=== PATIENT | male | born 1985 | race Caucasian/White ===

== ENCOUNTER → 2016-10-10 | Outpatient (CLI) | payer MEDICARE, MEDICAID | LOC: RAD 13:33 | PROVIDERS: ATTEND Family Medicine | DX: J69.0 Pneumonitis due to inhalation of food and vomit (principal) | CPT/HCPCS: 71020 ==

== ENCOUNTER 2016-12-14 01:45 | Emergency (ER) | payer MEDICARE, MEDICAID ==
[2016-12-14] MEDS ORDERED: LEVETIRACETAM 500 MG/NACL-ISO 100 ML IV ONE (02:46)
--- NOTE | 2016-12-14 02:49 | ER Document Report ---
ED General - General Chief Complaint: Probable Seizure Stated Complaint: POSSIBLE SEIZURE Time seen by provider: 02:40 Notes: Patient is a 31-year-old male that comes emergency department by EMS from his retirement with chief complaint of seizure that happened this evening, patient was reported to have his eyes open and be shaking all extremities, seizure lasted about 45 seconds, patient appeared to be "gurgling" afterwards, EMS found patient is seen to have an oxygen saturation of 74% on room air, he was immediately placed on oxygen and this improved significantly. Patient has a PMH of epilepsy, MR, cerebral palsy. His last seizure was about 3 days ago. He is on Tegretol. Patient has a feeding tube, takes nothing by mouth, has a past medical history of frequent aspiration pneumonias. TRAVEL OUTSIDE OF THE [place] IN LAST 30 DAYS: No - Related Data Allergies/Adverse Reactions: levofloxacin [From Levaquin] Allergy (Severe, Verified 10/09/15 10:56) amoxicillin [Amoxicillin] Allergy (Unknown, Verified 10/09/15 10:56) Cephalosporins Allergy (Unknown, Verified 10/09/15 10:56) fentanyl [Fentanyl] Allergy (Unknown, Verified 10/09/15 10:56) midazolam HCl [From Versed] Allergy (Unknown, Verified 10/09/15 10:56) Penicillins Allergy (Unknown, Verified 10/09/15 10:56) vancomycin [Vancomycin] Allergy (Verified 10/09/15 10:56) rash ciprofloxacin [From Cipro] Adverse Reaction (Verified 10/09/15 10:56) increase seizures scopolamine [Scopolamine] Adverse Reaction (Verified 10/09/15 10:56) Tachycardia Past Medical History - General Information source: Emergency Med Personnel - Social History Smoking Status: Never Smoker Frequency of alcohol use: None Drug Abuse: None Lives with: Senior [facility] Family History: Reviewed & Not Pertinent, Other - Past Medical History Cardiac Medical History: Reports: Hx Hypercholesterolemia Pulmonary Medical History: Reports: Hx Pneumonia - aspiration, Hx Intubation, Hx Respiratory Failure Denies: Hx Tuberculosis Neurological Medical History: Reports: Hx Seizures - Epilepsy Renal/ Medical History: Reports: Hx Kidney Stones GI Medical History: Reports: Hx Gastroesophageal Reflux Disease - Choleleithiasis Musculoskeltal Medical History: Reports Hx Musculoskeletal Deformity - CONTRACTED, WHEELCHAIR BOUND Psychiatric Medical History: Denies: Hx Depression Past Surgical History: Reports: Hx Abdominal Surgery - G/J tube, Hx Orthopedic Surgery, Hx Tonsillectomy, Other - PEG - Immunizations Immunizations up to date: Yes Hx Diphtheria, Pertussis, Tetanus Vaccination: Yes Hx Pneumococcal Vaccination: 10/04/15 Review of Systems - Review of Systems Constitutional: No symptoms reported EENT: No symptoms reported Cardiovascular: See HPI Respiratory: See HPI Gastrointestinal: No symptoms reported Genitourinary: No symptoms reported Male Genitourinary: No symptoms reported Musculoskeletal: No symptoms reported Skin: No symptoms reported Hematologic/Lymphatic: No symptoms reported Neurological/Psychological: See HPI Physical Exam - Vital signs Vitals: Temp Pulse Resp BP Pulse Ox 98.5 F 105 H 13 124/87 H 96 12/14/16 01:48 12/14/16 01:48 12/14/16 01:48 12/14/16 01:48 12/14/16 01:48 Interpretation: Normal - General General appearance: Appears well, Alert In distress: None - Patient makes good eye contact, follows me with his eyes, nonverbal - HEENT Head: Normocephalic, Atraumatic Eyes: Normal Pupils: PERRL - Respiratory Respiratory status: No respiratory distress. No: Tachypnea Breath sounds: Other - Bilateral rhonchi Chest palpation: Normal - Cardiovascular Rhythm: Regular. No: Tachycardia Heart sounds: Normal auscultation, S1 appreciated, S2 appreciated Murmur: No - Abdominal Inspection: Other - Gastric feeding tube in place Distension: No distension Bowel sounds: Normal Tenderness: Nontender. No: Tender Organomegaly: No organomegaly - Back Back: Normal, Nontender. No: Tender - Extremities General upper extremity: Normal inspection, Nontender, Normal color, Normal ROM , Normal temperature General lower extremity: Normal inspection, Nontender, Normal color, Normal ROM , Normal temperature, Normal weight bearing. No: Lawrence's sign - Neurological Paula Coma Scale Motor: Obeys Commands - Patient follows directions including sticking out his tongue and following my finger with his eyes Cranial nerves: No: Facial palsy, Tongue deviation Sensory: Normal - Psychological Associated symptoms: Normal affect, Normal mood - Skin Skin Temperature: Warm Skin Moisture: Dry Skin Color: Normal Course - Re-evaluation Re-evalutation: CBC, laboratory workup unremarkable. Patient not hypoxic on oxygen, I turned off the oxygen and patient trended down and then stated around 92-93%. Patient with a few rhonchi on examination. Does not appear to be in distress. Tegretol unremarkable, patient was initially given Keppra. Chest x-ray shows improved but present aspiration pneumonia, patient by report aspirated again tonight, concern for possible development of pneumonia or worsening of current pneumonia. Blood cultures pending. Patient given clindamycin. Patient had pulled out his IV, this was given on a reorder history his G-tube. Called Dr. Patricia, patient's provider who has admitted patient multiple times in the past, discussed history of present illness and workup in detail, recommends continued clindamycin, follow-up in the office closely, return for any fever or worsening symptoms. Discussed this with windows systems administrator at bedside, states understanding and agreement. - Vital Signs Vital signs: Temp Pulse Resp BP Pulse Ox 99.5 F 105 H 23 H 110/77 95 12/14/16 06:10 12/14/16 01:48 12/14/16 06:01 12/14/16 06:01 12/14/16 06:01 - Laboratory Result Diagrams: 12/14/16 02:19 12/14/16 02:19 Laboratory results interpreted by me: 12/14/16 12/14/16 02:19 02:19 RBC 3.89 L Hgb 13.0 L Hct 37.7 L Sodium 132.7 L Creatinine 0.44 L Discharge - Discharge Clinical Impression: Seizure, Aspiration pneumonia Condition: Stable Disposition: HOME, SELF-CARE Additional Instructions: Please give clindamycin as directed for aspiration pneumonia. Follow-up with Dr. Patricia in the office on Saturday. Return to emergency department for any concerning or worsening symptoms including fevers, difficulty breathing, etc. Prescriptions: Clindamycin HCl 600 mg PO TID #42 capsule Referrals: WILLIS PATRICIA MD [Primary Care Provider] - Follow up as needed
[2016-12-14 03:00] LABS: ABSOLUTE LYMPHOCYTES (AUTO) 1.1 10^3/uL (0.5-4.7); ABSOLUTE MONOCYTES (AUTO) 0.4 10^3/uL (0.1-1.4); ABSOLUTE NEUT (AUTO) 3.6 10^3/uL (1.7-8.2); BASOPHILS % (AUTO) 0.3 % (0-2); EOSINOPHILS % (AUTO) 0.6 % (0-6); HEMATOCRIT 37.7 % (37.9-51.0); HGB HCT DIFFERENCE 1.3; LYMPHOCYTES % (AUTO) 21.6 % (13-45); MEAN CORPUSCULAR HEMOGLOBIN 33.3 pg (27.0-33.4); MEAN CORPUSCULAR HGB CONC 34.4 g/dL (32.0-36.0); MEAN CORPUSCULAR VOLUME 97 fl (80-97); MONOCYTES % (AUTO) 7.1 % (3-13); RED BLOOD COUNT 3.89 10^6/uL (4.35-5.55); RED CELL DISTRIBUTION WIDTH 13.6 % (11.5-14.0); SEGMENTED NEUTROPHILS % (AUTO) 70.4 % (42-78); WHITE BLOOD COUNT 5.2 10^3/uL (4.0-10.5)
[2016-12-14 03:17] LABS: VENOUS BLOOD BASE EXCESS -2.1 mmol/L; VENOUS BLOOD PCO2 35.6 mmHg (35-63); VENOUS BLOOD PH 7.41 (7.30-7.42)
[2016-12-14 03:17] LABS: ALANINE AMINOTRANSFERASE 32 U/L (21-72); ALBUMIN 4.1 g/dL (3.5-5.0); ALKALINE PHOSPHATASE 120 U/L (38-126); ANION GAP 11 (5-19); ASPARTATE AMINO TRANSFERASE 27 U/L (17-59); BILIRUBIN,TOTAL 0.3 mg/dL (0.2-1.3); BLOOD UREA NITROGEN 11 mg/dL (7-20); CALCIUM 9.4 mg/dL (8.4-10.2); CARBON DIOXIDE 23 mmol/L (22-30); CHLORIDE 99 mmol/L (98-107); CREATININE RESULT 0.44 mg/dL (0.52-1.25); GLUCOSE 83 mg/dL (75-110); MAGNESIUM 1.9 mg/dL (1.6-2.3); POTASSIUM 4.8 mmol/L (3.6-5.0); SODIUM 132.7 mmol/L (137-145); TOTAL PROTEIN 7.7 g/dL (6.3-8.2)
[2016-12-14] MEDS ORDERED: CLINDAMYCIN 600 MG/D5W RTU 50 ML IV ONE (05:23)
[2016-12-14] MEDS ORDERED: CLINDAMYCIN HCL 150 MG CAPSULE PO ONE ×2 (05:48→06:05)
[2016-12-14 06:05] VITALS: BP 110/77
== END 2016-12-14 06:27 | disposition home or self-care (01) ==
LOC: ER 01:45
DX: G40.909 Epilepsy, unspecified, not intractable, without status epilepticus (principal); J69.0 Pneumonitis due to inhalation of food and vomit; G80.9 Cerebral palsy, unspecified; K21.9 Gastro-esophageal reflux disease without esophagitis; E78.00 Pure hypercholesterolemia, unspecified; Z88.0 Allergy status to penicillin; Z88.3 Allergy status to other anti-infective agents; Z87.442 Personal history of urinary calculi; Z93.1 Gastrostomy status; Z99.3 Dependence on wheelchair
CPT/HCPCS: 99284; 96374; 36415; 87040; 83735; 80156; 85025; 87077; 80053; 87186; 82803; 71020; A9270; J1953

== ENCOUNTER → 2016-12-20 | Outpatient (CLI) | payer MEDICARE, MEDICAID | LOC: OD 13:45 | PROVIDERS: ATTEND Family Medicine | DX: J18.8 Other pneumonia, unspecified organism (principal); K59.09 Other constipation | CPT/HCPCS: 71010; 74000 ==

== ENCOUNTER → 2017-01-04 | Outpatient (CLI) | payer MEDICARE, MEDICAID ==
[2017-01-04 12:55] LABS: ABSOLUTE LYMPHOCYTES (AUTO) 1.3 10^3/uL (0.5-4.7); ABSOLUTE NEUT (AUTO) 8.7 10^3/uL (1.7-8.2); BASOPHILS % (AUTO) 0.2 % (0-2); EOSINOPHILS % (AUTO) 0.3 % (0-6); HEMATOCRIT 35.4 % (37.9-51.0); HGB HCT DIFFERENCE 0.6; LYMPHOCYTES % (AUTO) 12.1 % (13-45); MEAN CORPUSCULAR HEMOGLOBIN 33.1 pg (27.0-33.4); MEAN CORPUSCULAR HGB CONC 33.8 g/dL (32.0-36.0); MEAN CORPUSCULAR VOLUME 98 fl (80-97); MONOCYTES % (AUTO) 9.1 % (3-13); RED BLOOD COUNT 3.62 10^6/uL (4.35-5.55); RED CELL DISTRIBUTION WIDTH 13.1 % (11.5-14.0); SEGMENTED NEUTROPHILS % (AUTO) 78.3 % (42-78); WHITE BLOOD COUNT 11.1 10^3/uL (4.0-10.5)
[2017-01-04 13:18] LABS: ANION GAP 16 (5-19); BLOOD UREA NITROGEN 9 mg/dL (7-20); CALCIUM 9.2 mg/dL (8.4-10.2); CARBON DIOXIDE 24 mmol/L (22-30); CHLORIDE 99 mmol/L (98-107); CREATININE RESULT 0.47 mg/dL (0.52-1.25); GLUCOSE 55 mg/dL (75-110); POTASSIUM 4.5 mmol/L (3.6-5.0); SODIUM 139.1 mmol/L (137-145)
== END ==
LOC: OD 11:37
PROVIDERS: ATTEND Family Medicine
DX: R50.9 Fever, unspecified (principal)
CPT/HCPCS: 36415; 71010; 80048; 85025

== ENCOUNTER 2017-03-26 10:49 | Inpatient (IN) | payer MEDICARE, MEDICAID ==
[2017-03-26] MEDS ORDERED: NORMAL SALINE 1000 ML 1,000 ML IV ONE (11:32)
[2017-03-26] MEDS ORDERED: ALBUTEROL SULFATE 0.083% NEB 2.5 MG/3 ML AMPUL NEB ONE ×2 (11:32→14:20)
[2017-03-26] MEDS ORDERED: LIDOCAINE 2% URO-JET 5 ML KIT MM ONE (11:49)
--- NOTE | 2017-03-26 12:00 | RADIOLOGY REPORT (SQ) ---
EXAM DESCRIPTION: CHEST SINGLE VIEW COMPLETED DATE/TIME: 03/26/2017 11:38 am REASON FOR STUDY: possible aspiration COMPARISON: 01/04/2017 EXAM PARAMETERS: NUMBER OF VIEWS: One view. TECHNIQUE: Single frontal radiographic view of the chest acquired. RADIATION DOSE: NA LIMITATIONS: Poor inspiration. FINDINGS: LUNGS AND PLEURA: Minimal atelectasis or scarring in the left base unchanged from the prio r study. Significant improvement in previous noted abnormal density in the right lung base with mild residual linear density probably atelectasis. Possibility of recurrent aspiration or pneumonia bg ot be excluded. Remainder lungs are clear. No effusions. MEDIASTINUM AND HILAR STRUCTURES: No masses. Contour normal. HEART AND VASCULAR STRUCTURES: Heart normal in size. Normal vasculature. BONES: No acute findings. HARDWARE: None in the chest. . OTHER: Marked gaseous distention of the colon in the upper abdomen IMPRESSION: 1. Significant improvement in the previous noted abnormal density in the right base wit h mild residual, likely atelectasis or scarring. Recurrent aspiration or pneumonia cannot be exclude d. 2. Marked gaseous distention of the colon in the upper abdomen. Abdomen films should be considered for further evaluation. TECHNICAL DOCUMENTATION: JOB ID: [id number]
[2017-03-26] MEDS ORDERED: CLINDAMYCIN 600 MG/D5W RTU 50 ML IV ONE (13:44)
[2017-03-26 13:55] LABS: VENOUS BLOOD BASE EXCESS 2.2 mmol/L; VENOUS BLOOD HCO3 28.2 mmol/L (20-32); VENOUS BLOOD PCO2 48.8 mmHg (35-63); VENOUS BLOOD PH 7.38 (7.30-7.42)
[2017-03-26 13:56] LABS: HEMATOCRIT 42.7 % (37.9-51.0); HGB HCT DIFFERENCE -0.7; MEAN CORPUSCULAR HEMOGLOBIN 31.9 pg (27.0-33.4); MEAN CORPUSCULAR HGB CONC 32.9 g/dL (32.0-36.0); MEAN CORPUSCULAR VOLUME 97 fl (80-97); RED CELL DISTRIBUTION WIDTH 14.7 % (11.5-14.0); WHITE BLOOD COUNT 20.5 10^3/uL (4.0-10.5)
[2017-03-26 14:05] LABS: PROTHROMBIN TIME 12.4 SEC (11.4-15.4)
[2017-03-26 14:17] LABS: ALANINE AMINOTRANSFERASE 45 U/L (21-72); ALBUMIN 5.2 g/dL (3.5-5.0); ALKALINE PHOSPHATASE 192 U/L (38-126); ANION GAP 19 (5-19); ASPARTATE AMINO TRANSFERASE 32 U/L (17-59); BILIRUBIN,DIRECT 0.5 mg/dL (0.0-0.4); BILIRUBIN,TOTAL 0.6 mg/dL (0.2-1.3); BLOOD UREA NITROGEN 13 mg/dL (7-20); CALCIUM 10.3 mg/dL (8.4-10.2); CARBON DIOXIDE 25 mmol/L (22-30); CHLORIDE 94 mmol/L (98-107); CREATININE RESULT 0.68 mg/dL (0.52-1.25); GLUCOSE 112 mg/dL (75-110); POTASSIUM 3.8 mmol/L (3.6-5.0); SODIUM 137.9 mmol/L (137-145); TOTAL PROTEIN 10.6 g/dL (6.3-8.2)
[2017-03-26 14:18] LABS: BAND NEUTROPHILS % (MANUAL) 5 % (3-5); BASOPHILS % (MANUAL) 0 % (0-2); EOSINOPHILS % (MANUAL) 0 % (0-6); LYMPHOCYTES % (MANUAL) 5 % (13-45); TOTAL CELLS COUNTED 100
[2017-03-26 14:20] LABS: ANISOCYTOSIS SLIGHT; TOXIC GRANULATION 1+
[2017-03-26 14:32] LABS: APPEARANCE,URINE SLIGHTLY-CLOUDY; BILIRUBIN,URINE NEGATIVE (NEGATIVE); GLUCOSE, URINE 50 mg/dL (NEGATIVE); KETONES,URINE NEGATIVE (NEGATIVE); LEUKOCYTE ESTERASE,URINE NEGATIVE (NEGATIVE); NITRITE,URINE NEGATIVE (NEGATIVE); PROTEIN,URINE 100 mg/dL (NEGATIVE); URINE SPECIFIC GRAVITY 1.025; UROBILINOGEN,URINE NEGATIVE mg/dL (<2.0)
--- NOTE | 2017-03-26 14:52 | RADIOLOGY REPORT (SQ) ---
EXAM DESCRIPTION: ABDOMEN 2 VIEWS COMPLETED DATE/TIME: 03/26/2017 2:33 pm REASON FOR STUDY: eval colon distension from cxr COMPARISON: Chest films 03/26/2017, 01/04/2017 KUB 12/20/2016 NUMBER OF VIEWS: Two views. TECHNIQUE: Supine and upright radiographic images of the abdomen acquired. LIMITATIONS: None. FINDINGS: FREE AIR: None. No abnormal gas collections. LUNG BASES: Right basilar atelectasis or pneumonia. BOWEL GAS PATTERN: Large amount of stool in the ascending colon. Massively distended transverse colo n. Gas and stool in the descending colon. Multiple dilated small bowel loops in the mid epigastrium . Abnormal but nonspecific bowel gas pattern. Gastrojejunostomy tube in place. CALCIFICATIONS: No suspicious calcifications. SOFT TISSUES: No gross mass or suggestion of organomegaly. HARDWARE: Gastrojejunostomy tube. BONES: Osteoporotic OTHER: No other significant finding. IMPRESSION: Nonspecific bowel gas pattern with market gaseous distention of the transverse colon, la rge amount of stool in the ascending colon, and few dilated small bowel loops in the mid epigastrium Findings were discussed withDr Alex TECHNICAL DOCUMENTATION: JOB ID: [id number] [employer]- All Rights Reserved
[2017-03-26] MEDS ORDERED: AZTREONAM INJ 1 GM VIAL IV ONE (14:57)
--- NOTE | 2017-03-26 15:02 | ER Document Report ---
ED General - General Chief Complaint: Breathing Difficulty Stated Complaint: DIFFICULTY PROBLEMS Time Seen by Provider: 03/26/17 11:13 TRAVEL OUTSIDE OF THE [place] IN LAST 30 DAYS: No - HPI Patient complains to provider of: Respiratory distress Notes: Patient coming over today for respiratory distress. Patient has a history of mental retardation cerebral palsy. Patient is nonverbal. According to the healthcare worker patient vomited today did not have some difficulty breathing. Patient does have extensive history of aspiration pneumonia. Patient is afebrile alert requiring 2 L oxygen at this time no signs of any distress - Related Data Allergies/Adverse Reactions: levofloxacin [From Levaquin] Allergy (Severe, Verified 10/09/15 10:56) amoxicillin [Amoxicillin] Allergy (Unknown, Verified 10/09/15 10:56) Cephalosporins Allergy (Unknown, Verified 10/09/15 10:56) fentanyl [Fentanyl] Allergy (Unknown, Verified 10/09/15 10:56) midazolam HCl [From Versed] Allergy (Unknown, Verified 10/09/15 10:56) Penicillins Allergy (Unknown, Verified 10/09/15 10:56) vancomycin [Vancomycin] Allergy (Verified 10/09/15 10:56) rash ciprofloxacin [From Cipro] Adverse Reaction (Verified 10/09/15 10:56) increase seizures scopolamine [Scopolamine] Adverse Reaction (Verified 10/09/15 10:56) Tachycardia Past Medical History - Social History Smoking Status: Never Smoker Chew tobacco use (# tins/day): No Frequency of alcohol use: None Drug Abuse: None Family History: Reviewed & Not Pertinent, Other - Past Medical History Cardiac Medical History: Reports: Hx Hypercholesterolemia Pulmonary Medical History: Reports: Hx Pneumonia - aspiration, Hx Intubation, Hx Respiratory Failure Denies: Hx Tuberculosis Neurological Medical History: Reports: Hx Seizures - Epilepsy Renal/ Medical History: Reports: Hx Kidney Stones GI Medical History: Reports: Hx Gastroesophageal Reflux Disease - Choleleithiasis Musculoskeltal Medical History: Reports Hx Musculoskeletal Deformity - CONTRACTED, WHEELCHAIR BOUND Psychiatric Medical History: Denies: Hx Depression Past Surgical History: Reports: Hx Abdominal Surgery - J tube, Hx Orthopedic Surgery, Hx Tonsillectomy, Other - PEG - Immunizations Immunizations up to date: Yes Hx Diphtheria, Pertussis, Tetanus Vaccination: Yes Hx Pneumococcal Vaccination: 10/04/15 Review of Systems - Review of Systems -: Yes ROS unobtainable due to patient's medical condition - Verbal mental retardation. Physical Exam - Vital signs Vitals: Temp Resp 98.0 F 27 H 03/26/17 11:15 03/26/17 11:15 Interpretation: Tachycardic, Hypoxic - General General appearance: Appears well, Alert - HEENT Head: Normocephalic, Atraumatic Eyes: Normal Pupils: PERRL - Respiratory Respiratory status: No respiratory distress Chest status: Nontender Breath sounds: Rhonchi Chest palpation: Normal - Cardiovascular Rhythm: Tachycardia Heart sounds: Normal auscultation Murmur: No - Abdominal Inspection: Normal Distension: No distension Bowel sounds: Normal Tenderness: Nontender Organomegaly: No organomegaly Notes: J-tube no signs of infection - Back Back: Normal, Nontender - Extremities General upper extremity: Normal inspection, Nontender, Normal color, Normal ROM , Normal temperature General lower extremity: Normal inspection, Nontender, Normal color, Normal ROM , Normal temperature, Normal weight bearing. No: Lawrence's sign - Neurological Neuro grossly intact: Yes Cognition: Normal - Skin Skin Temperature: Warm Skin Moisture: Dry Skin Color: Normal Course - Re-evaluation Re-evalutation: 03/26/17 16:54 Patient's initial chest x-ray showed improvement from previous aspiration although patient clinically seems to have aspiration pneumonia. Patient also had dilated colon therefore abdominal x-ray was also performed showing dilated colon and severe amount of stool retention. I did discuss with admitting physician Dr. Cantor who agrees with CT of the abdomen and CTA of the chest. Patient case was also discussed with pulmonology Dr. Almanzar and surgery Dr. Sheikh. Patient continued to increase his oxygen requirement if was placed on BiPAP however 30 minutes continue to increase his oxygen requirement therefore the decision was made to intubate the patient. Patient was intubated without difficulty central line was placed during the central line placement patient did have an episode of vomiting. Patient will be placed in ICU. Aztreonam and clindamycin were given to the patient for antibiotic coverage. - Vital Signs Vital signs: Temp Pulse Resp BP Pulse Ox 99.4 F 27 H 115/90 H 91 L 03/26/17 14:13 03/26/17 12:00 03/26/17 11:16 03/26/17 12:00 - Laboratory Result Diagrams: 03/26/17 13:39 03/26/17 13:39 Laboratory results interpreted by me: 03/26/17 03/26/17 03/26/17 13:39 13:39 14:00 WBC 20.5 H RDW 14.7 H Seg Neuts % (Manual) 84 H Lymphocytes % (Manual) 5 L Abs Neuts (Manual) 18.2 H Chloride 94 L Glucose 112 H Calcium 10.3 H Direct Bilirubin 0.5 H Alkaline Phosphatase 192 H Total Protein 10.6 H Albumin 5.2 H Urine Protein 100 H Urine Glucose (UA) 50 H Urine Ascorbic Acid 40 H Procedures - Central Line Right Internal jugular Consent obtained: Yes - Verbal Central line pre-insertion: Sterile PPE donned, Chloraprep applied Central line lumen type: Triple Anesthetic type: 1% Lidocaine Ultrasound guided: Yes CM at insertion site: 20 Line secured with sutures: Yes Central line post-insertion: Blood return from lumens, Biopatch applied, Sutured , Sterile dressing applied, Position confirmed w/ CXR Number of attempts: 1 Complications: Yes - Vomiting during central line placement. Patient was already intubated - Intubation Orotracheal Airway evaluation: Normal anatomy Mallampati Classification: Class 2 Medications: Etomidate, Succinylcholine Intubation method: Orotracheal Blade size: 4 Equipment used: Glidescope ETT size: 7.5 ETT secured at: Teeth ETT secured at (cm): 21 Breath Sounds after Intubation: Equal End tidal CO2 confirmed: No Ventilator settings: SIMV Tidal volume: 500 FiO2: 50 Respirations: 20 PEEP: 5 Post Intubation Xray: Yes Intubation Complications: No complications Critical Care Note - Critical Care Note Total time excluding time spent on procedures (mins): 90 Comments: Evaluation for respiratory failure. Time excludes procedures performed Discharge - Discharge Clinical Impression: Colon distention Respiratory failure with hypoxia Qualifiers: Chronicity: acute Qualified Code(s): J96.01 - Acute respiratory failure with hypoxia Cerebral palsy Qualifiers: Cerebral palsy type: unspecified type Qualified Code(s): G80.9 - Cerebral palsy , unspecified Condition: Fair Disposition: ADMITTED INPATIENT Admitting Provider: [facility] Unit Admitted: ICU
[2017-03-26] MEDS ORDERED: SUCCINYLCHOLINE CHLORIDE INJ 200 MG/10 ML VIAL IV ONE (15:33)
[2017-03-26] MEDS ORDERED: ETOMIDATE INJ/PF 20 MG/10 ML SDV IV ONE ×2 (15:33→15:37)
[2017-03-26] MEDS ORDERED: PROPOFOL 100 ML IV PRN (15:33)
[2017-03-26] MEDS ORDERED: VECURONIUM BROMIDE INJ 10 MG VIAL IV ONE ×2 (16:42)
--- NOTE | 2017-03-26 16:43 | PDOC H&P ---
History of Present Illness Admission Date/PCP: WILLIS PATRICIA MD Patient complains of: sob/respiratory distress History of Present Illness: MERCY WORLEY is a 31 year old male This is 31 y/o patient at [facility] with h/o mr/cpand multiple hospital admission for aspiration pneumonia came er with respiratory distress and found sepsis and possible aspiration pneumonia and colonic distention and intubated and order cat scan according to caregiver pt was ok this am and start nausea and vomiting and possible aspiration and start hypoxia and respiratory distress in er pt wbc is 20 and other lab are stable Past Medical History Cardiac Medical History: Reports: Hyperlipidema Pulmonary Medical History: Reports: Intubation, Pneumonia - aspiration, Respiratory Failure Denies: Tuberculosis Neurological Medical History: Reports: Seizures - Epilepsy Neurological History Note: mental retrdation GI Medical History: Reports: Gastroesophageal Reflux Disease - Choleleithiasis Psychiatric Medical History: Denies: Depression Past Surgical History Past Surgical History: Reports: Orthopedic Surgery, Tonsillectomy, Other - PEG Social History Information Source: Legal Guardian Smoking Status: Never Smoker Frequency of Alcohol Use: None Hx Recreational Drug Use: No Drugs: None Hx Prescription Drug Abuse: No Family History Family History: Reviewed & Not Pertinent, Other Parental Family History Reviewed: Yes Children Family History Reviewed: Yes Sibling(s) Family History Reviewed.: Yes Medication/Allergy Home Medications: Carbamazepine [Tegretol Susp 200 mg/10 ml Udcup] 400 mg PEG Q8H 08/24/16 Cetirizine HCl [Zyrtec 10 mg Tablet] 1 tab PEG DAILY 08/24/16 Cholecalciferol (Vitamin D3) [Vitamin D3] 2 tab PEG DAILY 08/24/16 Diazepam [Diastat Acudial 10 mg/2 ml Rectal Gel] 10 mg ID Q6H PRN 08/24/16 Esomeprazole Magnesium [Nexium] 1 pkt PEG DAILY 08/24/16 Ibuprofen [Child Ibuprofen] 800 mg PEG Q6H PRN 08/24/16 Ipratropium/Albuterol Sulfate [Duoneb 3 ml Ampul] 1 unit IH BID 08/24/16 Lactose-Free Food/Fiber [Jevity 1.5 Hector Liquid] 1 bottle PEG BID 08/24/16 Olopatadine HCl [Pataday] 1 drop BTH_EYE DAILY PRN 08/24/16 Polyethylene Glycol 3350 [Miralax] 15 ml PEG PRN PRN 08/24/16 Topiramate [Topamax 100 mg Tablet] 1 tab PEG QHS 08/24/16 Zonisamide [Zonegran] 500 mg PEG QHS 08/24/16 Sulfamethoxazole/Trimethoprim [Bactrim Ds Tablet] 1 each PO BID #20 tablet 09/18 Tobramycin Sulfate [Tobramycin Neb 40 mg/ml 30 ml Vial] 300 mg NEB RTQ12 #14 ml 09/18/16 Clindamycin HCl 600 mg PO TID #42 capsule 12/14/16 Allergies/Adverse Reactions: levofloxacin [From Levaquin] Allergy (Severe, Verified 10/09/15 10:56) amoxicillin [Amoxicillin] Allergy (Unknown, Verified 10/09/15 10:56) Cephalosporins Allergy (Unknown, Verified 10/09/15 10:56) fentanyl [Fentanyl] Allergy (Unknown, Verified 10/09/15 10:56) midazolam HCl [From Versed] Allergy (Unknown, Verified 10/09/15 10:56) Penicillins Allergy (Unknown, Verified 10/09/15 10:56) vancomycin [Vancomycin] Allergy (Verified 10/09/15 10:56) rash ciprofloxacin [From Cipro] Adverse Reaction (Verified 10/09/15 10:56) increase seizures scopolamine [Scopolamine] Adverse Reaction (Verified 10/09/15 10:56) Tachycardia Review of Systems ROS unobtainable: Due to endotracheal tube Physical Exam Vital Signs: Temp Pulse Resp BP Pulse Ox 99.4 F 27 H 115/90 H 91 L 03/26/17 14:13 03/26/17 12:00 03/26/17 11:16 03/26/17 12:00 Intake & Output 03/25/17 03/26/17 03/27/17 06:59 06:59 06:59 Output Total 220 Balance -220 Physical Exam: curr intubated and underseation Head exam: PRESENT: normocephalic Eye exam: PRESENT: PERRLA Neck exam: ABSENT: JVD Respiratory exam: PRESENT: decreased breath sounds Cardiovascular exam: PRESENT: +S1, +S2, tachycardia GI/Abdominal exam: PRESENT: normal bowel sounds, soft Extremities exam: ABSENT: pedal edema Neurological exam: PRESENT: other Additional comments: intubated and under sedation Skin exam: PRESENT: dry Results Laboratory Results: 03/26/17 13:39 03/26/17 13:39 03/26/17 03/26/17 03/26/17 13:39 13:39 13:39 WBC 20.5 H RBC 4.40 Hgb 14.0 Hct 42.7 MCV 97 MCH 31.9 MCHC 32.9 RDW 14.7 H Plt Count 397 Seg Neutrophils % Not Reportable Lymphocytes % Not Reportable Monocytes % Not Reportable Eosinophils % Not Reportable Basophils % Not Reportable Absolute Neutrophils Not Reportable Absolute Lymphocytes Not Reportable Absolute Monocytes Not Reportable Absolute Eosinophils Not Reportable Absolute Basophils Not Reportable VBG pH VBG pCO2 VBG HCO3 VBG Base Excess Sodium 137.9 Potassium 3.8 Chloride 94 L Carbon Dioxide 25 Anion Gap 19 BUN 13 Creatinine 0.68 Est GFR ( Amer) > 60 Est GFR (Non-Af Amer) > 60 Glucose 112 H Lactic Acid 2.0 Calcium 10.3 H Total Bilirubin 0.6 AST 32 ALT 45 Alkaline Phosphatase 192 H Total Protein 10.6 H Albumin 5.2 H Urine Color Urine Appearance Urine pH Ur Specific Sheridan Urine Protein Urine Glucose (UA) Urine Ketones Urine Blood Urine Nitrite Ur Leukocyte Esterase Urine WBC (Auto) Urine RBC (Auto) 03/26/17 03/26/17 13:39 14:00 WBC RBC Hgb Hct MCV MCH MCHC RDW Plt Count Seg Neutrophils % Lymphocytes % Monocytes % Eosinophils % Basophils % Absolute Neutrophils Absolute Lymphocytes Absolute Monocytes Absolute Eosinophils Absolute Basophils VBG pH 7.38 VBG pCO2 48.8 VBG HCO3 28.2 VBG Base Excess 2.2 Sodium Potassium Chloride Carbon Dioxide Anion Gap BUN Creatinine Est GFR ( Amer) Est GFR (Non-Af Amer) Glucose Lactic Acid Calcium Total Bilirubin AST ALT Alkaline Phosphatase Total Protein Albumin Urine Color YELLOW Urine Appearance SLIGHTLY-CLOUDY Urine pH 7.0 Ur Specific Sheridan 1.025 Urine Protein 100 H Urine Glucose (UA) 50 H Urine Ketones NEGATIVE Urine Blood NEGATIVE Urine Nitrite NEGATIVE Ur Leukocyte Esterase NEGATIVE Urine WBC (Auto) 1 Urine RBC (Auto) 6 Impressions: Chest X-Ray 03/26/17 11:20 IMPRESSION: 1. Significant improvement in the previous noted abnormal density in the right base with mild residual, likely atelectasis or scarring. Recurrent aspiration or pneumonia cannot be excluded. 2. Marked gaseous distention of the colon in the upper abdomen. Abdomen films should be considered for further evaluation. Abdomen X-Ray 03/26/17 12:43 IMPRESSION: Nonspecific bowel gas pattern with market gaseous distention of the transverse colon, large amount of stool in the ascending colon, and few dilated small bowel loops in the mid epigastrium Findings were discussed withDr Alex Assessment & Plan - Diagnosis (1) Acute respiratory failure Qualifiers: Respiratory failure complication: hypoxia Qualified Code(s): J96.01 - Acute respiratory failure with hypoxia Is this a current diagnosis for this admission?: YesPlan: admit pt in icu consult pulmonary (2) Aspiration pneumonia Qualifiers: Aspiration pneumonia type: unspecified Laterality: right Lung location: lower lobe of lung Qualified Code(s): J69.0 - Pneumonitis due to inhalation of food and vomit Is this a current diagnosis for this admission?: YesPlan: start broad septum antibiotics (3) Colon distention Is this a current diagnosis for this admission?: YesPlan: order ct abd /pelvis consult surgery (4) Cerebral palsy Qualifiers: Cerebral palsy type: unspecified type Qualified Code(s): G80.9 - Cerebral palsy, unspecified Is this a current diagnosis for this admission?: Yes (5) Mental retardation Is this a current diagnosis for this admission?: Yes (6) Seizures Qualifiers: Convulsion type: unspecified Qualified Code(s): R56.9 - Unspecified convulsions Is this a current diagnosis for this admission?: YesPlan: cont curr medication (7) Sinus tachycardia Is this a current diagnosis for this admission?: YesPlan: chronic iv fluid - Time Time Spent: 50 to 70 Minutes Critical Time spent with patient: 35 or more minutes Medications reviewed and adjusted accordingly: Yes Anticipated discharge: Other Within: Other - Inpatient Certification Medical Necessity: Significant Comorbidiites Make Outpatient Treatment Too Risky , Need Close Monitoring Due to Risk of Patient Decompensation, Need For IV Fluids, Need for IV Antibiotics Post Hospital Care: D/C Haz Tech Documentation - Plan Summary Plan Summary: admit in icu d/w caregiver at long term and d/w mother about pt condition and critical
--- NOTE | 2017-03-26 17:25 | RADIOLOGY REPORT (SQ) ---
EXAM DESCRIPTION: CHEST SINGLE VIEW COMPLETED DATE/TIME: 03/26/2017 5:14 pm REASON FOR STUDY: post intabation COMPARISON: Earlier the same day. EXAM PARAMETERS: NUMBER OF VIEWS: One view. TECHNIQUE: Single frontal radiographic view of the chest acquired. RADIATION DOSE: NA LIMITATIONS: None. FINDINGS: LUNGS AND PLEURA: There is persistent right perihilar and basilar airspace disease. Endot kobe tube, NG tube and central line have been added. Central line lies low in the right atrium. NG tube overlies the stomach. Endotracheal tube lies 3.4 cm above the williams. MEDIASTINUM AND HILAR STRUCTURES: No masses. Contour normal. HEART AND VASCULAR STRUCTURES: Heart normal in size. Normal vasculature. BONES: No acute findings. HARDWARE: None in the chest. OTHER: No other significant finding. IMPRESSION: Interval placement of support lines and tubes as described. TECHNICAL DOCUMENTATION: JOB ID: [id number]
--- NOTE | 2017-03-26 17:38 | PDOC CONSULTATION ---
Consultation Consult Date: 03/26/17 Attending physician:: WILLIS PATRICIA Consult reason:: aspiration pna History of Present Illness Admission Date/PCP: 03/26/17 15:57 WILLIS PATRICIA MD History of Present Illness: MERCY WORLEY is a 31 year old male This is 31 y/o patient at [facility] long term with h/o mr/cpand multiple hospital admission for aspiration pneumonia came er with respiratory distress and found sepsis and possible aspiration pneumonia and colonic distention and intubated and order cat scan according to caregiver pt was ok this am and start nausea and vomiting and possible aspiration and start hypoxia and respiratory distress in er pt wbc is 20 and other lab are stable Past Medical History Cardiac Medical History: Reports: Hyperlipidema Pulmonary Medical History: Reports: Intubation, Pneumonia - aspiration, Respiratory Failure Denies: Tuberculosis Neurological Medical History: Reports: Seizures - Epilepsy GI Medical History: Reports: Gastroesophageal Reflux Disease - Choleleithiasis Psychiatric Medical History: Denies: Depression Past Surgical History Past Surgical History: Reports: Orthopedic Surgery, Tonsillectomy, Other - PEG Social History Information Source: [facility] Records Lives with: Snf Smoking Status: Never Smoker Frequency of Alcohol Use: None Hx Recreational Drug Use: No Drugs: None Hx Prescription Drug Abuse: No Do you have pets?: No Family History Family History: Reviewed & Not Pertinent, Other Parental Family History Reviewed: No Children Family History Reviewed: No Sibling(s) Family History Reviewed.: No Medication/Allergy Home Medications: Carbamazepine [Tegretol Susp 200 mg/10 ml Udcup] 400 mg PEG Q8 03/26/17 Cetirizine HCl [Cetirizine HCl 5 mg/5 mL] 10 mg PEG DAILY 03/26/17 Cholecalciferol (Vitamin D3) [Vitamin D3 2000 unit Tablet] 2,000 unit PEG DAILY 03/26/17 Diazepam [Diastat Acudial 10 Mg/2 Ml Rectal Gel] 10 mg NM Q6HP PRN 03/26/17 Esomeprazole Magnesium [Nexium] 20 mg PEG DAILY 03/26/17 Ibuprofen [Motrin 20 Mg/1 Ml Susp 120 Ml Bottle] 800 mg PO Q6HP PRN 03/26/17 Ipratropium/Albuterol Sulfate [Duoneb 3 ml Ampul] 3 ml NEB RTQ8 03/26/17 Lactulose [Cephulac 20 gm/30 ml Syrup UD Cup] 10 gm PO PRN PRN 03/26/17 Naphazoline HCl/Pheniramine [Opcon-A Eye Drops] 2 drop OP QIDP PRN 03/26/17 Olopatadine HCl [Pataday] 1 drop OU DAILYP PRN 03/26/17 Perampanel [Fycompa] 8 mg PO DAILY 03/26/17 Polyethylene Glycol 3350 [Miralax Powder 17 gm/Packet] 1 packet PEG DAILY Sodium Chloride/Aloe Vera [[place] Saline Nasal Gel] 1 applic TP BID 03/26/17 Zonisamide [Zonegran 100 Mg Capsule] 500 mg PEG QHS 03/26/17 Allergies/Adverse Reactions: levofloxacin [From Levaquin] Allergy (Severe, Verified 10/09/15 10:56) amoxicillin [Amoxicillin] Allergy (Unknown, Verified 10/09/15 10:56) Cephalosporins Allergy (Unknown, Verified 10/09/15 10:56) fentanyl [Fentanyl] Allergy (Unknown, Verified 10/09/15 10:56) midazolam HCl [From Versed] Allergy (Unknown, Verified 10/09/15 10:56) Penicillins Allergy (Unknown, Verified 10/09/15 10:56) vancomycin [Vancomycin] Allergy (Verified 10/09/15 10:56) rash ciprofloxacin [From Cipro] Adverse Reaction (Verified 10/09/15 10:56) increase seizures scopolamine [Scopolamine] Adverse Reaction (Verified 10/09/15 10:56) Tachycardia Review of Systems ROS unobtainable: Due to endotracheal tube, Due to mental status Physical Exam Vital Signs: Temp Pulse Resp BP Pulse Ox 99.4 F 27 H 115/90 H 91 L 03/26/17 14:13 03/26/17 12:00 03/26/17 11:16 03/26/17 12:00 General appearance: PRESENT: no acute distress, disheveled Head exam: PRESENT: atraumatic, normocephalic Eye exam: PRESENT: conjunctiva pale Mouth exam: PRESENT: dry mucosa, neck supple Neck exam: ABSENT: carotid bruit, JVD, lymphadenopathy, thyromegaly Respiratory exam: PRESENT: decreased breath sounds, prolonged expiratory phas, rales, rhonchi, symmetrical, unlabored Cardiovascular exam: PRESENT: RRR, +S1, +S2 Pulses: PRESENT: normal radial pulses GI/Abdominal exam: PRESENT: normal bowel sounds, soft. ABSENT: distended, guarding, mass, organolmegaly, rebound, tenderness Rectal exam: PRESENT: deferred Gentrourinary exam: PRESENT: indwelling catheter Skin exam: PRESENT: dry Results Impressions: Chest X-Ray 03/26/17 11:20 IMPRESSION: 1. Significant improvement in the previous noted abnormal density in the right base with mild residual, likely atelectasis or scarring. Recurrent aspiration or pneumonia cannot be excluded. 2. Marked gaseous distention of the colon in the upper abdomen. Abdomen films should be considered for further evaluation. Abdomen X-Ray 03/26/17 12:43 IMPRESSION: Nonspecific bowel gas pattern with market gaseous distention of the transverse colon, large amount of stool in the ascending colon, and few dilated small bowel loops in the mid epigastrium Findings were discussed withDr Nicholsry Assessment & Plan - Diagnosis (1) Acute respiratory failure Qualifiers: Respiratory failure complication: hypoxia Qualified Code(s): J96.01 - Acute respiratory failure with hypoxia Is this a current diagnosis for this admission?: Yes (2) Aspiration pneumonia Qualifiers: Aspiration pneumonia type: unspecified Laterality: right Lung location: lower lobe of lung Qualified Code(s): J69.0 - Pneumonitis due to inhalation of food and vomit Is this a current diagnosis for this admission?: Yes (3) Cerebral palsy Qualifiers: Cerebral palsy type: unspecified type Qualified Code(s): G80.9 - Cerebral palsy, unspecified Is this a current diagnosis for this admission?: Yes (4) Mental retardation Is this a current diagnosis for this admission?: Yes - Time Critical Time spent with patient: 35 or more minutes
--- NOTE | 2017-03-26 18:34 | RADIOLOGY REPORT (SQ) ---
EXAM DESCRIPTION: CTA CHEST COMPLETED DATE/TIME: 03/26/2017 6:21 pm REASON FOR STUDY: r/o pe COMPARISON: CT chest dated 09/12/2016 TECHNIQUE: CT scan of the chest performed using helical scanning technique with dynamic intravenous contrast injection. Images reviewed with lung, soft tissue and bone windows. Reconstructed coronal and sagittal MPR images reviewed. Additional 3 dimensional post-processing performed to develop Maximal Intensity Projection images (TX P). All images stored on PACS. All CT scanners at this facility use dose modulation, iterative reconstruction, and/or weight based d osing when appropriate to reduce radiation dose to as low as reasonably achievable (ALARA). [facility]: Dose Right [facility]: CareDose [facility]: Dose Right [facility]: Teradose 4D [facility]: Project Repat CONTRAST TYPE AND DOSE: contrast/concentration: Isovue 370.00 mg/ml; Total Contrast Delivered: 76.0 ml; Total Saline Delivered: 100.0 ml RENAL FUNCTION: BUN 13, creatinine 0.68 RADIATION DOSE: . LIMITATIONS: None. FINDINGS: LUNGS AND PLEURA: There is bibasilar consolidation either atelectasis or pneumonia in both lower lobes. There is a small left effusion. There are scattered areas of atelectasis in the right upper lobe. AORTA AND GREAT VESSELS: No aneurysm or dissection. HEART: No pericardial effusion. PULMONARY ARTERIES: No emboli visualized in the main pulmonary arteries or the segmental branches. HILAR AND MEDIASTINAL STRUCTURES: There is right hilar as well as mild mediastinal adenopathy. HARDWARE: Endotracheal tube and NG tube are in place. Central line is noted as well. UPPER ABDOMEN: No significant findings. Limited exam. THYROID AND OTHER SOFT TISSUES: No masses. No adenopathy. BONES: No acute or significant finding. 3D MIPS: Confirm above findings. OTHER: No other significant finding. IMPRESSION: 1. No pulmonary emboli. 2. Bilateral lower lobe collapse and/or consolidation. There is a small left effusion as well. Mil d right hilar as well as mediastinal adenopathy is present. This is most likely reactive. TECHNICAL DOCUMENTATION: JOB ID: [id number] Quality ID # [id number]: Final reports with documentation of one or more dose reduction techniques (e.g., Au tomated exposure control, adjustment of the mA and/or kV according to patient size, use of iterative reconstruction technique) 2010 [employer]- All Rights Reserved
--- NOTE | 2017-03-26 18:47 | RADIOLOGY REPORT (SQ) ---
EXAM DESCRIPTION: CT ABD/PELVIS WITH IV ORAL COMPLETED DATE/TIME: 03/26/2017 6:21 pm REASON FOR STUDY: r/o sbo oral contrast thru j tube COMPARISON: None. TECHNIQUE: CT scan of the abdomen and pelvis performed using helical scanning technique with dynamic intravenous contrast injection. No oral contrast. Images reviewed with lung, soft tissue, and bone windows. Reconstructed coronal and sagittal MPR images reviewed. Delayed images for evaluation of the urinary system also acquired. All images stored on PACS. All CT scanners at this facility use dose modulation, iterative reconstruction, and/or weight based d osing when appropriate to reduce radiation dose to as low as reasonably achievable (ALARA). [facility]: Dose Right [facility]: CareDose [facility]: Dose Right [facility]: Teradose 4D [facility]: Anulex CONTRAST TYPE AND DOSE: 100 mL Isovue 370 RENAL FUNCTION: BUN 13, creatinine 0.68 RADIATION DOSE: Up-to-date CT equipment and radiation dose reduction techniques were employed. CTDIv ol: 13.2 - 15.5 mGy. DLP: 2304 mGy-cm.. LIMITATIONS: None. FINDINGS: LOWER CHEST: There is bilateral lower lobe consolidation or atelectasis. There is a small left effusion. LIVER: There is a small amount of perihepatic fluid. No focal hepatic lesions. SPLEEN: Normal size. No focal lesions. PANCREAS: No masses. No significant calcifications. No adjacent inflammation or peripancreatic fluid collections. Pancreatic duct not dilated. GALLBLADDER: No identified stones by CT criteria. No inflammatory changes to suggest cholecystitis. ADRENAL GLANDS: No significant masses or asymmetry. RIGHT KIDNEY AND URETER: No solid masses. No significant calcifications. No hydronephrosis or hyd roureter. There is normal enhancement and excretion. LEFT KIDNEY AND URETER: No solid masses. No significant calcifications. There is normal enhanceme nt. No excretion is demonstrated even on delayed images. There is no evidence of obstruction howeve r. No hydronephrosis. AORTA AND VESSELS: No aneurysm. No dissection. Renal arteries, SMA, celiac without stenosis. RETROPERITONEUM: No retroperitoneal adenopathy, hemorrhage or masses. BOWEL AND PERITONEAL CAVITY: There is a distended transverse colon containing air-fluid levels. Larg est diameter is approximately 10 cm. The remainder of the colon is largely decompressed. The patien t has an indwelling J jejunostomy. There are mildly dilated loops of small bowel with small bowel wa ll thickening present in the left mid abdomen. APPENDIX: Not visualized. PELVIS: There is free fluid in the pelvis. The bladder is decompressed by Coreas catheter. ABDOMINAL WALL: There are small bilateral inguinal hernias containing fluid only. BONES: No significant or acute findings. OTHER: No other significant finding. IMPRESSION: 1. There is air and stool in the ascending colon. There is a markedly distended transve rse colon and decompressed descending colon. Focal obstructing mass or extrinsic compression of the colon is not identified. There is no CT evidence of volvulus. 2. No significant small-bowel dilatation. There are thickened loops of small bowel in the left mid abdomen. Etiology of this is uncertain but infectious or inflammatory process cannot be excluded. T he patient has an indwelling jejunostomy tube. 3. Free fluid in the pelvis etiology of this is uncertain. 4. Bibasilar consolidation consistent with pneumonia or lung collapse. TECHNICAL DOCUMENTATION: JOB ID: [id number] Quality ID # [id number]: Final reports with documentation of one or more dose reduction techniques (e.g., Au tomated exposure control, adjustment of the mA and/or kV according to patient size, use of iterative reconstruction technique) 2010 [employer]- All Rights Reserved
[2017-03-26 18:55] LABS: ARTERIAL BLOOD BASE EXCESS -3.4 mmol/L; ARTERIAL BLOOD O2 SATURATION 94.5 % (94-98)
[2017-03-26] MEDS: PROPOFOL 100 ML IV PRN ×2 (19:02→21:55)
--- NOTE | 2017-03-26 19:23 | CONSULTATION REPORT E ---
Consultation Report NAME: MERCY WORLEY : 1985 AGE: 31Y DATE: 03/26/2017 601 A TO: MASSIMO BARRY M.D. FROM: WILLIS PATRICIA M.D. Requesting Physician REASON FOR CONSULTATION: Patient noted to have dilated transverse colon and stool in the right upper quadrant on abdominal x-rays. HISTORY OF PRESENT ILLNESS: This is a 31-year-old male with known history of MRCP with multiple hospital admissions for aspiration pneumonia. The patient was noted to be vomiting yesterday and again this morning with shortness of breath and therefore brought to the emergency room. In the ER x-ray of the chest revealed possible aspiration and noted dilatation of the transverse colon which led to an abdominal x-ray, which showed stool in the ascending colon and the dilated transverse colon. PHYSICAL EXAMINATION: GENERAL: The patient has a gastrojejunal tube in place. The patient was eventually intubated, and unfortunately I was unable to examine well his abdomen since he is sedated. ABDOMEN: The abdomen feels to be mildly distended and quite soft but difficult to determine whether there is any tenderness. No areas of hernia formation in both groins. RECTAL: A rectal exam was done which showed no fecal impaction palpable. DIAGNOSTIC DATA: The patient eventually had a CT scan of the abdomen. Unfortunately it was limited to upper abdomen which just showed a somewhat dilated colon but otherwise unremarkable. His white count is noted to be 20,500. IMPRESSION: Most likely ileus due to constipation. No evidence of surgical abdomen at this time. I will follow the patient in the ICU with you. DICTATING PHYSICIAN: MASSIMO BARRY M.D. [id number] PHY#: [id number] ID: [id number] JOB#: [id number] ACCT: [id number] cc:MASSIMO BARRY M.D. >
[2017-03-26] MEDS ORDERED: SUCCINYLCHOLINE CHLORIDE INJ 200 MG/10 ML VIAL ONE (19:52)
[2017-03-26] MEDS: NORMAL SALINE 1000 ML 1,000 ML IV PRN (20:11)
[2017-03-26] MEDS ORDERED: NAPHAZOLINE HCL OP PRN (20:19)
[2017-03-26] MEDS ORDERED: DIAZEPAM 10 MG/2 ML RECTAL GEL KIT PR PRN (20:19)
[2017-03-26] MEDS ORDERED: PHENIRAMINE OP PRN (20:19)
[2017-03-26] MEDS: LEVALBUTEROL HCL NEB 1.25 MG/3 ML AMPUL NEB SCH ×3 (20:36→23:33)
[2017-03-26] MEDS: ACETAMINOPHEN 650 MG SUPP.RECT PR PRN (20:53)
[2017-03-26] MEDS ORDERED: ENOXAPARIN SODIUM INJ 40 MG/0.4 ML DISP.SYRIN SUBCUT ONE (21:00)
[2017-03-26] MEDS: FAMOTIDINE INJ/PF 20 MG/2 ML SDV IV SCH (21:51)
[2017-03-26] MEDS: CARBAMAZEPINE SUSP 200 MG/10 ML UDCUP PEG SCH (21:51)
[2017-03-26] MEDS: CLINDAMYCIN 600 MG/D5W RTU 50 ML IV SCH (21:52)
[2017-03-26] MEDS: ZONISAMIDE 100 MG CAPSULE PEG SCH (21:52)
[2017-03-26] MEDS: AZTREONAM 1 GM in DEXTROSE 5%-WATER 50 ML IV SCH (21:56)
[2017-03-27] MEDS: LEVALBUTEROL HCL NEB 1.25 MG/3 ML AMPUL NEB SCH ×5 (03:55→20:58)
[2017-03-27] MEDS: LORAZEPAM 24 MG/240 ML BAG IV PRN ×2 (05:05→12:14)
[2017-03-27] MEDS: AZTREONAM 1 GM in DEXTROSE 5%-WATER 50 ML IV SCH ×3 (05:06→22:01)
[2017-03-27] MEDS: CLINDAMYCIN 600 MG/D5W RTU 50 ML IV SCH ×2 (05:07→16:56)
[2017-03-27] MEDS: CARBAMAZEPINE SUSP 200 MG/10 ML UDCUP PEG SCH ×3 (05:07→22:01)
[2017-03-27] MEDS: ACETAMINOPHEN 650 MG SUPP.RECT PR PRN (05:34)
[2017-03-27 05:40] LABS: ARTERIAL BLOOD BASE EXCESS -3.9 mmol/L; ARTERIAL BLOOD O2 SATURATION 94.6 % (94-98)
[2017-03-27 05:50] LABS: ALANINE AMINOTRANSFERASE 24 U/L (21-72); ALBUMIN 2.9 g/dL (3.5-5.0); ALKALINE PHOSPHATASE 87 U/L (38-126); ANION GAP 12 (5-19); ASPARTATE AMINO TRANSFERASE 23 U/L (17-59); BILIRUBIN,DIRECT 0.4 mg/dL (0.0-0.4); BILIRUBIN,TOTAL 0.4 mg/dL (0.2-1.3); BLOOD UREA NITROGEN 16 mg/dL (7-20); CALCIUM 7.8 mg/dL (8.4-10.2); CARBON DIOXIDE 19 mmol/L (22-30); CHLORIDE 103 mmol/L (98-107); CREATININE RESULT 0.82 mg/dL (0.52-1.25); GLUCOSE 135 mg/dL (75-110); MAGNESIUM 2.1 mg/dL (1.6-2.3); POTASSIUM 4.1 mmol/L (3.6-5.0); SODIUM 134.2 mmol/L (137-145)
[2017-03-27 05:54] LABS: HEMATOCRIT 35.5 % (37.9-51.0); MEAN CORPUSCULAR HEMOGLOBIN 31.9 pg (27.0-33.4); MEAN CORPUSCULAR HGB CONC 32.3 g/dL (32.0-36.0); MEAN CORPUSCULAR VOLUME 99 fl (80-97); RED BLOOD COUNT 3.59 10^6/uL (4.35-5.55); RED CELL DISTRIBUTION WIDTH 14.9 % (11.5-14.0); WHITE BLOOD COUNT 26.8 10^3/uL (4.0-10.5)
[2017-03-27 06:22] LABS: HEMOGLOBIN 11.5 g/dL (13.5-17.0)
[2017-03-27 06:25] LABS: BAND NEUTROPHILS % (MANUAL) 4 % (3-5); BASOPHILS % (MANUAL) 0 % (0-2); EOSINOPHILS % (MANUAL) 0 % (0-6); LYMPHOCYTES % (MANUAL) 4 % (13-45); TOTAL CELLS COUNTED 100
[2017-03-27 06:28] LABS: ANISOCYTOSIS SLIGHT; TOXIC GRANULATION SLIGHT; TOXIC VACUOLATION PRESENT
[2017-03-27] MEDS ORDERED: PHENYLEPHRINE HCL INJ/PF 10 MG/1 ML SDV ONE (06:30)
[2017-03-27] MEDS: PROPOFOL 100 ML IV PRN ×2 (06:42→19:22)
--- NOTE | 2017-03-27 06:59 | RADIOLOGY REPORT (SQ) ---
EXAM DESCRIPTION: CHEST SINGLE VIEW COMPLETED DATE/TIME: 03/27/2017 6:21 am REASON FOR STUDY: pna/resp failure COMPARISON: 03/26/2017. EXAM PARAMETERS: NUMBER OF VIEWS: One view. TECHNIQUE: Single frontal radiographic view of the chest acquired. RADIATION DOSE: NA LIMITATIONS: None. FINDINGS: LUNGS AND PLEURA: Moderate lung volumes. New small streakiness of the left mid lung field . Small atelectasis or scar bilateral lung bases. MEDIASTINUM AND HILAR STRUCTURES: No masses. Contour normal. HEART AND VASCULAR STRUCTURES: Heart normal in size. Normal vasculature. BONES: No acute findings. HARDWARE: Tip of an endotracheal tube at the thoracic inlet ; consider 2 cm advancement. Likely adeq uate partially imaged nasogastric tube. OTHER: Extensive gaseous distention of upper abdominal bowel, partially imaged consistent with CT, . IMPRESSION: 1. New small streakiness of the left mid lung field may indicate early pneumonia or ate lectasis. 2. Lines and tubes as described. Consider 2 cm advancement of the endotracheal tube. 3. Extensive gaseous distension of upper abdominal bowel consistent with CT 1 day prior. TECHNICAL DOCUMENTATION: JOB ID: [id number]
[2017-03-27] MEDS ORDERED: NORMAL SALINE 1000 ML 1,000 ML IV ONE (07:00)
[2017-03-27] MEDS: POLYETHYLENE GLYCOL 3350 POWDER 17 GM/1 PACKET PEG SCH (09:30)
[2017-03-27] MEDS: CETIRIZINE HCL ORAL SOLN 5 MG/5 ML UDCUP PEG SCH (09:30)
[2017-03-27] MEDS: ENOXAPARIN SODIUM INJ 40 MG/0.4 ML DISP.SYRIN SUBCUT SCH (09:31)
[2017-03-27] MEDS: FAMOTIDINE INJ/PF 20 MG/2 ML SDV IV SCH ×2 (09:31→22:01)
[2017-03-27] MEDS ORDERED: SODIUM CHLORIDE TP SCH (10:00)
[2017-03-27] MEDS ORDERED: POLYETHYLENE GLYCOL 3350 POWDER 17 GM/1 PACKET PEG SCH (10:00)
[2017-03-27] MEDS ORDERED: ALOE VERA TP SCH (10:00)
[2017-03-27] MEDS ORDERED: PERAMPANEL 8 MG PO SCH (10:00)
[2017-03-27] MEDS ORDERED: SULFAMETHOX/TRIMETH 800-160 MG/10 ML VIAL IV SCH (10:00)
[2017-03-27] MEDS: NORMAL SALINE 1000 ML 1,000 ML IV PRN (11:11)
--- NOTE | 2017-03-27 11:22 | PDOC PROGRESS REPORT ---
Subjective Progress Note for:: 03/27/17 Subjective:: Patient's still currently doing same in ICU.Patient's blood pressure is lower range required bess drip Patient still running a temperature Patient seen by the pulmonary and the general surgery Patient urine output is still low Patient's white count is also still elevated Mother is in the bedside discussed with the mother about the patient's clinical conditions Physical Exam Vital Signs: Temp Pulse Resp BP Pulse Ox 99.0 F 111 H 21 H 115/71 98 03/27/17 10:00 03/27/17 10:00 03/27/17 10:00 03/27/17 10:00 03/27/17 10:00 Intake & Output 03/26/17 03/27/17 03/28/17 06:59 06:59 06:59 Output Total 345 325 Balance -345 -325 Weight 67 kg Physical Exam: Currently intubated under sedation's General appearance: PRESENT: no acute distress Eye exam: PRESENT: PERRLA Mouth exam: PRESENT: neck supple Respiratory exam: PRESENT: decreased breath sounds Cardiovascular exam: PRESENT: +S1, +S2, tachycardia GI/Abdominal exam: PRESENT: normal bowel sounds, soft Extremities exam: ABSENT: pedal edema Neurological exam: PRESENT: other Additional comments: Currently under sedation's Results Laboratory Results: 03/27/17 05:25 03/27/17 05:25 03/26/17 03/27/17 03/27/17 18:40 05:25 05:25 WBC 26.8 H RBC 3.59 L Hgb 11.5 L D Hct 35.5 L MCV 99 H MCH 31.9 MCHC 32.3 RDW 14.9 H Plt Count 274 Seg Neutrophils % Not Reportable Lymphocytes % Not Reportable Monocytes % Not Reportable Eosinophils % Not Reportable Basophils % Not Reportable Absolute Neutrophils Not Reportable Absolute Lymphocytes Not Reportable Absolute Monocytes Not Reportable Absolute Eosinophils Not Reportable Absolute Basophils Not Reportable Carbonic Acid 1.16 1.03 L HCO3/H2CO3 Ratio 18:1 19:1 ABG pH 7.37 7.39 ABG pCO2 38.4 34.1 L ABG pO2 73.8 L 72.4 L ABG HCO3 21.5 20.2 ABG O2 Saturation 94.5 94.6 ABG Base Excess -3.4 -3.9 FiO2 50% 50% Sodium Potassium Chloride Carbon Dioxide Anion Gap BUN Creatinine Est GFR ( Amer) Est GFR (Non-Af Amer) Glucose Calcium Magnesium Total Bilirubin AST ALT Alkaline Phosphatase Total Protein Albumin 03/27/17 05:25 WBC RBC Hgb Hct MCV MCH MCHC RDW Plt Count Seg Neutrophils % Lymphocytes % Monocytes % Eosinophils % Basophils % Absolute Neutrophils Absolute Lymphocytes Absolute Monocytes Absolute Eosinophils Absolute Basophils Carbonic Acid HCO3/H2CO3 Ratio ABG pH ABG pCO2 ABG pO2 ABG HCO3 ABG O2 Saturation ABG Base Excess FiO2 Sodium 134.2 L Potassium 4.1 Chloride 103 Carbon Dioxide 19 L Anion Gap 12 BUN 16 Creatinine 0.82 Est GFR ( Amer) > 60 Est GFR (Non-Af Amer) > 60 Glucose 135 H Calcium 7.8 L Magnesium 2.1 Total Bilirubin 0.4 AST 23 ALT 24 Alkaline Phosphatase 87 Total Protein 6.0 L Albumin 2.9 L Impressions: Abdomen/Pelvis CT 03/26/17 00:00 IMPRESSION: 1. There is air and stool in the ascending colon. There is a markedly distended transverse colon and decompressed descending colon. Focal obstructing mass or extrinsic compression of the colon is not identified. There is no CT evidence of volvulus. 2. No significant small-bowel dilatation. There are thickened loops of small bowel in the left mid abdomen. Etiology of this is uncertain but infectious or inflammatory process cannot be excluded. The patient has an indwelling jejunostomy tube. 3. Free fluid in the pelvis etiology of this is uncertain. 4. Bibasilar consolidation consistent with pneumonia or lung collapse. Abdomen X-Ray 03/26/17 12:43 IMPRESSION: Nonspecific bowel gas pattern with market gaseous distention of the transverse colon, large amount of stool in the ascending colon, and few dilated small bowel loops in the mid epigastrium Findings were discussed withDr [facility] Chest/Abdomen CTA 03/26/17 16:42 IMPRESSION: 1. No pulmonary emboli. 2. Bilateral lower lobe collapse and/or consolidation. There is a small left effusion as well. Mild right hilar as well as mediastinal adenopathy is present. This is most likely reactive. Chest X-Ray 03/27/17 06:00 IMPRESSION: 1. New small streakiness of the left mid lung field may indicate early pneumonia or atelectasis. 2. Lines and tubes as described. Consider 2 cm advancement of the endotracheal tube. 3. Extensive gaseous distension of upper abdominal bowel consistent with CT 1 day prior. Assessment & Plan - Diagnosis (1) Acute respiratory failure Qualifiers: Respiratory failure complication: hypoxia Qualified Code(s): J96.01 - Acute respiratory failure with hypoxia Is this a current diagnosis for this admission?: YesPlan: Continues to ventilationsFollow with the pulmonary (2) Aspiration pneumonia Qualifiers: Aspiration pneumonia type: unspecified Laterality: right Lung location: lower lobe of lung Qualified Code(s): J69.0 - Pneumonitis due to inhalation of food and vomit Is this a current diagnosis for this admission?: YesPlan: Continues to IV antibiotic (3) Colon distention Is this a current diagnosis for this admission?: YesPlan: Most likely under constipations CT abdomen and pelvis was done yesterday and surgery consult was placed and suggested continues to follow no need for any surgical interventions (4) Cerebral palsy Qualifiers: Cerebral palsy type: unspecified type Qualified Code(s): G80.9 - Cerebral palsy, unspecified Is this a current diagnosis for this admission?: Yes (5) Mental retardation Is this a current diagnosis for this admission?: Yes (6) Seizures Qualifiers: Convulsion type: unspecified Qualified Code(s): R56.9 - Unspecified convulsions Is this a current diagnosis for this admission?: YesPlan: cont curr medication (7) Sinus tachycardia Is this a current diagnosis for this admission?: YesPlan: Most likely underlying infections in the temperature (8) Sepsis Qualifiers: Sepsis type: sepsis due to unspecified organism Qualified Code(s): A41.9 - Sepsis, unspecified organism Is this a current diagnosis for this admission?: YesPlan: Most likely respiratory because will wait for the all the cultures patient is already on the clindamycin and azectum Patient still running a fever and white count was elevated patient's blood pressure is low which is sign of most likely a septic shock Patients have a loss of allergy to the antibiotic patients cannot take the vancomycin and I am not sure about the [facility] and the patient was in the [facility] in the past and was placed in the [facility] but mother does not know exactly what happened will get the record from the [facility] Will put the patient on a Bactrim to cover the other organisms the patient's can handle the Bactrim well in the past Continues to IV fluid and pressor support and follow with the surgery and pulmonary - Time Time Spent with patient: 15-24 minutes Medications reviewed and adjusted accordingly: Yes Anticipated discharge: Other Within: Other - Inpatient Certification Medical Necessity: Need For IV Fluids, Need for IV Antibiotics Post Hospital Care: D/C Operational Communication Chief Documentation - Plan Summary Plan Summary: Will get the echocardiogram today continues to IV fluid and continues to IV antibiotic.Patient was so many times in the hospital for the critical conditions with the patient was in the [facility] and to do pretty much said nothing they can do.Very extensive discussed with the mother about the patient's current conditions and not a very good prognosis and mother understand very well
[2017-03-27] MEDS ORDERED: PROPOFOL 100 ML IV PRN (11:26)
[2017-03-27] MEDS ORDERED: SULFAMETHOXAZOLE/TRIMETHOPRIM 320 MG in DEXTROSE 5%-WATER 500 ML IV SCH (12:00)
[2017-03-27] MEDS ORDERED: ROCURONIUM BROMIDE INJ 50 MG/5 ML VIAL IV ONE (12:09)
--- NOTE | 2017-03-27 12:49 | PROGRESS NOTE E ---
Progress Note NAME: MERCY WORLEY : 1985 AGE: 31Y DATE: 03/26/2017 ROOM: 601 Patient still intubated. Just had a chest x-ray; it showed aspiration pneumonia and still dilated transverse colon. Only the upper part of the abdomen was visualized on the chest x-ray and therefore, a better view may be indicated, so KUB is ordered. What is concerning is his white count went up from 20,000 to 26,000. His abdomen remains soft and quite difficult to determine any tenderness because of sedation for the intubation and vent management. Will see what the KUB shows and unfortunately, it is going to be very difficult as far as clinically evaluating him. The good thing is that the abdomen is soft and will continue monitoring his white count. DICTATING PHYSICIAN: MASSIMO BARRY M.D. [id number] PHY#: [id number] ID: [id number] JOB#: [id number] ACCT: [id number] cc: >
--- NOTE | 2017-03-27 12:50 | RADIOLOGY REPORT (SQ) ---
EXAM DESCRIPTION: KUB/ABDOMEN (SINGLE VIEW) COMPLETED DATE/TIME: 03/27/2017 12:30 pm REASON FOR STUDY: colonic distention COMPARISON: CT chest abdomen pelvis 03/26/2017 Three-way abdomen series 6 2016 KUB 12/20/2016 NUMBER OF VIEWS: One view. TECHNIQUE: Supine radiographic image of the abdomen acquired. LIMITATIONS: None. FINDINGS: BOWEL GAS PATTERN: Persistent dilated small bowel loops, unchanged. Persistent marked gas eous distention of a loop of colon in the mid epigastrium, with the ascending colon distended with st ool. Descending colon and rectosigmoid decompressed. It is unclear whether this represents a distal transverse colon stricture with proximal dilatation, or whether there is a sigmoid volvulus with the distended loop of colon in the mid epigastrium actually distended sigmoid colon. These findings wer e reviewed with Dr. Sheikh. CALCIFICATIONS: No suspicious calcifications. SOFT TISSUES: No gross mass or suggestion of organomegaly. HARDWARE: Coreas catheter decompresses the bladder. Gastric jejunostomy feeding tube unchanged BONES: No acute fracture. No worrisome bone lesions. OTHER: No other significant finding. IMPRESSION: Persistent abnormal bowel gas pattern with massively distended loop of colon in the mid epigastrium. It is difficult to discern whether this is due to a distal transverse colon stricture, or sigmoid volvulus. Images reviewed with Dr. Sheikh TECHNICAL DOCUMENTATION: JOB ID: [id number] Media- All Rights Reserved
[2017-03-27] MEDS ORDERED: FENTANYL CITRATE INJ/PF 250 MCG/5 ML AMPULE ONE (13:09)
[2017-03-27] MEDS ORDERED: DEXMEDETOMIDINE INJ 80 MCG/20 ML VIAL IV ONE (13:09)
[2017-03-27] MEDS ORDERED: EPHEDRINE SULFATE INJ 50 MG/1 ML AMPULE ONE (13:10)
--- NOTE | 2017-03-27 13:39 | PDOC PROGRESS REPORT ---
Subjective Progress Note for:: 03/27/17 Subjective:: Intubated and sedated Physical Exam Vital Signs: Temp Pulse Resp BP Pulse Ox 100.0 F 115 H 26 H 115/72 100 03/27/17 08:00 03/27/17 08:00 03/27/17 08:00 03/27/17 08:00 03/27/17 08:00 Intake & Output 03/26/17 03/27/17 03/28/17 06:59 06:59 06:59 Output Total 345 250 Balance -345 -250 Weight 67 kg General appearance: PRESENT: no acute distress, disheveled, thin Head exam: PRESENT: atraumatic, normocephalic Eye exam: PRESENT: conjunctiva pale Mouth exam: PRESENT: dry mucosa, neck supple, other - Endotracheal tube in place Neck exam: ABSENT: carotid bruit, JVD, lymphadenopathy, thyromegaly Respiratory exam: PRESENT: decreased breath sounds, prolonged expiratory phas, rhonchi, unlabored Cardiovascular exam: PRESENT: RRR, +S1, +S2 Pulses: PRESENT: normal radial pulses GI/Abdominal exam: PRESENT: normal bowel sounds, soft, other - Feeding tube. ABSENT: distended, guarding, mass, organolmegaly, rebound, tenderness Rectal exam: PRESENT: deferred Gentrourinary exam: PRESENT: indwelling catheter Musculoskeletal exam: PRESENT: normal inspection Skin exam: PRESENT: dry, warm Results Laboratory Results: 03/27/17 05:25 03/27/17 05:25 03/26/17 03/27/17 03/27/17 18:40 05:25 05:25 WBC 26.8 H RBC 3.59 L Hgb 11.5 L D Hct 35.5 L MCV 99 H MCH 31.9 MCHC 32.3 RDW 14.9 H Plt Count 274 Seg Neutrophils % Not Reportable Lymphocytes % Not Reportable Monocytes % Not Reportable Eosinophils % Not Reportable Basophils % Not Reportable Absolute Neutrophils Not Reportable Absolute Lymphocytes Not Reportable Absolute Monocytes Not Reportable Absolute Eosinophils Not Reportable Absolute Basophils Not Reportable Carbonic Acid 1.16 1.03 L HCO3/H2CO3 Ratio 18:1 19:1 ABG pH 7.37 7.39 ABG pCO2 38.4 34.1 L ABG pO2 73.8 L 72.4 L ABG HCO3 21.5 20.2 ABG O2 Saturation 94.5 94.6 ABG Base Excess -3.4 -3.9 FiO2 50% 50% Sodium Potassium Chloride Carbon Dioxide Anion Gap BUN Creatinine Est GFR ( Amer) Est GFR (Non-Af Amer) Glucose Calcium Magnesium Total Bilirubin AST ALT Alkaline Phosphatase Total Protein Albumin 03/27/17 05:25 WBC RBC Hgb Hct MCV MCH MCHC RDW Plt Count Seg Neutrophils % Lymphocytes % Monocytes % Eosinophils % Basophils % Absolute Neutrophils Absolute Lymphocytes Absolute Monocytes Absolute Eosinophils Absolute Basophils Carbonic Acid HCO3/H2CO3 Ratio ABG pH ABG pCO2 ABG pO2 ABG HCO3 ABG O2 Saturation ABG Base Excess FiO2 Sodium 134.2 L Potassium 4.1 Chloride 103 Carbon Dioxide 19 L Anion Gap 12 BUN 16 Creatinine 0.82 Est GFR ( Amer) > 60 Est GFR (Non-Af Amer) > 60 Glucose 135 H Calcium 7.8 L Magnesium 2.1 Total Bilirubin 0.4 AST 23 ALT 24 Alkaline Phosphatase 87 Total Protein 6.0 L Albumin 2.9 L Impressions: Abdomen/Pelvis CT 03/26/17 00:00 IMPRESSION: 1. There is air and stool in the ascending colon. There is a markedly distended transverse colon and decompressed descending colon. Focal obstructing mass or extrinsic compression of the colon is not identified. There is no CT evidence of volvulus. 2. No significant small-bowel dilatation. There are thickened loops of small bowel in the left mid abdomen. Etiology of this is uncertain but infectious or inflammatory process cannot be excluded. The patient has an indwelling jejunostomy tube. 3. Free fluid in the pelvis etiology of this is uncertain. 4. Bibasilar consolidation consistent with pneumonia or lung collapse. Abdomen X-Ray 03/26/17 12:43 IMPRESSION: Nonspecific bowel gas pattern with market gaseous distention of the transverse colon, large amount of stool in the ascending colon, and few dilated small bowel loops in the mid epigastrium [facility]domen [facility] 03/26/17 16:42 IMPRESSION: 1. No pulmonary emboli. 2. Bilateral lower lobe collapse and/or consolidation. There is a small left effusion as well. Mild right hilar as well as mediastinal adenopathy is present. This is most likely reactive. Chest X-Ray 03/27/17 06:00 IMPRESSION: 1. New small streakiness of the left mid lung field may indicate early pneumonia or atelectasis. 2. Lines and tubes as described. Consider 2 cm advancement of the endotracheal tube. 3. Extensive gaseous distension of upper abdominal bowel consistent with CT 1 day prior. Assessment & Plan - Diagnosis (1) Acute respiratory failure Qualifiers: Respiratory failure complication: hypoxia Qualified Code(s): J96.01 - Acute respiratory failure with hypoxia Is this a current diagnosis for this admission?: YesPlan: Stable current mechanical ventilation settings (2) Aspiration pneumonia Qualifiers: Aspiration pneumonia type: unspecified Laterality: right Lung location: lower lobe of lung Qualified Code(s): J69.0 - Pneumonitis due to inhalation of food and vomit Is this a current diagnosis for this admission?: YesPlan: WBC is increased additional antibiotic has been initiated (3) Cerebral palsy Qualifiers: Cerebral palsy type: unspecified type Qualified Code(s): G80.9 - Cerebral palsy, unspecified Is this a current diagnosis for this admission?: Yes (4) Mental retardation Is this a current diagnosis for this admission?: Yes (5) Septic shock Is this a current diagnosis for this admission?: YesPlan: Requiring vasopressor agents - Time Critical Time spent with patient: 35 or more minutes - 50 minutes prolonged discussion with mother
--- NOTE | 2017-03-27 16:02 | Physician Advisory Note ---
Physician Advisor ProgressNote .: Pursuant to the plan for [facility], I have reviewed the medical record for this patient. Physician Advisor Statement: Please consider documentin. "Septic shock due to Pneumonia; sepsis was present on admission & developed into shock overnight that first night" - just to make more explicit the attg comment that "F/WBC/hypotension is sign of ... septic shock" 2. "acute hyponatremia, suspect due to " 3. ? - "Acute metabolic acidosis, likely due to sepsis" Pt has good findings supporting dx of sepsis: fevers, leukocytosis, tachycardia , tachypnea, total GCS 12, lactate 2.0, suspected acute metabolic acidosis. Thanks! CK
[2017-03-27] MEDS: DEXTROSE 5%-WATER 250 ML with PHENYLEPHRINE HCL 40 MG IV PRN ×2 (19:48)
--- NOTE | 2017-03-27 21:59 | OPERATIVE REPORT E ---
Operative Report NAME: MERCY WORLEY : 1985 AGE: 31Y DATE OF SURGERY: 03/27/2017 ROOM: 601 PREOPERATIVE DIAGNOSIS: Ischemic bowel. POSTOPERATIVE DIAGNOSIS: Volvulus of the cecum with ischemia. OPERATION: Resection of cecum and part of ascending colon, untwisting of the volvulus, and thus most of the ileum to the ascending colon on [id number] functional anastomosis. SURGEON: MASSIMO BARRY M.D. KYLIE GARAY M.D. ANESTHESIA: General. INDICATION: This is a 31-year-old male who came in last night in respiratory distress and abdominal distention. He had a CT scan of the abdomen which was reviewed by Dr. Alvares and noted pneumatosis on the wall of the large bowel. Subsequent KUB also confirmed dilated large bowel. Also clinically at this time, patient's white count went up to 26,000 and his blood pressure needed pressors because of hypotension. PROCEDURE: After adequate general anesthesia, the abdomen was then prepped and draped in the usual sterile fashion. Appropriate time-out was done. A midline incision was made at the mid epigastric area, carried down to the mid pubic area. The fascia was then divided with cautery and abdominal cavity entered. Some clear brownish fluid was noted and most of this was suctioned out. With the use of Bookwalter retractor, better exposure of the abdominal cavity was done. What we found was what appears to be a twist of the mid ascending colon with a markedly dilated distal ascending colon and cecum with punctate areas of ischemia. This area appears to be above the stomach and above the gastrojejunostomy catheter. The colon appears to be just at the area that was twisted was then divided with a IZAIAH. The gastrojejunostomy catheter which was blocking the cecum, eventually what we found was the cecum was then taken down. The catheter was pulled out and the gastric opening from the catheter was divided and suture ligated with 2-0 Vicryl. This allowed us to release what appeared now to be the markedly dilated and ischemic cecum together with the ischemic appendix. The small bowel was then mobilized and the kink appeared to have been straightened out. There was what appears to be the distal ascending colon flip over towards the stomach causing obstruction right where it kinked, also with the mesenteric tissues and vessels causing part of the obstruction. The mesentery, at this point, was then divided and ligated with #0-Vicryl. The distal ileum was then divided with a IZAIAH right close to the cecum. The cecum with the ascending colon was then divided with IZAIAH stapler to a viable area. The ascending colon was then dissected off the lateral attachment and up to the area of the hepatic flexure. The duodenum underneath was identified and preserved. The ileum and ascending colon were then anastomosed and the function [id number] anastomosis using a IZAIAH. The opening between the colon and the small bowel was then closed with a TA-60. Mesenteric defect was then closed with running 2-0 Vicryl. Following this, the abdominal cavity was then irrigated with copious saline solution. The bowel from the ileum to the ligament of Treitz was inspected and there no other abnormality noted. The transverse colon as well as the sigmoid colon appeared to be normal. The original gastrojejunostomy tube which was soaked in Betadine was then put back through the regional insertion site and also threaded down through the original gastric opening. The stomach was then anchored back to the abdominal wall with 4 quadrant sutures using 2-0 Vicryl. Following this, the fascia was then closed with running suture using double stranded #0-PDS starting at both ends and tying them a the middle just above the umbilicus. Subcutaneous was then irrigated in saline solution and the skin closed with sujata. Sterile dressings placed over the operative site. Needle, instrument and sponge counts were all correct. ESTIMATED BLOOD LOSS: About 100 mL. Patient tolerated the procedure quite well, though patient still needed pressors. He had a good urine output during the procedure. Patient then brought back to the intensive care unit in guarded condition. DICTATING PHYSICIAN: MASSIMO BARRY M.D. [id number] PHY#: [id number] 2009 ID: [id number] JOB#: [id number] ACCT: [id number] cc:MASSIMO BARRY M.D. >
[2017-03-27] MEDS: ZONISAMIDE 100 MG CAPSULE PEG SCH (22:02)
[2017-03-28] MEDS: SULFAMETHOXAZOLE/TRIMETHOPRIM 160 MG in DEXTROSE 5%-WATER 250 ML IV SCH ×5 (00:17→23:19)
[2017-03-28] MEDS: LORAZEPAM 24 MG/240 ML BAG IV PRN (00:18)
[2017-03-28] MEDS: PROPOFOL 100 ML IV PRN ×5 (00:18→23:19)
[2017-03-28] MEDS: NORMAL SALINE 1000 ML 1,000 ML IV PRN ×3 (00:19→23:19)
[2017-03-28] MEDS: LEVALBUTEROL HCL NEB 1.25 MG/3 ML AMPUL NEB SCH ×6 (00:24→19:41)
[2017-03-28] MEDS: MORPHINE SULFATE 10 MG/ML INJ IV PRN (00:52)
[2017-03-28] MEDS: CARBAMAZEPINE SUSP 200 MG/10 ML UDCUP PEG SCH ×3 (05:38→22:03)
[2017-03-28] MEDS: AZTREONAM 1 GM in DEXTROSE 5%-WATER 50 ML IV SCH ×3 (05:38→22:03)
[2017-03-28] MEDS: DEXTROSE 5%-WATER 250 ML with PHENYLEPHRINE HCL 40 MG IV PRN ×4 (05:40→23:33)
[2017-03-28 05:42] LABS: ARTERIAL BLOOD BASE EXCESS -5.2 mmol/L; ARTERIAL BLOOD O2 SATURATION 97.2 % (94-98)
[2017-03-28 05:46] LABS: HEMATOCRIT 32.1 % (37.9-51.0); HEMOGLOBIN 10.4 g/dL (13.5-17.0); HGB HCT DIFFERENCE -0.9; MEAN CORPUSCULAR HEMOGLOBIN 32.2 pg (27.0-33.4); MEAN CORPUSCULAR HGB CONC 32.5 g/dL (32.0-36.0); MEAN CORPUSCULAR VOLUME 99 fl (80-97); RED BLOOD COUNT 3.24 10^6/uL (4.35-5.55); RED CELL DISTRIBUTION WIDTH 15.2 % (11.5-14.0); WHITE BLOOD COUNT 21.5 10^3/uL (4.0-10.5)
[2017-03-28 05:57] LABS: ALANINE AMINOTRANSFERASE 33 U/L (21-72); ALBUMIN 1.9 g/dL (3.5-5.0); ALKALINE PHOSPHATASE 68 U/L (38-126); ASPARTATE AMINO TRANSFERASE 23 U/L (17-59); BILIRUBIN,DIRECT 0.2 mg/dL (0.0-0.4); BILIRUBIN,TOTAL 0.2 mg/dL (0.2-1.3); BLOOD UREA NITROGEN 11 mg/dL (7-20); CALCIUM 7.2 mg/dL (8.4-10.2); CARBON DIOXIDE 21 mmol/L (22-30); CREATININE RESULT 0.57 mg/dL (0.52-1.25); GLUCOSE 112 mg/dL (75-110); MAGNESIUM 1.9 mg/dL (1.6-2.3); PHOSPHORUS 2.7 mg/dL (2.5-4.5); POTASSIUM 4.3 mmol/L (3.6-5.0); TOTAL PROTEIN 4.5 g/dL (6.3-8.2)
[2017-03-28 06:10] LABS: ANION GAP 5 (5-19); CHLORIDE 104 mmol/L (98-107); SODIUM 129.9 mmol/L (137-145)
[2017-03-28 06:16] LABS: BAND NEUTROPHILS % (MANUAL) 6 % (3-5); BASOPHILS % (MANUAL) 0 % (0-2); EOSINOPHILS % (MANUAL) 0 % (0-6); LYMPHOCYTES % (MANUAL) 7 % (13-45); TOTAL CELLS COUNTED 100
[2017-03-28 06:18] LABS: ANISOCYTOSIS 1+; BURR CELLS SLIGHT; POIKILOCYTOSIS SLIGHT; TOXIC GRANULATION 1+; TOXIC VACUOLATION PRESENT
--- NOTE | 2017-03-28 06:56 | RADIOLOGY REPORT (SQ) ---
EXAM DESCRIPTION: CHEST SINGLE VIEW COMPLETED DATE/TIME: 03/28/2017 6:30 am REASON FOR STUDY: pna COMPARISON: 03/27/2017. EXAM PARAMETERS: NUMBER OF VIEWS: One view. TECHNIQUE: Single frontal radiographic view of the chest acquired. RADIATION DOSE: NA LIMITATIONS: None. FINDINGS: LUNGS AND PLEURA: Moderate lung volumes, small streakiness of the right lower lung field a nd left lung base. MEDIASTINUM AND HILAR STRUCTURES: No masses. Contour normal. HEART AND VASCULAR STRUCTURES: Heart normal in size. Normal vasculature. BONES: No acute findings. HARDWARE: Tip of an endotracheal tube at the thoracic inlet ; consider 2.5 cm advancement. Right IJ tip in the right atrium; consider 12 cm retraction. Adequate appearing NG tube. OTHER: No other significant finding. IMPRESSION: No significant interval change. Lines and tubes with adjustments recommended above. TECHNICAL DOCUMENTATION: JOB ID: [id number]
--- NOTE | 2017-03-28 09:18 | XCELERA REPORT ---
[address] [address] Transthoracic Echocardiogram Report Name: MERCY WORLEY Age: 31 yrs Gender: Male : 1985 Patient Status: Inpatient Patient Location: ICU\S\601\S\A Study Date: 03/27/2017 09:04 AM Height: 69 in Weight: 147 lb BSA: 1.8 m2 Procedure: A complete two-dimensional transthoracic echocardiogram was performed (2D, M-mode, spectral and color flow Doppler). The study was technically adequate with some images being suboptimal in quality. Reason For Study: sepsis/trachycardia Ordering Physician: WILLIS PATRICIA Performed By: Monserrat Ponce Interpretation Summary The left ventricular ejection fraction is normal. Doppler measurements suggest normal left ventricular diastolic function There is borderline concentric left ventricular hypertrophy. The left ventricle is grossly normal size. The right ventricular systolic function is normal. The right ventricle is grossly normal size. There is no mitral valve stenosis. There is a trace amount of mitral regurgitation No aortic regurgitation is present. There is no aortic valve stenosis There is no tricuspid stenosis. There is a trace amount of tricuspid regurgitation Tricuspid regurgitation jet envelope not well defined to measure RV systolic pressure accurately. The aortic root is not well visualized but is probably normal size. The inferior vena cava was not well visualized There is no pericardial effusion. MMode/2D Measurements \T\ Calculations RVDd: 3.0 cm LVIDd: 3.9 cm FS: 42.6 % Ao root diam: 2.6 cm IVSd: 1.00 cm LVIDs: 2.2 cm EDV(Teich): 64.7 ml LVPWd: 0.97 cm ESV(Teich): 16.6 ml Ao root area: 5.4 cm2 EF(Teich): 74.4 % LA dimension: 3.3 cm Doppler Measurements \T\ Calculations MV E max debi: MV P1/2t max debi: Ao V2 max: LV V1 max P.1 cm/sec 73.1 cm/sec 125.0 cm/sec 6.0 mmHg MV A max debi: MV P1/2t: 47.0 msec Ao max PG: LV V1 max: 70.1 cm/sec 6.2 mmHg 122.4 cm/sec MV E/A: 1.0 MVA(P1/2t): 4.7 cm2 MV dec slope: 454.8 cm/sec2 MV dec time: 0.15 sec TV V2 max: PA V2 max: PI end-d debi: 297.3 cm/sec 62.7 cm/sec 165.6 cm/sec TV max PG: PA max P.6 mmHg 35.3 mmHg Left Ventricle The left ventricle is grossly normal size. There is borderline concentric left ventricular hypertrophy. The left ventricular ejection fraction is normal. Doppler measurements suggest normal left ventricular diastolic function. Wall motion cannot be accurately commented on, but no definite regional wall motion abnormalities noted. Right Ventricle The right ventricle is grossly normal size. There is normal right ventricular wall thickness. The right ventricular systolic function is normal. Atria The right atrium is normal in size. The left atrial size is normal. Interarterial septum not well visualized and not well dopplered. Cannot comment on ASD/PFO presence. Mitral Valve The mitral valve is grossly normal. There is no mitral valve stenosis. There is a trace amount of mitral regurgitation. Aortic Valve The aortic valve is grossly normal. There is no aortic valve stenosis. No aortic regurgitation is present. Tricuspid Valve The tricuspid valve is not well visualized, but is grossly normal. There is no tricuspid stenosis. There is a trace amount of tricuspid regurgitation. Tricuspid regurgitation jet envelope not well defined to measure RV systolic pressure accurately. Pulmonic Valve The pulmonic valve is not well seen, but is grossly normal. There is no pulmonic valvular stenosis. There is a trace or physiologic amount of pulmonic regurgitation. Great Vessels The aortic root is not well visualized but is probably normal size. The inferior vena cava was not well visualized. Effusions There is no pericardial effusion. : WILLIS PATRICIA > Germán Toscano
--- NOTE | 2017-03-28 09:55 | PDOC PROGRESS REPORT ---
Subjective Progress Note for:: 03/28/17 Subjective:: Patient underwent for the laparotomy surgery yesterday because of the colonic distention's and volvulus and status post resections in the repair.Patient's still required a bess-drip for the pressure. Patient's currently on a ventilations Patient's overnight fever is coming down and her white count is coming down Patient's WBC is also coming down Mother is on bedside discussed with the patient's current clinical conditions Physical Exam Vital Signs: Temp Pulse Resp BP Pulse Ox 97.9 F 98 16 114/75 99 03/28/17 06:06 03/28/17 04:24 03/28/17 06:06 03/28/17 06:06 03/28/17 06:06 Intake & Output 03/27/17 03/28/17 03/29/17 06:59 06:59 06:59 Intake Total 9503 Output Total 345 5455 Balance -345 4048 Weight 67 kg 71.6 kg Physical Exam: Currently intubated under sedation's General appearance: PRESENT: no acute distress Eye exam: PRESENT: PERRLA Mouth exam: PRESENT: neck supple Respiratory exam: PRESENT: clear to auscultation adelina Cardiovascular exam: PRESENT: +S1, +S2 Additonal comments: Surgical scar is present bowel sounds absent Extremities exam: ABSENT: pedal edema Neurological exam: PRESENT: other Results Laboratory Results: 03/28/17 05:30 03/28/17 05:30 03/27/17 03/28/17 03/28/17 14:29 05:30 05:30 WBC 21.5 H RBC 3.24 L Hgb 10.4 L Hct 32.1 L MCV 99 H MCH 32.2 MCHC 32.5 RDW 15.2 H Plt Count 338 Seg Neutrophils % Not Reportable Lymphocytes % Not Reportable Monocytes % Not Reportable Eosinophils % Not Reportable Basophils % Not Reportable Absolute Neutrophils Not Reportable Absolute Lymphocytes Not Reportable Absolute Monocytes Not Reportable Absolute Eosinophils Not Reportable Absolute Basophils Not Reportable Carbonic Acid 1.16 HCO3/H2CO3 Ratio 17:1 ABG pH 7.34 L ABG pCO2 38.6 ABG pO2 98.8 ABG HCO3 20.2 ABG O2 Saturation 97.2 ABG Base Excess -5.2 FiO2 30% Sodium Potassium Chloride Carbon Dioxide Anion Gap BUN Creatinine Est GFR ( Amer) Est GFR (Non-Af Amer) Glucose Calcium Phosphorus Magnesium Total Bilirubin AST ALT Alkaline Phosphatase Total Protein Albumin Blood Type A POSITIVE Antibody Screen NEGATIVE 03/28/17 05:30 WBC RBC Hgb Hct MCV MCH MCHC RDW Plt Count Seg Neutrophils % Lymphocytes % Monocytes % Eosinophils % Basophils % Absolute Neutrophils Absolute Lymphocytes Absolute Monocytes Absolute Eosinophils Absolute Basophils Carbonic Acid HCO3/H2CO3 Ratio ABG pH ABG pCO2 ABG pO2 ABG HCO3 ABG O2 Saturation ABG Base Excess FiO2 Sodium 129.9 L Potassium 4.3 Chloride 104 Carbon Dioxide 21 L Anion Gap 5 BUN 11 Creatinine 0.57 Est GFR ( Amer) > 60 Est GFR (Non-Af Amer) > 60 Glucose 112 H Calcium 7.2 L Phosphorus 2.7 Magnesium 1.9 Total Bilirubin 0.2 AST 23 ALT 33 Alkaline Phosphatase 68 Total Protein 4.5 L Albumin 1.9 L Blood Type Antibody Screen Impressions: Abdomen/Pelvis CT 03/26/17 00:00 IMPRESSION: 1. There is air and stool in the ascending colon. There is a markedly distended transverse colon and decompressed descending colon. Focal obstructing mass or extrinsic compression of the colon is not identified. There is no CT evidence of volvulus. 2. No significant small-bowel dilatation. There are thickened loops of small bowel in the left mid abdomen. Etiology of this is uncertain but infectious or inflammatory process cannot be excluded. The patient has an indwelling jejunostomy tube. 3. Free fluid in the pelvis etiology of this is uncertain. 4. Bibasilar consolidation consistent with pneumonia or lung collapse. Abdomen X-Ray 03/26/17 12:43 IMPRESSION: Nonspecific bowel gas pattern with market gaseous distention of the transverse colon, large amount of stool in the ascending colon, and few dilated small bowel loops in the mid epigastrium Findings [facility]/Abdomen [facility]A 03/26/17 16:42 IMPRESSION: 1. No pulmonary emboli. 2. Bilateral lower lobe collapse and/or consolidation. There is a small left effusion as well. Mild right hilar as well as mediastinal adenopathy is present. This is most likely reactive. KUB X-Ray 03/27/17 00:00 IMPRESSION: Persistent abnormal bowel gas pattern with massively distended loop of colon in the mid epigastrium. It is difficult to discern whether this is due to a distal transverse colon stricture, or sigmoid volvulus. Images reviewed with Dr. Sheikh Chest X-Ray 03/28/17 06:00 IMPRESSION: No significant interval change. Lines and tubes with adjustments recommended above. Assessment & Plan - Diagnosis (1) Acute respiratory failure Qualifiers: Respiratory failure complication: hypoxia Qualified Code(s): J96.01 - Acute respiratory failure with hypoxia Is this a current diagnosis for this admission?: YesPlan: Currently on a vent management (2) Aspiration pneumonia Qualifiers: Aspiration pneumonia type: unspecified Laterality: right Lung location: lower lobe of lung Qualified Code(s): J69.0 - Pneumonitis due to inhalation of food and vomit Is this a current diagnosis for this admission?: YesPlan: Continues to IV antibiotic (3) Colon distention Is this a current diagnosis for this admission?: YesPlan: Status post laparotomy day 1 (4) Cerebral palsy Qualifiers: Cerebral palsy type: unspecified type Qualified Code(s): G80.9 - Cerebral palsy, unspecified Is this a current diagnosis for this admission?: Yes (5) Mental retardation Is this a current diagnosis for this admission?: Yes (6) Seizures Qualifiers: Convulsion type: unspecified Qualified Code(s): R56.9 - Unspecified convulsions Is this a current diagnosis for this admission?: YesPlan: cont curr medication (7) Sinus tachycardia Is this a current diagnosis for this admission?: YesPlan: Patient's echocardiogram is stable most likely from the sepsis (8) Sepsis Qualifiers: Sepsis type: sepsis due to unspecified organism Qualified Code(s): A41.9 - Sepsis, unspecified organism Is this a current diagnosis for this admission?: YesPlan: Patient's white count is coming down and patient's cultures so far so negative will continues the patient on Aactum and a clindamycin and Bactrim - Time Time Spent with patient: 25-34 minutes Medications reviewed and adjusted accordingly: Yes Anticipated discharge: SNF Within: Other - Inpatient Certification Medical Necessity: Need Close Monitoring Due to Risk of Patient Decompensation, Need For IV Fluids, Need for IV Antibiotics Post Hospital Care: D/C Environmental Protection Inspector Documentation - Plan Summary Plan Summary: Adjust IV fluid repeat the Chem-7 in the afternoon very extensive discussions with the mother about the patient's critical conditions.Continues to follow with the pulmonary and the surgery.
[2017-03-28] MEDS: CETIRIZINE HCL ORAL SOLN 5 MG/5 ML UDCUP PEG SCH (10:37)
[2017-03-28] MEDS: POLYETHYLENE GLYCOL 3350 POWDER 17 GM/1 PACKET PEG SCH (10:37)
[2017-03-28] MEDS: FAMOTIDINE INJ/PF 20 MG/2 ML SDV IV SCH ×2 (10:37→22:04)
[2017-03-28] MEDS: CLINDAMYCIN 600 MG/D5W RTU 600 MG/50 ML RTUPB IV SCH ×3 (10:38→22:05)
[2017-03-28] MEDS: ENOXAPARIN SODIUM INJ 40 MG/0.4 ML DISP.SYRIN SUBCUT SCH (10:49)
--- NOTE | 2017-03-28 13:46 | PDOC PROGRESS REPORT ---
Subjective Progress Note for:: 03/28/17 Subjective:: Intubated and sedated. No acute distress. Physical Exam Vital Signs: Temp Pulse Resp BP Pulse Ox 99.0 F 111 H 22 H 111/75 99 03/28/17 13:05 03/28/17 12:00 03/28/17 13:05 03/28/17 13:05 03/28/17 13:05 Intake & Output 03/27/17 03/28/17 03/29/17 06:59 06:59 06:59 Intake Total 9503 Output Total 345 5457 475 Balance -345 4048 -475 Weight 67 kg 71.6 kg General appearance: PRESENT: no acute distress Respiratory exam: PRESENT: clear to auscultation adelina Cardiovascular exam: PRESENT: tachycardia GI/Abdominal exam: PRESENT: other - Soft, mildly distended. Unable to assess tenderness. But no obvious peritoneal signs. Results Laboratory Results: 03/28/17 05:30 03/28/17 05:30 03/27/17 03/28/17 03/28/17 14:29 05:30 05:30 WBC 21.5 H RBC 3.24 L Hgb 10.4 L Hct 32.1 L MCV 99 H MCH 32.2 MCHC 32.5 RDW 15.2 H Plt Count 338 Seg Neutrophils % Not Reportable Lymphocytes % Not Reportable Monocytes % Not Reportable Eosinophils % Not Reportable Basophils % Not Reportable Absolute Neutrophils Not Reportable Absolute Lymphocytes Not Reportable Absolute Monocytes Not Reportable Absolute Eosinophils Not Reportable Absolute Basophils Not Reportable Carbonic Acid 1.16 HCO3/H2CO3 Ratio 17:1 ABG pH 7.34 L ABG pCO2 38.6 ABG pO2 98.8 ABG HCO3 20.2 ABG O2 Saturation 97.2 ABG Base Excess -5.2 FiO2 30% Sodium Potassium Chloride Carbon Dioxide Anion Gap BUN Creatinine Est GFR ( Amer) Est GFR (Non-Af Amer) Glucose Calcium Phosphorus Magnesium Total Bilirubin AST ALT Alkaline Phosphatase Total Protein Albumin Blood Type A POSITIVE Antibody Screen NEGATIVE 03/28/17 05:30 WBC RBC Hgb Hct MCV MCH MCHC RDW Plt Count Seg Neutrophils % Lymphocytes % Monocytes % Eosinophils % Basophils % Absolute Neutrophils Absolute Lymphocytes Absolute Monocytes Absolute Eosinophils Absolute Basophils Carbonic Acid HCO3/H2CO3 Ratio ABG pH ABG pCO2 ABG pO2 ABG HCO3 ABG O2 Saturation ABG Base Excess FiO2 Sodium 129.9 L Potassium 4.3 Chloride 104 Carbon Dioxide 21 L Anion Gap 5 BUN 11 Creatinine 0.57 Est GFR ( Amer) > 60 Est GFR (Non-Af Amer) > 60 Glucose 112 H Calcium 7.2 L Phosphorus 2.7 Magnesium 1.9 Total Bilirubin 0.2 AST 23 ALT 33 Alkaline Phosphatase 68 Total Protein 4.5 L Albumin 1.9 L Blood Type Antibody Screen Impressions: Abdomen/Pelvis CT 03/26/17 00:00 IMPRESSION: 1. There is air and stool in the ascending colon. There is a markedly distended transverse colon and decompressed descending colon. Focal obstructing mass or extrinsic compression of the colon is not identified. There is no CT evidence of volvulus. 2. No significant small-bowel dilatation. There are thickened loops of small bowel in the left mid abdomen. Etiology of this is uncertain but infectious or inflammatory process cannot be excluded. The patient has an indwelling jejunostomy tube. 3. Free fluid in the pelvis etiology of this is uncertain. 4. Bibasilar consolidation consistent with pneumonia or lung collapse. Abdomen X-Ray 03/26/17 12:43 IMPRESSION: Nonspecific bowel gas pattern with market gaseous distention of the transverse colon, large amount of stool in the ascending colon, and few dilated small bowel loops in the mid epigastrium Findings were [facility]/Abdomen [facility]A 03/26/17 16:42 IMPRESSION: 1. No pulmonary emboli. 2. Bilateral lower lobe collapse and/or consolidation. There is a small left effusion as well. Mild right hilar as well as mediastinal adenopathy is present. This is most likely reactive. KUB X-Ray 03/27/17 00:00 IMPRESSION: Persistent abnormal bowel gas pattern with massively distended loop of colon in the mid epigastrium. It is difficult to discern whether this is due to a distal transverse colon stricture, or sigmoid volvulus. Images reviewed with Dr. Sheikh Chest X-Ray 03/28/17 06:00 IMPRESSION: No significant interval change. Lines and tubes with adjustments recommended above. Assessment & Plan - Diagnosis (1) Cecal volvulus Is this a current diagnosis for this admission?: YesPlan: Status post right hemicolectomy. Patient still appears to have sepsis. Continue supportive care.
--- NOTE | 2017-03-28 14:24 | PDOC PROGRESS REPORT ---
Subjective Progress Note for:: 03/28/17 Subjective:: Intubated and sedated S/P ABDOMINAL SURGERY Physical Exam Vital Signs: Temp Pulse Resp BP Pulse Ox 97.9 F 98 16 114/75 99 03/28/17 06:06 03/28/17 04:24 03/28/17 06:06 03/28/17 06:06 03/28/17 06:06 Intake & Output 03/27/17 03/28/17 03/29/17 06:59 06:59 06:59 Intake Total 9503 Output Total 345 5476 Balance -345 4048 Weight 67 kg 71.6 kg General appearance: PRESENT: no acute distress, disheveled, thin, well-developed Head exam: PRESENT: atraumatic, normocephalic Eye exam: PRESENT: conjunctiva pale Mouth exam: PRESENT: dry mucosa, neck supple, tongue midline, other - ET tube Neck exam: ABSENT: carotid bruit, JVD, lymphadenopathy, thyromegaly Respiratory exam: PRESENT: decreased breath sounds, rales, rhonchi, unlabored Cardiovascular exam: PRESENT: RRR, +S1, +S2 Pulses: PRESENT: normal radial pulses GI/Abdominal exam: PRESENT: other - s/p surgery Rectal exam: PRESENT: deferred Gentrourinary exam: PRESENT: indwelling catheter Musculoskeletal exam: PRESENT: normal inspection Skin exam: PRESENT: dry, warm Results Laboratory Results: 03/28/17 05:30 03/28/17 05:30 03/27/17 03/28/17 03/28/17 14:29 05:30 05:30 WBC 21.5 H RBC 3.24 L Hgb 10.4 L Hct 32.1 L MCV 99 H MCH 32.2 MCHC 32.5 RDW 15.2 H Plt Count 338 Seg Neutrophils % Not Reportable Lymphocytes % Not Reportable Monocytes % Not Reportable Eosinophils % Not Reportable Basophils % Not Reportable Absolute Neutrophils Not Reportable Absolute Lymphocytes Not Reportable Absolute Monocytes Not Reportable Absolute Eosinophils Not Reportable Absolute Basophils Not Reportable Carbonic Acid 1.16 HCO3/H2CO3 Ratio 17:1 ABG pH 7.34 L ABG pCO2 38.6 ABG pO2 98.8 ABG HCO3 20.2 ABG O2 Saturation 97.2 ABG Base Excess -5.2 FiO2 30% Sodium Potassium Chloride Carbon Dioxide Anion Gap BUN Creatinine Est GFR ( Amer) Est GFR (Non-Af Amer) Glucose Calcium Phosphorus Magnesium Total Bilirubin AST ALT Alkaline Phosphatase Total Protein Albumin Blood Type A POSITIVE Antibody Screen NEGATIVE 03/28/17 05:30 WBC RBC Hgb Hct MCV MCH MCHC RDW Plt Count Seg Neutrophils % Lymphocytes % Monocytes % Eosinophils % Basophils % Absolute Neutrophils Absolute Lymphocytes Absolute Monocytes Absolute Eosinophils Absolute Basophils Carbonic Acid HCO3/H2CO3 Ratio ABG pH ABG pCO2 ABG pO2 ABG HCO3 ABG O2 Saturation ABG Base Excess FiO2 Sodium 129.9 L Potassium 4.3 Chloride 104 Carbon Dioxide 21 L Anion Gap 5 BUN 11 Creatinine 0.57 Est GFR ( Amer) > 60 Est GFR (Non-Af Amer) > 60 Glucose 112 H Calcium 7.2 L Phosphorus 2.7 Magnesium 1.9 Total Bilirubin 0.2 AST 23 ALT 33 Alkaline Phosphatase 68 Total Protein 4.5 L Albumin 1.9 L Blood Type Antibody Screen Impressions: Abdomen/Pelvis CT 03/26/17 00:00 IMPRESSION: 1. There is air and stool in the ascending colon. There is a markedly distended transverse colon and decompressed descending colon. Focal obstructing mass or extrinsic compression of the colon is not identified. There is no CT evidence of volvulus. 2. No significant small-bowel dilatation. There are thickened loops of small bowel in the left mid abdomen. Etiology of this is uncertain but infectious or inflammatory process cannot be excluded. The patient has an indwelling jejunostomy tube. 3. Free fluid in the pelvis etiology of this is uncertain. 4. Bibasilar consolidation consistent with pneumonia or lung collapse. Abdomen X-Ray 03/26/17 12:43 IMPRESSION: Nonspecific bowel gas pattern with market gaseous distention of the transverse colon, large amount of stool in the ascending colon, and few dilated small bowel loops in the mid epigastrium Findings were [facility] Chest/Abdomen CTA 03/26/17 16:42 IMPRESSION: 1. No pulmonary emboli. 2. Bilateral lower lobe collapse and/or consolidation. There is a small left effusion as well. Mild right hilar as well as mediastinal adenopathy is present. This is most likely reactive. KUB X-Ray 03/27/17 00:00 IMPRESSION: Persistent abnormal bowel gas pattern with massively distended loop of colon in the mid epigastrium. It is difficult to discern whether this is due to a distal transverse colon stricture, or sigmoid volvulus. Images reviewed with Dr. Sheikh Chest X-Ray 03/28/17 06:00 IMPRESSION: No significant interval change. Lines and tubes with adjustments recommended above. Assessment & Plan - Diagnosis (1) Acute respiratory failure Qualifiers: Respiratory failure complication: hypoxia Qualified Code(s): J96.01 - Acute respiratory failure with hypoxia Is this a current diagnosis for this admission?: Yes (2) Aspiration pneumonia Qualifiers: Aspiration pneumonia type: unspecified Laterality: right Lung location: lower lobe of lung Qualified Code(s): J69.0 - Pneumonitis due to inhalation of food and vomit Is this a current diagnosis for this admission?: Yes (3) Cerebral palsy Qualifiers: Cerebral palsy type: unspecified type Qualified Code(s): G80.9 - Cerebral palsy, unspecified Is this a current diagnosis for this admission?: Yes (4) Mental retardation Is this a current diagnosis for this admission?: Yes (5) Septic shock Is this a current diagnosis for this admission?: YesPlan: Requiring vasopressor agents - Time Critical Time spent with patient: 25-34 minutes
[2017-03-28 15:39] LABS: ALBUMIN 3 2.7 g/dL (2.9-4.4); ALPHA-1-GLOBULIN 0.3 g/dL (0.0-0.4); ALPHA-2-GLOBULIN 3 0.7 g/dL (0.4-1.0); BETA GLOBULIN 0.8 g/dL (0.7-1.3); IMMUNOGLOBULIN A 273 mg/dL (90-386); IMMUNOGLOBULIN G 1137 mg/dL (700-1600); IMMUNOGLOBULIN M 109 mg/dL (20-172); MONOCLONAL-SPIKE Not Observed g/dL (Not Observed); PROTEIN TOTAL SERUM 5.7 g/dL (6.0-8.5)
--- NOTE | 2017-03-28 16:53 | RADIOLOGY REPORT (SQ) ---
EXAM DESCRIPTION: CHEST SINGLE VIEW COMPLETED DATE/TIME: 03/28/2017 4:41 pm REASON FOR STUDY: ETT advancement COMPARISON: 03/28/2017 at 0611 hours EXAM PARAMETERS: NUMBER OF VIEWS: One view TECHNIQUE: Single frontal radiograph of the chest. RADIATION DOSE: N/A LIMITATIONS: None. FINDINGS: TEMPORARY SUPPORT DEVICES:The endotracheal tube is approximately 4 cm from the williams. Ri ght IJ central venous catheter noted with its tip projecting in the right atrium, similar to prior st udy. Nasogastric tube projecting below the level of the diaphragm. EKG leads overlie the chest. LUNGS AND PLEURA: Lung volumes are small. Linear opacities noted in both lung bases likely represent ing atelectatic change. No pneumothorax. MEDIASTINUM AND HILAR STRUCTURES: No masses. Contour normal. HEART AND VASCULAR STRUCTURES: Heart size normal. Normal vascularity. Aorta normal for age BONES: No acute findings. OTHER: No other significant finding. IMPRESSION: 1. Support tubes and lines as above. The right IJ central venous catheter tip remains d eep in the right atrium consider pulling the tube back. 2. Small lung volumes with atelectatic changes at both lung bases. TECHNICAL DOCUMENTATION: JOB ID: [id number] [employer]- All Rights Reserved
[2017-03-28 17:47] LABS: BLOOD UREA NITROGEN 10 mg/dL (7-20); CALCIUM 7.2 mg/dL (8.4-10.2); CARBON DIOXIDE 22 mmol/L (22-30); CREATININE RESULT 0.56 mg/dL (0.52-1.25); GLUCOSE 92 mg/dL (75-110); POTASSIUM 4.3 mmol/L (3.6-5.0)
[2017-03-28] MEDS: LACTULOSE SYRUP 20 GM/30 ML UDCUP PO SCH (17:54)
[2017-03-28 18:02] LABS: ANION GAP 6 (5-19); CHLORIDE 104 mmol/L (98-107); SODIUM 131.6 mmol/L (137-145)
--- NOTE | 2017-03-28 19:35 | PDOC CONSULTATION ---
Consultation Consult Date: 03/27/17 Attending physician:: WILLIS PATRICIA Consult reason:: Tachycardia and hypotension History of Present Illness Admission Date/PCP: 03/26/17 15:57 WILLIS PATRICIA MD Patient complains of: Patient admitted from surgical suite being intubated and hypotensive as well as tachycardic. History of Present Illness: MERCY WORLEY is a 31 year old male This is 31 y/o patient at [facility] with h/o mental retardation with cerebral palsy and multiple hospital admission for aspiration pneumonia was admitted through the emergency room with respiratory distress and found sepsis and possible aspiration pneumonia and colonic distention and intubated. Patient noted to have acute abdomen secondary to bowel necrosis on CT scan and was taken to surgery. Patient was seen on return to the unit. He was noted to be intubated and sedated and also on vasopressin drip with Joseph-Synephrine. His blood pressure was noted to be stable. Patient's mother at bedside and was interviewed. Patient has history of recurrent aspiration pneumonia but no prior cardiac problem. Twelve-lead EKG and rhythm strips were reviewed. Past Medical History Cardiac Medical History: Reports: Hyperlipidema Pulmonary Medical History: Reports: Intubation, Pneumonia - aspiration, Respiratory Failure Denies: Tuberculosis Neurological Medical History: Reports: Seizures - Epilepsy GI Medical History: Reports: Gastroesophageal Reflux Disease - Choleleithiasis Psychiatric Medical History: Denies: Depression Past Surgical History Past Surgical History: Reports: Orthopedic Surgery, Tonsillectomy, Other - PEG Social History Information Source: Parent Lives with: Custodial Smoking Status: Never Smoker Frequency of Alcohol Use: None Hx Recreational Drug Use: No Drugs: None Hx Prescription Drug Abuse: No - Advance Directive Resuscitation Status: Full Code Surrogate healthcare decision maker:: Patient's mother is the surrogate decision maker Family History Family History: Reviewed & Not Pertinent, Other Parental Family History Reviewed: Yes Children Family History Reviewed: Yes Sibling(s) Family History Reviewed.: Yes Medication/Allergy Home Medications: Carbamazepine [Tegretol Susp 200 mg/10 ml Udcup] 400 mg PEG Q8 03/26/17 Cetirizine HCl [Cetirizine HCl 5 mg/5 mL] 10 mg PEG DAILY 03/26/17 Cholecalciferol (Vitamin D3) [Vitamin D3 2000 unit Tablet] 2,000 unit PEG DAILY 03/26/17 Diazepam [Diastat Acudial 10 Mg/2 Ml Rectal Gel] 10 mg MO Q6HP PRN 03/26/17 Esomeprazole Magnesium [Nexium] 20 mg PEG DAILY 03/26/17 Ibuprofen [Motrin 20 Mg/1 Ml Susp 120 Ml Bottle] 800 mg PO Q6HP PRN 03/26/17 Ipratropium/Albuterol Sulfate [Duoneb 3 ml Ampul] 3 ml NEB RTQ8 03/26/17 Lactulose [Cephulac 20 gm/30 ml Syrup UD Cup] 10 gm PO PRN PRN 03/26/17 Naphazoline HCl/Pheniramine [Opcon-A Eye Drops] 2 drop OP QIDP PRN 03/26/17 Olopatadine HCl [Pataday] 1 drop OU DAILYP PRN 03/26/17 Perampanel [Fycompa] 8 mg PO DAILY 03/26/17 Polyethylene Glycol 3350 [Miralax Powder 17 gm/Packet] 1 packet PEG DAILY Sodium Chloride/Aloe Vera [[place] Saline Nasal Gel] 1 applic TP BID 03/26/17 Zonisamide [Zonegran 100 Mg Capsule] 500 mg PEG QHS 03/26/17 Allergies/Adverse Reactions: levofloxacin [From Levaquin] Allergy (Severe, Verified 10/09/15 10:56) amoxicillin [Amoxicillin] Allergy (Unknown, Verified 10/09/15 10:56) Cephalosporins Allergy (Unknown, Verified 10/09/15 10:56) fentanyl [Fentanyl] Allergy (Unknown, Verified 10/09/15 10:56) midazolam HCl [From Versed] Allergy (Unknown, Verified 10/09/15 10:56) Penicillins Allergy (Unknown, Verified 10/09/15 10:56) vancomycin [Vancomycin] Allergy (Verified 10/09/15 10:56) rash ciprofloxacin [From Cipro] Adverse Reaction (Verified 10/09/15 10:56) increase seizures scopolamine [Scopolamine] Adverse Reaction (Verified 10/09/15 10:56) Tachycardia Review of Systems ROS unobtainable: Due to endotracheal tube Physical Exam Vital Signs: Temp Pulse Resp BP Pulse Ox 96.4 F L 97 20 90/56 L 98 03/27/17 18:23 03/27/17 18:23 03/27/17 18:23 03/27/17 18:23 03/27/17 18:23 Intake & Output 03/26/17 03/27/17 03/28/17 06:59 06:59 06:59 Intake Total 4000 Output Total 345 4330 Balance -345 -330 Weight 67 kg Exam: GENERAL: well-nourished and in no acute distress. Patient is intubated and sedated. Orientation cannot be checked HEAD: Atraumatic, normocephalic. EYES: Pupils equal round and reactive to light, extraocular movements could not be checked, sclera anicteric, conjunctiva are normal. ENT: TMs normal, nares patent, oropharynx clear without exudates. Moist mucous membranes. No oral ulcerations or bleeding gums noted NECK: supple without lymphadenopathy or JVD. Trachea is central. No cervical or axillary lymphadenopathy noted. Carotids are 2+ LUNGS: Breath sounds mostly clear to auscultation patient is noted to have bibasal crackles at the extreme bases CHEST: Palpation of the chest wall shows no significant chest wall tenderness or abnormalities. 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 ABDOMEN: Soft, status post surgery with surgical scar being noted, hypoactive bowel sounds. No guarding, no rebound. No rigidity noted . No masses appreciated. EXTREMITIES: Pedal pulses are 1-2+, no calf tenderness noted, 1+ pedal edema noted. No clubbing or cyanosis. NEUROLOGICAL: The patient cannot participate in the neurological exam but no facial asymmetry noted. Findings indicative of cerebral palsy with weakness both lower extremity and also some weakness in the upper extremity.. PSYCH: This cannot be evaluated. Patient cannot participate. SKIN: No significant ecchymosis, rash, or signs of pruritus noted. MUSCULOSKELETAL EXAM: No significant joint swelling noted. Patient cannot participate in musculoskeletal exam. Findings are indicative of cerebral palsy. Results Laboratory Results: 03/27/17 05:25 03/27/17 05:25 03/27/17 03/27/17 03/27/17 05:25 05:25 05:25 WBC 26.8 H RBC 3.59 L Hgb 11.5 L D Hct 35.5 L MCV 99 H MCH 31.9 MCHC 32.3 RDW 14.9 H Plt Count 274 Seg Neutrophils % Not Reportable Lymphocytes % Not Reportable Monocytes % Not Reportable Eosinophils % Not Reportable Basophils % Not Reportable Absolute Neutrophils Not Reportable Absolute Lymphocytes Not Reportable Absolute Monocytes Not Reportable Absolute Eosinophils Not Reportable Absolute Basophils Not Reportable Carbonic Acid 1.03 L HCO3/H2CO3 Ratio 19:1 ABG pH 7.39 ABG pCO2 34.1 L ABG pO2 72.4 L ABG HCO3 20.2 ABG O2 Saturation 94.6 ABG Base Excess -3.9 FiO2 50% Sodium 134.2 L Potassium 4.1 Chloride 103 Carbon Dioxide 19 L Anion Gap 12 BUN 16 Creatinine 0.82 Est GFR ( Amer) > 60 Est GFR (Non-Af Amer) > 60 Glucose 135 H Calcium 7.8 L Magnesium 2.1 Total Bilirubin 0.4 AST 23 ALT 24 Alkaline Phosphatase 87 Total Protein 6.0 L Albumin 2.9 L Blood Type Antibody Screen 03/27/17 14:29 WBC RBC Hgb Hct MCV MCH MCHC RDW Plt Count Seg Neutrophils % Lymphocytes % Monocytes % Eosinophils % Basophils % Absolute Neutrophils Absolute Lymphocytes Absolute Monocytes Absolute Eosinophils Absolute Basophils Carbonic Acid HCO3/H2CO3 Ratio ABG pH ABG pCO2 ABG pO2 ABG HCO3 ABG O2 Saturation ABG Base Excess FiO2 Sodium Potassium Chloride Carbon Dioxide Anion Gap BUN Creatinine Est GFR ( Amer) Est GFR (Non-Af Amer) Glucose Calcium Magnesium Total Bilirubin AST ALT Alkaline Phosphatase Total Protein Albumin Blood Type A POSITIVE Antibody Screen NEGATIVE EKG Comments: 2D echo reviewed. It shows normal LVEF. No significant valvular abnormalities were noted. Impressions: Abdomen/Pelvis CT 03/26/17 00:00 IMPRESSION: 1. There is air and stool in the ascending colon. There is a markedly distended transverse colon and decompressed descending colon. Focal obstructing mass or extrinsic compression of the colon is not identified. There is no CT evidence of volvulus. 2. No significant small-bowel dilatation. There are thickened loops of small bowel in the left mid abdomen. Etiology of this is uncertain but infectious or inflammatory process cannot be excluded. The patient has an indwelling jejunostomy tube. 3. Free fluid in the pelvis etiology of this is uncertain. 4. Bibasilar consolidation consistent with pneumonia or lung collapse. Abdomen X-Ray 03/26/17 12:43 IMPRESSION: Nonspecific bowel gas pattern with market gaseous distention of the transverse colon, large amount of stool in the ascending colon, and few dilated small bowel loops in the mid epigastrium Findings were discussed withDr Alex Chest/Abdomen CTA 03/26/17 16:42 IMPRESSION: 1. No pulmonary emboli. 2. Bilateral lower lobe collapse and/or consolidation. There is a small left effusion as well. Mild right hilar as well as mediastinal adenopathy is present. This is most likely reactive. KUB X-Ray 03/27/17 00:00 IMPRESSION: Persistent abnormal bowel gas pattern with massively distended loop of colon in the mid epigastrium. It is difficult to discern whether this is due to a distal transverse colon stricture, or sigmoid volvulus. Images reviewed with Dr. Sheikh Chest X-Ray 03/27/17 06:00 IMPRESSION: 1. New small streakiness of the left mid lung field may indicate early pneumonia or atelectasis. 2. Lines and tubes as described. Consider 2 cm advancement of the endotracheal tube. 3. Extensive gaseous distension of upper abdominal bowel consistent with CT 1 day prior. Assessment & Plan - Diagnosis (1) Arterial hypotension Qualifiers: Hypotension type: unspecified hypotension type Qualified Code(s): I95.9 - Hypotension, unspecified Is this a current diagnosis for this admission?: Yes (2) Septic shock Is this a current diagnosis for this admission?: Yes (4) Sinus tachycardia Is this a current diagnosis for this admission?: Yes (5) Acute ischemia of large intestine Is this a current diagnosis for this admission?: Yes - Notes Notes: employee representative, this was reviewed. 2D echocardiogram reviewed and shows normal LVEF. Chest x-ray: Results reviewed. Medications: These were reviewed. Labs: These were reviewed. Treatment/care plan: This was reviewed and discussed with involved personnel in the care of this patient and patient. Arterial hypotension: Patient has normal LVEF therefore preferred agent either Joseph-Synephrine or Levophed. Could also use vasopressin. Patient already started on Joseph-Synephrine which will be continued. Recommend additional fluid boluses as needed to maintain blood pressure over 90 mm systolic Septic shock: This is secondary to ischemic bowel. Patient is status post surgery and therefore likely to improve. Respiratory distress: Secondary to aspiration and sepsis. Pulmonary following. Continue broad-spectrum antibiotic therapy. Sinus tachycardia: This is related to metabolic issues. Likely to improve with correction of acute medical problems. Acute ischemia of the large intestine secondary to volvulus: Patient is status post corrective surgery. There has been resection of a part of large bowel.. - Time Time Spent: 50 to 70 Minutes - CODE STATUS was discussed, patient remains full code. Surrogate decision-maker patient's mother. Multiple medical problems were addressed. More than 50% of the time spent coordinating care, discussing management plans with involved caregivers. Management plans discussed with involved personnels. Medical decision making was of moderate to high complexity , patient's has multiple comorbidities. Medications reviewed and adjusted accordingly: Yes
--- NOTE | 2017-03-28 19:40 | PDOC PROGRESS REPORT ---
Subjective Progress Note for:: 03/28/17 Subjective:: Patient about the same and has made significant progress. There is significant improvement in general condition. Patient remains intubated, sedated, patient however looks comfortable and in acute distress. Medications reviewed. Physical Exam Vital Signs: Temp Pulse Resp BP Pulse Ox 97.9 F 103 H 16 93/58 L 99 03/28/17 18:05 03/28/17 18:00 03/28/17 18:05 03/28/17 18:05 03/28/17 18:05 Intake & Output 03/27/17 03/28/17 03/29/17 06:59 06:59 06:59 Intake Total 9503 2449 Output Total 345 5455 1950 Balance -345 4048 499 Weight 67 kg 71.6 kg Exam: GENERAL: well-nourished and in no acute distress. Patient is intubated and sedated. Orientation cannot be checked HEAD: Atraumatic, normocephalic. EYES: Pupils equal round and reactive to light, extraocular movements could not be checked, sclera anicteric, conjunctiva are normal. ENT: TMs normal, nares patent, oropharynx clear without exudates. Moist mucous membranes. No oral ulcerations or bleeding gums noted NECK: supple without lymphadenopathy or JVD. Trachea is central. No cervical or axillary lymphadenopathy noted. Carotids are 2+ LUNGS: Breath sounds mostly clear to auscultation patient is noted to have bibasal crackles at the extreme bases CHEST: Palpation of the chest wall shows no significant chest wall tenderness or abnormalities. HEART: [place] [employer], No PSH, 2/6 SAT[place] aortic area, 1/6 calderon systolic murmur mitral area , no rubs or gallops. ABDOMEN: Soft, status post surgical scar, normoactive bowel sounds. No guarding , no rebound. No rigidity noted . No masses appreciated. EXTREMITIES: Pedal pulses are 1-2+, no calf tenderness noted, 1+ pedal edema noted. No clubbing or cyanosis. NEUROLOGICAL: The patient cannot participate in the neurological exam but no facial asymmetry noted. Extremities slightly hypotonic PSYCH: This cannot be evaluated. Patient cannot participate. SKIN: No significant ecchymosis, rash, or signs of pruritus noted. MUSCULOSKELETAL EXAM: No significant joint swelling noted. Patient cannot participate in musculoskeletal exam. Lower extremity muscles shows some wasting consistent with cerebral palsy. Results Laboratory Results: 03/28/17 05:30 03/28/17 16:25 03/28/17 03/28/17 03/28/17 05:30 05:30 05:30 WBC 21.5 H RBC 3.24 L Hgb 10.4 L Hct 32.1 L MCV 99 H MCH 32.2 MCHC 32.5 RDW 15.2 H Plt Count 338 Seg Neutrophils % Not Reportable Lymphocytes % Not Reportable Monocytes % Not Reportable Eosinophils % Not Reportable Basophils % Not Reportable Absolute Neutrophils Not Reportable Absolute Lymphocytes Not Reportable Absolute Monocytes Not Reportable Absolute Eosinophils Not Reportable Absolute Basophils Not Reportable Carbonic Acid 1.16 HCO3/H2CO3 Ratio 17:1 ABG pH 7.34 L ABG pCO2 38.6 ABG pO2 98.8 ABG HCO3 20.2 ABG O2 Saturation 97.2 ABG Base Excess -5.2 FiO2 30% Sodium 129.9 L Potassium 4.3 Chloride 104 Carbon Dioxide 21 L Anion Gap 5 BUN 11 Creatinine 0.57 Est GFR ( Amer) > 60 Est GFR (Non-Af Amer) > 60 Glucose 112 H Calcium 7.2 L Phosphorus 2.7 Magnesium 1.9 Total Bilirubin 0.2 AST 23 ALT 33 Alkaline Phosphatase 68 Total Protein 4.5 L Albumin 1.9 L 03/28/17 16:25 WBC RBC Hgb Hct MCV MCH MCHC RDW Plt Count Seg Neutrophils % Lymphocytes % Monocytes % Eosinophils % Basophils % Absolute Neutrophils Absolute Lymphocytes Absolute Monocytes Absolute Eosinophils Absolute Basophils Carbonic Acid HCO3/H2CO3 Ratio ABG pH ABG pCO2 ABG pO2 ABG HCO3 ABG O2 Saturation ABG Base Excess FiO2 Sodium 131.6 L Potassium 4.3 Chloride 104 Carbon Dioxide 22 Anion Gap 6 BUN 10 Creatinine 0.56 Est GFR ( Amer) > 60 Est GFR (Non-Af Amer) > 60 Glucose 92 Calcium 7.2 L Phosphorus Magnesium Total Bilirubin AST ALT Alkaline Phosphatase Total Protein Albumin Impressions: Abdomen/Pelvis CT 03/26/17 00:00 IMPRESSION: 1. There is air and stool in the ascending colon. There is a markedly distended transverse colon and decompressed descending colon. Focal obstructing mass or extrinsic compression of the colon is not identified. There is no CT evidence of volvulus. 2. No significant small-bowel dilatation. There are thickened loops of small bowel in the left mid abdomen. Etiology of this is uncertain but infectious or inflammatory process cannot be excluded. The patient has an indwelling jejunostomy tube. 3. Free fluid in the pelvis etiology of this is uncertain. 4. Bibasilar consolidation consistent with pneumonia or lung collapse. Abdomen X-Ray 03/26/17 12:43 IMPRESSION: Nonspecific bowel gas pattern with market gaseous distention of the transverse colon, large amount of stool in the ascending colon, and few dilated small bowel loops in the mid epigastrium Findings were discussed withDr Alex Chest/Abdomen CTA 03/26/17 16:42 IMPRESSION: 1. No pulmonary emboli. 2. Bilateral lower lobe collapse and/or consolidation. There is a small left effusion as well. Mild right hilar as well as mediastinal adenopathy is present. This is most likely reactive. KUB X-Ray 03/27/17 00:00 IMPRESSION: Persistent abnormal bowel gas pattern with massively distended loop of colon in the mid epigastrium. It is difficult to discern whether this is due to a distal transverse colon stricture, or sigmoid volvulus. Images reviewed with Dr. Sheikh Chest X-Ray 03/28/17 16:04 IMPRESSION: 1. Support tubes and lines as above. The right IJ central venous catheter tip remains deep in the right atrium consider pulling the tube back. 2. Small lung volumes with atelectatic changes at both lung bases. Assessment & Plan - Diagnosis (1) Arterial hypotension Qualifiers: Hypotension type: unspecified hypotension type Qualified Code(s): I95.9 - Hypotension, unspecified Is this a current diagnosis for this admission?: Yes (2) Septic shock Is this a current diagnosis for this admission?: Yes (4) Sinus tachycardia Is this a current diagnosis for this admission?: Yes (5) Acute ischemia of large intestine Is this a current diagnosis for this admission?: Yes - Notes Notes: cardiac monitor, this was reviewed. 2D echocardiogram reviewed and shows normal LVEF. Chest x-ray: Results reviewed. Suggest bibasilar atelectasis. EKG to be ordered. Medications: These were reviewed. Labs: These were reviewed. Treatment/care plan: This was reviewed and discussed with involved personnel in the care of this patient and patient. Arterial hypotension: Patient has normal LVEF patient maintaining good blood pressure on Joseph-Synephrine drip. Continue with this. Septic shock: This is secondary to ischemic bowel. Patient is significantly improved. Patient is status post surgery and therefore likely to improve. Respiratory distress: Secondary to aspiration and sepsis. Pulmonary following. Continue broad-spectrum antibiotic therapy. Sinus tachycardia: This is related to metabolic issues. This problem seems to have improved.. Acute ischemia of the large intestine secondary to volvulus: Patient is status post corrective surgery. There has been resection of a part of large bowel. Patient did not need a colostomy. - Time Time with patient: Greater than 35 minutes - CODE STATUS was discussed, patient remains full code. Surrogate decision-maker unchanged. Multiple medical problems were addressed. More than 50% of the time spent coordinating care, discussing management plans with involved caregivers. Management plans discussed with involved personnels. Medical decision making was of moderate to high complexity, patient's has multiple comorbidities. Medications reviewed and adjusted accordingly: Yes
[2017-03-28] MEDS: ZONISAMIDE 100 MG CAPSULE PEG SCH (22:04)
[2017-03-29] MEDS: LEVALBUTEROL HCL NEB 1.25 MG/3 ML AMPUL NEB SCH ×6 (00:23→19:58)
--- NOTE | 2017-03-29 04:45 | EKG REPORT ---
SEVERITY:- BORDERLINE ECG - SINUS TACHYCARDIA BORDERLINE T WAVE ABNORMALITIES : Confirmed by: Francine Aguirre MD 29-Mar-2017 04:00:45
[2017-03-29] MEDS: CLINDAMYCIN 600 MG/D5W RTU 600 MG/50 ML RTUPB IV SCH ×4 (05:20→23:00)
[2017-03-29 05:21] LABS: ABSOLUTE EOSINOPHILS # (AUTO) 0.1 10^3/uL (0.0-0.6); ABSOLUTE LYMPHOCYTES (AUTO) 0.8 10^3/uL (0.5-4.7); ABSOLUTE MONOCYTES (AUTO) 0.6 10^3/uL (0.1-1.4); ABSOLUTE NEUT (AUTO) 9.9 10^3/uL (1.7-8.2); BASOPHILS % (AUTO) 0.1 % (0-2); EOSINOPHILS % (AUTO) 0.6 % (0-6); HEMATOCRIT 28.9 % (37.9-51.0); HEMOGLOBIN 9.4 g/dL (13.5-17.0); HGB HCT DIFFERENCE -0.7; MEAN CORPUSCULAR HEMOGLOBIN 32.3 pg (27.0-33.4); MEAN CORPUSCULAR HGB CONC 32.5 g/dL (32.0-36.0); MEAN CORPUSCULAR VOLUME 99 fl (80-97); MONOCYTES % (AUTO) 5.3 % (3-13); RED BLOOD COUNT 2.92 10^6/uL (4.35-5.55); RED CELL DISTRIBUTION WIDTH 14.9 % (11.5-14.0); WHITE BLOOD COUNT 11.4 10^3/uL (4.0-10.5)
[2017-03-29] MEDS: CARBAMAZEPINE SUSP 200 MG/10 ML UDCUP PEG SCH ×3 (05:21→21:22)
[2017-03-29] MEDS: SULFAMETHOXAZOLE/TRIMETHOPRIM 160 MG in DEXTROSE 5%-WATER 250 ML IV SCH ×4 (05:21→23:06)
[2017-03-29] MEDS: AZTREONAM 1 GM in DEXTROSE 5%-WATER 50 ML IV SCH ×3 (05:21→21:21)
[2017-03-29] MEDS: PROPOFOL 100 ML IV PRN ×4 (05:30→19:00)
[2017-03-29 05:43] LABS: ALANINE AMINOTRANSFERASE 33 U/L (21-72); ALKALINE PHOSPHATASE 75 U/L (38-126); ANION GAP 6 (5-19); ASPARTATE AMINO TRANSFERASE 24 U/L (17-59); BILIRUBIN,DIRECT 0.2 mg/dL (0.0-0.4); BILIRUBIN,TOTAL 0.2 mg/dL (0.2-1.3); BLOOD UREA NITROGEN 9 mg/dL (7-20); CALCIUM 7.3 mg/dL (8.4-10.2); CARBON DIOXIDE 21 mmol/L (22-30); CHLORIDE 105 mmol/L (98-107); CREATININE RESULT 0.58 mg/dL (0.52-1.25); GLUCOSE 87 mg/dL (75-110); MAGNESIUM 1.9 mg/dL (1.6-2.3); POTASSIUM 4.1 mmol/L (3.6-5.0); SODIUM 131.8 mmol/L (137-145); TOTAL PROTEIN 4.6 g/dL (6.3-8.2)
[2017-03-29] MEDS: ENOXAPARIN SODIUM INJ 40 MG/0.4 ML DISP.SYRIN SUBCUT SCH (09:22)
[2017-03-29] MEDS: POLYETHYLENE GLYCOL 3350 POWDER 17 GM/1 PACKET PEG SCH (09:22)
[2017-03-29] MEDS: FAMOTIDINE INJ/PF 20 MG/2 ML SDV IV SCH ×2 (09:22→21:21)
[2017-03-29] MEDS: CETIRIZINE HCL ORAL SOLN 5 MG/5 ML UDCUP PEG SCH (09:23)
[2017-03-29] MEDS: NORMAL SALINE 1000 ML 1,000 ML IV PRN ×2 (10:36→17:54)
[2017-03-29 12:40] LABS: ARTERIAL BLOOD BASE EXCESS -3.2 mmol/L; ARTERIAL BLOOD O2 SATURATION 93.7 % (94-98)
[2017-03-29] MEDS: MORPHINE SULFATE 10 MG/ML INJ IV PRN ×2 (12:49→20:41)
--- NOTE | 2017-03-29 13:15 | RADIOLOGY REPORT (SQ) ---
EXAM DESCRIPTION: CHEST SINGLE VIEW COMPLETED DATE/TIME: 03/29/2017 12:39 pm REASON FOR STUDY: resp failure COMPARISON: CT chest 03/26/2017 Chest films 03/28/2017, 03/27/2017, 03/26/2017, 12/20/2016 EXAM PARAMETERS: NUMBER OF VIEWS: One view. TECHNIQUE: Single frontal radiographic view of the chest acquired. RADIATION DOSE: NA LIMITATIONS: None. FINDINGS: LUNGS AND PLEURA: Air bronchograms in the left retrocardiac region from atelectasis or pne umonia, unchanged from prior studies. Improved aeration at the right lung base compared to previous studies. No gross pleural effusions or pneumothorax. MEDIASTINUM AND HILAR STRUCTURES: No masses. Contour normal. HEART AND VASCULAR STRUCTURES: Heart normal in size. Normal vasculature. BONES: No acute findings. HARDWARE: Endotracheal tube tip 3 cm above the williams. Nasogastric tube tip and side-port coiled in the stomach. Right jugular triple lumen catheter tip in the right atrium pointing toward the inferio r vena cava. Upper abdominal surgical drains. OTHER: No other significant finding. IMPRESSION: Improved aeration at the right lung base, persistent volume loss with air bronchograms l eft retrocardiac region atelectasis versus pneumonia. TECHNICAL DOCUMENTATION: JOB ID: [id number]
--- NOTE | 2017-03-29 13:43 | PROGRESS NOTE E ---
Progress Note NAME: MERCY WORLEY : 1985 AGE: 31Y DATE: 03/29/2017 ROOM: 601 SUBJECTIVE: At the present time, still intubated and requiring small doses of pressors. His NG drainage is about 300 mL in the past 24 hours. OBJECTIVE: ABDOMEN: His abdomen is soft. No obvious tenderness. VITAL SIGNS: Temperature is 99.3 with a heart rate of 117 per minute. His blood pressure is 112/79. PLAN: 1. Continue with ventilatory support. 2. Continue IV antibiotics and hydration. 3. Continue to leave the NG tube for now until he is extubated. DICTATING PHYSICIAN: MASSIMO BARRY M.D. [id number] PHY#: [id number] ID: [id number] JOB#: [id number] ACCT: [id number] cc: >
--- NOTE | 2017-03-29 15:25 | PDOC PROGRESS REPORT ---
Subjective Progress Note for:: 03/29/17 Subjective:: Patient is currently doing well per the nursing staff. Patient's still on a pressure but the requirement is coming down.No fever and the white count is also coming down. Patient seen by the surgeon in the pulmonary in the ICU this morning and pretty much all stable Physical Exam Vital Signs: Temp Pulse Resp BP Pulse Ox 99.7 F 115 H 19 96/58 L 95 03/29/17 12:00 03/29/17 14:00 03/29/17 14:00 03/29/17 14:00 03/29/17 14:00 Intake & Output 03/28/17 03/29/17 03/30/17 06:59 06:59 06:59 Intake Total 9503 4815 Output Total 5405 3750 1250 Balance 4048 1065 -1250 Weight 71.6 kg 75.1 kg Physical Exam: Currently intubated and under sedation General appearance: PRESENT: no acute distress Eye exam: PRESENT: PERRLA Respiratory exam: PRESENT: clear to auscultation adelina Cardiovascular exam: PRESENT: +S1, +S2 GI/Abdominal exam: PRESENT: soft Additonal comments: Surgical scar is intact Extremities exam: ABSENT: pedal edema Results Laboratory Results: 03/29/17 05:10 03/29/17 05:10 03/27/17 03/28/17 03/29/17 05:25 16:25 05:10 WBC 11.4 H RBC 2.92 L Hgb 9.4 L Hct 28.9 L MCV 99 H MCH 32.3 MCHC 32.5 RDW 14.9 H Plt Count 282 Seg Neutrophils % 87.0 H Lymphocytes % 7.0 L Monocytes % 5.3 Eosinophils % 0.6 Basophils % 0.1 Absolute Neutrophils 9.9 H Absolute Lymphocytes 0.8 Absolute Monocytes 0.6 Absolute Eosinophils 0.1 Absolute Basophils 0.0 Carbonic Acid HCO3/H2CO3 Ratio ABG pH ABG pCO2 ABG pO2 ABG HCO3 ABG O2 Saturation ABG Base Excess FiO2 Sodium 131.6 L Potassium 4.3 Chloride 104 Carbon Dioxide 22 Anion Gap 6 BUN 10 Creatinine 0.56 Est GFR ( Amer) > 60 Est GFR (Non-Af Amer) > 60 Glucose 92 Calcium 7.2 L Magnesium Total Bilirubin AST ALT Alkaline Phosphatase Total Protein 5.7 L Albumin 2.7 L 03/29/17 03/29/17 05:10 12:26 WBC RBC Hgb Hct MCV MCH MCHC RDW Plt Count Seg Neutrophils % Lymphocytes % Monocytes % Eosinophils % Basophils % Absolute Neutrophils Absolute Lymphocytes Absolute Monocytes Absolute Eosinophils Absolute Basophils Carbonic Acid 1.04 L HCO3/H2CO3 Ratio 20:1 ABG pH 7.40 ABG pCO2 34.4 L ABG pO2 67.5 L ABG HCO3 21.0 ABG O2 Saturation 93.7 L ABG Base Excess -3.2 FiO2 30% Sodium 131.8 L Potassium 4.1 Chloride 105 Carbon Dioxide 21 L Anion Gap 6 BUN 9 Creatinine 0.58 Est GFR ( Amer) > 60 Est GFR (Non-Af Amer) > 60 Glucose 87 Calcium 7.3 L Magnesium 1.9 Total Bilirubin 0.2 AST 24 ALT 33 Alkaline Phosphatase 75 Total Protein 4.6 L Albumin 2.0 L 03/27/17 12:07 Tracheal Aspirate Gram Stain - Final 03/27/17 12:07 Tracheal Aspirate Sputum Culture - Final Pseudomonas Aeruginosa Group B Beta Streptococcus Greatly Reduced Normal Sarahi Impressions: Abdomen/Pelvis CT 03/26/17 00:00 IMPRESSION: 1. There is air and stool in the ascending colon. There is a markedly distended transverse colon and decompressed descending colon. Focal obstructing mass or extrinsic compression of the colon is not identified. There is no CT evidence of volvulus. 2. No significant small-bowel dilatation. There are thickened loops of small bowel in the left mid abdomen. Etiology of this is uncertain but infectious or inflammatory process cannot be excluded. The patient has an indwelling jejunostomy tube. 3. Free fluid in the pelvis etiology of this is uncertain. 4. Bibasilar consolidation consistent with pneumonia or lung collapse. Abdomen X-Ray 03/26/17 12:43 IMPRESSION: Nonspecific bowel gas pattern with market gaseous distention of the transverse colon, large amount of stool in the ascending colon, and few dilated small bowel loops in the mid epigastrium Findings [facility] Chest/Abdomen CTA 03/26/17 16:42 IMPRESSION: 1. No pulmonary emboli. 2. Bilateral lower lobe collapse and/or consolidation. There is a small left effusion as well. Mild right hilar as well as mediastinal adenopathy is present. This is most likely reactive. KUB X-Ray 03/27/17 00:00 IMPRESSION: Persistent abnormal bowel gas pattern with massively distended loop of colon in the mid epigastrium. It is difficult to discern whether this is due to a distal transverse colon stricture, or sigmoid volvulus. Images reviewed with Dr. Sheikh Chest X-Ray 03/29/17 12:18 IMPRESSION: Improved aeration at the right lung base, persistent volume loss with air bronchograms left retrocardiac region atelectasis versus pneumonia. Assessment & Plan - Diagnosis (1) Acute respiratory failure Qualifiers: Respiratory failure complication: hypoxia Qualified Code(s): J96.01 - Acute respiratory failure with hypoxia Is this a current diagnosis for this admission?: YesPlan: Currently on a vent management (2) Aspiration pneumonia Qualifiers: Aspiration pneumonia type: unspecified Laterality: right Lung location: lower lobe of lung Qualified Code(s): J69.0 - Pneumonitis due to inhalation of food and vomit Is this a current diagnosis for this admission?: YesPlan: Continues to IV antibiotic (3) Colon distention Is this a current diagnosis for this admission?: YesPlan: From the volvulus status post right hemicolectomy day 2 And follow with the surgery (4) Cerebral palsy Qualifiers: Cerebral palsy type: unspecified type Qualified Code(s): G80.9 - Cerebral palsy, unspecified Is this a current diagnosis for this admission?: Yes (5) Mental retardation Is this a current diagnosis for this admission?: Yes (6) Seizures Qualifiers: Convulsion type: unspecified Qualified Code(s): R56.9 - Unspecified convulsions Is this a current diagnosis for this admission?: YesPlan: cont curr medication (7) Sinus tachycardia Is this a current diagnosis for this admission?: YesPlan: Patient's echocardiogram is stable most likely from the sepsis (8) Sepsis Qualifiers: Sepsis type: sepsis due to unspecified organism Qualified Code(s): A41.9 - Sepsis, unspecified organism Is this a current diagnosis for this admission?: YesPlan: Continues on broad-spectrum antibiotic wait for the full culture and sensitivity - Time Time Spent with patient: 15-24 minutes Medications reviewed and adjusted accordingly: Yes Anticipated discharge: SNF Within: Other - Inpatient Certification Medical Necessity: Need For IV Fluids, Need for IV Antibiotics Post Hospital Care: D/C Manager Export Documentation - Plan Summary Plan Summary: Try to wean off from the patient continues to IV fluid and IV antibiotic. Discussed with the surgery and the pulmonary probably patients to be intubated into the weekends and probably a p.o. intake should be still holding onto the Discussed with the mother at the bedside about the patient's current condition and all the plan
[2017-03-29] MEDS: LACTULOSE SYRUP 20 GM/30 ML UDCUP PO SCH (17:53)
--- NOTE | 2017-03-29 20:54 | PROGRESS NOTE E ---
Progress Note NAME: MERCY WORLEY : 1985 AGE: 31Y DATE: 03/29/2017 ROOM: 601 SUBJECTIVE: Note that the patient remains intubated and sedated. He is still requiring joseph-synephrine, but at a dose of 20 mcg/min with a stable blood pressure. He is still tachycardic but there is no atrial or ventricular arrhythmia seen. The patient does not seem to be fighting the ventilator. OBJECTIVE: GENERAL: The patient is well-built and well-nourished. On examination the patient seems to be well-groomed and seems to be well-nourished. The patient is intubated and sedated. VITAL SIGNS: His temperature is 99.3 degrees Fahrenheit, pulse is 118 beats per minute, blood pressure 111/78, respiratory rate 24 per minute, O2 saturations are 96% with an FiO2 of 30% on the ventilator. Blood pressure is 114/79 with the patient being on 20 mcg/min of Joseph-Synephrine. HEENT: Head is atraumatic, normocephalic. Eyes: Pupils are equal, round and regular, reactive to light. NECK: Supple without any lymphadenopathy or JVD. Trachea is central. There is no cervical or axillary lymphadenopathy. Carotids are 2+ without any bruit. There is no JVD. LUNGS: Show a few crackles, dry crackles in the right base and also in the left retrocardiac region. HEART: S1 and S2 is heard. S1 is of normal intensity. There is no S3 gallop. There is no S4 gallop. There is a systolic murmur in the left sternal border and the apex. There is no rub. ABDOMEN: The dressing is dry. Bowel sounds are slightly diminished. There is no hepatosplenomegaly. EXTREMITIES: There is trace pedal edema. Pedal pulses are slightly diminished. Femorals are diminished. There are no femoral bruits. There is no cellulitis or DVT. There is no cyanosis or clubbing. CENTRAL NERVOUS SYSTEM: Not examined. PSYCHIATRIC: Not examined. INTAKE/OUTPUT: The patient's 24 hour intake is 4815 mL, output is 3750 mL. LABORATORY DATA: The patient's white count is 9400, hemoglobin is 9.4, hematocrit 28.9, platelet count 282,000. The patient's sodium is 131.8, potassium 4.1, chloride is 105, CO2 is 21. The patient's BUN is 9, creatinine 0.58, GFR is greater than 60, glucose is 87, calcium is low at 7.3. The patient's liver function tests are normal. The patient's total protein is 4.6, albumin is 2.0. The patient's ABG showed a pH of 7.40, pCO2 is low at 34.4, pO2 is normal at *------*, this is on an FiO2 of 30% on the ventilator with O2 saturation of 93.7. IMAGING STUDIES: The patient's chest x-ray shows improved aeration in the right lung base pneumonia versus volume loss with air bronchograms in the left retrograde region most likely pneumonia. IMPRESSION: 1. HYPOTENSION SECONDARY TO SEPTIC SHOCK. 2. ASPIRATION PNEUMONIA. The patient on antibiotics and on ventilator support. 3. ACUTE RESPIRATORY FAILURE, HYPOXIC. The patient on the ventilator, on antibiotics, and also on propofol. The patient is also on phenylephrine drip at 20 mcg for his hypotension. 4. STATUS POST COLECTOMY AND RESECTION OF CECUM AND DISTAL ILEUS DUE TO VOLVULUS OF CECUM. 5. CEREBRAL PALSY. 6. HISTORY OF MENTAL RETARDATION. 7. HISTORY OF SEIZURES. 8. SINUS TACHYCARDIA SECONDARY TO SEPSIS AND THE PATIENT BEING ON JOSEPH-SYNEPHRINE. RECOMMENDATION: Continue joseph-synephrine, try to wean the patient off joseph-synephrine. Continue ventilator support. Continue antibiotics. Continue respiratory treatments. Continue normal saline at 150 mL per hour. Note the patient is a full code and his mother is his surrogate healthcare decision maker. His total 24 hour intake has been 4815 mL, output is 3750 mL. Note this case involves highly complex medical decision in view of the patient's hypotension and need for pressors and also septic shock requiring antibiotics and IV fluids. Also medications have been reviewed. At least 30 minutes spent on this patient with more than 50% of the time spent on direct patient care and also review of the patient's medications. Also coordination of care with other caregiving providers on the case. Dr. Toscano will follow the patient in the a.m. DICTATING PHYSICIAN: ANA CHOW M.D. [id number] PHY#: [id number] ID: [id number] JOB#: [id number] ACCT: [id number] cc: >
[2017-03-29] MEDS: ZONISAMIDE 100 MG CAPSULE PEG SCH (21:22)
[2017-03-30] MEDS: PROPOFOL 100 ML IV PRN ×6 (00:17→21:08)
[2017-03-30] MEDS: LEVALBUTEROL HCL NEB 1.25 MG/3 ML AMPUL NEB SCH ×7 (00:36→23:21)
[2017-03-30] MEDS: NORMAL SALINE 1000 ML 1,000 ML IV PRN ×3 (03:00→17:02)
[2017-03-30 07:17] LABS: ABSOLUTE EOSINOPHILS # (AUTO) 0.1 10^3/uL (0.0-0.6); ABSOLUTE LYMPHOCYTES (AUTO) 0.6 10^3/uL (0.5-4.7); ABSOLUTE MONOCYTES (AUTO) 0.4 10^3/uL (0.1-1.4); ABSOLUTE NEUT (AUTO) 3.9 10^3/uL (1.7-8.2); BASOPHILS % (AUTO) 0.2 % (0-2); EOSINOPHILS % (AUTO) 1.4 % (0-6); HEMATOCRIT 24.7 % (37.9-51.0); HEMOGLOBIN 8.1 g/dL (13.5-17.0); HGB HCT DIFFERENCE -0.4; LYMPHOCYTES % (AUTO) 11.6 % (13-45); MEAN CORPUSCULAR HEMOGLOBIN 32.4 pg (27.0-33.4); MEAN CORPUSCULAR HGB CONC 32.9 g/dL (32.0-36.0); MEAN CORPUSCULAR VOLUME 99 fl (80-97); MONOCYTES % (AUTO) 8.3 % (3-13); RED CELL DISTRIBUTION WIDTH 15.1 % (11.5-14.0); SEGMENTED NEUTROPHILS % (AUTO) 78.5 % (42-78)
[2017-03-30 07:32] LABS: PROTHROMBIN TIME 14.1 SEC (11.4-15.4)
[2017-03-30] MEDS: AZTREONAM 1 GM in DEXTROSE 5%-WATER 50 ML IV SCH ×3 (07:33→21:09)
[2017-03-30] MEDS: CARBAMAZEPINE SUSP 200 MG/10 ML UDCUP PEG SCH ×3 (07:33→21:10)
[2017-03-30] MEDS: CLINDAMYCIN 600 MG/D5W RTU 600 MG/50 ML RTUPB IV SCH ×4 (07:33→22:19)
[2017-03-30] MEDS: SULFAMETHOXAZOLE/TRIMETHOPRIM 160 MG in DEXTROSE 5%-WATER 250 ML IV SCH ×4 (07:34→23:45)
[2017-03-30 07:35] LABS: PHOSPHORUS 3.8 mg/dL (2.5-4.5)
[2017-03-30 07:36] LABS: ALANINE AMINOTRANSFERASE 37 U/L (21-72); ALKALINE PHOSPHATASE 70 U/L (38-126); ANION GAP 6 (5-19); ASPARTATE AMINO TRANSFERASE 23 U/L (17-59); BILIRUBIN,DIRECT 0.4 mg/dL (0.0-0.4); BILIRUBIN,TOTAL 0.4 mg/dL (0.2-1.3); BLOOD UREA NITROGEN 8 mg/dL (7-20); CALCIUM 7.3 mg/dL (8.4-10.2); CARBON DIOXIDE 21 mmol/L (22-30); CHLORIDE 108 mmol/L (98-107); CREATININE RESULT 0.63 mg/dL (0.52-1.25); GLUCOSE 82 mg/dL (75-110); POTASSIUM 3.3 mmol/L (3.6-5.0); SODIUM 135.4 mmol/L (137-145); TOTAL PROTEIN 4.6 g/dL (6.3-8.2)
[2017-03-30 07:41] LABS: PREALBUMIN 7.6 mg/dL (17.6-36.0)
[2017-03-30] MEDS ORDERED: DEXTROSE 40% GEL 15 GM TUBE X 2 PO PRN (08:25)
[2017-03-30] MEDS ORDERED: DEXTROSE 50%-WATER SYRINGE 25 GM/50 ML DOSE IV PRN (08:25)
[2017-03-30] MEDS ORDERED: INSULIN REG, HUMAN 100 UNIT/ML 3 ML VIAL (PYX) SUBCUT PRN (08:25)
[2017-03-30] MEDS ORDERED: DEXTROSE 40% GEL 15 GM TUBE PO PRN (08:25)
[2017-03-30] MEDS ORDERED: GLUCAGON,HUMAN RECOMB 1 MG INJ IM PRN (08:25)
[2017-03-30] MEDS ORDERED: DEXTROSE 10%-WATER 1,000 ML IV PRN (08:25)
[2017-03-30] MEDS ORDERED: DEXTROSE 50%-WATER SYRINGE 12.5 GM/25 ML DOSE IV PRN (08:25)
--- NOTE | 2017-03-30 09:14 | PDOC PROGRESS REPORT ---
Subjective Progress Note for:: 03/30/17 Subjective:: Patient remains on the ventilator in the intensive care unit on intravenous antibiotics, and dipper Van sedation. He remains hemodynamically stable. No problems overnight. Physical Exam Vital Signs: Temp Pulse Resp BP Pulse Ox 98.8 F 104 H 16 110/76 96 03/30/17 08:06 03/30/17 08:00 03/30/17 08:06 03/30/17 08:06 03/30/17 08:06 Intake & Output 03/29/17 03/30/17 03/31/17 06:59 06:59 06:59 Intake Total 4815 5199 Output Total 3750 2775 250 Balance 1065 2424 -250 Weight 75.1 kg 78 kg General appearance: PRESENT: other - Pharmacologically sedated. Respiratory exam: PRESENT: other - Rhonchi bilaterally. GI/Abdominal exam: PRESENT: other - Midline dressing removed. Feeding tube in position. Nasogastric tube with minimal drainage. Midline incision sujata intact no erythema no drainage Results Laboratory Results: 03/30/17 06:45 03/30/17 06:45 03/29/17 03/30/17 03/30/17 12:26 06:45 06:45 WBC 5.0 RBC 2.50 L Hgb 8.1 L Hct 24.7 L MCV 99 H MCH 32.4 MCHC 32.9 RDW 15.1 H Plt Count 234 Seg Neutrophils % 78.5 H Lymphocytes % 11.6 L Monocytes % 8.3 Eosinophils % 1.4 Basophils % 0.2 Absolute Neutrophils 3.9 Absolute Lymphocytes 0.6 Absolute Monocytes 0.4 Absolute Eosinophils 0.1 Absolute Basophils 0.0 Carbonic Acid 1.04 L HCO3/H2CO3 Ratio 20:1 ABG pH 7.40 ABG pCO2 34.4 L ABG pO2 67.5 L ABG HCO3 21.0 ABG O2 Saturation 93.7 L ABG Base Excess -3.2 FiO2 30% Sodium Cancelled Potassium Cancelled Chloride Cancelled Carbon Dioxide Cancelled Anion Gap Cancelled BUN Cancelled Creatinine Cancelled Est GFR ( Amer) Cancelled Est GFR (Non-Af Amer) Cancelled Glucose Cancelled Calcium Cancelled Phosphorus 3.8 Total Bilirubin AST ALT Alkaline Phosphatase Total Protein Albumin Prealbumin 7.6 L Triglycerides 144 03/30/17 06:45 WBC RBC Hgb Hct MCV MCH MCHC RDW Plt Count Seg Neutrophils % Lymphocytes % Monocytes % Eosinophils % Basophils % Absolute Neutrophils Absolute Lymphocytes Absolute Monocytes Absolute Eosinophils Absolute Basophils Carbonic Acid HCO3/H2CO3 Ratio ABG pH ABG pCO2 ABG pO2 ABG HCO3 ABG O2 Saturation ABG Base Excess FiO2 Sodium 135.4 L Potassium 3.3 L Chloride 108 H Carbon Dioxide 21 L Anion Gap 6 BUN 8 Creatinine 0.63 Est GFR ( Amer) > 60 Est GFR (Non-Af Amer) > 60 Glucose 82 Calcium 7.3 L Phosphorus Total Bilirubin 0.4 AST 23 ALT 37 Alkaline Phosphatase 70 Total Protein 4.6 L Albumin 2.0 L Prealbumin Triglycerides 03/27/17 12:07 Tracheal Aspirate Gram Stain - Final 03/27/17 12:07 Tracheal Aspirate Sputum Culture - Final Pseudomonas Aeruginosa Group B Beta Streptococcus Greatly Reduced Normal Sarahi Impressions: Abdomen/Pelvis CT 03/26/17 00:00 IMPRESSION: 1. There is air and stool in the ascending colon. There is a markedly distended transverse colon and decompressed descending colon. Focal obstructing mass or extrinsic compression of the colon is not identified. There is no CT evidence of volvulus. 2. No significant small-bowel dilatation. There are thickened loops of small bowel in the left mid abdomen. Etiology of this is uncertain but infectious or inflammatory process cannot be excluded. The patient has an indwelling jejunostomy tube. 3. Free fluid in the pelvis etiology of this is uncertain. 4. Bibasilar consolidation consistent with pneumonia or lung collapse. Abdomen X-Ray 03/26/17 12:43 IMPRESSION: Nonspecific bowel gas pattern with market gaseous distention of the transverse colon, large amount of stool in the ascending colon, and few dilated small bowel loops in the mid epigastrium Findings were discussed withDr Alex Chest/Abdomen CTA 03/26/17 16:42 IMPRESSION: 1. No pulmonary emboli. 2. Bilateral lower lobe collapse and/or consolidation. There is a small left effusion as well. Mild right hilar as well as mediastinal adenopathy is present. This is most likely reactive. KUB X-Ray 03/27/17 00:00 IMPRESSION: Persistent abnormal bowel gas pattern with massively distended loop of colon in the mid epigastrium. It is difficult to discern whether this is due to a distal transverse colon stricture, or sigmoid volvulus. Images reviewed with Dr. Sheikh Chest X-Ray 03/29/17 12:18 IMPRESSION: Improved aeration at the right lung base, persistent volume loss with air bronchograms left retrocardiac region atelectasis versus pneumonia. Assessment & Plan - Diagnosis (1) Cecal volvulus Is this a current diagnosis for this admission?: YesPlan: Patient is 3 days status post exploratory laparotomy, limited right colectomy with ileo-transverse colostomy, doing well, sepsis resolving; principal ongoing problem is pneumonia and ventilatory dependency Plan: 1. Agree with TPN 2. May start enteral feeds slowly through nasogastric tube. 3. May eventually use Lico jejunostomy tube as well for feedings but would hold off with recent anastomosis
[2017-03-30] MEDS ORDERED: TOBRAMYCIN SULFATE INJ 80 MG/2 ML VIAL NEB SCH (09:45)
[2017-03-30] MEDS: ENOXAPARIN SODIUM INJ 40 MG/0.4 ML DISP.SYRIN SUBCUT SCH (10:20)
[2017-03-30] MEDS: POTASSI CL 20 MEQ/50 ML RIDER 20 MEQ/50 ML RTUPB IV SCH ×2 (10:21→11:46)
[2017-03-30] MEDS: FAMOTIDINE INJ/PF 20 MG/2 ML SDV IV SCH ×2 (10:23→21:08)
[2017-03-30] MEDS: MORPHINE SULFATE 10 MG/ML INJ IV PRN ×2 (10:23→22:19)
[2017-03-30] MEDS: CETIRIZINE HCL ORAL SOLN 5 MG/5 ML UDCUP PEG SCH (10:23)
[2017-03-30] MEDS: POLYETHYLENE GLYCOL 3350 POWDER 17 GM/1 PACKET PEG SCH (10:24)
[2017-03-30] MEDS ORDERED: TOBRAMYCIN SULFATE NEB 40 MG/ML 30 ML NEB ONE (11:00)
--- NOTE | 2017-03-30 11:17 | PDOC PROGRESS REPORT ---
Subjective Progress Note for:: 03/30/17 Subjective:: Intubated and sedated S/P ABDOMINAL SURGERY Physical Exam Vital Signs: Temp Pulse Resp BP Pulse Ox 98.8 F 104 H 16 110/76 96 03/30/17 08:06 03/30/17 08:00 03/30/17 08:06 03/30/17 08:06 03/30/17 08:06 Intake & Output 03/29/17 03/30/17 03/31/17 06:59 06:59 06:59 Intake Total 4815 5199 Output Total 3750 2775 250 Balance 1065 2424 -250 Weight 75.1 kg 78 kg General appearance: PRESENT: no acute distress, disheveled, well-developed, well -nourished Head exam: PRESENT: atraumatic, normocephalic Eye exam: PRESENT: conjunctiva pale Mouth exam: PRESENT: dry mucosa, neck supple, other - ET tube Neck exam: ABSENT: carotid bruit, JVD, lymphadenopathy, thyromegaly Respiratory exam: PRESENT: decreased breath sounds, prolonged expiratory phas, rhonchi, symmetrical, wheezes Cardiovascular exam: PRESENT: RRR, +S1, +S2 Pulses: PRESENT: normal radial pulses GI/Abdominal exam: PRESENT: normal bowel sounds, soft, other - feeding tube in place. ABSENT: distended, guarding, mass, organolmegaly, rebound, tenderness Rectal exam: PRESENT: deferred Gentrourinary exam: PRESENT: indwelling catheter Skin exam: PRESENT: dry, warm Results Laboratory Results: 03/30/17 06:45 03/30/17 06:45 03/29/17 03/30/17 03/30/17 12:26 06:45 06:45 WBC 5.0 RBC 2.50 L Hgb 8.1 L Hct 24.7 L MCV 99 H MCH 32.4 MCHC 32.9 RDW 15.1 H Plt Count 234 Seg Neutrophils % 78.5 H Lymphocytes % 11.6 L Monocytes % 8.3 Eosinophils % 1.4 Basophils % 0.2 Absolute Neutrophils 3.9 Absolute Lymphocytes 0.6 Absolute Monocytes 0.4 Absolute Eosinophils 0.1 Absolute Basophils 0.0 Carbonic Acid 1.04 L HCO3/H2CO3 Ratio 20:1 ABG pH 7.40 ABG pCO2 34.4 L ABG pO2 67.5 L ABG HCO3 21.0 ABG O2 Saturation 93.7 L ABG Base Excess -3.2 FiO2 30% Sodium Cancelled Potassium Cancelled Chloride Cancelled Carbon Dioxide Cancelled Anion Gap Cancelled BUN Cancelled Creatinine Cancelled Est GFR ( Amer) Cancelled Est GFR (Non-Af Amer) Cancelled Glucose Cancelled Calcium Cancelled Phosphorus 3.8 Total Bilirubin AST ALT Alkaline Phosphatase Total Protein Albumin Prealbumin 7.6 L Triglycerides 144 03/30/17 06:45 WBC RBC Hgb Hct MCV MCH MCHC RDW Plt Count Seg Neutrophils % Lymphocytes % Monocytes % Eosinophils % Basophils % Absolute Neutrophils Absolute Lymphocytes Absolute Monocytes Absolute Eosinophils Absolute Basophils Carbonic Acid HCO3/H2CO3 Ratio ABG pH ABG pCO2 ABG pO2 ABG HCO3 ABG O2 Saturation ABG Base Excess FiO2 Sodium 135.4 L Potassium 3.3 L Chloride 108 H Carbon Dioxide 21 L Anion Gap 6 BUN 8 Creatinine 0.63 Est GFR ( Amer) > 60 Est GFR (Non-Af Amer) > 60 Glucose 82 Calcium 7.3 L Phosphorus Total Bilirubin 0.4 AST 23 ALT 37 Alkaline Phosphatase 70 Total Protein 4.6 L Albumin 2.0 L Prealbumin Triglycerides 03/27/17 12:07 Tracheal Aspirate Gram Stain - Final 03/27/17 12:07 Tracheal Aspirate Sputum Culture - Final Pseudomonas Aeruginosa Group B Beta Streptococcus Greatly Reduced Normal Sarahi Impressions: Abdomen/Pelvis CT 03/26/17 00:00 IMPRESSION: 1. There is air and stool in the ascending colon. There is a markedly distended transverse colon and decompressed descending colon. Focal obstructing mass or extrinsic compression of the colon is not identified. There is no CT evidence of volvulus. 2. No significant small-bowel dilatation. There are thickened loops of small bowel in the left mid abdomen. Etiology of this is uncertain but infectious or inflammatory process cannot be excluded. The patient has an indwelling jejunostomy tube. 3. Free fluid in the pelvis etiology of this is uncertain. 4. Bibasilar consolidation consistent with pneumonia or lung collapse. Abdomen X-Ray 03/26/17 12:43 IMPRESSION: Nonspecific bowel gas pattern with market gaseous distention of the transverse colon, large amount of stool in the ascending colon, and few dilated small bowel loops in the mid epigastrium Findings were discussed with [facility] Chest/Abdomen CTA 03/26/17 16:42 IMPRESSION: 1. No pulmonary emboli. 2. Bilateral lower lobe collapse and/or consolidation. There is a small left effusion as well. Mild right hilar as well as mediastinal adenopathy is present. This is most likely reactive. KUB X-Ray 03/27/17 00:00 IMPRESSION: Persistent abnormal bowel gas pattern with massively distended loop of colon in the mid epigastrium. It is difficult to discern whether this is due to a distal transverse colon stricture, or sigmoid volvulus. Images reviewed with Dr. Sheikh Chest X-Ray 03/29/17 12:18 IMPRESSION: Improved aeration at the right lung base, persistent volume loss with air bronchograms left retrocardiac region atelectasis versus pneumonia. Assessment & Plan - Diagnosis (1) Acute respiratory failure Qualifiers: Respiratory failure complication: hypoxia Qualified Code(s): J96.01 - Acute respiratory failure with hypoxia Is this a current diagnosis for this admission?: YesPlan: c/w increased FIO2 requirements (2) Aspiration pneumonia Qualifiers: Aspiration pneumonia type: unspecified Laterality: right Lung location: lower lobe of lung Qualified Code(s): J69.0 - Pneumonitis due to inhalation of food and vomit Is this a current diagnosis for this admission?: Yes (3) Cerebral palsy Qualifiers: Cerebral palsy type: unspecified type Qualified Code(s): G80.9 - Cerebral palsy, unspecified Is this a current diagnosis for this admission?: Yes (4) Mental retardation Is this a current diagnosis for this admission?: Yes (5) Septic shock Is this a current diagnosis for this admission?: Yes (6) Acute ischemia of large intestine Is this a current diagnosis for this admission?: YesPlan: appears to be doing well surgery initiating enteral feeding - Time Critical Time spent with patient: 35 or more minutes
--- NOTE | 2017-03-30 11:20 | PDOC PROGRESS REPORT ---
Subjective Progress Note for:: 03/29/17 Subjective:: unchanged Physical Exam Vital Signs: Temp Pulse Resp BP Pulse Ox 98.8 F 104 H 16 110/76 96 03/30/17 08:06 03/30/17 08:00 03/30/17 08:06 03/30/17 08:06 03/30/17 08:06 Intake & Output 03/29/17 03/30/17 03/31/17 06:59 06:59 06:59 Intake Total 4815 5199 Output Total 3750 2775 250 Balance 1065 2424 -250 Weight 75.1 kg 78 kg General appearance: PRESENT: no acute distress, disheveled, well-developed, well -nourished Head exam: PRESENT: atraumatic, normocephalic Eye exam: PRESENT: conjunctiva pale Mouth exam: PRESENT: dry mucosa, neck supple, tongue midline, other - ET tube Neck exam: ABSENT: carotid bruit, JVD, lymphadenopathy, thyromegaly Respiratory exam: PRESENT: decreased breath sounds, prolonged expiratory phas, rales, rhonchi Cardiovascular exam: PRESENT: RRR, +S1, +S2 GI/Abdominal exam: PRESENT: normal bowel sounds, soft. ABSENT: distended, guarding, mass, organolmegaly, rebound, tenderness Rectal exam: PRESENT: other - feeding tube Gentrourinary exam: PRESENT: indwelling catheter Skin exam: PRESENT: dry, warm Results Laboratory Results: 03/30/17 06:45 03/30/17 06:45 03/29/17 03/30/17 03/30/17 12:26 06:45 06:45 WBC 5.0 RBC 2.50 L Hgb 8.1 L Hct 24.7 L MCV 99 H MCH 32.4 MCHC 32.9 RDW 15.1 H Plt Count 234 Seg Neutrophils % 78.5 H Lymphocytes % 11.6 L Monocytes % 8.3 Eosinophils % 1.4 Basophils % 0.2 Absolute Neutrophils 3.9 Absolute Lymphocytes 0.6 Absolute Monocytes 0.4 Absolute Eosinophils 0.1 Absolute Basophils 0.0 Carbonic Acid 1.04 L HCO3/H2CO3 Ratio 20:1 ABG pH 7.40 ABG pCO2 34.4 L ABG pO2 67.5 L ABG HCO3 21.0 ABG O2 Saturation 93.7 L ABG Base Excess -3.2 FiO2 30% Sodium Cancelled Potassium Cancelled Chloride Cancelled Carbon Dioxide Cancelled Anion Gap Cancelled BUN Cancelled Creatinine Cancelled Est GFR ( Amer) Cancelled Est GFR (Non-Af Amer) Cancelled Glucose Cancelled Calcium Cancelled Phosphorus 3.8 Total Bilirubin AST ALT Alkaline Phosphatase Total Protein Albumin Prealbumin 7.6 L Triglycerides 144 03/30/17 06:45 WBC RBC Hgb Hct MCV MCH MCHC RDW Plt Count Seg Neutrophils % Lymphocytes % Monocytes % Eosinophils % Basophils % Absolute Neutrophils Absolute Lymphocytes Absolute Monocytes Absolute Eosinophils Absolute Basophils Carbonic Acid HCO3/H2CO3 Ratio ABG pH ABG pCO2 ABG pO2 ABG HCO3 ABG O2 Saturation ABG Base Excess FiO2 Sodium 135.4 L Potassium 3.3 L Chloride 108 H Carbon Dioxide 21 L Anion Gap 6 BUN 8 Creatinine 0.63 Est GFR ( Amer) > 60 Est GFR (Non-Af Amer) > 60 Glucose 82 Calcium 7.3 L Phosphorus Total Bilirubin 0.4 AST 23 ALT 37 Alkaline Phosphatase 70 Total Protein 4.6 L Albumin 2.0 L Prealbumin Triglycerides 03/27/17 12:07 Tracheal Aspirate Gram Stain - Final 03/27/17 12:07 Tracheal Aspirate Sputum Culture - Final Pseudomonas Aeruginosa Group B Beta Streptococcus Greatly Reduced Normal Sarahi Impressions: Abdomen/Pelvis CT 03/26/17 00:00 IMPRESSION: 1. There is air and stool in the ascending colon. There is a markedly distended transverse colon and decompressed descending colon. Focal obstructing mass or extrinsic compression of the colon is not identified. There is no CT evidence of volvulus. 2. No significant small-bowel dilatation. There are thickened loops of small bowel in the left mid abdomen. Etiology of this is uncertain but infectious or inflammatory process cannot be excluded. The patient has an indwelling jejunostomy tube. 3. Free fluid in the pelvis etiology of this is uncertain. 4. Bibasilar consolidation consistent with pneumonia or lung collapse. Abdomen X-Ray 03/26/17 12:43 IMPRESSION: Nonspecific bowel gas pattern with market gaseous distention of the transverse colon, large amount of stool in the ascending colon, and few dilated small bowel loops in the mid epigastrium [facility]domen [facility] 03/26/17 16:42 IMPRESSION: 1. No pulmonary emboli. 2. Bilateral lower lobe collapse and/or consolidation. There is a small left effusion as well. Mild right hilar as well as mediastinal adenopathy is present. This is most likely reactive. KUB X-Ray 03/27/17 00:00 IMPRESSION: Persistent abnormal bowel gas pattern with massively distended loop of colon in the mid epigastrium. It is difficult to discern whether this is due to a distal transverse colon stricture, or sigmoid volvulus. Images reviewed with Dr. Sheikh Chest X-Ray 03/29/17 12:18 IMPRESSION: Improved aeration at the right lung base, persistent volume loss with air bronchograms left retrocardiac region atelectasis versus pneumonia. Assessment & Plan - Diagnosis (1) Acute respiratory failure Qualifiers: Respiratory failure complication: hypoxia Qualified Code(s): J96.01 - Acute respiratory failure with hypoxia Is this a current diagnosis for this admission?: YesPlan: did fairly well on ps/cpap (2) Aspiration pneumonia Qualifiers: Aspiration pneumonia type: unspecified Laterality: right Lung location: lower lobe of lung Qualified Code(s): J69.0 - Pneumonitis due to inhalation of food and vomit Is this a current diagnosis for this admission?: Yes (3) Cerebral palsy Qualifiers: Cerebral palsy type: unspecified type Qualified Code(s): G80.9 - Cerebral palsy, unspecified Is this a current diagnosis for this admission?: Yes (4) Mental retardation Is this a current diagnosis for this admission?: Yes (5) Septic shock Is this a current diagnosis for this admission?: Yes - Time Critical Time spent with patient: 35 or more minutes
--- NOTE | 2017-03-30 11:59 | RADIOLOGY REPORT (SQ) ---
EXAM DESCRIPTION: CHEST SINGLE VIEW COMPLETED DATE/TIME: 03/30/2017 11:51 am REASON FOR STUDY: mech vent changes, tachypnea. COMPARISON: 03/29/2017 EXAM PARAMETERS: NUMBER OF VIEWS: One view TECHNIQUE: Single frontal radiograph of the chest. RADIATION DOSE: N/A LIMITATIONS: None. FINDINGS: TEMPORARY SUPPORT DEVICES:ETT in expected location. NG tube courses below the lisa-diaphr agm in to the stomach. Venous access catheter tip unchanged. LUNGS AND PLEURA: Increasing left basilar opacity. Further improved aeration of the right base. No e ffusions. No masses. No pneumothorax. MEDIASTINUM AND HILAR STRUCTURES: No masses. Contour normal. HEART AND VASCULAR STRUCTURES: Heart normal in size. normal vascularity. Aorta normal for age. BONES: No acute findings. OTHER: No other significant finding. IMPRESSION: Increasing basilar opacity on the left. Otherwise stable. SUPPORT DEVICE(S) IN EXPECTED LOCATIONS. TECHNICAL DOCUMENTATION: JOB ID: [id number] [employer]- All Rights Reserved
--- NOTE | 2017-03-30 15:57 | PDOC PROGRESS REPORT ---
Subjective Progress Note for:: 03/30/17 Subjective:: Patient about the same and has made significant progress. There is significant improvement in general condition. Patient currently off vasopressors. Patient remains on the ventilator. Suspected to have underlying pneumonia and some bronchospasm. Patient remains somewhat tachycardic. Patient remains intubated, sedated, patient however looks comfortable and in acute distress. Medications reviewed. Physical Exam Vital Signs: Temp Pulse Resp BP Pulse Ox 98.2 F 99 16 98/64 L 92 03/30/17 14:21 03/30/17 11:21 03/30/17 14:21 03/30/17 14:21 03/30/17 14:21 Intake & Output 03/29/17 03/30/17 03/31/17 06:59 06:59 06:59 Intake Total 4815 5199 410 Output Total 3750 2775 1000 Balance 1065 2424 -590 Weight 75.1 kg 78 kg Exam: GENERAL: well-nourished and in no acute distress. Patient is intubated and sedated. Orientation cannot be checked HEAD: Atraumatic, normocephalic. EYES: Pupils equal round and reactive to light, extraocular movements could not be checked, sclera anicteric, conjunctiva are normal. ENT: TMs normal, nares patent, oropharynx clear without exudates. Moist mucous membranes. No oral ulcerations or bleeding gums noted NECK: supple without lymphadenopathy or JVD. Trachea is central. No cervical or axillary lymphadenopathy noted. Carotids are 2+ LUNGS: Breath sounds mostly clear to auscultation patient is noted to have bibasal crackles at the extreme bases. Crackles more on the left than on the right. Mild wheezing noted. CHEST: Palpation of the chest wall shows no significant chest wall tenderness or abnormalities. 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 ABDOMEN: Soft, no significant tenderness appreciated, normoactive bowel sounds. No guarding, no rebound. No rigidity noted . No masses appreciated. EXTREMITIES: Pedal pulses are 1-2+, no calf tenderness noted, 1+ pedal edema noted. No clubbing or cyanosis. 1+ upper extremity edema noted. NEUROLOGICAL: The patient cannot participate in the neurological exam but no facial asymmetry noted. Extremities slightly hypotonic. Findings of cerebral palsy noted. PSYCH: This cannot be evaluated. Patient cannot participate. SKIN: No significant ecchymosis, rash, or signs of pruritus noted. MUSCULOSKELETAL EXAM: No significant joint swelling noted. Patient cannot participate in musculoskeletal exam, findings of cerebral palsy noted Results Laboratory Results: 03/30/17 06:45 03/30/17 06:45 03/30/17 03/30/17 03/30/17 06:45 06:45 06:45 WBC 5.0 RBC 2.50 L Hgb 8.1 L Hct 24.7 L MCV 99 H MCH 32.4 MCHC 32.9 RDW 15.1 H Plt Count 234 Seg Neutrophils % 78.5 H Lymphocytes % 11.6 L Monocytes % 8.3 Eosinophils % 1.4 Basophils % 0.2 Absolute Neutrophils 3.9 Absolute Lymphocytes 0.6 Absolute Monocytes 0.4 Absolute Eosinophils 0.1 Absolute Basophils 0.0 Sodium Cancelled 135.4 L Potassium Cancelled 3.3 L Chloride Cancelled 108 H Carbon Dioxide Cancelled 21 L Anion Gap Cancelled 6 BUN Cancelled 8 Creatinine Cancelled 0.63 Est GFR ( Amer) Cancelled > 60 Est GFR (Non-Af Amer) Cancelled > 60 Glucose Cancelled 82 Calcium Cancelled 7.3 L Phosphorus 3.8 Total Bilirubin 0.4 AST 23 ALT 37 Alkaline Phosphatase 70 Total Protein 4.6 L Albumin 2.0 L Prealbumin 7.6 L Triglycerides 144 Impressions: Abdomen/Pelvis CT 03/26/17 00:00 IMPRESSION: 1. There is air and stool in the ascending colon. There is a markedly distended transverse colon and decompressed descending colon. Focal obstructing mass or extrinsic compression of the colon is not identified. There is no CT evidence of volvulus. 2. No significant small-bowel dilatation. There are thickened loops of small bowel in the left mid abdomen. Etiology of this is uncertain but infectious or inflammatory process cannot be excluded. The patient has an indwelling jejunostomy tube. 3. Free fluid in the pelvis etiology of this is uncertain. 4. Bibasilar consolidation consistent with pneumonia or lung collapse. Abdomen X-Ray 03/26/17 12:43 IMPRESSION: Nonspecific bowel gas pattern with market gaseous distention of the transverse colon, large amount of stool in the ascending colon, and few dilated small bowel loops in the mid epigastrium Findings were discussed withDr Alex Chest/Abdomen CTA 03/26/17 16:42 IMPRESSION: 1. No pulmonary emboli. 2. Bilateral lower lobe collapse and/or consolidation. There is a small left effusion as well. Mild right hilar as well as mediastinal adenopathy is present. This is most likely reactive. KUB X-Ray 03/27/17 00:00 IMPRESSION: Persistent abnormal bowel gas pattern with massively distended loop of colon in the mid epigastrium. It is difficult to discern whether this is due to a distal transverse colon stricture, or sigmoid volvulus. Images reviewed with Dr. Sheikh Chest X-Ray 03/30/17 11:32 IMPRESSION: Increasing basilar opacity on the left. Otherwise stable. SUPPORT DEVICE(S) IN EXPECTED LOCATIONS. Assessment & Plan - Diagnosis (1) Arterial hypotension Qualifiers: Hypotension type: unspecified hypotension type Qualified Code(s): I95.9 - Hypotension, unspecified Is this a current diagnosis for this admission?: Yes (2) Septic shock Is this a current diagnosis for this admission?: Yes (3) Respiratory distress Is this a current diagnosis for this admission?: Yes (4) Sinus tachycardia Is this a current diagnosis for this admission?: Yes (5) Acute ischemia of large intestine Is this a current diagnosis for this admission?: Yes (6) Cerebral palsy Qualifiers: Cerebral palsy type: unspecified type Qualified Code(s): G80.9 - Cerebral palsy, unspecified Is this a current diagnosis for this admission?: Yes - Notes Notes: Arterial hypotension: Patient blood pressure has been stable for last 24 hours. Patient has normal LVEF therefore preferred agent either Joseph-Synephrine or Levophed and can be reconsidered if needed. Could also use vasopressin. Patient currently off vasopressors. Recommend additional fluid boluses as needed to maintain blood pressure over 90 mm systolic Septic shock: This is secondary to ischemic bowel. Patient is status post surgery and therefore likely to improve. Respiratory failure with intubation because of respiratory distress: Secondary to aspiration and sepsis. Pulmonary following. Continue broad-spectrum antibiotic therapy. Patient noted to have left-sided pneumonia. Sinus tachycardia: This is related to metabolic issues. Likely to improve with correction of acute medical problems. Acute ischemia of the large intestine secondary to volvulus: Patient is status post corrective surgery. There has been resection of a part of large bowel. Surgically patient seems to be improving. - Time Time with patient: Greater than 35 minutes - Patient critically sick remains on ventilatory support. He was just taken off vasopressor support therefore will need to be observed very closely. In addition patient noted to have aspiration pneumonia. CODE STATUS was discussed, patient remains full code. Surrogate decision-maker unchanged. Multiple medical problems were addressed. More than 50% of the time spent coordinating care, discussing management plans with involved caregivers. Management plans discussed with involved personnels. Medical decision making was of hypotension high complexity, patient's has multiple comorbidities. Medications reviewed and adjusted accordingly: Yes
[2017-03-30] MEDS: LACTULOSE SYRUP 20 GM/30 ML UDCUP PO SCH (17:00)
[2017-03-30] MEDS: AMINO ACIDS 5%/D25W 1,000 ML IV PRN (17:03)
[2017-03-30] MEDS ORDERED: ALTEPLASE INJ 2 MG VIAL (CATH CLEARANCE) INJ ONE (17:30)
[2017-03-30] MEDS: TOBRAMYCIN SULFATE NEB 40 MG/ML 30 ML NEB SCH (19:42)
[2017-03-30] MEDS: METOCLOPRAMIDE HCL INJ/PF 10 MG/2 ML SDV IV SCH (21:08)
[2017-03-30] MEDS: ZONISAMIDE 100 MG CAPSULE PEG SCH (21:10)
[2017-03-31] MEDS: PROPOFOL 100 ML IV PRN ×4 (01:33→23:58)
[2017-03-31] MEDS: LEVALBUTEROL HCL NEB 1.25 MG/3 ML AMPUL NEB SCH ×6 (03:18→23:47)
[2017-03-31] MEDS: NORMAL SALINE 1000 ML 1,000 ML IV PRN (03:40)
[2017-03-31] MEDS: ACETAMINOPHEN 650 MG SUPP.RECT PR PRN ×2 (04:05→21:44)
[2017-03-31] MEDS: CLINDAMYCIN 600 MG/D5W RTU 600 MG/50 ML RTUPB IV SCH ×4 (04:06→22:46)
[2017-03-31] MEDS: MORPHINE SULFATE 10 MG/ML INJ IV PRN ×2 (04:07→21:44)
[2017-03-31] MEDS: AZTREONAM 1 GM in DEXTROSE 5%-WATER 50 ML IV SCH ×3 (05:09→21:43)
[2017-03-31 05:37] LABS: ARTERIAL BLOOD BASE EXCESS -3.5 mmol/L; ARTERIAL BLOOD O2 SATURATION 95.3 % (94-98)
[2017-03-31] MEDS: SULFAMETHOXAZOLE/TRIMETHOPRIM 160 MG in DEXTROSE 5%-WATER 250 ML IV SCH ×4 (05:49→23:13)
[2017-03-31 05:54] LABS: ALANINE AMINOTRANSFERASE 38 U/L (21-72); ALKALINE PHOSPHATASE 66 U/L (38-126); ANION GAP 7 (5-19); ASPARTATE AMINO TRANSFERASE 28 U/L (17-59); BILIRUBIN,DIRECT 0.3 mg/dL (0.0-0.4); BILIRUBIN,TOTAL 0.3 mg/dL (0.2-1.3); BLOOD UREA NITROGEN 6 mg/dL (7-20); CALCIUM 7.5 mg/dL (8.4-10.2); CARBON DIOXIDE 23 mmol/L (22-30); CHLORIDE 107 mmol/L (98-107); CREATININE RESULT 0.57 mg/dL (0.52-1.25); GLUCOSE 120 mg/dL (75-110); MAGNESIUM 1.7 mg/dL (1.6-2.3); POTASSIUM 3.4 mmol/L (3.6-5.0); SODIUM 137.1 mmol/L (137-145); TOTAL PROTEIN 4.6 g/dL (6.3-8.2)
[2017-03-31] MEDS: CARBAMAZEPINE SUSP 200 MG/10 ML UDCUP PEG SCH ×3 (05:54→21:44)
[2017-03-31] MEDS: METOCLOPRAMIDE HCL INJ/PF 10 MG/2 ML SDV IV SCH ×3 (05:54→21:44)
[2017-03-31 06:01] LABS: PREALBUMIN 8.8 mg/dL (17.6-36.0)
--- NOTE | 2017-03-31 06:25 | RADIOLOGY REPORT (SQ) ---
EXAM DESCRIPTION: CHEST SINGLE VIEW COMPLETED DATE/TIME: 03/31/2017 5:59 am REASON FOR STUDY: resp fail/pna/sepsis COMPARISON: Chest x-ray 03/30/2017 CT chest 03/26/2017 EXAM PARAMETERS: NUMBER OF VIEWS: One view TECHNIQUE: Single frontal radiograph of the chest. RADIATION DOSE: N/A LIMITATIONS: None. FINDINGS: TEMPORARY SUPPORT DEVICES:ETT in expected location. NG tube courses below the left lisa-d iaphragm and appears coiled in the stomach. Right-sided IJ central catheter with the tip overlying th e region of the distal right atrium. LUNGS AND PLEURA: Interval decrease in the left-sided pleural effusion and left basilar airspace opac ity. No pneumothorax. No significant interval change in the airspace opacity at the right lung base . MEDIASTINUM AND HILAR STRUCTURES: Stable. HEART AND VASCULAR STRUCTURES: The heart is not enlarged. No overt vascular congestion. BONES: No acute findings. IMPRESSION: Interval decrease in the left-sided pleural effusion and left basilar airspace opacity. No significant interval change in the airspace opacity at the right lung base. Right IJ central line with the tip at the distal right atrium, retraction by approximately 7 cm recom mended. NG tube coiled in the stomach. RECOMMENDATIONS: Retraction of the right IJ central line. TECHNICAL DOCUMENTATION: JOB ID: [id number] [employer]- All Rights Reserved
[2017-03-31] MEDS: TOBRAMYCIN SULFATE NEB 40 MG/ML 30 ML NEB SCH ×2 (08:15→19:39)
[2017-03-31] MEDS: OLOPATADINE HCL 0.1% OPH SOLN 5 ML OU PRN (08:29)
[2017-03-31] MEDS: FAMOTIDINE INJ/PF 20 MG/2 ML SDV IV SCH ×2 (08:31→21:44)
[2017-03-31] MEDS: ENOXAPARIN SODIUM INJ 40 MG/0.4 ML DISP.SYRIN SUBCUT SCH (09:02)
[2017-03-31] MEDS: CETIRIZINE HCL ORAL SOLN 5 MG/5 ML UDCUP PEG SCH (09:04)
[2017-03-31] MEDS: PERAMPANEL 8 MG PO SCH (09:07)
[2017-03-31] MEDS: POLYETHYLENE GLYCOL 3350 POWDER 17 GM/1 PACKET PEG SCH (09:13)
--- NOTE | 2017-03-31 09:39 | EKG REPORT ---
SEVERITY:- BORDERLINE ECG - SINUS RHYTHM BORDERLINE T ABNORMALITIES, ANTERIOR LEADS : Confirmed by: Germán Toscano 31-Mar-2017 09:39:15
[2017-03-31 10:34] LABS: ABSOLUTE EOSINOPHILS # (AUTO) 0.1 10^3/uL (0.0-0.6); ABSOLUTE LYMPHOCYTES (AUTO) 0.6 10^3/uL (0.5-4.7); ABSOLUTE MONOCYTES (AUTO) 0.4 10^3/uL (0.1-1.4); ABSOLUTE NEUT (AUTO) 3.6 10^3/uL (1.7-8.2); BASOPHILS % (AUTO) 0.4 % (0-2); EOSINOPHILS % (AUTO) 2.8 % (0-6); HGB HCT DIFFERENCE -0.9; MEAN CORPUSCULAR VOLUME 100 fl (80-97); MONOCYTES % (AUTO) 9.2 % (3-13); SEGMENTED NEUTROPHILS % (AUTO) 74.6 % (42-78); WHITE BLOOD COUNT 4.8 10^3/uL (4.0-10.5)
[2017-03-31 10:47] LABS: HEMOGLOBIN 7.7 g/dL (13.5-17.0)
[2017-03-31] MEDS ORDERED: NORMAL SALINE 250 ML IV PRN ×2 (10:48)
--- NOTE | 2017-03-31 10:48 | PDOC PROGRESS REPORT ---
Subjective Progress Note for:: 03/31/17 Subjective:: awake,intubated Physical Exam Vital Signs: Temp Pulse Resp BP Pulse Ox 98.4 F 95 16 107/67 99 03/31/17 06:21 03/31/17 08:15 03/31/17 08:15 03/31/17 06:21 03/31/17 08:15 Intake & Output 03/30/17 03/31/17 04/01/17 06:59 06:59 06:59 Intake Total 5199 5790 30 Output Total 2775 3300 150 Balance 2424 2490 -120 Weight 78 kg 79.6 kg General appearance: PRESENT: no acute distress, disheveled, well-developed, well -nourished Head exam: PRESENT: atraumatic, normocephalic Eye exam: PRESENT: conjunctiva pale Mouth exam: PRESENT: dry mucosa, neck supple, tongue midline, other - ET tube Neck exam: ABSENT: carotid bruit, JVD, lymphadenopathy, thyromegaly Respiratory exam: PRESENT: decreased breath sounds - R base, prolonged expiratory phas, rales, unlabored Cardiovascular exam: PRESENT: RRR, +S1, +S2 Pulses: PRESENT: normal dorsalis pedis pul GI/Abdominal exam: PRESENT: other - feeding tube Rectal exam: PRESENT: deferred Gentrourinary exam: PRESENT: indwelling catheter Musculoskeletal exam: PRESENT: normal inspection Neurological exam: PRESENT: awake Skin exam: PRESENT: dry, warm Results Laboratory Results: 03/31/17 05:25 03/31/17 03/31/17 05:25 05:25 Carbonic Acid 1.19 HCO3/H2CO3 Ratio 18:1 ABG pH 7.36 ABG pCO2 39.5 ABG pO2 79.2 L ABG HCO3 21.7 ABG O2 Saturation 95.3 ABG Base Excess -3.5 FiO2 30% Sodium 137.1 Potassium 3.4 L Chloride 107 Carbon Dioxide 23 Anion Gap 7 BUN 6 L Creatinine 0.57 Est GFR ( Amer) > 60 Est GFR (Non-Af Amer) > 60 Glucose 120 H Calcium 7.5 L Phosphorus 4.0 Magnesium 1.7 Total Bilirubin 0.3 AST 28 ALT 38 Alkaline Phosphatase 66 Total Protein 4.6 L Albumin 2.0 L Prealbumin 8.8 L Impressions: Abdomen/Pelvis CT 03/26/17 00:00 IMPRESSION: 1. There is air and stool in the ascending colon. There is a markedly distended transverse colon and decompressed descending colon. Focal obstructing mass or extrinsic compression of the colon is not identified. There is no CT evidence of volvulus. 2. No significant small-bowel dilatation. There are thickened loops of small bowel in the left mid abdomen. Etiology of this is uncertain but infectious or inflammatory process cannot be excluded. The patient has an indwelling jejunostomy tube. 3. Free fluid in the pelvis etiology of this is uncertain. 4. Bibasilar consolidation consistent with pneumonia or lung collapse. Abdomen X-Ray 03/26/17 12:43 IMPRESSION: Nonspecific bowel gas pattern with market gaseous distention of the transverse colon, large amount of stool in the ascending colon, and few dilated small bowel loops in the mid epigastrium Findings were discussed withDr Isai Chest/Abdomen CTA 03/26/17 16:42 IMPRESSION: 1. No pulmonary emboli. 2. Bilateral lower lobe collapse and/or consolidation. There is a small left effusion as well. Mild right hilar as well as mediastinal adenopathy is present. This is most likely reactive. KUB X-Ray 03/27/17 00:00 IMPRESSION: Persistent abnormal bowel gas pattern with massively distended loop of colon in the mid epigastrium. It is difficult to discern whether this is due to a distal transverse colon stricture, or sigmoid volvulus. Images reviewed with Dr. Sheikh Chest X-Ray 03/31/17 06:00 IMPRESSION: Interval decrease in the left-sided pleural effusion and left basilar airspace opacity. No significant interval change in the airspace opacity at the right lung base. Right IJ central line with the tip at the distal right atrium, retraction by approximately 7 cm recommended. NG tube coiled in the stomach. Assessment & Plan - Diagnosis (1) Acute respiratory failure Qualifiers: Respiratory failure complication: hypoxia Qualified Code(s): J96.01 - Acute respiratory failure with hypoxia Is this a current diagnosis for this admission?: YesPlan: rr,min vol,FIO2 suggest sucessful extubation will transfuse then extubate (2) Aspiration pneumonia Qualifiers: Aspiration pneumonia type: unspecified Laterality: right Lung location: lower lobe of lung Qualified Code(s): J69.0 - Pneumonitis due to inhalation of food and vomit Is this a current diagnosis for this admission?: Yes (3) Cerebral palsy Qualifiers: Cerebral palsy type: unspecified type Qualified Code(s): G80.9 - Cerebral palsy, unspecified Is this a current diagnosis for this admission?: Yes (4) Mental retardation Is this a current diagnosis for this admission?: Yes (5) Septic shock Is this a current diagnosis for this admission?: No - Time Critical Time spent with patient: 35 or more minutes - extubation - Plan Summary Plan Summary: decrease iv maintenance fluids(215/h down to 115/hr)+ 10 liters last 96 hrs HGB 7.7---> transfuse 2 u PRBC 20mg Lasix between 1st and 2nd
[2017-03-31] MEDS ORDERED: POTASSI CL 20 MEQ/50 ML RIDER 20 MEQ/50 ML RTUPB IV ONE (10:49)
[2017-03-31] MEDS: POTASSI CL 20 MEQ/50 ML RIDER 20 MEQ/50 ML RTUPB IV SCH ×3 (11:23→15:03)
[2017-03-31] MEDS ORDERED: DEXAMETHASONE SOD PHOSPHATE INJ 4 MG/1 ML VIAL IV ONE (11:30)
[2017-03-31] MEDS ORDERED: FUROSEMIDE INJ/PF 20 MG/2 ML SDV IV ONE (12:00)
--- NOTE | 2017-03-31 12:42 | PDOC PROGRESS REPORT ---
Subjective Progress Note for:: 03/31/17 Subjective:: Patient having significant residuals of tube feeds when assessed via nasogastric aspiration. Therefore tube feeds held. Patient has had no GI function. He has been started on Reglan. Otherwise overnight uneventful. Physical Exam Vital Signs: Temp Pulse Resp BP Pulse Ox 99.1 F 110 H 16 126/81 H 96 03/31/17 12:26 03/31/17 12:26 03/31/17 12:26 03/31/17 12:26 03/31/17 12:26 Intake & Output 03/30/17 03/31/17 04/01/17 06:59 06:59 06:59 Intake Total 5199 5790 430 Output Total 2775 3300 760 Balance 2424 2490 -330 Weight 78 kg 79.6 kg General appearance: PRESENT: other - On the ventilator, sedated, starting to lighten up at times and move upper extremities. GI/Abdominal exam: PRESENT: other - Midline incision sujata intact; feeding tube intact. Results Laboratory Results: 03/31/17 05:25 03/31/17 05:25 03/31/17 03/31/17 03/31/17 05:25 05:25 05:25 WBC 4.8 RBC 2.40 L Hgb 7.7 L Hct 24.0 L MCV 100 H MCH 32.0 MCHC 32.0 RDW 15.0 H Plt Count 249 Seg Neutrophils % 74.6 Lymphocytes % 13.0 Monocytes % 9.2 Eosinophils % 2.8 Basophils % 0.4 Absolute Neutrophils 3.6 Absolute Lymphocytes 0.6 Absolute Monocytes 0.4 Absolute Eosinophils 0.1 Absolute Basophils 0.0 Carbonic Acid 1.19 HCO3/H2CO3 Ratio 18:1 ABG pH 7.36 ABG pCO2 39.5 ABG pO2 79.2 L ABG HCO3 21.7 ABG O2 Saturation 95.3 ABG Base Excess -3.5 FiO2 30% Sodium 137.1 Potassium 3.4 L Chloride 107 Carbon Dioxide 23 Anion Gap 7 BUN 6 L Creatinine 0.57 Est GFR ( Amer) > 60 Est GFR (Non-Af Amer) > 60 Glucose 120 H Calcium 7.5 L Phosphorus 4.0 Magnesium 1.7 Total Bilirubin 0.3 AST 28 ALT 38 Alkaline Phosphatase 66 Total Protein 4.6 L Albumin 2.0 L Prealbumin 8.8 L Blood Type Antibody Screen 03/31/17 11:17 WBC RBC Hgb Hct MCV MCH MCHC RDW Plt Count Seg Neutrophils % Lymphocytes % Monocytes % Eosinophils % Basophils % Absolute Neutrophils Absolute Lymphocytes Absolute Monocytes Absolute Eosinophils Absolute Basophils Carbonic Acid HCO3/H2CO3 Ratio ABG pH ABG pCO2 ABG pO2 ABG HCO3 ABG O2 Saturation ABG Base Excess FiO2 Sodium Potassium Chloride Carbon Dioxide Anion Gap BUN Creatinine Est GFR ( Amer) Est GFR (Non-Af Amer) Glucose Calcium Phosphorus Magnesium Total Bilirubin AST ALT Alkaline Phosphatase Total Protein Albumin Prealbumin Blood Type A POSITIVE Antibody Screen NEGATIVE Impressions: Abdomen/Pelvis CT 03/26/17 00:00 IMPRESSION: 1. There is air and stool in the ascending colon. There is a markedly distended transverse colon and decompressed descending colon. Focal obstructing mass or extrinsic compression of the colon is not identified. There is no CT evidence of volvulus. 2. No significant small-bowel dilatation. There are thickened loops of small bowel in the left mid abdomen. Etiology of this is uncertain but infectious or inflammatory process cannot be excluded. The patient has an indwelling jejunostomy tube. 3. Free fluid in the pelvis etiology of this is uncertain. 4. Bibasilar consolidation consistent with pneumonia or lung collapse. Abdomen X-Ray 03/26/17 12:43 IMPRESSION: Nonspecific bowel gas pattern with market gaseous distention of the transverse colon, large amount of stool in the ascending colon, and few dilated small bowel loops in the mid epigastrium Findings were discussed withDr Alex Chest/Abdomen CTA 03/26/17 16:42 IMPRESSION: 1. No pulmonary emboli. 2. Bilateral lower lobe collapse and/or consolidation. There is a small left effusion as well. Mild right hilar as well as mediastinal adenopathy is present. This is most likely reactive. KUB X-Ray 03/27/17 00:00 IMPRESSION: Persistent abnormal bowel gas pattern with massively distended loop of colon in the mid epigastrium. It is difficult to discern whether this is due to a distal transverse colon stricture, or sigmoid volvulus. Images reviewed with Dr. Sheikh Chest X-Ray 03/31/17 06:00 IMPRESSION: Interval decrease in the left-sided pleural effusion and left basilar airspace opacity. No significant interval change in the airspace opacity at the right lung base. Right IJ central line with the tip at the distal right atrium, retraction by approximately 7 cm recommended. NG tube coiled in the stomach. Assessment & Plan - Diagnosis (1) Cecal volvulus Is this a current diagnosis for this admission?: YesPlan: Now postoperative day 4 status post exploratory laparotomy, limited right colectomy with ileo-colostomy staple anastomosis with persisting postoperative ileus, otherwise patient making satisfactory progress. Plan: 1. Continue Reglan 2. Flush feeding tube to maintain patency. 3. We will perform rectal exam, and decompress rectal vault if full of stool.
--- NOTE | 2017-03-31 13:49 | PDOC PROGRESS REPORT ---
Subjective Progress Note for:: 03/30/17 Subjective:: Patient intubated and sedated Physical Exam Vital Signs: Temp Pulse Resp BP Pulse Ox 99.3 F 109 H 11 L 120/78 95 03/31/17 13:38 03/31/17 13:38 03/31/17 13:38 03/31/17 13:38 03/31/17 13:38 Intake & Output 03/30/17 03/31/17 04/01/17 06:59 06:59 06:59 Intake Total 5199 5790 430 Output Total 2775 3300 1310 Balance 2424 2490 -880 Weight 78 kg 79.6 kg General appearance: PRESENT: no acute distress Eye exam: PRESENT: PERRLA Respiratory exam: PRESENT: other - Auscultation demonstrated equal air entry on both lung gavin Cardiovascular exam: PRESENT: +S1, +S2 GI/Abdominal exam: PRESENT: soft Neurological exam: PRESENT: other - sedated Results Laboratory Results: 03/31/17 05:25 03/31/17 05:25 03/31/17 03/31/17 03/31/17 05:25 05:25 05:25 WBC 4.8 RBC 2.40 L Hgb 7.7 L Hct 24.0 L MCV 100 H MCH 32.0 MCHC 32.0 RDW 15.0 H Plt Count 249 Seg Neutrophils % 74.6 Lymphocytes % 13.0 Monocytes % 9.2 Eosinophils % 2.8 Basophils % 0.4 Absolute Neutrophils 3.6 Absolute Lymphocytes 0.6 Absolute Monocytes 0.4 Absolute Eosinophils 0.1 Absolute Basophils 0.0 Carbonic Acid 1.19 HCO3/H2CO3 Ratio 18:1 ABG pH 7.36 ABG pCO2 39.5 ABG pO2 79.2 L ABG HCO3 21.7 ABG O2 Saturation 95.3 ABG Base Excess -3.5 FiO2 30% Sodium 137.1 Potassium 3.4 L Chloride 107 Carbon Dioxide 23 Anion Gap 7 BUN 6 L Creatinine 0.57 Est GFR ( Amer) > 60 Est GFR (Non-Af Amer) > 60 Glucose 120 H Calcium 7.5 L Phosphorus 4.0 Magnesium 1.7 Total Bilirubin 0.3 AST 28 ALT 38 Alkaline Phosphatase 66 Total Protein 4.6 L Albumin 2.0 L Prealbumin 8.8 L Blood Type Antibody Screen 03/31/17 11:17 WBC RBC Hgb Hct MCV MCH MCHC RDW Plt Count Seg Neutrophils % Lymphocytes % Monocytes % Eosinophils % Basophils % Absolute Neutrophils Absolute Lymphocytes Absolute Monocytes Absolute Eosinophils Absolute Basophils Carbonic Acid HCO3/H2CO3 Ratio ABG pH ABG pCO2 ABG pO2 ABG HCO3 ABG O2 Saturation ABG Base Excess FiO2 Sodium Potassium Chloride Carbon Dioxide Anion Gap BUN Creatinine Est GFR ( Amer) Est GFR (Non-Af Amer) Glucose Calcium Phosphorus Magnesium Total Bilirubin AST ALT Alkaline Phosphatase Total Protein Albumin Prealbumin Blood Type A POSITIVE Antibody Screen NEGATIVE Impressions: Abdomen/Pelvis CT 03/26/17 00:00 IMPRESSION: 1. There is air and stool in the ascending colon. There is a markedly distended transverse colon and decompressed descending colon. Focal obstructing mass or extrinsic compression of the colon is not identified. There is no CT evidence of volvulus. 2. No significant small-bowel dilatation. There are thickened loops of small bowel in the left mid abdomen. Etiology of this is uncertain but infectious or inflammatory process cannot be excluded. The patient has an indwelling jejunostomy tube. 3. Free fluid in the pelvis etiology of this is uncertain. 4. Bibasilar consolidation consistent with pneumonia or lung collapse. Abdomen X-Ray 03/26/17 12:43 IMPRESSION: Nonspecific bowel gas pattern with market gaseous distention of the transverse colon, large amount of stool in the ascending colon, and few dilated small bowel loops in the mid epigastrium Findings were discussed withDr Alex Chest/Abdomen CTA 03/26/17 16:42 IMPRESSION: 1. No pulmonary emboli. 2. Bilateral lower lobe collapse and/or consolidation. There is a small left effusion as well. Mild right hilar as well as mediastinal adenopathy is present. This is most likely reactive. KUB X-Ray 03/27/17 00:00 IMPRESSION: Persistent abnormal bowel gas pattern with massively distended loop of colon in the mid epigastrium. It is difficult to discern whether this is due to a distal transverse colon stricture, or sigmoid volvulus. Images reviewed with Dr. Sheikh Chest X-Ray 03/31/17 06:00 IMPRESSION: Interval decrease in the left-sided pleural effusion and left basilar airspace opacity. No significant interval change in the airspace opacity at the right lung base. Right IJ central line with the tip at the distal right atrium, retraction by approximately 7 cm recommended. NG tube coiled in the stomach. Assessment & Plan - Diagnosis (1) Acute ischemia of large intestine Is this a current diagnosis for this admission?: Yes (2) Arterial hypotension Qualifiers: Hypotension type: unspecified hypotension type Qualified Code(s): I95.9 - Hypotension, unspecified Is this a current diagnosis for this admission?: Yes (3) Cecal volvulus Is this a current diagnosis for this admission?: Yes (4) Cerebral palsy Qualifiers: Cerebral palsy type: unspecified type Qualified Code(s): G80.9 - Cerebral palsy, unspecified Is this a current diagnosis for this admission?: Yes (5) Colon distention Is this a current diagnosis for this admission?: Yes (6) Mental retardation Is this a current diagnosis for this admission?: Yes (7) Respiratory distress Is this a current diagnosis for this admission?: Yes - Plan Summary Plan Summary: Continue present support continue IV antibiotic continue other treatment
--- NOTE | 2017-03-31 13:51 | PDOC PROGRESS REPORT ---
Subjective Progress Note for:: 03/31/17 Subjective:: Patient intubated and sedated Physical Exam Vital Signs: Temp Pulse Resp BP Pulse Ox 99.3 F 109 H 11 L 120/78 95 03/31/17 13:38 03/31/17 13:38 03/31/17 13:38 03/31/17 13:38 03/31/17 13:38 Intake & Output 03/30/17 03/31/17 04/01/17 06:59 06:59 06:59 Intake Total 5199 5790 430 Output Total 2775 3300 1310 Balance 2424 2490 -880 Weight 78 kg 79.6 kg Eye exam: PRESENT: PERRLA Respiratory exam: PRESENT: clear to auscultation adelina Cardiovascular exam: PRESENT: +S1, +S2 GI/Abdominal exam: PRESENT: soft Results Laboratory Results: 03/31/17 05:25 03/31/17 05:25 03/31/17 03/31/17 03/31/17 05:25 05:25 05:25 WBC 4.8 RBC 2.40 L Hgb 7.7 L Hct 24.0 L MCV 100 H MCH 32.0 MCHC 32.0 RDW 15.0 H Plt Count 249 Seg Neutrophils % 74.6 Lymphocytes % 13.0 Monocytes % 9.2 Eosinophils % 2.8 Basophils % 0.4 Absolute Neutrophils 3.6 Absolute Lymphocytes 0.6 Absolute Monocytes 0.4 Absolute Eosinophils 0.1 Absolute Basophils 0.0 Carbonic Acid 1.19 HCO3/H2CO3 Ratio 18:1 ABG pH 7.36 ABG pCO2 39.5 ABG pO2 79.2 L ABG HCO3 21.7 ABG O2 Saturation 95.3 ABG Base Excess -3.5 FiO2 30% Sodium 137.1 Potassium 3.4 L Chloride 107 Carbon Dioxide 23 Anion Gap 7 BUN 6 L Creatinine 0.57 Est GFR ( Amer) > 60 Est GFR (Non-Af Amer) > 60 Glucose 120 H Calcium 7.5 L Phosphorus 4.0 Magnesium 1.7 Total Bilirubin 0.3 AST 28 ALT 38 Alkaline Phosphatase 66 Total Protein 4.6 L Albumin 2.0 L Prealbumin 8.8 L Blood Type Antibody Screen 03/31/17 11:17 WBC RBC Hgb Hct MCV MCH MCHC RDW Plt Count Seg Neutrophils % Lymphocytes % Monocytes % Eosinophils % Basophils % Absolute Neutrophils Absolute Lymphocytes Absolute Monocytes Absolute Eosinophils Absolute Basophils Carbonic Acid HCO3/H2CO3 Ratio ABG pH ABG pCO2 ABG pO2 ABG HCO3 ABG O2 Saturation ABG Base Excess FiO2 Sodium Potassium Chloride Carbon Dioxide Anion Gap BUN Creatinine Est GFR ( Amer) Est GFR (Non-Af Amer) Glucose Calcium Phosphorus Magnesium Total Bilirubin AST ALT Alkaline Phosphatase Total Protein Albumin Prealbumin Blood Type A POSITIVE Antibody Screen NEGATIVE Impressions: Abdomen/Pelvis CT 03/26/17 00:00 IMPRESSION: 1. There is air and stool in the ascending colon. There is a markedly distended transverse colon and decompressed descending colon. Focal obstructing mass or extrinsic compression of the colon is not identified. There is no CT evidence of volvulus. 2. No significant small-bowel dilatation. There are thickened loops of small bowel in the left mid abdomen. Etiology of this is uncertain but infectious or inflammatory process cannot be excluded. The patient has an indwelling jejunostomy tube. 3. Free fluid in the pelvis etiology of this is uncertain. 4. Bibasilar consolidation consistent with pneumonia or lung collapse. Abdomen X-Ray 03/26/17 12:43 IMPRESSION: Nonspecific bowel gas pattern with market gaseous distention of the transverse colon, large amount of stool in the ascending colon, and few dilated small bowel loops in the mid epigastrium Findings were discussed withDr Isai Chest/Abdomen CTA 03/26/17 16:42 IMPRESSION: 1. No pulmonary emboli. 2. Bilateral lower lobe collapse and/or consolidation. There is a small left effusion as well. Mild right hilar as well as mediastinal adenopathy is present. This is most likely reactive. KUB X-Ray 03/27/17 00:00 IMPRESSION: Persistent abnormal bowel gas pattern with massively distended loop of colon in the mid epigastrium. It is difficult to discern whether this is due to a distal transverse colon stricture, or sigmoid volvulus. Images reviewed with Dr. Sheikh Chest X-Ray 03/31/17 06:00 IMPRESSION: Interval decrease in the left-sided pleural effusion and left basilar airspace opacity. No significant interval change in the airspace opacity at the right lung base. Right IJ central line with the tip at the distal right atrium, retraction by approximately 7 cm recommended. NG tube coiled in the stomach. Assessment & Plan - Diagnosis (1) Cecal volvulus Is this a current diagnosis for this admission?: Yes (2) Acute ischemia of large intestine Is this a current diagnosis for this admission?: Yes (3) Arterial hypotension Qualifiers: Hypotension type: unspecified hypotension type Qualified Code(s): I95.9 - Hypotension, unspecified Is this a current diagnosis for this admission?: Yes (4) Cerebral palsy Qualifiers: Cerebral palsy type: unspecified type Qualified Code(s): G80.9 - Cerebral palsy, unspecified Is this a current diagnosis for this admission?: Yes (5) Colon distention Is this a current diagnosis for this admission?: Yes (6) Mental retardation Is this a current diagnosis for this admission?: Yes (7) Respiratory distress Is this a current diagnosis for this admission?: Yes - Plan Summary Plan Summary: Continue treatment, patient weaning mode, hemogram revealed hemoglobin 7 , transfuse 2 units of packed red blood
--- NOTE | 2017-03-31 15:15 | RADIOLOGY REPORT (SQ) ---
EXAM DESCRIPTION: KUB/ABDOMEN (SINGLE VIEW) COMPLETED DATE/TIME: 03/31/2017 3:01 pm REASON FOR STUDY: abdominal distention COMPARISON: 03/27/2017 NUMBER OF VIEWS: One view. TECHNIQUE: Supine radiographic image of the abdomen acquired. LIMITATIONS: None. FINDINGS: BOWEL GAS PATTERN: Persistent the less prominent bowel distention. CALCIFICATIONS: No suspicious calcifications. SOFT TISSUES: No gross mass or suggestion of organomegaly. HARDWARE: Midline sujata. Nasogastric tube is coiled in the stomach. BONES: No acute fracture. No worrisome bone lesions. OTHER: No other significant finding. IMPRESSION: Persistent less prominent bowel distention. Nasogastric tube appears to be coiled in the stomach or seconds portion of the duodenum. TECHNICAL DOCUMENTATION: JOB ID: [id number] [employer]- All Rights Reserved
[2017-03-31] MEDS: LACTULOSE SYRUP 20 GM/30 ML UDCUP PO SCH (17:25)
[2017-03-31] MEDS: AMINO ACIDS 5%/D25W 1,000 ML IV PRN (17:42)
--- NOTE | 2017-03-31 17:43 | PROGRESS NOTE E ---
Progress Note NAME: MERCY WORLEY : 1985 AGE: 31Y DATE: 03/31/2017 ROOM: 601 SUBJECTIVE: Note that the patient is still intubated and sedated. He keeps his eyes half open but does not respond. He is off joseph-synephrine. He still has tachycardia but there is no arrhythmia seen, atrial or ventricular. The patient does not seem to be fighting the ventilator. OBJECTIVE: GENERAL: The patient is well-built and well-nourished, at present intubated and sedated. VITAL SIGNS: His temperature is 36.6 degrees Celsius. His pulse is 105 beats per minute, blood pressure 119/77 off all vasopressor agents. His O2 sats are 100% on FiO2 of 30% with a respiratory rate of 14. The patient is on extubation trial mode. HEENT: Head is atraumatic, normocephalic. Eyes: Pupils are equal, round and regular, reactive to light. NECK: Supple without any lymphadenopathy or JVD. Trachea is central. There is no cervical or axillary lymphadenopathy. Carotids are 2+ without any bruit. There is no JVD. LUNGS: Show a few dry crackles in both the bases and there is an area of dullness in the left lower lobe. HEART: S1 and S2 is heard. S1 is of normal intensity. There is no S3 gallop. There is no S4 gallop. There is a systolic murmur in the left sternal border and the apex. There is no rub. ABDOMEN: The dressing is dry. Bowel sounds are diminished. There is no hepatosplenomegaly. EXTREMITIES: There is no pedal edema. Pedal pulses are slightly diminished. Femorals are diminished. There are no femoral bruits. There is no cellulitis or DVT. There is no cyanosis or clubbing. CENTRAL NERVOUS SYSTEM: Not examined since the patient is intubated and sedated. PSYCHIATRIC: Not examined since the patient is intubated and sedated. IMAGING STUDIES: The patient's EKG shows sinus tachycardia with nonspecific T abnormalities diffusely. Chest x-ray shows a decrease in the left pleural effusion. There are still infiltrates in the right base and the left base. The patient's KUB x-ray done due to abdominal distension shows persistent less prominent bowel distention. Nasogastric tube appears to be coiled in the stomach or the second portion of the duodenum. LABORATORY DATA: The patient's 24 hour intake is 5790 mL; output is 3300 mL. His sodium is 137.4, potassium is low at 3.4 (this is being replaced), chloride is 107, CO2 is 23. The patient's BUN is 6, creatinine 0.57, GFR is greater than 60, glucose is 120, calcium is low at 7.5. Liver function tests are normal. Albumin is 2, total protein is 4.6. His prealbumin is 8.8. His ABG showed pH 7.36, PCO2 is 93.5, PO2 is 79.2 on FiO2 of 30% and O2 sat is 95.3. The patient's white count is 4800, hemoglobin is 7.7, hematocrit is 24 and platelet count is 249,000. IMPRESSION: 1. ACUTE RESPIRATORY FAILURE WITH HYPOXIA. 2. ASPIRATION PNEUMONIA. The patient is on antibiotics and on ventilator support. The patient is going to be weaned shortly. He is on a weaning trial mode on ventilator. 3. HYPOTENSION SECONDARY TO SEPTIC SHOCK, RESOLVED. The patient is off pressors with stable blood pressure. 4. STATUS POST COLECTOMY AND RESECTION OF CECUM AND DISTAL ILEUS DUE TO VOLVULUS OF THE CECUM. 5. CEREBRAL PALSY. 6. HISTORY OF MENTAL RETARDATION. 7. HISTORY OF SEIZURES. 8. SINUS TACHYCARDIA SECONDARY TO SEPSIS AND INFECTION. RECOMMENDATION: The patient is off the Joseph-Synephrine. Continue antibiotics. Continue respiratory treatments. Continue normal saline. Note that the patient is on trial mode for extubation. Note that 25 minutes spent on this patient with more than 50% of the time spent on direct patient care. Moderately complex medical decision on this case. The patient's blood pressures have come up and has not required pressors and, hence, will sign off the case. Discussed this with the attending physician covering Dr. Tierney Cantor. DICTATING PHYSICIAN: ANA CHOW M.D. [id number] PHRey#: [id number] ID: [id number] JOB#: [id number] ACCT: [id number] cc: >
[2017-03-31 20:13] LABS: ABSOLUTE EOSINOPHILS # (AUTO) 0.1 10^3/uL (0.0-0.6); ABSOLUTE LYMPHOCYTES (AUTO) 0.8 10^3/uL (0.5-4.7); ABSOLUTE MONOCYTES (AUTO) 0.6 10^3/uL (0.1-1.4); BASOPHILS % (AUTO) 0.2 % (0-2); EOSINOPHILS % (AUTO) 1.6 % (0-6); HEMATOCRIT 30.2 % (37.9-51.0); HGB HCT DIFFERENCE 0.1; LYMPHOCYTES % (AUTO) 12.1 % (13-45); MEAN CORPUSCULAR HEMOGLOBIN 30.8 pg (27.0-33.4); MEAN CORPUSCULAR HGB CONC 33.5 g/dL (32.0-36.0); RED BLOOD COUNT 3.28 10^6/uL (4.35-5.55); RED CELL DISTRIBUTION WIDTH 18.3 % (11.5-14.0); SEGMENTED NEUTROPHILS % (AUTO) 77.1 % (42-78); WHITE BLOOD COUNT 6.5 10^3/uL (4.0-10.5)
[2017-03-31 20:25] LABS: HEMOGLOBIN 10.1 g/dL (13.5-17.0); MEAN CORPUSCULAR VOLUME 92 fl (80-97)
[2017-03-31 20:29] LABS: ANION GAP 6 (5-19); BLOOD UREA NITROGEN 6 mg/dL (7-20); CALCIUM 7.5 mg/dL (8.4-10.2); CARBON DIOXIDE 25 mmol/L (22-30); CHLORIDE 103 mmol/L (98-107); GLUCOSE 118 mg/dL (75-110); POTASSIUM 4.1 mmol/L (3.6-5.0); SODIUM 133.7 mmol/L (137-145)
[2017-03-31] MEDS: ZONISAMIDE 100 MG CAPSULE PEG SCH (21:44)
[2017-04-01] MEDS: LEVALBUTEROL HCL NEB 1.25 MG/3 ML AMPUL NEB SCH ×5 (04:33→20:12)
[2017-04-01] MEDS: CLINDAMYCIN 600 MG/D5W RTU 600 MG/50 ML RTUPB IV SCH ×4 (05:05→23:00)
[2017-04-01] MEDS: AZTREONAM 1 GM in DEXTROSE 5%-WATER 50 ML IV SCH ×3 (05:06→21:22)
[2017-04-01] MEDS: NORMAL SALINE 1000 ML 1,000 ML IV PRN ×2 (05:06→17:16)
[2017-04-01] MEDS: SULFAMETHOXAZOLE/TRIMETHOPRIM 160 MG in DEXTROSE 5%-WATER 250 ML IV SCH ×3 (05:06→18:24)
[2017-04-01] MEDS: CARBAMAZEPINE SUSP 200 MG/10 ML UDCUP PEG SCH ×3 (05:57→21:22)
[2017-04-01] MEDS: METOCLOPRAMIDE HCL INJ/PF 10 MG/2 ML SDV IV SCH ×3 (05:57→21:22)
[2017-04-01 06:10] LABS: ARTERIAL BLOOD BASE EXCESS 0.9 mmol/L; HEMATOCRIT 29.4 % (37.9-51.0); HEMOGLOBIN 9.7 g/dL (13.5-17.0); HGB HCT DIFFERENCE -0.3; MEAN CORPUSCULAR HEMOGLOBIN 30.7 pg (27.0-33.4); MEAN CORPUSCULAR HGB CONC 32.9 g/dL (32.0-36.0); MEAN CORPUSCULAR VOLUME 93 fl (80-97); RED BLOOD COUNT 3.16 10^6/uL (4.35-5.55); RED CELL DISTRIBUTION WIDTH 18.7 % (11.5-14.0); WHITE BLOOD COUNT 5.9 10^3/uL (4.0-10.5)
[2017-04-01 06:27] LABS: PROTHROMBIN TIME 13.9 SEC (11.4-15.4)
[2017-04-01 06:28] LABS: ALANINE AMINOTRANSFERASE 40 U/L (21-72); ALBUMIN 2.1 g/dL (3.5-5.0); ALKALINE PHOSPHATASE 66 U/L (38-126); ANION GAP 7 (5-19); ASPARTATE AMINO TRANSFERASE 20 U/L (17-59); BILIRUBIN,DIRECT 0.6 mg/dL (0.0-0.4); BILIRUBIN,TOTAL 0.7 mg/dL (0.2-1.3); BLOOD UREA NITROGEN 7 mg/dL (7-20); CALCIUM 7.6 mg/dL (8.4-10.2); CARBON DIOXIDE 25 mmol/L (22-30); CHLORIDE 104 mmol/L (98-107); CREATININE RESULT 0.47 mg/dL (0.52-1.25); GLUCOSE 107 mg/dL (75-110); MAGNESIUM 1.6 mg/dL (1.6-2.3); PHOSPHORUS 3.3 mg/dL (2.5-4.5); POTASSIUM 4.2 mmol/L (3.6-5.0); SODIUM 135.6 mmol/L (137-145); TOTAL PROTEIN 4.9 g/dL (6.3-8.2); TRIGLYCERIDES 76 mg/dL (<150)
[2017-04-01 06:35] LABS: PREALBUMIN 11.1 mg/dL (17.6-36.0)
--- NOTE | 2017-04-01 06:59 | RADIOLOGY REPORT (SQ) ---
EXAM DESCRIPTION: CHEST SINGLE VIEW COMPLETED DATE/TIME: 04/01/2017 6:39 am REASON FOR STUDY: pna/resp fail COMPARISON: 03/31/2017 per EXAM PARAMETERS: NUMBER OF VIEWS: One view. TECHNIQUE: Single frontal radiographic view of the chest acquired. RADIATION DOSE: NA LIMITATIONS: None. FINDINGS: LUNGS AND PLEURA: Moderate airspace opacity -layered effusion of, right more than left, up to 60% of the hemithorax on the right. Small lung volumes. MEDIASTINUM AND HILAR STRUCTURES: No masses. Contour normal. HEART AND VASCULAR STRUCTURES: Borderline cardiac silhouette size. BONES: No acute findings. Hardware: Endotracheal tube tip at the thoracic inlet ; consider 1.5 cm advancement. Adequate appea ring partially imaged NG tube. Right internal jugular central line tip at the inferior right atrium ; consider 10.5 cm retraction. OTHER: No other significant finding. IMPRESSION: Moderate bilateral opacities -effusion, worsened.Endotracheal tube tip at the thoracic i nlet ; consider 1.5 cm advancement. Right internal jugular central line tip at the inferior right at rium ; consider 10.5 cm retraction. TECHNICAL DOCUMENTATION: JOB ID: [id number]
[2017-04-01] MEDS: PROPOFOL 100 ML IV PRN ×4 (07:54→23:01)
[2017-04-01] MEDS ORDERED: LIDOCAINE 1% INJ-PF (10 MG/ML) 30 ML SDV ONE (07:59)
--- NOTE | 2017-04-01 08:02 | PDOC PROGRESS REPORT ---
Subjective Progress Note for:: 04/01/17 Subjective:: awake,intubated Physical Exam Vital Signs: Temp Pulse Resp BP Pulse Ox 99.3 F 108 H 15 113/78 97 04/01/17 06:00 04/01/17 07:36 04/01/17 06:00 04/01/17 05:52 04/01/17 06:00 Intake & Output 03/31/17 04/01/17 04/02/17 06:59 06:59 06:59 Intake Total 5790 5800 Output Total 3300 5085 400 Balance 2490 715 -400 Weight 79.6 kg 78.1 kg General appearance: PRESENT: no acute distress, disheveled, well-nourished Head exam: PRESENT: atraumatic, normocephalic Eye exam: PRESENT: conjunctiva pale Mouth exam: PRESENT: dry mucosa, neck supple, tongue midline, other - ET tube Neck exam: ABSENT: carotid bruit, JVD, lymphadenopathy, thyromegaly Respiratory exam: PRESENT: decreased breath sounds - R hemithorax, prolonged expiratory phas, rales, rhonchi, unlabored Cardiovascular exam: PRESENT: RRR, +S1, +S2 Pulses: PRESENT: normal radial pulses GI/Abdominal exam: PRESENT: normal bowel sounds, soft, other - feeding tube s/p surgery. ABSENT: distended, guarding, mass, organolmegaly, rebound, tenderness Rectal exam: PRESENT: deferred Gentrourinary exam: PRESENT: indwelling catheter Musculoskeletal exam: PRESENT: normal inspection Skin exam: PRESENT: dry, warm Results Laboratory Results: 04/01/17 05:38 04/01/17 05:38 03/31/17 03/31/17 03/31/17 05:25 11:17 20:00 WBC 4.8 6.5 RBC 2.40 L 3.28 L Hgb 7.7 L 10.1 L D Hct 24.0 L 30.2 L MCV 100 H 92 D MCH 32.0 30.8 MCHC 32.0 33.5 RDW 15.0 H 18.3 H Plt Count 249 260 Seg Neutrophils % 74.6 77.1 Lymphocytes % 13.0 12.1 L Monocytes % 9.2 9.0 Eosinophils % 2.8 1.6 Basophils % 0.4 0.2 Absolute Neutrophils 3.6 5.0 Absolute Lymphocytes 0.6 0.8 Absolute Monocytes 0.4 0.6 Absolute Eosinophils 0.1 0.1 Absolute Basophils 0.0 0.0 Carbonic Acid HCO3/H2CO3 Ratio ABG pH ABG pCO2 ABG pO2 ABG HCO3 ABG O2 Saturation ABG Base Excess FiO2 Sodium Potassium Chloride Carbon Dioxide Anion Gap BUN Creatinine Est GFR ( Amer) Est GFR (Non-Af Amer) Glucose Calcium Phosphorus Magnesium Total Bilirubin AST ALT Alkaline Phosphatase Total Protein Albumin Prealbumin Triglycerides Blood Type A POSITIVE Antibody Screen NEGATIVE 03/31/17 04/01/17 04/01/17 20:00 05:38 05:38 WBC 5.9 RBC 3.16 L Hgb 9.7 L Hct 29.4 L MCV 93 MCH 30.7 MCHC 32.9 RDW 18.7 H Plt Count 265 Seg Neutrophils % Lymphocytes % Monocytes % Eosinophils % Basophils % Absolute Neutrophils Absolute Lymphocytes Absolute Monocytes Absolute Eosinophils Absolute Basophils Carbonic Acid 1.25 HCO3/H2CO3 Ratio 20:1 ABG pH 7.41 ABG pCO2 41.4 ABG pO2 68.9 L ABG HCO3 25.6 ABG O2 Saturation 94.0 ABG Base Excess 0.9 FiO2 40% Sodium 133.7 L Potassium 4.1 Chloride 103 Carbon Dioxide 25 Anion Gap 6 BUN 6 L Creatinine 0.50 L Est GFR ( Amer) > 60 Est GFR (Non-Af Amer) > 60 Glucose 118 H Calcium 7.5 L Phosphorus Magnesium Total Bilirubin AST ALT Alkaline Phosphatase Total Protein Albumin Prealbumin Triglycerides Blood Type Antibody Screen 04/01/17 05:38 WBC RBC Hgb Hct MCV MCH MCHC RDW Plt Count Seg Neutrophils % Lymphocytes % Monocytes % Eosinophils % Basophils % Absolute Neutrophils Absolute Lymphocytes Absolute Monocytes Absolute Eosinophils Absolute Basophils Carbonic Acid HCO3/H2CO3 Ratio ABG pH ABG pCO2 ABG pO2 ABG HCO3 ABG O2 Saturation ABG Base Excess FiO2 Sodium 135.6 L Potassium 4.2 Chloride 104 Carbon Dioxide 25 Anion Gap 7 BUN 7 Creatinine 0.47 L Est GFR ( Amer) > 60 Est GFR (Non-Af Amer) > 60 Glucose 107 Calcium 7.6 L Phosphorus 3.3 Magnesium 1.6 Total Bilirubin 0.7 AST 20 ALT 40 Alkaline Phosphatase 66 Total Protein 4.9 L Albumin 2.1 L Prealbumin 11.1 L Triglycerides 76 Blood Type Antibody Screen Impressions: Abdomen/Pelvis CT 03/26/17 00:00 IMPRESSION: 1. There is air and stool in the ascending colon. There is a markedly distended transverse colon and decompressed descending colon. Focal obstructing mass or extrinsic compression of the colon is not identified. There is no CT evidence of volvulus. 2. No significant small-bowel dilatation. There are thickened loops of small bowel in the left mid abdomen. Etiology of this is uncertain but infectious or inflammatory process cannot be excluded. The patient has an indwelling jejunostomy tube. 3. Free fluid in the pelvis etiology of this is uncertain. 4. Bibasilar consolidation consistent with pneumonia or lung collapse. Abdomen X-Ray 03/26/17 12:43 IMPRESSION: Nonspecific bowel gas pattern with market gaseous distention of the transverse colon, large amount of stool in the ascending colon, and few dilated small bowel loops in the mid epigastrium Findings were discussed withDr Isai Chest/Abdomen CTA 03/26/17 16:42 IMPRESSION: 1. No pulmonary emboli. 2. Bilateral lower lobe collapse and/or consolidation. There is a small left effusion as well. Mild right hilar as well as mediastinal adenopathy is present. This is most likely reactive. KUB X-Ray 03/31/17 00:00 IMPRESSION: Persistent less prominent bowel distention. Nasogastric tube appears to be coiled in the stomach or seconds portion of the duodenum. Chest X-Ray 04/01/17 06:00 IMPRESSION: Moderate bilateral opacities -effusion, worsened.Endotracheal tube tip at the thoracic inlet ; consider 1.5 cm advancement. Right internal jugular central line tip at the inferior right atrium ; consider 10.5 cm retraction. Assessment & Plan - Diagnosis (1) Acute respiratory failure Qualifiers: Respiratory failure complication: hypoxia Qualified Code(s): J96.01 - Acute respiratory failure with hypoxia Is this a current diagnosis for this admission?: YesPlan: variable infiltrates and FIO2 requirements (2) Aspiration pneumonia Qualifiers: Aspiration pneumonia type: unspecified Laterality: right Lung location: lower lobe of lung Qualified Code(s): J69.0 - Pneumonitis due to inhalation of food and vomit Is this a current diagnosis for this admission?: YesPlan: intermittent episodes may still persist (3) Cerebral palsy Qualifiers: Cerebral palsy type: unspecified type Qualified Code(s): G80.9 - Cerebral palsy, unspecified Is this a current diagnosis for this admission?: Yes (4) Mental retardation Is this a current diagnosis for this admission?: Yes (5) Septic shock Is this a current diagnosis for this admission?: No - Plan Summary Plan Summary: thoracentesis r pleural effusion
[2017-04-01] MEDS: ENOXAPARIN SODIUM INJ 40 MG/0.4 ML DISP.SYRIN SUBCUT SCH (08:29)
[2017-04-01] MEDS: TOBRAMYCIN SULFATE NEB 40 MG/ML 30 ML NEB SCH ×2 (08:30→20:12)
--- NOTE | 2017-04-01 08:36 | Progress Note ---
Provider Note Provider Note: S. Patient was seen this a.m. in the ICU. He remains on a ventilator. Nursing states they will be attempting to wean the patient from the ventilator this a.m. They noticed on a x-ray that he is right internal jugular triple- lumen central venous catheter was noted to be in the right atrium beyond the level of the tricuspid valve. Nursing states the patient has still not had a bowel movement as yet. Although they state that they can hear bowel sounds at present. O. Temp Resp 98.0 F 27 H 03/26/17 11:15 03/26/17 11:15 General: 31-year-old white male currently on the ventilator, currently on propofol drip, unresponsive except to painful stimuli, no acute distress at present time. Heart: Regular rate and rhythm, positive S1-S2, negative S3-S4, negative for any murmurs, thrills, clicks, heaves, rubs Lungs: Decreased breath sounds in the right lung base. Positive rhonchi in the right upper lobe. Remaining lungs are clear to auscultation. Abdomen: Soft, slightly distended, positive bowel sounds right upper quadrant, hypoactive, incision is intact, no pain, guarding, rebound, drainage, erythema noted. Extremities: No gross deformities upper lower extremities bilaterally. He is negative for peripheral edema lower extremities bilaterally. Neurologic: Cranial nerves II through XII are grossly intact. Labs- All tests 24 hr 03/31/17 03/31/17 03/31/17 05:25 11:00 11:17 WBC 4.8 RBC 2.40 L Hgb 7.7 L Hct 24.0 L MCV 100 H MCH 32.0 MCHC 32.0 RDW 15.0 H Plt Count 249 Seg Neutrophils % 74.6 Lymphocytes % 13.0 Monocytes % 9.2 Eosinophils % 2.8 Basophils % 0.4 Absolute Neutrophils 3.6 Absolute Lymphocytes 0.6 Absolute Monocytes 0.4 Absolute Eosinophils 0.1 Absolute Basophils 0.0 PT INR Carbonic Acid HCO3/H2CO3 Ratio ABG pH ABG pCO2 ABG pO2 ABG HCO3 ABG Total CO2 ABG O2 Saturation ABG Base Excess FiO2 Sodium Potassium Chloride Carbon Dioxide Anion Gap BUN Creatinine Est GFR ( Amer) Est GFR (Non-Af Amer) Glucose POC Glucose Calcium Phosphorus Magnesium Total Bilirubin Direct Bilirubin Indirect Bilirubin Neonat Total Bilirubin AST ALT Alkaline Phosphatase Total Protein Albumin Prealbumin Triglycerides Gastric Occult Blood NEGATIVE Blood Type A POSITIVE Antibody Screen NEGATIVE Crossmatch See Detail 03/31/17 03/31/17 03/31/17 11:53 20:00 20:00 WBC 6.5 RBC 3.28 L Hgb 10.1 L D Hct 30.2 L MCV 92 D MCH 30.8 MCHC 33.5 RDW 18.3 H Plt Count 260 Seg Neutrophils % 77.1 Lymphocytes % 12.1 L Monocytes % 9.0 Eosinophils % 1.6 Basophils % 0.2 Absolute Neutrophils 5.0 Absolute Lymphocytes 0.8 Absolute Monocytes 0.6 Absolute Eosinophils 0.1 Absolute Basophils 0.0 PT INR Carbonic Acid HCO3/H2CO3 Ratio ABG pH ABG pCO2 ABG pO2 ABG HCO3 ABG Total CO2 ABG O2 Saturation ABG Base Excess FiO2 Sodium 133.7 L Potassium 4.1 Chloride 103 Carbon Dioxide 25 Anion Gap 6 BUN 6 L Creatinine 0.50 L Est GFR ( Amer) > 60 Est GFR (Non-Af Amer) > 60 Glucose 118 H POC Glucose 105 Calcium 7.5 L Phosphorus Magnesium Total Bilirubin Direct Bilirubin Indirect Bilirubin Neonat Total Bilirubin AST ALT Alkaline Phosphatase Total Protein Albumin Prealbumin Triglycerides Gastric Occult Blood Blood Type Antibody Screen Crossmatch 04/01/17 04/01/17 04/01/17 05:38 05:38 05:38 WBC 5.9 RBC 3.16 L Hgb 9.7 L Hct 29.4 L MCV 93 MCH 30.7 MCHC 32.9 RDW 18.7 H Plt Count 265 Seg Neutrophils % Lymphocytes % Monocytes % Eosinophils % Basophils % Absolute Neutrophils Absolute Lymphocytes Absolute Monocytes Absolute Eosinophils Absolute Basophils PT 13.9 INR 1.00 Carbonic Acid 1.25 HCO3/H2CO3 Ratio 20:1 ABG pH 7.41 ABG pCO2 41.4 ABG pO2 68.9 L ABG HCO3 25.6 ABG Total CO2 26.9 ABG O2 Saturation 94.0 ABG Base Excess 0.9 FiO2 40% Sodium Potassium Chloride Carbon Dioxide Anion Gap BUN Creatinine Est GFR ( Amer) Est GFR (Non-Af Amer) Glucose POC Glucose Calcium Phosphorus Magnesium Total Bilirubin Direct Bilirubin Indirect Bilirubin Neonat Total Bilirubin AST ALT Alkaline Phosphatase Total Protein Albumin Prealbumin Triglycerides Gastric Occult Blood Blood Type Antibody Screen Crossmatch 04/01/17 05:38 WBC RBC Hgb Hct MCV MCH MCHC RDW Plt Count Seg Neutrophils % Lymphocytes % Monocytes % Eosinophils % Basophils % Absolute Neutrophils Absolute Lymphocytes Absolute Monocytes Absolute Eosinophils Absolute Basophils PT INR Carbonic Acid HCO3/H2CO3 Ratio ABG pH ABG pCO2 ABG pO2 ABG HCO3 ABG Total CO2 ABG O2 Saturation ABG Base Excess FiO2 Sodium 135.6 L Potassium 4.2 Chloride 104 Carbon Dioxide 25 Anion Gap 7 BUN 7 Creatinine 0.47 L Est GFR ( Amer) > 60 Est GFR (Non-Af Amer) > 60 Glucose 107 POC Glucose Calcium 7.6 L Phosphorus 3.3 Magnesium 1.6 Total Bilirubin 0.7 Direct Bilirubin 0.6 H Indirect Bilirubin Not Reportable Neonat Total Bilirubin Not Reportable AST 20 ALT 40 Alkaline Phosphatase 66 Total Protein 4.9 L Albumin 2.1 L Prealbumin 11.1 L Triglycerides 76 Gastric Occult Blood Blood Type Antibody Screen Crossmatch A. 1.Postop day #5 colon resection with ileocolic anastomosis for torsion of the cecum 2. Respiratory insufficiency, ventilator dependent 3. Postoperative ileus P. 1. We will have nurses give the patient a Dulcolax suppository attempt to stimulate bowel function. 2. The patient only had 400 cc of NG drainage in the last 24 hours. I feel that the ileus is probably beginning to resolve. 3. Have sterilely withdrawn the triple-lumen central venous catheter from his right internal jugular location to 14 cm from the skin. The catheter was checked for ability to aspirate blood as well as infused and it works without any difficulty. 4. We will have nurses placed the patient in bed chair position at least 3 times a day in attempt to stimulate bowel function.
[2017-04-01] MEDS ORDERED: BISACODYL 10 MG SUPP.RECT PR ONE (09:00)
[2017-04-01] MEDS ORDERED: MAGNESIUM SULFATE/D5W 1 GM/100 ML RTUPB IV ONE (09:00)
[2017-04-01 10:03] LABS: CREATINE KINASE MB 0.61 ng/mL (<4.55)
[2017-04-01 10:20] LABS: TROPONIN I < 0.012 ng/mL
[2017-04-01] MEDS: CETIRIZINE HCL ORAL SOLN 5 MG/5 ML UDCUP PEG SCH (10:32)
[2017-04-01] MEDS: POLYETHYLENE GLYCOL 3350 POWDER 17 GM/1 PACKET PEG SCH (10:32)
[2017-04-01] MEDS: FAMOTIDINE INJ/PF 20 MG/2 ML SDV IV SCH ×2 (10:32→21:22)
[2017-04-01] MEDS: PERAMPANEL 8 MG PO SCH (10:33)
[2017-04-01] MEDS: OLOPATADINE HCL 0.1% OPH SOLN 5 ML OU PRN (10:34)
--- NOTE | 2017-04-01 11:39 | PDOC PROGRESS REPORT ---
Subjective Progress Note for:: 04/01/17 Subjective:: Patient is currently doing same. Patient still intubated. Patient's chest x- ray shows a bilateral pleural effusion more on the right side.As per discussed with the pulmonary and order the thoracocentesis.Patient also seen by the surgery and is all stable with the surgical standpoint and cut down the IV fluid. Discussed with the mother on the bedside about the patient's current conditions and continues to IV antibiotic Physical Exam Vital Signs: Temp Pulse Resp BP Pulse Ox 99.9 F 109 H 22 H 127/85 H 95 04/01/17 11:00 04/01/17 10:00 04/01/17 11:00 04/01/17 10:17 04/01/17 11:00 Intake & Output 03/31/17 04/01/17 04/02/17 06:59 06:59 06:59 Intake Total 5790 5800 90 Output Total 3300 5085 2000 Balance 2490 715 -1910 Weight 79.6 kg 78.1 kg Physical Exam: Currently intubated and under sedation's General appearance: PRESENT: no acute distress Eye exam: PRESENT: PERRLA Respiratory exam: PRESENT: decreased breath sounds Cardiovascular exam: PRESENT: +S1, +S2 GI/Abdominal exam: PRESENT: normal bowel sounds, soft Extremities exam: ABSENT: pedal edema Results Laboratory Results: 04/01/17 05:38 04/01/17 05:38 03/31/17 03/31/17 03/31/17 11:17 20:00 20:00 WBC 6.5 RBC 3.28 L Hgb 10.1 L D Hct 30.2 L MCV 92 D MCH 30.8 MCHC 33.5 RDW 18.3 H Plt Count 260 Seg Neutrophils % 77.1 Lymphocytes % 12.1 L Monocytes % 9.0 Eosinophils % 1.6 Basophils % 0.2 Absolute Neutrophils 5.0 Absolute Lymphocytes 0.8 Absolute Monocytes 0.6 Absolute Eosinophils 0.1 Absolute Basophils 0.0 Carbonic Acid HCO3/H2CO3 Ratio ABG pH ABG pCO2 ABG pO2 ABG HCO3 ABG O2 Saturation ABG Base Excess FiO2 Sodium 133.7 L Potassium 4.1 Chloride 103 Carbon Dioxide 25 Anion Gap 6 BUN 6 L Creatinine 0.50 L Est GFR ( Amer) > 60 Est GFR (Non-Af Amer) > 60 Glucose 118 H Calcium 7.5 L Phosphorus Magnesium Total Bilirubin AST ALT Alkaline Phosphatase Total Protein Albumin Prealbumin Triglycerides Blood Type A POSITIVE Antibody Screen NEGATIVE 04/01/17 04/01/17 04/01/17 05:38 05:38 05:38 WBC 5.9 RBC 3.16 L Hgb 9.7 L Hct 29.4 L MCV 93 MCH 30.7 MCHC 32.9 RDW 18.7 H Plt Count 265 Seg Neutrophils % Lymphocytes % Monocytes % Eosinophils % Basophils % Absolute Neutrophils Absolute Lymphocytes Absolute Monocytes Absolute Eosinophils Absolute Basophils Carbonic Acid 1.25 HCO3/H2CO3 Ratio 20:1 ABG pH 7.41 ABG pCO2 41.4 ABG pO2 68.9 L ABG HCO3 25.6 ABG O2 Saturation 94.0 ABG Base Excess 0.9 FiO2 40% Sodium 135.6 L Potassium 4.2 Chloride 104 Carbon Dioxide 25 Anion Gap 7 BUN 7 Creatinine 0.47 L Est GFR ( Amer) > 60 Est GFR (Non-Af Amer) > 60 Glucose 107 Calcium 7.6 L Phosphorus 3.3 Magnesium 1.6 Total Bilirubin 0.7 AST 20 ALT 40 Alkaline Phosphatase 66 Total Protein 4.9 L Albumin 2.1 L Prealbumin 11.1 L Triglycerides 76 Blood Type Antibody Screen 04/01/17 04/01/17 09:07 09:07 Creatine Kinase 58 CK-MB (CK-2) 0.61 Troponin I < 0.012 Impressions: Abdomen/Pelvis CT 03/26/17 00:00 IMPRESSION: 1. There is air and stool in the ascending colon. There is a markedly distended transverse colon and decompressed descending colon. Focal obstructing mass or extrinsic compression of the colon is not identified. There is no CT evidence of volvulus. 2. No significant small-bowel dilatation. There are thickened loops of small bowel in the left mid abdomen. Etiology of this is uncertain but infectious or inflammatory process cannot be excluded. The patient has an indwelling jejunostomy tube. 3. Free fluid in the pelvis etiology of this is uncertain. 4. Bibasilar consolidation consistent with pneumonia or lung collapse. Abdomen X-Ray 03/26/17 12:43 IMPRESSION: Nonspecific bowel gas pattern with market gaseous distention of the transverse colon, large amount of stool in the ascending colon, and few dilated small bowel loops in the mid epigastrium Findings were discussed withDr Alex Chest/Abdomen CTA 03/26/17 16:42 IMPRESSION: 1. No pulmonary emboli. 2. Bilateral lower lobe collapse and/or consolidation. There is a small left effusion as well. Mild right hilar as well as mediastinal adenopathy is present. This is most likely reactive. KUB X-Ray 03/31/17 00:00 IMPRESSION: Persistent less prominent bowel distention. Nasogastric tube appears to be coiled in the stomach or seconds portion of the duodenum. Chest X-Ray 04/01/17 06:00 IMPRESSION: Moderate bilateral opacities -effusion, worsened.Endotracheal tube tip at the thoracic inlet ; consider 1.5 cm advancement. Right internal jugular central line tip at the inferior right atrium ; consider 10.5 cm retraction. Assessment & Plan - Diagnosis (1) Acute respiratory failure Qualifiers: Respiratory failure complication: hypoxia Qualified Code(s): J96.01 - Acute respiratory failure with hypoxia Is this a current diagnosis for this admission?: YesPlan: Still intubated under sedation's order the thoracocentesis because of the bilateral pleural effusions (2) Aspiration pneumonia Qualifiers: Aspiration pneumonia type: unspecified Laterality: right Lung location: lower lobe of lung Qualified Code(s): J69.0 - Pneumonitis due to inhalation of food and vomit Is this a current diagnosis for this admission?: YesPlan: Continues to IV antibiotic (3) Colon distention Is this a current diagnosis for this admission?: YesPlan: Status post surgery for the volvulus currently follow with the surgery (4) Cerebral palsy Qualifiers: Cerebral palsy type: unspecified type Qualified Code(s): G80.9 - Cerebral palsy, unspecified Is this a current diagnosis for this admission?: Yes (5) Mental retardation Is this a current diagnosis for this admission?: Yes (6) Seizures Qualifiers: Convulsion type: unspecified Qualified Code(s): R56.9 - Unspecified convulsions Is this a current diagnosis for this admission?: YesPlan: cont curr medication (7) Sinus tachycardia Is this a current diagnosis for this admission?: YesPlan: Patient's echocardiogram is stable most likely from the sepsis (8) Sepsis Qualifiers: Sepsis type: sepsis due to unspecified organism Qualified Code(s): A41.9 - Sepsis, unspecified organism Is this a current diagnosis for this admission?: YesPlan: Patients off the pressure continues to IV antibiotic still running low-grade fever - Time Time Spent with patient: 15-24 minutes Medications reviewed and adjusted accordingly: Yes Anticipated discharge: Other Within: Other - Inpatient Certification Medical Necessity: Significant Comorbidiites Make Outpatient Treatment Too Risky , Need Close Monitoring Due to Risk of Patient Decompensation, Need for IV Antibiotics 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
[2017-04-01] MEDS: MORPHINE SULFATE 10 MG/ML INJ IV PRN ×2 (11:58→19:25)
--- NOTE | 2017-04-01 14:59 | RADIOLOGY REPORT (SQ) ---
EXAM DESCRIPTION: U/S CHEST COMPLETED DATE/TIME: 04/01/2017 2:38 pm REASON FOR STUDY: R effusion COMPARISON: AP chest 04/01/2017, 03/31/2017 CT chest 03/26/2017 and LIMITATIONS: None. PROCEDURE: Ultrasound of the posterior right and posterior left chest was performed, 2 marked bilate ral pleural effusions for possible thoracentesis. Images acquired during the procedure were stored on PACS. FINDINGS: On the right side, minimal pleural fluid is present. There is right lower lobe collapse a nd consolidation. There was not enough fluid on the right for aspiration under ultrasound guidance. On the left side, minimal fluid is present. There is left lower lobe collapse and consolidation. Th ere was not enough fluid on the left for aspiration under ultrasound guidance IMPRESSION: Trace bilateral pleural effusions. There is consolidation and collapse in the bilateral lower lobes, atelectasis versus pneumonia. No thoracentesis was performed. COMMENT: Patient medication list reviewed: Yes- Quality ID# [id number]:Eligible professional attests to doc umenting in the medical record they obtained, updated, or reviewed the patient's current medications. Quality ID #[id number]: Final reports for procedures using fluoroscopy that document radiation exposure jose m halina, or exposure time and number of fluorographic images (if radiation exposure indices are not avail able) TECHNICAL DOCUMENTATION: JOB ID: [id number] [email or web address]- All Rights Reserved
[2017-04-01 17:09] LABS: CREATINE KINASE MB 0.43 ng/mL (<4.55)
[2017-04-01 17:10] LABS: TROPONIN I < 0.012 ng/mL
[2017-04-01] MEDS: AMINO ACIDS 5%/D25W 1,000 ML IV PRN (17:15)
[2017-04-01] MEDS: LACTULOSE SYRUP 20 GM/30 ML UDCUP PO SCH (17:15)
[2017-04-01] MEDS: ACETAMINOPHEN 650 MG SUPP.RECT PR PRN (19:24)
[2017-04-01] MEDS: ZONISAMIDE 100 MG CAPSULE PEG SCH (21:22)
[2017-04-01 21:49] LABS: CREATINE KINASE MB 0.46 ng/mL (<4.55)
[2017-04-01 21:50] LABS: TROPONIN I < 0.012 ng/mL
[2017-04-02] MEDS: LEVALBUTEROL HCL NEB 1.25 MG/3 ML AMPUL NEB SCH ×6 (00:18→19:51)
[2017-04-02] MEDS: SULFAMETHOXAZOLE/TRIMETHOPRIM 160 MG in DEXTROSE 5%-WATER 250 ML IV SCH ×4 (00:46→18:22)
[2017-04-02] MEDS: PROPOFOL 100 ML IV PRN ×5 (02:35→21:18)
[2017-04-02] MEDS: CLINDAMYCIN 600 MG/D5W RTU 600 MG/50 ML RTUPB IV SCH ×4 (05:11→23:12)
[2017-04-02] MEDS: CARBAMAZEPINE SUSP 200 MG/10 ML UDCUP PEG SCH ×3 (05:12→21:17)
[2017-04-02] MEDS: METOCLOPRAMIDE HCL INJ/PF 10 MG/2 ML SDV IV SCH ×3 (05:12→21:17)
[2017-04-02] MEDS: OLOPATADINE HCL 0.1% OPH SOLN 5 ML OU PRN ×2 (05:15→10:05)
[2017-04-02] MEDS: ACETAMINOPHEN 650 MG SUPP.RECT PR PRN ×2 (05:22→13:52)
[2017-04-02] MEDS: MORPHINE SULFATE 10 MG/ML INJ IV PRN ×3 (05:22→21:56)
[2017-04-02 05:44] LABS: HEMATOCRIT 31.6 % (37.9-51.0); HEMOGLOBIN 10.6 g/dL (13.5-17.0); HGB HCT DIFFERENCE 0.2; MEAN CORPUSCULAR HEMOGLOBIN 31.3 pg (27.0-33.4); MEAN CORPUSCULAR HGB CONC 33.4 g/dL (32.0-36.0); MEAN CORPUSCULAR VOLUME 94 fl (80-97); RED BLOOD COUNT 3.38 10^6/uL (4.35-5.55); RED CELL DISTRIBUTION WIDTH 18.5 % (11.5-14.0); WHITE BLOOD COUNT 6.8 10^3/uL (4.0-10.5)
[2017-04-02 06:06] LABS: ANION GAP 8 (5-19); BLOOD UREA NITROGEN 9 mg/dL (7-20); CARBON DIOXIDE 22 mmol/L (22-30); CHLORIDE 105 mmol/L (98-107); CREATININE RESULT 0.49 mg/dL (0.52-1.25); GLUCOSE 103 mg/dL (75-110); MAGNESIUM 1.8 mg/dL (1.6-2.3); POTASSIUM 4.6 mmol/L (3.6-5.0); SODIUM 134.6 mmol/L (137-145)
[2017-04-02] MEDS: AZTREONAM 1 GM in DEXTROSE 5%-WATER 50 ML IV SCH ×2 (06:35→14:29)
[2017-04-02 06:37] LABS: ARTERIAL BLOOD BASE EXCESS -0.8 mmol/L; ARTERIAL BLOOD O2 SATURATION 94.2 % (94-98)
--- NOTE | 2017-04-02 07:28 | RADIOLOGY REPORT (SQ) ---
EXAM DESCRIPTION: CHEST SINGLE VIEW COMPLETED DATE/TIME: 04/02/2017 6:35 am REASON FOR STUDY: pna/effusions COMPARISON: 04/01/2017. EXAM PARAMETERS: NUMBER OF VIEWS: One view. TECHNIQUE: Single frontal radiographic view of the chest acquired. RADIATION DOSE: NA LIMITATIONS: None. FINDINGS: LUNGS AND PLEURA: Small opacity -effusion of the left lung base, small atelectasis -effusi on of the right lung base, small lung volumes, mild central pulmonary edema pattern. MEDIASTINUM AND HILAR STRUCTURES: No masses. Contour normal. HEART AND VASCULAR STRUCTURES: Heart normal in size. Normal vasculature. BONES: No acute findings. HARDWARE: Tip of an endotracheal tube at the thoracic inlet; consider 3 cm advancement. Likely adequ ate NG tube partially imaged. Right internal jugular central line at the cavoatrial junction. OTHER: No other significant finding. IMPRESSION: No significant interval change. Small lung volumes. Small bibasilar opacity-effusion. Mild central pulmonary edema pattern.Tip of an endotracheal tube at the thoracic inlet; consider 3 c m advancement. TECHNICAL DOCUMENTATION: JOB ID: [id number]
--- NOTE | 2017-04-02 07:44 | PDOC PROGRESS REPORT ---
Subjective Progress Note for:: 04/02/17 Subjective:: Patient seen this a.m. Remains on the ventilator but according to nursing weaning went well yesterday. They stated they had to increase his propofol drip as the patient was just sitting and staring at them. Nursing states the patient was placed in bed chair position 3 times yesterday. Despite the Dulcolax suppository the patient has still not had a bowel movement. Nursing states he has minimal bowel sounds on auscultation. Physical Exam Vital Signs: Temp Pulse Resp BP Pulse Ox 99.3 F 107 H 14 115/79 94 04/02/17 06:54 04/02/17 04:40 04/02/17 06:54 04/02/17 06:54 04/02/17 06:54 Intake & Output 04/01/17 04/02/17 04/03/17 06:59 06:59 06:59 Intake Total 5800 3788 Output Total 5085 5995 Balance 715 -2207 Weight 78.1 kg 74.4 kg General appearance: PRESENT: other - 31-year-old white male remains on ventilator responsive to painful stimuli appears to be in no acute distress at present time. Head exam: PRESENT: atraumatic, normocephalic Eye exam: PRESENT: scleral icterus, other - Is positive for bilateral chemosis Mouth exam: PRESENT: moist Respiratory exam: PRESENT: other - Upper lobes are clear to auscultation bilaterally. The patient is positive for decreased breath sounds in the left lower lobe. There is no rales, wheezing, rhonchi noted bilaterally. Cardiovascular exam: PRESENT: other - Regular rate and rhythm, positive S1-S2, negative S 3 S4, negative for any murmurs, thrills, clicks, heaves, rubs Pulses: PRESENT: normal carotid pulses, normal femoral pulses, normal dorsalis pedis pul Vascular exam: PRESENT: normal capillary refill GI/Abdominal exam: PRESENT: other - Soft, nontender, incisions intact, there is no drainage or erythema noted. Positive for distention, positive [place] sign negative bowel sounds 4 quadrants. Extremities exam: PRESENT: +1 edema Skin exam: PRESENT: dry, warm Results Laboratory Results: 04/02/17 05:20 04/02/17 05:20 04/01/17 04/02/17 04/02/17 11:45 05:20 05:20 WBC 6.8 RBC 3.38 L Hgb 10.6 L Hct 31.6 L MCV 94 MCH 31.3 MCHC 33.4 RDW 18.5 H Plt Count 299 Carbonic Acid HCO3/H2CO3 Ratio ABG pH ABG pCO2 ABG pO2 ABG HCO3 ABG O2 Saturation ABG Base Excess FiO2 Sodium 134.6 L Potassium 4.6 Chloride 105 Carbon Dioxide 22 Anion Gap 8 BUN 9 Creatinine 0.49 L Est GFR ( Amer) > 60 Est GFR (Non-Af Amer) > 60 Glucose 127 H 103 Calcium 8.0 L Magnesium 1.8 Total Protein 5.0 L 04/02/17 06:25 WBC RBC Hgb Hct MCV MCH MCHC RDW Plt Count Carbonic Acid 1.27 HCO3/H2CO3 Ratio 19:1 ABG pH 7.38 ABG pCO2 42.3 ABG pO2 72.2 L ABG HCO3 24.4 ABG O2 Saturation 94.2 ABG Base Excess -0.8 FiO2 40% Sodium Potassium Chloride Carbon Dioxide Anion Gap BUN Creatinine Est GFR ( Amer) Est GFR (Non-Af Amer) Glucose Calcium Magnesium Total Protein 04/01/17 04/01/17 04/01/17 09:07 09:07 16:20 Creatine Kinase 58 75 CK-MB (CK-2) 0.61 Troponin I < 0.012 04/01/17 04/01/17 04/01/17 16:20 21:05 21:05 Creatine Kinase 86 CK-MB (CK-2) 0.43 0.46 Troponin I < 0.012 < 0.012 Impressions: Abdomen/Pelvis CT 03/26/17 00:00 IMPRESSION: 1. There is air and stool in the ascending colon. There is a markedly distended transverse colon and decompressed descending colon. Focal obstructing mass or extrinsic compression of the colon is not identified. There is no CT evidence of volvulus. 2. No significant small-bowel dilatation. There are thickened loops of small bowel in the left mid abdomen. Etiology of this is uncertain but infectious or inflammatory process cannot be excluded. The patient has an indwelling jejunostomy tube. 3. Free fluid in the pelvis etiology of this is uncertain. 4. Bibasilar consolidation consistent with pneumonia or lung collapse. Abdomen X-Ray 03/26/17 12:43 IMPRESSION: Nonspecific bowel gas pattern with market gaseous distention of the transverse colon, large amount of stool in the ascending colon, and few dilated small bowel loops in the mid epigastrium Findings were discussed withDr Alex Chest/Abdomen CTA 03/26/17 16:42 IMPRESSION: 1. No pulmonary emboli. 2. Bilateral lower lobe collapse and/or consolidation. There is a small left effusion as well. Mild right hilar as well as mediastinal adenopathy is present. This is most likely reactive. KUB X-Ray 03/31/17 00:00 IMPRESSION: Persistent less prominent bowel distention. Nasogastric tube appears to be coiled in the stomach or seconds portion of the duodenum. Chest Ultrasound 04/01/17 07:53 IMPRESSION: Trace bilateral pleural effusions. There is consolidation and collapse in the bilateral lower lobes, atelectasis versus pneumonia. No thoracentesis was performed. Chest X-Ray 04/02/17 06:00 IMPRESSION: No significant interval change. Small lung volumes. Small bibasilar opacity-effusion. Mild central pulmonary edema pattern.Tip of an endotracheal tube at the thoracic inlet; consider 3 cm advancement. Status: Pending - Flat plate and upright abdominal films are pending Assessment & Plan - Diagnosis (1) Ileus, postoperative Is this a current diagnosis for this admission?: Yes (2) Cecal volvulus Is this a current diagnosis for this admission?: YesPlan: 1. We will order flatplate and left lateral decubitus abdominal film this a.m. And review following completion. 2. Will administer Dulcolax suppository again this a.m. and attempt to stimulate bowel function. 3. Await increased bowel function to begin tube feeds - Time Time Spent with patient: 35 or more minutes
[2017-04-02] MEDS ORDERED: BISACODYL 10 MG SUPP.RECT PR PRN (07:50)
[2017-04-02] MEDS: TOBRAMYCIN SULFATE NEB 40 MG/ML 30 ML NEB SCH ×2 (08:49→19:50)
--- NOTE | 2017-04-02 09:03 | RADIOLOGY REPORT (SQ) ---
EXAM DESCRIPTION: ABDOMEN 2 VIEWS COMPLETED DATE/TIME: 04/02/2017 8:01 am REASON FOR STUDY: post op ileus COMPARISON: None. NUMBER OF VIEWS: Two views. TECHNIQUE: portable upright and supine radiographic images of the abdomen acquired. LIMITATIONS: None. FINDINGS: FREE AIR: None. No abnormal gas collections. LUNG BASES: Clear. BOWEL GAS PATTERN: A nasogastric tube is present. I gastrojejunostomy tube is also present. The GJ tube appears kinked and may be doubled back upon itself. Alternatively, there may be a kink in the j ejunum at the site of bending of the GJ tube. There are air-filled distended loops of small bowel and colon in an ileus pattern. CALCIFICATIONS: No suspicious calcifications. SOFT TISSUES: No gross mass or suggestion of organomegaly. HARDWARE: None in the abdomen. BONES: No acute fracture. No worrisome bone lesions. OTHER: This report was called to Dr Weems, 08:55 am 04/02/2017. IMPRESSION: Probable ileus GJ tube is in a different position from pre op, appears Kinked to the right of midline. TECHNICAL DOCUMENTATION: JOB ID: [id number]- All Rights Reserved
[2017-04-02] MEDS: POLYETHYLENE GLYCOL 3350 POWDER 17 GM/1 PACKET PEG SCH (10:05)
[2017-04-02] MEDS: CETIRIZINE HCL ORAL SOLN 5 MG/5 ML UDCUP PEG SCH (10:06)
--- NOTE | 2017-04-02 10:06 | PDOC PROGRESS REPORT ---
Subjective Progress Note for:: 04/02/17 Subjective:: Patient is a remains same patient have a chest ultrasound was done yesterday and did not see any pleural effusion but more like atelectasis with the pneumonia.Patient still running a low-grade fever. Physical Exam Vital Signs: Temp Pulse Resp BP Pulse Ox 98.4 F 102 H 10 L 136/88 H 92 04/02/17 08:00 04/02/17 08:49 04/02/17 08:49 04/02/17 08:00 04/02/17 09:04 Intake & Output 04/01/17 04/02/17 04/03/17 06:59 06:59 06:59 Intake Total 5800 3788 Output Total 5085 5995 375 Balance 138 -3697 -375 Weight 78.1 kg 74.4 kg Physical Exam: Currently intubated in the sedations General appearance: PRESENT: no acute distress Eye exam: PRESENT: PERRLA Respiratory exam: PRESENT: decreased breath sounds Cardiovascular exam: PRESENT: +S1, +S2 GI/Abdominal exam: PRESENT: soft Additonal comments: Surgical scar is present and the G-tube is intact Extremities exam: ABSENT: pedal edema Results Laboratory Results: 04/02/17 05:20 04/02/17 05:20 04/01/17 04/02/17 04/02/17 11:45 05:20 05:20 WBC 6.8 RBC 3.38 L Hgb 10.6 L Hct 31.6 L MCV 94 MCH 31.3 MCHC 33.4 RDW 18.5 H Plt Count 299 Carbonic Acid HCO3/H2CO3 Ratio ABG pH ABG pCO2 ABG pO2 ABG HCO3 ABG O2 Saturation ABG Base Excess FiO2 Sodium 134.6 L Potassium 4.6 Chloride 105 Carbon Dioxide 22 Anion Gap 8 BUN 9 Creatinine 0.49 L Est GFR ( Amer) > 60 Est GFR (Non-Af Amer) > 60 Glucose 127 H 103 Calcium 8.0 L Magnesium 1.8 Total Protein 5.0 L 04/02/17 06:25 WBC RBC Hgb Hct MCV MCH MCHC RDW Plt Count Carbonic Acid 1.27 HCO3/H2CO3 Ratio 19:1 ABG pH 7.38 ABG pCO2 42.3 ABG pO2 72.2 L ABG HCO3 24.4 ABG O2 Saturation 94.2 ABG Base Excess -0.8 FiO2 40% Sodium Potassium Chloride Carbon Dioxide Anion Gap BUN Creatinine Est GFR ( Amer) Est GFR (Non-Af Amer) Glucose Calcium Magnesium Total Protein 04/01/17 04/01/17 04/01/17 09:07 09:07 16:20 Creatine Kinase 58 75 CK-MB (CK-2) 0.61 Troponin I < 0.012 04/01/17 04/01/17 04/01/17 16:20 21:05 21:05 Creatine Kinase 86 CK-MB (CK-2) 0.43 0.46 Troponin I < 0.012 < 0.012 Impressions: Abdomen/Pelvis CT 03/26/17 00:00 IMPRESSION: 1. There is air and stool in the ascending colon. There is a markedly distended transverse colon and decompressed descending colon. Focal obstructing mass or extrinsic compression of the colon is not identified. There is no CT evidence of volvulus. 2. No significant small-bowel dilatation. There are thickened loops of small bowel in the left mid abdomen. Etiology of this is uncertain but infectious or inflammatory process cannot be excluded. The patient has an indwelling jejunostomy tube. 3. Free fluid in the pelvis etiology of this is uncertain. 4. Bibasilar consolidation consistent with pneumonia or lung collapse. Chest/Abdomen CTA 03/26/17 16:42 IMPRESSION: 1. No pulmonary emboli. 2. Bilateral lower lobe collapse and/or consolidation. There is a small left effusion as well. Mild right hilar as well as mediastinal adenopathy is present. This is most likely reactive. KUB X-Ray 03/31/17 00:00 IMPRESSION: Persistent less prominent bowel distention. Nasogastric tube appears to be coiled in the stomach or seconds portion of the duodenum. Chest Ultrasound 04/01/17 07:53 IMPRESSION: Trace bilateral pleural effusions. There is consolidation and collapse in the bilateral lower lobes, atelectasis versus pneumonia. No thoracentesis was performed. Abdomen X-Ray 04/02/17 00:00 IMPRESSION: Probable ileus GJ tube is in a different position from pre op, appears Kinked to the right of midline. Chest X-Ray 04/02/17 06:00 IMPRESSION: No significant interval change. Small lung volumes. Small bibasilar opacity-effusion. Mild central pulmonary edema pattern.Tip of an endotracheal tube at the thoracic inlet; consider 3 cm advancement. Assessment & Plan - Diagnosis (1) Acute respiratory failure Qualifiers: Respiratory failure complication: hypoxia Qualified Code(s): J96.01 - Acute respiratory failure with hypoxia Is this a current diagnosis for this admission?: YesPlan: Still continues to follow with the pulmonary continues to current medications (2) Aspiration pneumonia Qualifiers: Aspiration pneumonia type: unspecified Laterality: right Lung location: lower lobe of lung Qualified Code(s): J69.0 - Pneumonitis due to inhalation of food and vomit Is this a current diagnosis for this admission?: YesPlan: Continues to IV antibiotic (3) Colon distention Is this a current diagnosis for this admission?: YesPlan: Status post surgery for the volvulus currently follow with the surgery (4) Cerebral palsy Qualifiers: Cerebral palsy type: unspecified type Qualified Code(s): G80.9 - Cerebral palsy, unspecified Is this a current diagnosis for this admission?: Yes (5) Mental retardation Is this a current diagnosis for this admission?: Yes (6) Seizures Qualifiers: Convulsion type: unspecified Qualified Code(s): R56.9 - Unspecified convulsions Is this a current diagnosis for this admission?: Yes (7) Sinus tachycardia Is this a current diagnosis for this admission?: Yes (8) Sepsis Qualifiers: Sepsis type: sepsis due to unspecified organism Qualified Code(s): A41.9 - Sepsis, unspecified organism Is this a current diagnosis for this admission?: YesPlan: Will repeat the blood culture urine culture and sputum cultures while patient is running some low-grade fever and continues to monitor and continues to current broad-spectrum antibiotic - Time Time Spent with patient: 25-34 minutes Medications reviewed and adjusted accordingly: Yes Anticipated discharge: Other Within: Other - Inpatient Certification Medical Necessity: Need Close Monitoring Due to Risk of Patient Decompensation, Need for IV Antibiotics 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
[2017-04-02] MEDS: ENOXAPARIN SODIUM INJ 40 MG/0.4 ML DISP.SYRIN SUBCUT SCH (10:07)
[2017-04-02] MEDS: PERAMPANEL 8 MG PO SCH (11:00)
--- NOTE | 2017-04-02 11:50 | PDOC PROGRESS REPORT ---
Subjective Progress Note for:: 04/02/17 Subjective:: awake,intubated,INTERACTING WITH RELATIVES Physical Exam Vital Signs: Temp Pulse Resp BP Pulse Ox 98.4 F 105 H 16 136/88 H 94 04/02/17 08:00 04/02/17 08:00 04/02/17 08:00 04/02/17 08:00 04/02/17 08:00 Intake & Output 04/01/17 04/02/17 04/03/17 06:59 06:59 06:59 Intake Total 5800 3788 Output Total 5085 5995 375 Balance 705 -6431 -375 Weight 78.1 kg 74.4 kg General appearance: PRESENT: no acute distress, cooperative, disheveled Head exam: PRESENT: atraumatic, normocephalic Eye exam: PRESENT: conjunctiva pale, EOMI, other - Conjunctival edema Mouth exam: PRESENT: dry mucosa, neck supple, tongue midline, other - ET tube in place Neck exam: ABSENT: carotid bruit, JVD, lymphadenopathy, thyromegaly Respiratory exam: PRESENT: decreased breath sounds, prolonged expiratory phas, rales, rhonchi, unlabored Cardiovascular exam: PRESENT: RRR, +S1, +S2 Pulses: PRESENT: normal radial pulses GI/Abdominal exam: PRESENT: other - Feeding tube in place status post surgery Rectal exam: PRESENT: deferred Gentrourinary exam: PRESENT: indwelling catheter Musculoskeletal exam: PRESENT: normal inspection Neurological exam: PRESENT: awake Skin exam: PRESENT: dry, warm Results Laboratory Results: 04/02/17 05:20 04/02/17 05:20 04/01/17 04/02/17 04/02/17 11:45 05:20 05:20 WBC 6.8 RBC 3.38 L Hgb 10.6 L Hct 31.6 L MCV 94 MCH 31.3 MCHC 33.4 RDW 18.5 H Plt Count 299 Carbonic Acid HCO3/H2CO3 Ratio ABG pH ABG pCO2 ABG pO2 ABG HCO3 ABG O2 Saturation ABG Base Excess FiO2 Sodium 134.6 L Potassium 4.6 Chloride 105 Carbon Dioxide 22 Anion Gap 8 BUN 9 Creatinine 0.49 L Est GFR ( Amer) > 60 Est GFR (Non-Af Amer) > 60 Glucose 127 H 103 Calcium 8.0 L Magnesium 1.8 Total Protein 5.0 L 04/02/17 06:25 WBC RBC Hgb Hct MCV MCH MCHC RDW Plt Count Carbonic Acid 1.27 HCO3/H2CO3 Ratio 19:1 ABG pH 7.38 ABG pCO2 42.3 ABG pO2 72.2 L ABG HCO3 24.4 ABG O2 Saturation 94.2 ABG Base Excess -0.8 FiO2 40% Sodium Potassium Chloride Carbon Dioxide Anion Gap BUN Creatinine Est GFR ( Amer) Est GFR (Non-Af Amer) Glucose Calcium Magnesium Total Protein 04/01/17 04/01/17 04/01/17 09:07 09:07 16:20 Creatine Kinase 58 75 CK-MB (CK-2) 0.61 Troponin I < 0.012 04/01/17 04/01/17 04/01/17 16:20 21:05 21:05 Creatine Kinase 86 CK-MB (CK-2) 0.43 0.46 Troponin I < 0.012 < 0.012 Impressions: Abdomen/Pelvis CT 03/26/17 00:00 IMPRESSION: 1. There is air and stool in the ascending colon. There is a markedly distended transverse colon and decompressed descending colon. Focal obstructing mass or extrinsic compression of the colon is not identified. There is no CT evidence of volvulus. 2. No significant small-bowel dilatation. There are thickened loops of small bowel in the left mid abdomen. Etiology of this is uncertain but infectious or inflammatory process cannot be excluded. The patient has an indwelling jejunostomy tube. 3. Free fluid in the pelvis etiology of this is uncertain. 4. Bibasilar consolidation consistent with pneumonia or lung collapse. Chest/Abdomen CTA 03/26/17 16:42 IMPRESSION: 1. No pulmonary emboli. 2. Bilateral lower lobe collapse and/or consolidation. There is a small left effusion as well. Mild right hilar as well as mediastinal adenopathy is present. This is most likely reactive. KUB X-Ray 03/31/17 00:00 IMPRESSION: Persistent less prominent bowel distention. Nasogastric tube appears to be coiled in the stomach or seconds portion of the duodenum. Chest Ultrasound 04/01/17 07:53 IMPRESSION: Trace bilateral pleural effusions. There is consolidation and collapse in the bilateral lower lobes, atelectasis versus pneumonia. No thoracentesis was performed. Chest X-Ray 04/02/17 06:00 IMPRESSION: No significant interval change. Small lung volumes. Small bibasilar opacity-effusion. Mild central pulmonary edema pattern.Tip of an endotracheal tube at the thoracic inlet; consider 3 cm advancement. Assessment & Plan - Diagnosis (1) Acute respiratory failure Qualifiers: Respiratory failure complication: hypoxia Qualified Code(s): J96.01 - Acute respiratory failure with hypoxia Is this a current diagnosis for this admission?: YesPlan: variable infiltrates and FIO2 requirements (2) Aspiration pneumonia Qualifiers: Aspiration pneumonia type: unspecified Laterality: right Lung location: lower lobe of lung Qualified Code(s): J69.0 - Pneumonitis due to inhalation of food and vomit Is this a current diagnosis for this admission?: YesPlan: intermittent episodes may still persist, Pseudomonas in sputum (3) Cerebral palsy Qualifiers: Cerebral palsy type: unspecified type Qualified Code(s): G80.9 - Cerebral palsy, unspecified Is this a current diagnosis for this admission?: Yes (4) Mental retardation Is this a current diagnosis for this admission?: Yes (5) Septic shock Is this a current diagnosis for this admission?: No - Time Critical Time spent with patient: 35 or more minutes - Consider bronchoscopy discussed with mother she agrees however there is slight improvement in radiograph. Will forestall bronchoscopy at this time
[2017-04-02] MEDS: AMINO ACIDS 5%/D25W 1,000 ML IV PRN (15:48)
[2017-04-02] MEDS: LACTULOSE SYRUP 20 GM/30 ML UDCUP PO SCH (17:45)
[2017-04-02] MEDS: ZONISAMIDE 100 MG CAPSULE PEG SCH (21:18)
[2017-04-03] MEDS: LEVALBUTEROL HCL NEB 1.25 MG/3 ML AMPUL NEB SCH ×7 (00:02→23:46)
[2017-04-03] MEDS: ACETAMINOPHEN 650 MG SUPP.RECT PR PRN ×3 (00:05→22:00)
[2017-04-03] MEDS: SULFAMETHOXAZOLE/TRIMETHOPRIM 160 MG in DEXTROSE 5%-WATER 250 ML IV SCH ×5 (00:23→23:54)
[2017-04-03] MEDS: PROPOFOL 100 ML IV PRN ×6 (01:51→23:54)
[2017-04-03] MEDS: CLINDAMYCIN 600 MG/D5W RTU 600 MG/50 ML RTUPB IV SCH ×4 (04:43→22:23)
[2017-04-03] MEDS: CARBAMAZEPINE SUSP 200 MG/10 ML UDCUP PEG SCH ×3 (05:21→21:20)
[2017-04-03] MEDS: METOCLOPRAMIDE HCL INJ/PF 10 MG/2 ML SDV IV SCH ×3 (05:21→21:20)
[2017-04-03] MEDS: NORMAL SALINE 1000 ML 1,000 ML IV PRN ×2 (05:23→08:18)
[2017-04-03 05:25] LABS: ABSOLUTE EOSINOPHILS # (AUTO) 0.1 10^3/uL (0.0-0.6); ABSOLUTE LYMPHOCYTES (AUTO) 0.9 10^3/uL (0.5-4.7); ABSOLUTE MONOCYTES (AUTO) 0.7 10^3/uL (0.1-1.4); ABSOLUTE NEUT (AUTO) 6.2 10^3/uL (1.7-8.2); BASOPHILS % (AUTO) 0.2 % (0-2); EOSINOPHILS % (AUTO) 1.8 % (0-6); HEMATOCRIT 29.3 % (37.9-51.0); HEMOGLOBIN 9.7 g/dL (13.5-17.0); HGB HCT DIFFERENCE -0.2; LYMPHOCYTES % (AUTO) 11.3 % (13-45); MEAN CORPUSCULAR HEMOGLOBIN 30.9 pg (27.0-33.4); MEAN CORPUSCULAR VOLUME 93 fl (80-97); RED BLOOD COUNT 3.13 10^6/uL (4.35-5.55); RED CELL DISTRIBUTION WIDTH 17.7 % (11.5-14.0); SEGMENTED NEUTROPHILS % (AUTO) 77.7 % (42-78)
[2017-04-03 05:34] LABS: ARTERIAL BLOOD BASE EXCESS 0.9 mmol/L; ARTERIAL BLOOD O2 SATURATION 91.9 % (94-98)
[2017-04-03 05:40] LABS: ANION GAP 8 (5-19); BLOOD UREA NITROGEN 10 mg/dL (7-20); CALCIUM 7.7 mg/dL (8.4-10.2); CARBON DIOXIDE 23 mmol/L (22-30); CHLORIDE 103 mmol/L (98-107); CREATININE RESULT 0.53 mg/dL (0.52-1.25); GLUCOSE 99 mg/dL (75-110); POTASSIUM 4.7 mmol/L (3.6-5.0); SODIUM 133.8 mmol/L (137-145)
--- NOTE | 2017-04-03 06:44 | RADIOLOGY REPORT (SQ) ---
EXAM DESCRIPTION: CHEST SINGLE VIEW COMPLETED DATE/TIME: 04/03/2017 6:18 am REASON FOR STUDY: resp failure//pna COMPARISON: 04/02/2017. EXAM PARAMETERS: NUMBER OF VIEWS: One view. TECHNIQUE: Single frontal radiographic view of the chest acquired. RADIATION DOSE: NA LIMITATIONS: None. FINDINGS: LUNGS AND PLEURA: Moderate-small lung volume, right worse than left. Small streakiness of the left lung base. Obscured left costophrenic angle may indicate a small left basilar effusion. M oderate subsegmental atelectasis of the right lung base. MEDIASTINUM AND HILAR STRUCTURES: No masses. Contour normal. HEART AND VASCULAR STRUCTURES: Heart normal in size. Normal vasculature. BONES: No acute findings. HARDWARE: Adequate appearing endotracheal tube, NG tube, and right internal jugular central line. OTHER: No other significant finding. IMPRESSION: No significant interval change includes small bibasilar opacity. Lines and tubes. TECHNICAL DOCUMENTATION: JOB ID: [id number]
[2017-04-03] MEDS: TOBRAMYCIN SULFATE NEB 40 MG/ML 30 ML NEB SCH ×2 (07:45→20:05)
[2017-04-03] MEDS: POLYETHYLENE GLYCOL 3350 POWDER 17 GM/1 PACKET PEG SCH (11:51)
[2017-04-03] MEDS: CETIRIZINE HCL ORAL SOLN 5 MG/5 ML UDCUP PEG SCH (11:51)
[2017-04-03] MEDS: PERAMPANEL 8 MG PO SCH (11:51)
[2017-04-03] MEDS: ENOXAPARIN SODIUM INJ 40 MG/0.4 ML DISP.SYRIN SUBCUT SCH (11:52)
--- NOTE | 2017-04-03 11:59 | PDOC PROGRESS REPORT ---
Subjective Progress Note for:: 04/03/17 Subjective:: Patient seen this a.m. Remains on the ventilator but nursing states that the patient, when awake does interact with his mother. She had increased his Depramine drip this morning as they are going to continue attempting to wean him from the ventilator. Nursing states he had a bowel movement yesterday. She is not sure how large the bowel movement was not had another since that time. Is on TPN. A further attempt to use the patient's feeding button or any type of gastric nutrition. States the patient has remained afebrile. Physical Exam Vital Signs: Temp Pulse Resp BP Pulse Ox 100.4 F 110 H 27 H 110/67 96 04/03/17 06:05 04/03/17 11:14 04/03/17 11:14 04/03/17 06:05 04/03/17 11:14 Intake & Output 04/02/17 04/03/17 04/04/17 06:59 06:59 06:59 Intake Total 3788 3367 Output Total 5906 3650 500 Balance -2207 -283 -500 Weight 74.4 kg 73.2 kg General appearance: PRESENT: no acute distress, obese Head exam: PRESENT: atraumatic, normocephalic Eye exam: PRESENT: conjunctiva pink, other - Decreased scleral chemosis Respiratory exam: PRESENT: symmetrical, other - Decreased breath sounds in the right base wheezing, rhonchi, rubs noted. Cardiovascular exam: PRESENT: RRR. ABSENT: diastolic murmur, rubs, systolic murmur GI/Abdominal exam: PRESENT: hypoactive bowel sounds, soft, other - Patient is intact, no drainage or erythema noted. The gastric button in place without any erythema or drainage. Extremities exam: PRESENT: full ROM. ABSENT: calf tenderness, clubbing, pedal edema Skin exam: PRESENT: dry, intact, warm. ABSENT: cyanosis, rash Results Laboratory Results: 04/03/17 05:17 04/03/17 05:17 04/03/17 04/03/17 04/03/17 05:17 05: 05:17 WBC 8.0 RBC 3.13 L Hgb 9.7 L Hct 29.3 L MCV 93 MCH 30.9 MCHC 33.0 RDW 17.7 H Plt Count 357 Seg Neutrophils % 77.7 Lymphocytes % 11.3 L Monocytes % 9.0 Eosinophils % 1.8 Basophils % 0.2 Absolute Neutrophils 6.2 Absolute Lymphocytes 0.9 Absolute Monocytes 0.7 Absolute Eosinophils 0.1 Absolute Basophils 0.0 Carbonic Acid 1.15 HCO3/H2CO3 Ratio 21:1 ABG pH 7.44 ABG pCO2 38.2 ABG pO2 60.2 L ABG HCO3 25.1 ABG O2 Saturation 91.9 L ABG Base Excess 0.9 FiO2 30% Sodium 133.8 L Potassium 4.7 Chloride 103 Carbon Dioxide 23 Anion Gap 8 BUN 10 Creatinine 0.53 Est GFR ( Amer) > 60 Est GFR (Non-Af Amer) > 60 Glucose 99 Calcium 7.7 L 04/01/17 04/01/17 04/01/17 09:07 09:07 16:20 Creatine Kinase 58 75 CK-MB (CK-2) 0.61 Troponin I < 0.012 04/01/17 04/01/17 04/01/17 16:20 21:05 21:05 Creatine Kinase 86 CK-MB (CK-2) 0.43 0.46 Troponin I < 0.012 < 0.012 Impressions: Abdomen/Pelvis CT 03/26/17 00:00 IMPRESSION: 1. There is air and stool in the ascending colon. There is a markedly distended transverse colon and decompressed descending colon. Focal obstructing mass or extrinsic compression of the colon is not identified. There is no CT evidence of volvulus. 2. No significant small-bowel dilatation. There are thickened loops of small bowel in the left mid abdomen. Etiology of this is uncertain but infectious or inflammatory process cannot be excluded. The patient has an indwelling jejunostomy tube. 3. Free fluid in the pelvis etiology of this is uncertain. 4. Bibasilar consolidation consistent with pneumonia or lung collapse. Chest/Abdomen CTA 03/26/17 16:42 IMPRESSION: 1. No pulmonary emboli. 2. Bilateral lower lobe collapse and/or consolidation. There is a small left effusion as well. Mild right hilar as well as mediastinal adenopathy is present. This is most likely reactive. KUB X-Ray 03/31/17 00:00 IMPRESSION: Persistent less prominent bowel distention. Nasogastric tube appears to be coiled in the stomach or seconds portion of the duodenum. Chest Ultrasound 04/01/17 07:53 IMPRESSION: Trace bilateral pleural effusions. There is consolidation and collapse in the bilateral lower lobes, atelectasis versus pneumonia. No thoracentesis was performed. Abdomen X-Ray 04/02/17 00:00 IMPRESSION: Probable ileus GJ tube is in a different position from pre op, appears Kinked to the right of midline. Chest X-Ray 04/03/17 06:00 IMPRESSION: No significant interval change includes small bibasilar opacity. Lines and tubes. Assessment & Plan - Diagnosis (1) Ileus, postoperative Is this a current diagnosis for this admission?: YesPlan: 1. This patient is currently postop day 7. Entertaining any type of oral feeds until the patient has been weaned from the ventilator 2. Begin any oral or tube feeding until the patient shows increased signs of resolution of his postop ileus (2) Cecal volvulus Is this a current diagnosis for this admission?: Yes - Time Time Spent with patient: 35 or more minutes
[2017-04-03] MEDS ORDERED: BISACODYL 10 MG SUPP.RECT PR ONE (12:30)
--- NOTE | 2017-04-03 15:16 | PDOC PROGRESS REPORT ---
Subjective Progress Note for:: 04/03/17 Subjective:: Patient is currently doing same patient still currently intubated. Patient's chest x-ray is currently stable. Patient's also have some redness on his both eye and waiting for the ophthalmic consult Physical Exam Vital Signs: Temp Pulse Resp BP Pulse Ox 99.3 F 111 H 20 109/68 95 04/03/17 14:00 04/03/17 14:00 04/03/17 14:00 04/03/17 14:00 04/03/17 14:00 Intake & Output 04/02/17 04/03/17 04/04/17 06:59 06:59 06:59 Intake Total 3788 3367 Output Total 5995 3650 8073 Balance -2207 -283 -1960 Weight 74.4 kg 73.2 kg Physical Exam: Currently intubated and under sedation's General appearance: PRESENT: no acute distress Eye exam: PRESENT: conjunctival injection, PERRLA Mouth exam: PRESENT: neck supple Respiratory exam: PRESENT: clear to auscultation adelina Cardiovascular exam: PRESENT: +S1, +S2 GI/Abdominal exam: PRESENT: normal bowel sounds, soft Extremities exam: ABSENT: pedal edema Neurological exam: PRESENT: other Results Laboratory Results: 04/03/17 05:17 04/03/17 05:17 04/03/17 04/03/17 04/03/17 05:17 05:17 05:17 WBC 8.0 RBC 3.13 L Hgb 9.7 L Hct 29.3 L MCV 93 MCH 30.9 MCHC 33.0 RDW 17.7 H Plt Count 357 Seg Neutrophils % 77.7 Lymphocytes % 11.3 L Monocytes % 9.0 Eosinophils % 1.8 Basophils % 0.2 Absolute Neutrophils 6.2 Absolute Lymphocytes 0.9 Absolute Monocytes 0.7 Absolute Eosinophils 0.1 Absolute Basophils 0.0 Carbonic Acid 1.15 HCO3/H2CO3 Ratio 21:1 ABG pH 7.44 ABG pCO2 38.2 ABG pO2 60.2 L ABG HCO3 25.1 ABG O2 Saturation 91.9 L ABG Base Excess 0.9 FiO2 30% Sodium 133.8 L Potassium 4.7 Chloride 103 Carbon Dioxide 23 Anion Gap 8 BUN 10 Creatinine 0.53 Est GFR ( Amer) > 60 Est GFR (Non-Af Amer) > 60 Glucose 99 Calcium 7.7 L 04/01/17 04/01/17 04/01/17 09:07 09:07 16:20 Creatine Kinase 58 75 CK-MB (CK-2) 0.61 Troponin I < 0.012 04/01/17 04/01/17 04/01/17 16:20 21:05 21:05 Creatine Kinase 86 CK-MB (CK-2) 0.43 0.46 Troponin I < 0.012 < 0.012 Impressions: Abdomen/Pelvis CT 03/26/17 00:00 IMPRESSION: 1. There is air and stool in the ascending colon. There is a markedly distended transverse colon and decompressed descending colon. Focal obstructing mass or extrinsic compression of the colon is not identified. There is no CT evidence of volvulus. 2. No significant small-bowel dilatation. There are thickened loops of small bowel in the left mid abdomen. Etiology of this is uncertain but infectious or inflammatory process cannot be excluded. The patient has an indwelling jejunostomy tube. 3. Free fluid in the pelvis etiology of this is uncertain. 4. Bibasilar consolidation consistent with pneumonia or lung collapse. Chest/Abdomen CTA 03/26/17 16:42 IMPRESSION: 1. No pulmonary emboli. 2. Bilateral lower lobe collapse and/or consolidation. There is a small left effusion as well. Mild right hilar as well as mediastinal adenopathy is present. This is most likely reactive. KUB X-Ray 03/31/17 00:00 IMPRESSION: Persistent less prominent bowel distention. Nasogastric tube appears to be coiled in the stomach or seconds portion of the duodenum. Chest Ultrasound 04/01/17 07:53 IMPRESSION: Trace bilateral pleural effusions. There is consolidation and collapse in the bilateral lower lobes, atelectasis versus pneumonia. No thoracentesis was performed. Abdomen X-Ray 04/02/17 00:00 IMPRESSION: Probable ileus GJ tube is in a different position from pre op, appears Kinked to the right of midline. Chest X-Ray 04/03/17 06:00 IMPRESSION: No significant interval change includes small bibasilar opacity. Lines and tubes. Assessment & Plan - Diagnosis (1) Acute respiratory failure Qualifiers: Respiratory failure complication: hypoxia Qualified Code(s): J96.01 - Acute respiratory failure with hypoxia Is this a current diagnosis for this admission?: YesPlan: Still continues to follow with the pulmonary continues to current medications (2) Aspiration pneumonia Qualifiers: Aspiration pneumonia type: unspecified Laterality: right Lung location: lower lobe of lung Qualified Code(s): J69.0 - Pneumonitis due to inhalation of food and vomit Is this a current diagnosis for this admission?: YesPlan: Continues to IV antibiotic (3) Colon distention Is this a current diagnosis for this admission?: YesPlan: Status post surgery for the volvulus currently follow with the surgery (4) Cerebral palsy Qualifiers: Cerebral palsy type: unspecified type Qualified Code(s): G80.9 - Cerebral palsy, unspecified Is this a current diagnosis for this admission?: Yes (5) Mental retardation Is this a current diagnosis for this admission?: Yes (6) Seizures Qualifiers: Convulsion type: unspecified Qualified Code(s): R56.9 - Unspecified convulsions Is this a current diagnosis for this admission?: YesPlan: cont curr medication (7) Sinus tachycardia Is this a current diagnosis for this admission?: Yes (8) Sepsis Qualifiers: Sepsis type: sepsis due to unspecified organism Qualified Code(s): A41.9 - Sepsis, unspecified organism Is this a current diagnosis for this admission?: YesPlan: Waiting for the culture and continues on IV antibiotic - Time Time Spent with patient: 25-34 minutes Medications reviewed and adjusted accordingly: Yes Anticipated discharge: Other Within: Other - Inpatient Certification Medical Necessity: Need For IV Fluids, Need for IV Antibiotics Post Hospital Care: D/C Report Checker Documentation - Plan Summary Plan Summary: Discussed with the mother very extensively about patient's current conditions and still should have a poor prognosis
[2017-04-03] MEDS: MORPHINE SULFATE 10 MG/ML INJ IV PRN (15:25)
[2017-04-03] MEDS: AMINO ACIDS 5%/D25W 1,000 ML IV PRN (16:23)
[2017-04-03] MEDS: LACTULOSE SYRUP 20 GM/30 ML UDCUP PO SCH (18:14)
--- NOTE | 2017-04-03 18:21 | PDOC PROGRESS REPORT ---
Subjective Progress Note for:: 04/03/17 Subjective:: Awake slightly responsive to family member Physical Exam Vital Signs: Temp Pulse Resp BP Pulse Ox 100.4 F 111 H 27 H 110/67 94 04/03/17 06:05 04/03/17 08:00 04/03/17 07:45 04/03/17 06:05 04/03/17 07:55 Intake & Output 04/02/17 04/03/17 04/04/17 06:59 06:59 06:59 Intake Total 3788 3367 Output Total 5995 3650 500 Balance -2208 -283 -500 Weight 74.4 kg 73.2 kg General appearance: PRESENT: no acute distress, disheveled, obese Head exam: PRESENT: atraumatic, normocephalic Eye exam: PRESENT: conjunctiva pale, EOMI Mouth exam: PRESENT: dry mucosa, neck supple, tongue midline, other - ET tube in place Neck exam: ABSENT: carotid bruit, JVD, lymphadenopathy, thyromegaly Respiratory exam: PRESENT: decreased breath sounds, prolonged expiratory phas, rhonchi, symmetrical, unlabored Cardiovascular exam: PRESENT: RRR, +S1, +S2 Pulses: PRESENT: normal radial pulses GI/Abdominal exam: PRESENT: other - Feeding tube in place Rectal exam: PRESENT: deferred Gentrourinary exam: PRESENT: indwelling catheter Musculoskeletal exam: PRESENT: normal inspection Neurological exam: PRESENT: awake Skin exam: PRESENT: dry, warm Results Laboratory Results: 04/03/17 05:17 04/03/17 05:17 04/03/17 04/03/17 04/03/17 05:17 05:17 05:17 WBC 8.0 RBC 3.13 L Hgb 9.7 L Hct 29.3 L MCV 93 MCH 30.9 MCHC 33.0 RDW 17.7 H Plt Count 357 Seg Neutrophils % 77.7 Lymphocytes % 11.3 L Monocytes % 9.0 Eosinophils % 1.8 Basophils % 0.2 Absolute Neutrophils 6.2 Absolute Lymphocytes 0.9 Absolute Monocytes 0.7 Absolute Eosinophils 0.1 Absolute Basophils 0.0 Carbonic Acid 1.15 HCO3/H2CO3 Ratio 21:1 ABG pH 7.44 ABG pCO2 38.2 ABG pO2 60.2 L ABG HCO3 25.1 ABG O2 Saturation 91.9 L ABG Base Excess 0.9 FiO2 30% Sodium 133.8 L Potassium 4.7 Chloride 103 Carbon Dioxide 23 Anion Gap 8 BUN 10 Creatinine 0.53 Est GFR ( Amer) > 60 Est GFR (Non-Af Amer) > 60 Glucose 99 Calcium 7.7 L 04/01/17 04/01/17 04/01/17 09:07 09:07 16:20 Creatine Kinase 58 75 CK-MB (CK-2) 0.61 Troponin I < 0.012 04/01/17 04/01/17 04/01/17 16:20 21:05 21:05 Creatine Kinase 86 CK-MB (CK-2) 0.43 0.46 Troponin I < 0.012 < 0.012 Impressions: Abdomen/Pelvis CT 03/26/17 00:00 IMPRESSION: 1. There is air and stool in the ascending colon. There is a markedly distended transverse colon and decompressed descending colon. Focal obstructing mass or extrinsic compression of the colon is not identified. There is no CT evidence of volvulus. 2. No significant small-bowel dilatation. There are thickened loops of small bowel in the left mid abdomen. Etiology of this is uncertain but infectious or inflammatory process cannot be excluded. The patient has an indwelling jejunostomy tube. 3. Free fluid in the pelvis etiology of this is uncertain. 4. Bibasilar consolidation consistent with pneumonia or lung collapse. Chest/Abdomen CTA 03/26/17 16:42 IMPRESSION: 1. No pulmonary emboli. 2. Bilateral lower lobe collapse and/or consolidation. There is a small left effusion as well. Mild right hilar as well as mediastinal adenopathy is present. This is most likely reactive. KUB X-Ray 03/31/17 00:00 IMPRESSION: Persistent less prominent bowel distention. Nasogastric tube appears to be coiled in the stomach or seconds portion of the duodenum. Chest Ultrasound 04/01/17 07:53 IMPRESSION: Trace bilateral pleural effusions. There is consolidation and collapse in the bilateral lower lobes, atelectasis versus pneumonia. No thoracentesis was performed. Abdomen X-Ray 04/02/17 00:00 IMPRESSION: Probable ileus GJ tube is in a different position from pre op, appears Kinked to the right of midline. Chest X-Ray 04/03/17 06:00 IMPRESSION: No significant interval change includes small bibasilar opacity. Lines and tubes. Assessment & Plan - Diagnosis (1) Acute respiratory failure Qualifiers: Respiratory failure complication: hypoxia Qualified Code(s): J96.01 - Acute respiratory failure with hypoxia Is this a current diagnosis for this admission?: Yes (2) Aspiration pneumonia Qualifiers: Aspiration pneumonia type: unspecified Laterality: right Lung location: lower lobe of lung Qualified Code(s): J69.0 - Pneumonitis due to inhalation of food and vomit Is this a current diagnosis for this admission?: Yes (3) Cerebral palsy Qualifiers: Cerebral palsy type: unspecified type Qualified Code(s): G80.9 - Cerebral palsy, unspecified Is this a current diagnosis for this admission?: Yes (4) Mental retardation Is this a current diagnosis for this admission?: Yes (5) Septic shock Is this a current diagnosis for this admission?: No - Time Critical Time spent with patient: 25-34 minutes
[2017-04-03] MEDS: ERYTHROMYCIN 0.5% OPH OINTMENT 3.5 GM TUBE OU SCH (19:17)
[2017-04-03] MEDS ORDERED: ERYTHROMYCIN 0.5% OPH OINT 1 GM UNIT DOSE OU ONE (20:00)
[2017-04-03] MEDS: ZONISAMIDE 100 MG CAPSULE PEG SCH (21:20)
[2017-04-04] MEDS: PROPOFOL 100 ML IV PRN ×6 (03:11→23:06)
[2017-04-04] MEDS: LEVALBUTEROL HCL NEB 1.25 MG/3 ML AMPUL NEB SCH ×5 (03:51→20:40)
[2017-04-04] MEDS: CLINDAMYCIN 600 MG/D5W RTU 600 MG/50 ML RTUPB IV SCH ×4 (04:37→23:07)
[2017-04-04 04:59] LABS: ABSOLUTE EOSINOPHILS # (AUTO) 0.2 10^3/uL (0.0-0.6); ABSOLUTE LYMPHOCYTES (AUTO) 1.2 10^3/uL (0.5-4.7); ABSOLUTE MONOCYTES (AUTO) 0.8 10^3/uL (0.1-1.4); ABSOLUTE NEUT (AUTO) 7.6 10^3/uL (1.7-8.2); BASOPHILS % (AUTO) 0.1 % (0-2); EOSINOPHILS % (AUTO) 1.6 % (0-6); HEMATOCRIT 27.9 % (37.9-51.0); HEMOGLOBIN 9.2 g/dL (13.5-17.0); HGB HCT DIFFERENCE -0.3; LYMPHOCYTES % (AUTO) 12.7 % (13-45); MEAN CORPUSCULAR HEMOGLOBIN 31.1 pg (27.0-33.4); MEAN CORPUSCULAR VOLUME 94 fl (80-97); MONOCYTES % (AUTO) 8.4 % (3-13); RED BLOOD COUNT 2.97 10^6/uL (4.35-5.55); SEGMENTED NEUTROPHILS % (AUTO) 77.2 % (42-78); WHITE BLOOD COUNT 9.8 10^3/uL (4.0-10.5)
[2017-04-04] MEDS: ERYTHROMYCIN 0.5% OPH OINTMENT 3.5 GM TUBE OU SCH ×4 (05:01→23:10)
[2017-04-04] MEDS: METOCLOPRAMIDE HCL INJ/PF 10 MG/2 ML SDV IV SCH ×3 (05:01→22:14)
[2017-04-04] MEDS: CARBAMAZEPINE SUSP 200 MG/10 ML UDCUP PEG SCH ×3 (05:01→22:13)
[2017-04-04 05:06] LABS: ARTERIAL BLOOD BASE EXCESS -0.7 mmol/L; ARTERIAL BLOOD O2 SATURATION 94.3 % (94-98)
[2017-04-04 05:16] LABS: ALANINE AMINOTRANSFERASE 37 U/L (21-72); ALBUMIN 2.4 g/dL (3.5-5.0); ALKALINE PHOSPHATASE 80 U/L (38-126); ANION GAP 10 (5-19); ASPARTATE AMINO TRANSFERASE 22 U/L (17-59); BILIRUBIN,DIRECT 0.6 mg/dL (0.0-0.4); BILIRUBIN,TOTAL 0.6 mg/dL (0.2-1.3); BLOOD UREA NITROGEN 10 mg/dL (7-20); CALCIUM 7.8 mg/dL (8.4-10.2); CARBON DIOXIDE 23 mmol/L (22-30); CHLORIDE 106 mmol/L (98-107); CREATININE RESULT 0.54 mg/dL (0.52-1.25); GLUCOSE 98 mg/dL (75-110); PHOSPHORUS 4.3 mg/dL (2.5-4.5); POTASSIUM 3.9 mmol/L (3.6-5.0); SODIUM 138.5 mmol/L (137-145); TOTAL PROTEIN 5.6 g/dL (6.3-8.2)
[2017-04-04 05:34] LABS: PREALBUMIN 14.9 mg/dL (17.6-36.0)
[2017-04-04] MEDS: TOBRAMYCIN SULFATE NEB 40 MG/ML 30 ML NEB SCH ×2 (07:54→20:40)
--- NOTE | 2017-04-04 08:53 | RADIOLOGY REPORT (SQ) ---
EXAM DESCRIPTION: CHEST SINGLE VIEW COMPLETED DATE/TIME: 04/04/2017 6:57 am REASON FOR STUDY: pna COMPARISON: 04/03/2017, 04/01/2017 EXAM PARAMETERS: NUMBER OF VIEWS: One view. TECHNIQUE: Single frontal radiographic view of the chest acquired. RADIATION DOSE: NA LIMITATIONS: None. FINDINGS: LUNGS AND PLEURA: Persistent bibasilar consolidation atelectasis versus pneumonia left gre ater than right. No gross pleural effusion. No pneumothorax. MEDIASTINUM AND HILAR STRUCTURES: No masses. Contour normal. HEART AND VASCULAR STRUCTURES: Heart normal in size. Normal vasculature. BONES: No acute findings. HARDWARE: Endotracheal tube tip 3 cm above the williams. Right jugular central line tip superior vena cava. Nasogastric tube tip and side port in the stomach OTHER: No other significant finding. IMPRESSION: Bibasilar airspace disease left greater than right unchanged. Tubes and lines in good positioning TECHNICAL DOCUMENTATION: JOB ID: [id number]
--- NOTE | 2017-04-04 08:59 | RADIOLOGY REPORT (SQ) ---
EXAM DESCRIPTION: ABDOMEN 2 VIEWS COMPLETED DATE/TIME: 04/04/2017 6:57 am REASON FOR STUDY: post op ileus COMPARISON: KUB 04/02/2017, 03/31/2017, 03/27/2017 NUMBER OF VIEWS: Two views. TECHNIQUE: Supine and erect radiographic images of the abdomen acquired. LIMITATIONS: None. FINDINGS: FREE AIR: None. No abnormal gas collections. LUNG BASES: There is bibasilar atelectasis versus pneumonia left greater than right. BOWEL GAS PATTERN: Stomach is decompressed. There are air filled borderline distended small bowel an d colon loops, similar compared to 04/02/2017, less distended than on 03/31/2017. This may reflect and ileus. CALCIFICATIONS: No suspicious calcifications. SOFT TISSUES: No gross mass or suggestion of organomegaly. HARDWARE: At the upper edge of the field of view, an endotracheal tube, right jugular line, and nasog astric tube remain good positioning. Coreas catheter in the bladder. There is a gastrojejunostomy tube. The tube courses out the stomach, and is doubled back upon itself about 10 cm. This configuration is unchanged from 04/02/2017 BONES: No acute fracture. No worrisome bone lesions. OTHER: No other significant finding. IMPRESSION: Probable bibasilar atelectasis left greater than right. Pneumonia could not be excluded . Probable ileus. Gastrojejunostomy tube appears kinked along the distal 10 cm. TECHNICAL DOCUMENTATION: JOB ID: [id number] [employer]- All Rights Reserved
[2017-04-04] MEDS: CETIRIZINE HCL ORAL SOLN 5 MG/5 ML UDCUP PEG SCH (09:43)
[2017-04-04] MEDS: ENOXAPARIN SODIUM INJ 40 MG/0.4 ML DISP.SYRIN SUBCUT SCH (09:43)
[2017-04-04] MEDS: PERAMPANEL 8 MG PO SCH (09:45)
[2017-04-04] MEDS: POLYETHYLENE GLYCOL 3350 POWDER 17 GM/1 PACKET PEG SCH (09:45)
--- NOTE | 2017-04-04 10:19 | PDOC PROGRESS REPORT ---
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 and suggest a more likely from the exposure and dryness and put erythromycin ointment Physical Exam Vital Signs: Temp Pulse Resp BP Pulse Ox 98.8 F 109 H 25 H 117/76 92 04/04/17 07:46 04/04/17 07:51 04/04/17 07:46 04/04/17 07:46 04/04/17 07:46 Intake & Output 04/03/17 04/04/17 04/05/17 06:59 06:59 06:59 Intake Total 3367 3115 Output Total 3650 7715 350 Balance -283 -3518 -350 Weight 73.2 kg 72.1 kg General appearance: PRESENT: no acute distress Eye exam: PRESENT: conjunctival injection, PERRLA Respiratory exam: PRESENT: decreased breath sounds, rhonchi Cardiovascular exam: PRESENT: +S1, +S2 GI/Abdominal exam: PRESENT: hypoactive bowel sounds, soft Extremities exam: ABSENT: pedal edema Neurological exam: PRESENT: other Results Laboratory Results: 04/04/17 04:47 04/04/17 04:47 04/04/17 04/04/17 04/04/17 04:47 04:47 04:47 WBC 9.8 RBC 2.97 L Hgb 9.2 L Hct 27.9 L MCV 94 MCH 31.1 MCHC 33.0 RDW 18.0 H Plt Count 375 Seg Neutrophils % 77.2 Lymphocytes % 12.7 L Monocytes % 8.4 Eosinophils % 1.6 Basophils % 0.1 Absolute Neutrophils 7.6 Absolute Lymphocytes 1.2 Absolute Monocytes 0.8 Absolute Eosinophils 0.2 Absolute Basophils 0.0 Carbonic Acid 1.21 HCO3/H2CO3 Ratio 19:1 ABG pH 7.40 ABG pCO2 40.2 ABG pO2 71.3 L ABG HCO3 24.1 ABG O2 Saturation 94.3 ABG Base Excess -0.7 FiO2 50% Sodium 138.5 Potassium 3.9 Chloride 106 Carbon Dioxide 23 Anion Gap 10 BUN 10 Creatinine 0.54 Est GFR ( Amer) > 60 Est GFR (Non-Af Amer) > 60 Glucose 98 Calcium 7.8 L Phosphorus 4.3 Total Bilirubin 0.6 AST 22 ALT 37 Alkaline Phosphatase 80 Total Protein 5.6 L Albumin 2.4 L Prealbumin 14.9 L 04/01/17 04/01/17 04/01/17 09:07 09:07 16:20 Creatine Kinase 58 75 CK-MB (CK-2) 0.61 Troponin I < 0.012 04/01/17 04/01/17 04/01/17 16:20 21:05 21:05 Creatine Kinase 86 CK-MB (CK-2) 0.43 0.46 Troponin I < 0.012 < 0.012 Impressions: Abdomen/Pelvis CT 03/26/17 00:00 IMPRESSION: 1. There is air and stool in the ascending colon. There is a markedly distended transverse colon and decompressed descending colon. Focal obstructing mass or extrinsic compression of the colon is not identified. There is no CT evidence of volvulus. 2. No significant small-bowel dilatation. There are thickened loops of small bowel in the left mid abdomen. Etiology of this is uncertain but infectious or inflammatory process cannot be excluded. The patient has an indwelling jejunostomy tube. 3. Free fluid in the pelvis etiology of this is uncertain. 4. Bibasilar consolidation consistent with pneumonia or lung collapse. Chest/Abdomen CTA 03/26/17 16:42 IMPRESSION: 1. No pulmonary emboli. 2. Bilateral lower lobe collapse and/or consolidation. There is a small left effusion as well. Mild right hilar as well as mediastinal adenopathy is present. This is most likely reactive. KUB X-Ray 03/31/17 00:00 IMPRESSION: Persistent less prominent bowel distention. Nasogastric tube appears to be coiled in the stomach or seconds portion of the duodenum. Chest Ultrasound 04/01/17 07:53 IMPRESSION: Trace bilateral pleural effusions. There is consolidation and collapse in the bilateral lower lobes, atelectasis versus pneumonia. No thoracentesis was performed. Abdomen X-Ray 04/04/17 00:00 IMPRESSION: Probable bibasilar atelectasis left greater than right. Pneumonia could not be excluded. Probable ileus. Gastrojejunostomy tube appears kinked along the distal 10 cm. Chest X-Ray 04/04/17 06:00 IMPRESSION: Bibasilar airspace disease left greater than right unchanged. Tubes and lines in good positioning Assessment & Plan - Diagnosis (1) Acute respiratory failure Qualifiers: Respiratory failure complication: hypoxia Qualified Code(s): J96.01 - Acute respiratory failure with hypoxia Is this a current diagnosis for this admission?: YesPlan: Still on intubations and lungs sound is still not very clear discussed with the pulmonary adjust the medication and continues IV antibiotic (2) Aspiration pneumonia Qualifiers: Aspiration pneumonia type: unspecified Laterality: right Lung location: lower lobe of lung Qualified Code(s): J69.0 - Pneumonitis due to inhalation of food and vomit Is this a current diagnosis for this admission?: YesPlan: Continues to IV antibiotic (3) Colon distention Is this a current diagnosis for this admission?: YesPlan: Status post surgery for the volvulus currently follow with the surgery (4) Cerebral palsy Qualifiers: Cerebral palsy type: unspecified type Qualified Code(s): G80.9 - Cerebral palsy, unspecified Is this a current diagnosis for this admission?: Yes (5) Mental retardation Is this a current diagnosis for this admission?: Yes (6) Seizures Qualifiers: Convulsion type: unspecified Qualified Code(s): R56.9 - Unspecified convulsions Is this a current diagnosis for this admission?: YesPlan: cont curr medication (7) Sinus tachycardia Is this a current diagnosis for this admission?: Yes (8) Sepsis Qualifiers: Sepsis type: sepsis due to unspecified organism Qualified Code(s): A41.9 - Sepsis, unspecified organism Is this a current diagnosis for this admission?: YesPlan: Waiting for the culture and continues on IV antibiotic - Time Time Spent with patient: 15-24 minutes Medications reviewed and adjusted accordingly: Yes Anticipated discharge: Other Within: Other - Inpatient Certification Medical Necessity: Need Close Monitoring Due to Risk of Patient Decompensation, Need for IV Antibiotics Post Hospital Care: D/C Director [employer] Documentation - Plan Summary Plan Summary: Continues to IV antibiotic continues to follow with the pulmonary discussed with the mother about patient's current conditions
[2017-04-04] MEDS: ACETAMINOPHEN 650 MG SUPP.RECT PR PRN ×2 (11:56→17:44)
[2017-04-04] MEDS: AMINO ACIDS 5%/D25W 1,000 ML IV PRN (13:21)
[2017-04-04] MEDS: NORMAL SALINE 1000 ML 1,000 ML IV PRN (14:14)
--- NOTE | 2017-04-04 15:09 | PDOC PROGRESS REPORT ---
Subjective Progress Note for:: 04/04/17 Subjective:: Intubated, no apparent distress Physical Exam Vital Signs: Temp Pulse Resp BP Pulse Ox 100.9 F H 123 H 24 H 104/72 92 04/04/17 14:05 04/04/17 14:00 04/04/17 14:05 04/04/17 14:05 04/04/17 14:05 Intake & Output 04/03/17 04/04/17 04/05/17 06:59 06:59 06:59 Intake Total 3367 3115 Output Total 3651 7337 1275 Balance -283 -1820 -1272 Weight 73.2 kg 72.1 kg General appearance: PRESENT: no acute distress Respiratory exam: PRESENT: rhonchi GI/Abdominal exam: PRESENT: other - Soft, mildly distended, no apparent tenderness. Results Laboratory Results: 04/04/17 04:47 04/04/17 04:47 04/04/17 04/04/17 04/04/17 04:47 04:47 04:47 WBC 9.8 RBC 2.97 L Hgb 9.2 L Hct 27.9 L MCV 94 MCH 31.1 MCHC 33.0 RDW 18.0 H Plt Count 375 Seg Neutrophils % 77.2 Lymphocytes % 12.7 L Monocytes % 8.4 Eosinophils % 1.6 Basophils % 0.1 Absolute Neutrophils 7.6 Absolute Lymphocytes 1.2 Absolute Monocytes 0.8 Absolute Eosinophils 0.2 Absolute Basophils 0.0 Carbonic Acid 1.21 HCO3/H2CO3 Ratio 19:1 ABG pH 7.40 ABG pCO2 40.2 ABG pO2 71.3 L ABG HCO3 24.1 ABG O2 Saturation 94.3 ABG Base Excess -0.7 FiO2 50% Sodium 138.5 Potassium 3.9 Chloride 106 Carbon Dioxide 23 Anion Gap 10 BUN 10 Creatinine 0.54 Est GFR ( Amer) > 60 Est GFR (Non-Af Amer) > 60 Glucose 98 Calcium 7.8 L Phosphorus 4.3 Total Bilirubin 0.6 AST 22 ALT 37 Alkaline Phosphatase 80 Total Protein 5.6 L Albumin 2.4 L Prealbumin 14.9 L 04/02/17 10:33 Coreas Catheter Urine Culture - Final Enterococcus Faecalis(Group D) 04/02/17 14:30 Tracheal Aspirate Gram Stain - Final 04/01/17 04/01/17 04/01/17 09:07 09:07 16:20 Creatine Kinase 58 75 CK-MB (CK-2) 0.61 Troponin I < 0.012 04/01/17 04/01/17 04/01/17 16:20 21:05 21:05 Creatine Kinase 86 CK-MB (CK-2) 0.43 0.46 Troponin I < 0.012 < 0.012 Impressions: Abdomen/Pelvis CT 03/26/17 00:00 IMPRESSION: 1. There is air and stool in the ascending colon. There is a markedly distended transverse colon and decompressed descending colon. Focal obstructing mass or extrinsic compression of the colon is not identified. There is no CT evidence of volvulus. 2. No significant small-bowel dilatation. There are thickened loops of small bowel in the left mid abdomen. Etiology of this is uncertain but infectious or inflammatory process cannot be excluded. The patient has an indwelling jejunostomy tube. 3. Free fluid in the pelvis etiology of this is uncertain. 4. Bibasilar consolidation consistent with pneumonia or lung collapse. Chest/Abdomen CTA 03/26/17 16:42 IMPRESSION: 1. No pulmonary emboli. 2. Bilateral lower lobe collapse and/or consolidation. There is a small left effusion as well. Mild right hilar as well as mediastinal adenopathy is present. This is most likely reactive. KUB X-Ray 03/31/17 00:00 IMPRESSION: Persistent less prominent bowel distention. Nasogastric tube appears to be coiled in the stomach or seconds portion of the duodenum. Chest Ultrasound 04/01/17 07:53 IMPRESSION: Trace bilateral pleural effusions. There is consolidation and collapse in the bilateral lower lobes, atelectasis versus pneumonia. No thoracentesis was performed. Abdomen X-Ray 04/04/17 00:00 IMPRESSION: Probable bibasilar atelectasis left greater than right. Pneumonia could not be excluded. Probable ileus. Gastrojejunostomy tube appears kinked along the distal 10 cm. Chest X-Ray 04/04/17 06:00 IMPRESSION: Bibasilar airspace disease left greater than right unchanged. Tubes and lines in good positioning Assessment & Plan - Diagnosis (1) Cecal volvulus Is this a current diagnosis for this admission?: YesPlan: Status post right hemicolectomy. Slow wean from the ventilator. Still somewhat distended with distended colon on plain films. Hold off tube feeds for now.
--- NOTE | 2017-04-04 16:26 | PDOC PROGRESS REPORT ---
Subjective Progress Note for:: 04/04/17 Subjective:: Awake Physical Exam Vital Signs: Temp Pulse Resp BP Pulse Ox 98.8 F 109 H 25 H 117/76 92 04/04/17 07:46 04/04/17 07:51 04/04/17 07:46 04/04/17 07:46 04/04/17 07:46 Intake & Output 04/03/17 04/04/17 04/05/17 06:59 06:59 06:59 Intake Total 3367 3115 Output Total 3650 0915 350 Balance -283 -1820 -350 Weight 73.2 kg 72.1 kg General appearance: PRESENT: no acute distress, disheveled Head exam: PRESENT: atraumatic, normocephalic Eye exam: PRESENT: conjunctiva pale, EOMI Mouth exam: PRESENT: dry mucosa, neck supple, tongue midline, other - ET tube in place Neck exam: ABSENT: carotid bruit, JVD, lymphadenopathy, thyromegaly Respiratory exam: PRESENT: decreased breath sounds, prolonged expiratory phas, rales, rhonchi, symmetrical, unlabored Cardiovascular exam: PRESENT: RRR, +S1, +S2 Pulses: PRESENT: normal radial pulses GI/Abdominal exam: PRESENT: ascites, other - Status post intestinal surgery, Feeding tube Rectal exam: PRESENT: deferred Gentrourinary exam: PRESENT: indwelling catheter Musculoskeletal exam: PRESENT: normal inspection Neurological exam: PRESENT: awake Skin exam: PRESENT: dry, warm Results Laboratory Results: 04/04/17 04:47 04/04/17 04:47 04/04/17 04/04/17 04/04/17 04:47 04:47 04:47 WBC 9.8 RBC 2.97 L Hgb 9.2 L Hct 27.9 L MCV 94 MCH 31.1 MCHC 33.0 RDW 18.0 H Plt Count 375 Seg Neutrophils % 77.2 Lymphocytes % 12.7 L Monocytes % 8.4 Eosinophils % 1.6 Basophils % 0.1 Absolute Neutrophils 7.6 Absolute Lymphocytes 1.2 Absolute Monocytes 0.8 Absolute Eosinophils 0.2 Absolute Basophils 0.0 Carbonic Acid 1.21 HCO3/H2CO3 Ratio 19:1 ABG pH 7.40 ABG pCO2 40.2 ABG pO2 71.3 L ABG HCO3 24.1 ABG O2 Saturation 94.3 ABG Base Excess -0.7 FiO2 50% Sodium 138.5 Potassium 3.9 Chloride 106 Carbon Dioxide 23 Anion Gap 10 BUN 10 Creatinine 0.54 Est GFR ( Amer) > 60 Est GFR (Non-Af Amer) > 60 Glucose 98 Calcium 7.8 L Phosphorus 4.3 Total Bilirubin 0.6 AST 22 ALT 37 Alkaline Phosphatase 80 Total Protein 5.6 L Albumin 2.4 L Prealbumin 14.9 L 04/01/17 04/01/17 04/01/17 09:07 09:07 16:20 Creatine Kinase 58 75 CK-MB (CK-2) 0.61 Troponin I < 0.012 04/01/17 04/01/17 04/01/17 16:20 21:05 21:05 Creatine Kinase 86 CK-MB (CK-2) 0.43 0.46 Troponin I < 0.012 < 0.012 Impressions: Abdomen/Pelvis CT 03/26/17 00:00 IMPRESSION: 1. There is air and stool in the ascending colon. There is a markedly distended transverse colon and decompressed descending colon. Focal obstructing mass or extrinsic compression of the colon is not identified. There is no CT evidence of volvulus. 2. No significant small-bowel dilatation. There are thickened loops of small bowel in the left mid abdomen. Etiology of this is uncertain but infectious or inflammatory process cannot be excluded. The patient has an indwelling jejunostomy tube. 3. Free fluid in the pelvis etiology of this is uncertain. 4. Bibasilar consolidation consistent with pneumonia or lung collapse. Chest/Abdomen CTA 03/26/17 16:42 IMPRESSION: 1. No pulmonary emboli. 2. Bilateral lower lobe collapse and/or consolidation. There is a small left effusion as well. Mild right hilar as well as mediastinal adenopathy is present. This is most likely reactive. KUB X-Ray 03/31/17 00:00 IMPRESSION: Persistent less prominent bowel distention. Nasogastric tube appears to be coiled in the stomach or seconds portion of the duodenum. Chest Ultrasound 04/01/17 07:53 IMPRESSION: Trace bilateral pleural effusions. There is consolidation and collapse in the bilateral lower lobes, atelectasis versus pneumonia. No thoracentesis was performed. Assessment & Plan - Diagnosis (1) Acute respiratory failure Qualifiers: Respiratory failure complication: hypoxia Qualified Code(s): J96.01 - Acute respiratory failure with hypoxia Is this a current diagnosis for this admission?: YesPlan: Copious secretions,variable infiltrates and FIO2 requirements (2) Aspiration pneumonia Qualifiers: Aspiration pneumonia type: unspecified Laterality: right Lung location: lower lobe of lung Qualified Code(s): J69.0 - Pneumonitis due to inhalation of food and vomit Is this a current diagnosis for this admission?: Yes (3) Cerebral palsy Qualifiers: Cerebral palsy type: unspecified type Qualified Code(s): G80.9 - Cerebral palsy, unspecified Is this a current diagnosis for this admission?: Yes (4) Mental retardation Is this a current diagnosis for this admission?: Yes (5) Septic shock Is this a current diagnosis for this admission?: No - Time Critical Time spent with patient: 25-34 minutes
[2017-04-04] MEDS: LACTULOSE SYRUP 20 GM/30 ML UDCUP PO SCH (17:45)
[2017-04-04] MEDS: ZONISAMIDE 100 MG CAPSULE PEG SCH (22:13)
[2017-04-04] MEDS: MORPHINE SULFATE 10 MG/ML INJ IV PRN (22:18)
[2017-04-04] MEDS: OLOPATADINE HCL 0.1% OPH SOLN 5 ML OU PRN (23:08)
[2017-04-05] MEDS: LEVALBUTEROL HCL NEB 1.25 MG/3 ML AMPUL NEB SCH ×7 (00:16→23:56)
[2017-04-05] MEDS: PROPOFOL 100 ML IV PRN ×6 (05:35→22:15)
[2017-04-05] MEDS: METOCLOPRAMIDE HCL INJ/PF 10 MG/2 ML SDV IV SCH ×3 (05:39→21:02)
[2017-04-05] MEDS: ERYTHROMYCIN 0.5% OPH OINTMENT 3.5 GM TUBE OU SCH ×4 (05:40→23:38)
[2017-04-05] MEDS: CARBAMAZEPINE SUSP 200 MG/10 ML UDCUP PEG SCH ×2 (05:40→15:07)
[2017-04-05] MEDS: CLINDAMYCIN 600 MG/D5W RTU 600 MG/50 ML RTUPB IV SCH ×4 (05:40→23:38)
[2017-04-05 05:42] LABS: ABSOLUTE EOSINOPHILS # (AUTO) 0.1 10^3/uL (0.0-0.6); ABSOLUTE MONOCYTES (AUTO) 0.6 10^3/uL (0.1-1.4); ABSOLUTE NEUT (AUTO) 7.9 10^3/uL (1.7-8.2); ARTERIAL BLOOD BASE EXCESS -2.2 mmol/L; ARTERIAL BLOOD O2 SATURATION 95.4 % (94-98); BASOPHILS % (AUTO) 0.1 % (0-2); EOSINOPHILS % (AUTO) 1.1 % (0-6); HEMOGLOBIN 8.5 g/dL (13.5-17.0); HGB HCT DIFFERENCE -0.5; LYMPHOCYTES % (AUTO) 10.1 % (13-45); MEAN CORPUSCULAR HEMOGLOBIN 31.1 pg (27.0-33.4); MEAN CORPUSCULAR HGB CONC 32.8 g/dL (32.0-36.0); MEAN CORPUSCULAR VOLUME 95 fl (80-97); MONOCYTES % (AUTO) 6.5 % (3-13); RED BLOOD COUNT 2.74 10^6/uL (4.35-5.55); RED CELL DISTRIBUTION WIDTH 17.7 % (11.5-14.0); SEGMENTED NEUTROPHILS % (AUTO) 82.2 % (42-78); WHITE BLOOD COUNT 9.6 10^3/uL (4.0-10.5)
[2017-04-05 05:57] LABS: ANION GAP 8 (5-19); BLOOD UREA NITROGEN 12 mg/dL (7-20); CALCIUM 7.7 mg/dL (8.4-10.2); CARBON DIOXIDE 23 mmol/L (22-30); CHLORIDE 108 mmol/L (98-107); CREATININE RESULT 0.46 mg/dL (0.52-1.25); GLUCOSE 97 mg/dL (75-110); SODIUM 138.8 mmol/L (137-145)
--- NOTE | 2017-04-05 06:37 | RADIOLOGY REPORT (SQ) ---
EXAM DESCRIPTION: CHEST SINGLE VIEW COMPLETED DATE/TIME: 04/05/2017 6:16 am REASON FOR STUDY: pna/resp failure COMPARISON: 04/04/2017 EXAM PARAMETERS: NUMBER OF VIEWS: One view. TECHNIQUE: Single frontal radiographic view of the chest acquired. RADIATION DOSE: NA LIMITATIONS: None. FINDINGS: LUNGS AND PLEURA: Moderate-small lung volumes. Moderate left basilar opacity -effusion. Small streakiness of the right lower hemithorax. [id number] central pulmonary edema pattern. MEDIASTINUM AND HILAR STRUCTURES: No masses. Contour normal. HEART AND VASCULAR STRUCTURES: Heart normal in size. Normal vasculature. BONES: No acute findings. HARDWARE: Adequate appearing endotracheal tube, right internal jugular central line, and partially im aged NG tube. OTHER: No other significant finding. IMPRESSION: No significant interval change. TECHNICAL DOCUMENTATION: JOB ID: [id number]
[2017-04-05] MEDS: TOBRAMYCIN SULFATE NEB 40 MG/ML 30 ML NEB SCH ×2 (07:37→20:50)
--- NOTE | 2017-04-05 10:55 | RADIOLOGY REPORT (SQ) ---
EXAM DESCRIPTION: INJECT EXISTING/TUBE PLACEMENT; KUB/ABDOMEN (SINGLE VIEW); NOT FOR OR FLUORO T O 1 HR COMPLETED DATE/TIME: 04/05/2017 10:26 am; 04/05/2017 10:19 am REASON FOR STUDY: PEG TUBE PLACEMENT; S/P PEG TUBE PLACEMENT; PEG TUBE PLACEMENT COMPARISON: KUB exams 04/04/2017, 04/02/2017, 03/31/2017, 03/27/2017 FLUOROSCOPY TIME: 1.6 minutes 21 digital series of images saved to PACS. TECHNIQUE: Injection of contrast through existing gastrojejunostomy catheter. Fluoroscopic spot loraine ms saved to PACS demonstrating final catheter position. LIMITATIONS: None. FINDINGS: The patient's gastrojejunostomy tube was injected with 60 mL of Gastrografin in divided do ses. From the skin entry site, the GJ tube enters the stomach, forms a loop in the stomach fundus, and con tinues distally into the duodenum down to the junction of the 2nd/3rd portions of the duodenum. At t his point, there is a kink in the tube. Contrast injection demonstrates that the tube is patent, contrast flows from the tip of the tube into peristalsing small bowel loops. We were unable to straighten the catheter at the kinked site using a Reddy wire under fluoroscopy. No further manipulation of the tube was performed. Results discussed with Dr. Sheikh. IMPRESSION: Gastrojejunostomy tube is in a different orientation than on the preop film from 03/27/20 17. It may be doubled back upon itself in the patient's 2nd portion of duodenum. We were unable to straighten the catheter under fluoroscopy.. COMMENT: Quality ID [id number]: Final reports for procedures using fluoroscopy that document radiation exp osure indices, or exposure time and number of fluorographic images (if radiation exposure indices are not available) TECHNICAL DOCUMENTATION: JOB ID: [id number] [employer]- All Rights Reserved
[2017-04-05] MEDS: POLYETHYLENE GLYCOL 3350 POWDER 17 GM/1 PACKET PEG SCH (11:27)
[2017-04-05] MEDS: CETIRIZINE HCL ORAL SOLN 5 MG/5 ML UDCUP PEG SCH (11:32)
[2017-04-05] MEDS: PERAMPANEL 8 MG PO SCH (11:34)
[2017-04-05] MEDS: ENOXAPARIN SODIUM INJ 40 MG/0.4 ML DISP.SYRIN SUBCUT SCH (11:35)
[2017-04-05] MEDS: AMINO ACIDS 5%/D25W 1,000 ML IV PRN (11:38)
[2017-04-05] MEDS: NORMAL SALINE 1000 ML 1,000 ML IV PRN (11:42)
--- NOTE | 2017-04-05 11:56 | PDOC PROGRESS REPORT ---
Subjective Progress Note for:: 04/05/17 Subjective:: Patient is currently doing same still currently intubated. Discussed with the pulmonary suggest continues to current medications. Patient is afebrile for the last 24 hours so there is no need for put any antibiotic continues to clindamycin's Discussed with the surgeon and suggest to adjust the tube and restart the tube feeding and maybe consider DC the TPN up to tolerate the tube feeding Discussed with the mother and the bedside Physical Exam Vital Signs: Temp Pulse Resp BP Pulse Ox 98.2 F 110 H 20 110/68 93 04/05/17 10:00 04/05/17 11:41 04/05/17 11:41 04/05/17 10:00 04/05/17 11:41 Intake & Output 04/04/17 04/05/17 04/06/17 06:59 06:59 06:59 Intake Total 3115 2944 Output Total 4935 2715 230 Balance -1820 229 -230 Weight 72.1 kg 70.9 kg General appearance: PRESENT: no acute distress Eye exam: PRESENT: conjunctival injection, PERRLA Mouth exam: PRESENT: neck supple Respiratory exam: PRESENT: decreased breath sounds Cardiovascular exam: PRESENT: +S1, +S2 GI/Abdominal exam: PRESENT: normal bowel sounds, soft Neurological exam: PRESENT: altered Results Laboratory Results: 04/05/17 05:25 04/05/17 05:25 04/05/17 04/05/17 04/05/17 05:25 05:25 05:25 WBC 9.6 RBC 2.74 L Hgb 8.5 L Hct 26.0 L MCV 95 MCH 31.1 MCHC 32.8 RDW 17.7 H Plt Count 340 Seg Neutrophils % 82.2 H Lymphocytes % 10.1 L Monocytes % 6.5 Eosinophils % 1.1 Basophils % 0.1 Absolute Neutrophils 7.9 Absolute Lymphocytes 1.0 Absolute Monocytes 0.6 Absolute Eosinophils 0.1 Absolute Basophils 0.0 Carbonic Acid 1.12 HCO3/H2CO3 Ratio 20:1 ABG pH 7.40 ABG pCO2 37.1 ABG pO2 76.6 L ABG HCO3 22.4 ABG O2 Saturation 95.4 ABG Base Excess -2.2 FiO2 40% Sodium 138.8 Potassium 4.0 Chloride 108 H Carbon Dioxide 23 Anion Gap 8 BUN 12 Creatinine 0.46 L Est GFR ( Amer) > 60 Est GFR (Non-Af Amer) > 60 Glucose 97 Calcium 7.7 L 04/02/17 14:30 Tracheal Aspirate Gram Stain - Final 04/02/17 10:33 Coreas Catheter Urine Culture - Final Enterococcus Faecalis(Group D) 04/01/17 04/01/17 04/01/17 09:07 09:07 16:20 Creatine Kinase 58 75 CK-MB (CK-2) 0.61 Troponin I < 0.012 04/01/17 04/01/17 04/01/17 16:20 21:05 21:05 Creatine Kinase 86 CK-MB (CK-2) 0.43 0.46 Troponin I < 0.012 < 0.012 Impressions: Abdomen/Pelvis CT 03/26/17 00:00 IMPRESSION: 1. There is air and stool in the ascending colon. There is a markedly distended transverse colon and decompressed descending colon. Focal obstructing mass or extrinsic compression of the colon is not identified. There is no CT evidence of volvulus. 2. No significant small-bowel dilatation. There are thickened loops of small bowel in the left mid abdomen. Etiology of this is uncertain but infectious or inflammatory process cannot be excluded. The patient has an indwelling jejunostomy tube. 3. Free fluid in the pelvis etiology of this is uncertain. 4. Bibasilar consolidation consistent with pneumonia or lung collapse. Chest/Abdomen CTA 03/26/17 16:42 IMPRESSION: 1. No pulmonary emboli. 2. Bilateral lower lobe collapse and/or consolidation. There is a small left effusion as well. Mild right hilar as well as mediastinal adenopathy is present. This is most likely reactive. Chest Ultrasound 04/01/17 07:53 IMPRESSION: Trace bilateral pleural effusions. There is consolidation and collapse in the bilateral lower lobes, atelectasis versus pneumonia. No thoracentesis was performed. Abdomen X-Ray 04/04/17 00:00 IMPRESSION: Probable bibasilar atelectasis left greater than right. Pneumonia could not be excluded. Probable ileus. Gastrojejunostomy tube appears kinked along the distal 10 cm. Fluoroscopy 04/05/17 00:00 IMPRESSION: Gastrojejunostomy tube is in a different orientation than on the preop film from 03/27/2017. It may be doubled back upon itself in the patient's 2nd portion of duodenum. We were unable to straighten the catheter under fluoroscopy.. KUB X-Ray 04/05/17 00:00 IMPRESSION: Gastrojejunostomy tube is in a different orientation than on the preop film from 03/27/2017. It may be doubled back upon itself in the patient's 2nd portion of duodenum. We were unable to straighten the catheter under fluoroscopy.. Tube Placement 04/05/17 00:00 IMPRESSION: Gastrojejunostomy tube is in a different orientation than on the preop film from 03/27/2017. It may be doubled back upon itself in the patient's 2nd portion of duodenum. We were unable to straighten the catheter under fluoroscopy.. Chest X-Ray 04/05/17 06:00 IMPRESSION: No significant interval change. Assessment & Plan - Diagnosis (1) Acute respiratory failure Qualifiers: Respiratory failure complication: hypoxia Qualified Code(s): J96.01 - Acute respiratory failure with hypoxia Is this a current diagnosis for this admission?: YesPlan: Continues to follow with the pulmonary (2) Aspiration pneumonia Qualifiers: Aspiration pneumonia type: unspecified Laterality: right Lung location: lower lobe of lung Qualified Code(s): J69.0 - Pneumonitis due to inhalation of food and vomit Is this a current diagnosis for this admission?: YesPlan: Continues to clindamycin's. So far so patient's white count is normal and patient having no fever the patient started developing the fever and white count was up to be considered to put the daptomycin's discussed with the mother about the antibiotic while patient have a significant allergies to the antibiotic (3) Colon distention Is this a current diagnosis for this admission?: YesPlan: Status post surgery for the volvulus currently follow with the surgery (4) Cerebral palsy Qualifiers: Cerebral palsy type: unspecified type Qualified Code(s): G80.9 - Cerebral palsy, unspecified Is this a current diagnosis for this admission?: Yes (5) Mental retardation Is this a current diagnosis for this admission?: Yes (6) Seizures Qualifiers: Convulsion type: unspecified Qualified Code(s): R56.9 - Unspecified convulsions Is this a current diagnosis for this admission?: YesPlan: cont curr medication (7) Sinus tachycardia Is this a current diagnosis for this admission?: Yes (8) Sepsis Qualifiers: Sepsis type: sepsis due to unspecified organism Qualified Code(s): A41.9 - Sepsis, unspecified organism Is this a current diagnosis for this admission?: YesPlan: Patient's continues to the clindamycin's - Time Time Spent with patient: 15-24 minutes Medications reviewed and adjusted accordingly: Yes Anticipated discharge: Other Within: Other - Inpatient Certification Medical Necessity: Need Close Monitoring Due to Risk of Patient Decompensation, Need for IV Antibiotics Post Hospital Care: D/C [employer] Documentation - Plan Summary Plan Summary: Continues to current medications if the patient started running a fever or elevated white counts need to add the daptomycin's hopefully patient should not have allergy to that medications or may invaz As per check with the pharmacist Discussed with Dr. Barrera Discussed with the mother I am away from the next [address] Colby is covering the patient
--- NOTE | 2017-04-05 15:13 | PROGRESS NOTE E ---
Progress Note NAME: MERCY WORLEY : 1985 AGE: 31Y DATE: 04/05/2017 ROOM: 601 SUBJECTIVE: An attempt was done by Dr. Alvares, the interventional radiologist, to try to straighten out the gastro-J tube. Unfortunately, she was not able to do this. However, the tube drains quite easily. At any rate, the patient's abdomen remains quite soft but not definite as far as starting on tube feeds at this time. In the meantime, continue with the TPN. Continue with the weaning process in care of Dr. Barrera. His abdomen is soft and incision is clean and dry. This about the ninth postop day. DICTATING PHYSICIAN: MASSIMO BARRY M.D. [id number] PHY#: [id number] ID: [id number] JOB#: [id number] ACCT: [id number] cc: >
[2017-04-05] MEDS: ACETAMINOPHEN 650 MG SUPP.RECT PR PRN (15:14)
[2017-04-05] MEDS ORDERED: CARBAMAZEPINE 100 MG TAB.CHEW PEG ONE (15:15)
--- NOTE | 2017-04-05 15:35 | PDOC PROGRESS REPORT ---
Subjective Progress Note for:: 04/05/17 Subjective:: Awake Physical Exam Vital Signs: Temp Pulse Resp BP Pulse Ox 100.8 F H 119 H 26 H 110/73 96 04/05/17 14:00 04/05/17 14:00 04/05/17 14:00 04/05/17 14:00 04/05/17 14:00 Intake & Output 04/04/17 04/05/17 04/06/17 06:59 06:59 06:59 Intake Total 3115 2944 Output Total 4934 8213 1070 Balance -1820 229 -1070 Weight 72.1 kg 70.9 kg General appearance: PRESENT: no acute distress, disheveled Head exam: PRESENT: atraumatic, normocephalic Eye exam: PRESENT: conjunctiva pale, EOMI Mouth exam: PRESENT: dry mucosa, neck supple, other - ET tube Neck exam: ABSENT: carotid bruit, JVD, lymphadenopathy, thyromegaly Respiratory exam: PRESENT: decreased breath sounds, prolonged expiratory phas, rhonchi, symmetrical, unlabored Cardiovascular exam: PRESENT: RRR, +S1, +S2 Pulses: PRESENT: normal radial pulses GI/Abdominal exam: PRESENT: normal bowel sounds, soft, other - feeding tube Rectal exam: PRESENT: deferred Gentrourinary exam: PRESENT: indwelling catheter Musculoskeletal exam: PRESENT: normal inspection Neurological exam: PRESENT: awake Skin exam: PRESENT: dry, warm Results Laboratory Results: 04/05/17 05:25 04/05/17 05:25 04/05/17 04/05/17 04/05/17 05:25 05:25 05:25 WBC 9.6 RBC 2.74 L Hgb 8.5 L Hct 26.0 L MCV 95 MCH 31.1 MCHC 32.8 RDW 17.7 H Plt Count 340 Seg Neutrophils % 82.2 H Lymphocytes % 10.1 L Monocytes % 6.5 Eosinophils % 1.1 Basophils % 0.1 Absolute Neutrophils 7.9 Absolute Lymphocytes 1.0 Absolute Monocytes 0.6 Absolute Eosinophils 0.1 Absolute Basophils 0.0 Carbonic Acid 1.12 HCO3/H2CO3 Ratio 20:1 ABG pH 7.40 ABG pCO2 37.1 ABG pO2 76.6 L ABG HCO3 22.4 ABG O2 Saturation 95.4 ABG Base Excess -2.2 FiO2 40% Sodium 138.8 Potassium 4.0 Chloride 108 H Carbon Dioxide 23 Anion Gap 8 BUN 12 Creatinine 0.46 L Est GFR ( Amer) > 60 Est GFR (Non-Af Amer) > 60 Glucose 97 Calcium 7.7 L 04/02/17 14:30 Tracheal Aspirate Gram Stain - Final 04/02/17 10:33 Coreas Catheter Urine Culture - Final Enterococcus Faecalis(Group D) 04/01/17 04/01/17 04/01/17 09:07 09:07 16:20 Creatine Kinase 58 75 CK-MB (CK-2) 0.61 Troponin I < 0.012 04/01/17 04/01/17 04/01/17 16:20 21:05 21:05 Creatine Kinase 86 CK-MB (CK-2) 0.43 0.46 Troponin I < 0.012 < 0.012 Impressions: Abdomen/Pelvis CT 03/26/17 00:00 IMPRESSION: 1. There is air and stool in the ascending colon. There is a markedly distended transverse colon and decompressed descending colon. Focal obstructing mass or extrinsic compression of the colon is not identified. There is no CT evidence of volvulus. 2. No significant small-bowel dilatation. There are thickened loops of small bowel in the left mid abdomen. Etiology of this is uncertain but infectious or inflammatory process cannot be excluded. The patient has an indwelling jejunostomy tube. 3. Free fluid in the pelvis etiology of this is uncertain. 4. Bibasilar consolidation consistent with pneumonia or lung collapse. Chest/Abdomen CTA 03/26/17 16:42 IMPRESSION: 1. No pulmonary emboli. 2. Bilateral lower lobe collapse and/or consolidation. There is a small left effusion as well. Mild right hilar as well as mediastinal adenopathy is present. This is most likely reactive. Chest Ultrasound 04/01/17 07:53 IMPRESSION: Trace bilateral pleural effusions. There is consolidation and collapse in the bilateral lower lobes, atelectasis versus pneumonia. No thoracentesis was performed. Abdomen X-Ray 04/04/17 00:00 IMPRESSION: Probable bibasilar atelectasis left greater than right. Pneumonia could not be excluded. Probable ileus. Gastrojejunostomy tube appears kinked along the distal 10 cm. Fluoroscopy 04/05/17 00:00 IMPRESSION: Gastrojejunostomy tube is in a different orientation than on the preop film from 03/27/2017. It may be doubled back upon itself in the patient's 2nd portion of duodenum. We were unable to straighten the catheter under fluoroscopy.. KUB X-Ray 04/05/17 00:00 IMPRESSION: Gastrojejunostomy tube is in a different orientation than on the preop film from 03/27/2017. It may be doubled back upon itself in the patient's 2nd portion of duodenum. We were unable to straighten the catheter under fluoroscopy.. Tube Placement 04/05/17 00:00 IMPRESSION: Gastrojejunostomy tube is in a different orientation than on the preop film from 03/27/2017. It may be doubled back upon itself in the patient's 2nd portion of duodenum. We were unable to straighten the catheter under fluoroscopy.. Chest X-Ray 04/05/17 06:00 IMPRESSION: No significant interval change. Assessment & Plan - Diagnosis (1) Acute respiratory failure Qualifiers: Respiratory failure complication: hypoxia Qualified Code(s): J96.01 - Acute respiratory failure with hypoxia Is this a current diagnosis for this admission?: Yes (2) Aspiration pneumonia Qualifiers: Aspiration pneumonia type: unspecified Laterality: right Lung location: lower lobe of lung Qualified Code(s): J69.0 - Pneumonitis due to inhalation of food and vomit Is this a current diagnosis for this admission?: Yes (3) Cerebral palsy Qualifiers: Cerebral palsy type: unspecified type Qualified Code(s): G80.9 - Cerebral palsy, unspecified Is this a current diagnosis for this admission?: Yes (4) Mental retardation Is this a current diagnosis for this admission?: Yes (5) Septic shock Is this a current diagnosis for this admission?: No - Time Critical Time spent with patient: 25-34 minutes
[2017-04-05] MEDS: MORPHINE SULFATE 10 MG/ML INJ IV PRN (16:44)
[2017-04-05] MEDS: LACTULOSE SYRUP 20 GM/30 ML UDCUP PO SCH (17:20)
[2017-04-05] MEDS: ZONISAMIDE 100 MG CAPSULE PEG SCH (21:00)
[2017-04-05] MEDS: CARBAMAZEPINE 100 MG TAB.CHEW PEG SCH (21:02)
[2017-04-06] MEDS: ACETAMINOPHEN 650 MG SUPP.RECT PR PRN ×3 (00:01→23:26)
[2017-04-06] MEDS: PROPOFOL 100 ML IV PRN ×5 (01:54→20:08)
[2017-04-06] MEDS: LEVALBUTEROL HCL NEB 1.25 MG/3 ML AMPUL NEB SCH ×5 (04:22→20:39)
[2017-04-06] MEDS: CLINDAMYCIN 600 MG/D5W RTU 600 MG/50 ML RTUPB IV SCH ×4 (05:13→23:26)
[2017-04-06] MEDS: METOCLOPRAMIDE HCL INJ/PF 10 MG/2 ML SDV IV SCH ×3 (05:13→21:47)
[2017-04-06] MEDS: CARBAMAZEPINE 100 MG TAB.CHEW PEG SCH ×3 (05:13→21:47)
[2017-04-06] MEDS: ERYTHROMYCIN 0.5% OPH OINTMENT 3.5 GM TUBE OU SCH ×4 (05:14→23:26)
[2017-04-06] MEDS: MORPHINE SULFATE 10 MG/ML INJ IV PRN ×4 (08:22→22:07)
[2017-04-06] MEDS: TOBRAMYCIN SULFATE NEB 40 MG/ML 30 ML NEB SCH (08:47)
--- NOTE | 2017-04-06 09:03 | RADIOLOGY REPORT (SQ) ---
EXAM DESCRIPTION: CHEST SINGLE VIEW COMPLETED DATE/TIME: 04/06/2017 8:50 am REASON FOR STUDY: resp failure COMPARISON: 04/05/2017. 03/15/2017. FINDINGS: Single-view AP portable semi-upright chest timed 0839 hours. Endotracheal and nasogastric tubes, appropriate. Right IJ line remains in place to the right atrium. Low lung volumes with areas of subsegmental atelectasis and patchy airspace disease, particularly in the left base. Similar to prior. No pneumothorax. IMPRESSION: Stable chest. Changes as above. Appropriate support lines and tubes. TECHNICAL DOCUMENTATION: JOB ID: [id number]
[2017-04-06 09:13] LABS: ARTERIAL BLOOD BASE EXCESS -2.8 mmol/L; ARTERIAL BLOOD O2 SATURATION 75.7 % (94-98)
[2017-04-06 09:28] LABS: ABSOLUTE EOSINOPHILS # (AUTO) 0.1 10^3/uL (0.0-0.6); ABSOLUTE MONOCYTES (AUTO) 0.6 10^3/uL (0.1-1.4); ABSOLUTE NEUT (AUTO) 7.3 10^3/uL (1.7-8.2); BASOPHILS % (AUTO) 0.1 % (0-2); EOSINOPHILS % (AUTO) 1.2 % (0-6); HEMATOCRIT 24.6 % (37.9-51.0); HEMOGLOBIN 8.1 g/dL (13.5-17.0); HGB HCT DIFFERENCE -0.3; LYMPHOCYTES % (AUTO) 10.9 % (13-45); MEAN CORPUSCULAR HEMOGLOBIN 30.9 pg (27.0-33.4); MEAN CORPUSCULAR HGB CONC 32.8 g/dL (32.0-36.0); MEAN CORPUSCULAR VOLUME 94 fl (80-97); MONOCYTES % (AUTO) 6.3 % (3-13); SEGMENTED NEUTROPHILS % (AUTO) 81.5 % (42-78)
[2017-04-06 09:44] LABS: ANION GAP 8 (5-19); BLOOD UREA NITROGEN 12 mg/dL (7-20); CALCIUM 7.8 mg/dL (8.4-10.2); CARBON DIOXIDE 22 mmol/L (22-30); CHLORIDE 110 mmol/L (98-107); CREATININE RESULT 0.49 mg/dL (0.52-1.25); GLUCOSE 102 mg/dL (75-110); POTASSIUM 3.8 mmol/L (3.6-5.0); SODIUM 140.3 mmol/L (137-145)
[2017-04-06] MEDS: POLYETHYLENE GLYCOL 3350 POWDER 17 GM/1 PACKET PEG SCH (09:54)
[2017-04-06] MEDS: PERAMPANEL 8 MG PO SCH (10:18)
[2017-04-06] MEDS: AMINO ACIDS 5%/D25W 1,000 ML IV PRN (10:18)
[2017-04-06] MEDS: ENOXAPARIN SODIUM INJ 40 MG/0.4 ML DISP.SYRIN SUBCUT SCH (10:19)
[2017-04-06] MEDS: CETIRIZINE HCL ORAL SOLN 5 MG/5 ML UDCUP PEG SCH (10:19)
[2017-04-06] MEDS: NORMAL SALINE 1000 ML 1,000 ML IV PRN (12:12)
--- NOTE | 2017-04-06 13:29 | PROGRESS NOTE E ---
Progress Note NAME: MERCY WORLEY : 1985 AGE: 31Y DATE: 04/06/2017 ROOM: 601 SUBJECTIVE: The patient is still intubated but his vital signs are stable. I spoke to Dr. Barrera and he will try to extubate him Saturday. Unfortunately, the mother does not want any tracheostomy done if he needs it. I just spoke to the mother and I explained to her that the patient is coming along fine as far as from the surgery is concerned. He just had a good bowel movement and his abdomen is soft and nontender. His incision site is healing well. Dr. Santino Zheng, the interventional radiologist, tried to straighten out the gastrojejunostomy tube yesterday but unable to do so. However, the tube is patent. So, I just told the patient's nurse, Gayle, to start tube feedings at 15 mL an hour with Jevity. Meantime, leave the NG tube in and see if the tube feedings go back up into the stomach, then it will be suctioned out and we know the J-tube is not ready to be used with the current position. Also, at the same time, the tube might straighten itself out with the tube feedings with increased in motility. Since the incision is healing well, we will remove alternate skin sujata. DICTATING PHYSICIAN: MASSIMO BARRY M.D. [id number] PHY#: [id number] ID: [id number] JOB#: [id number] ACCT: [id number] cc: >
[2017-04-06] MEDS: LACTULOSE SYRUP 20 GM/30 ML UDCUP PO SCH (17:37)
--- NOTE | 2017-04-06 18:19 | PDOC PROGRESS REPORT ---
Subjective Progress Note for:: 04/06/17 Subjective:: Patient remain intubated and vent supported. There is persistent of intermittent elevated temperature above 101F over last 24 hours. Remain on IV Clindamycin coverage. Tolerating restart of enteral tube feeding. Physical Exam Vital Signs: Temp Pulse Resp BP Pulse Ox 101.6 F H 105 H 24 H 104/66 93 04/06/17 17:35 04/06/17 16:00 04/06/17 17:06 04/06/17 17:06 04/06/17 17:06 Intake & Output 04/05/17 04/06/17 04/07/17 06:59 06:59 06:59 Intake Total 2944 2809 Output Total 2715 2780 2575 Balance 229 29 -2575 Weight 70.9 kg 70 kg Physical Exam: Intubated but respond to noxious stimuli. ET in-situ. Head exam: PRESENT: atraumatic, normocephalic Eye exam: PRESENT: conjunctival injection, conjunctiva pink, EOMI. ABSENT: scleral icterus Mouth exam: PRESENT: moist Respiratory exam: PRESENT: crackles - scattered bilaterally, decreased breath sounds - lung bases Cardiovascular exam: PRESENT: RRR. ABSENT: diastolic murmur, rubs, systolic murmur GI/Abdominal exam: PRESENT: normal bowel sounds, tenderness - to palpation around midline abdominal surgical wound site with multiple sujata in-situ. Extremities exam: ABSENT: pedal edema - LILIBETH in use Neurological exam: PRESENT: altered - on IV propofol infusion for sedation while on ventilator Skin exam: PRESENT: dry, warm, other - healing surgical wound site on anterior abdominal wall. Results Laboratory Results: 04/06/17 09:04 04/06/17 09:04 04/06/17 04/06/17 04/06/17 08:30 09:04 09:04 WBC 9.0 RBC 2.60 L Hgb 8.1 L Hct 24.6 L MCV 94 MCH 30.9 MCHC 32.8 RDW 17.0 H Plt Count 411 Seg Neutrophils % 81.5 H Lymphocytes % 10.9 L Monocytes % 6.3 Eosinophils % 1.2 Basophils % 0.1 Absolute Neutrophils 7.3 Absolute Lymphocytes 1.0 Absolute Monocytes 0.6 Absolute Eosinophils 0.1 Absolute Basophils 0.0 Carbonic Acid 1.32 HCO3/H2CO3 Ratio 17:1 ABG pH 7.34 L ABG pCO2 44.0 ABG pO2 43.1 L ABG HCO3 22.9 ABG O2 Saturation 75.7 L ABG Base Excess -2.8 FiO2 40% Sodium 140.3 Potassium 3.8 Chloride 110 H Carbon Dioxide 22 Anion Gap 8 BUN 12 Creatinine 0.49 L Est GFR ( Amer) > 60 Est GFR (Non-Af Amer) > 60 Glucose 102 Calcium 7.8 L 04/02/17 14:30 Tracheal Aspirate Gram Stain - Final 04/01/17 04/01/17 04/01/17 09:07 09:07 16:20 Creatine Kinase 58 75 CK-MB (CK-2) 0.61 Troponin I < 0.012 04/01/17 04/01/17 04/01/17 16:20 21:05 21:05 Creatine Kinase 86 CK-MB (CK-2) 0.43 0.46 Troponin I < 0.012 < 0.012 Impressions: Abdomen/Pelvis CT 03/26/17 00:00 IMPRESSION: 1. There is air and stool in the ascending colon. There is a markedly distended transverse colon and decompressed descending colon. Focal obstructing mass or extrinsic compression of the colon is not identified. There is no CT evidence of volvulus. 2. No significant small-bowel dilatation. There are thickened loops of small bowel in the left mid abdomen. Etiology of this is uncertain but infectious or inflammatory process cannot be excluded. The patient has an indwelling jejunostomy tube. 3. Free fluid in the pelvis etiology of this is uncertain. 4. Bibasilar consolidation consistent with pneumonia or lung collapse. Chest/Abdomen CTA 03/26/17 16:42 IMPRESSION: 1. No pulmonary emboli. 2. Bilateral lower lobe collapse and/or consolidation. There is a small left effusion as well. Mild right hilar as well as mediastinal adenopathy is present. This is most likely reactive. Chest Ultrasound 04/01/17 07:53 IMPRESSION: Trace bilateral pleural effusions. There is consolidation and collapse in the bilateral lower lobes, atelectasis versus pneumonia. No thoracentesis was performed. Abdomen X-Ray 04/04/17 00:00 IMPRESSION: Probable bibasilar atelectasis left greater than right. Pneumonia could not be excluded. Probable ileus. Gastrojejunostomy tube appears kinked along the distal 10 cm. Fluoroscopy 04/05/17 00:00 IMPRESSION: Gastrojejunostomy tube is in a different orientation than on the preop film from 03/27/2017. It may be doubled back upon itself in the patient's 2nd portion of duodenum. We were unable to straighten the catheter under fluoroscopy.. KUB X-Ray 04/05/17 00:00 IMPRESSION: Gastrojejunostomy tube is in a different orientation than on the preop film from 03/27/2017. It may be doubled back upon itself in the patient's 2nd portion of duodenum. We were unable to straighten the catheter under fluoroscopy.. Tube Placement 04/05/17 00:00 IMPRESSION: Gastrojejunostomy tube is in a different orientation than on the preop film from 03/27/2017. It may be doubled back upon itself in the patient's 2nd portion of duodenum. We were unable to straighten the catheter under fluoroscopy.. Chest X-Ray 04/06/17 08:27 IMPRESSION: Stable chest. Changes as above. Appropriate support lines and tubes. Assessment & Plan - Diagnosis (1) Acute ischemia of large intestine Is this a current diagnosis for this admission?: YesPlan: Improving. Continue current management as per surgical team recommendations. (2) Ileus, postoperative Is this a current diagnosis for this admission?: YesPlan: Improving. Continue current management as per surgical team recommendations. (3) Respiratory failure with hypoxia Qualifiers: Chronicity: acute Qualified Code(s): J96.01 - Acute respiratory failure with hypoxia Is this a current diagnosis for this admission?: YesPlan: Improving. Continue current management as per adult remedial education instructor recommendations. Remain on ventilator support and pulmonary care as needed. (4) Sepsis Qualifiers: Sepsis type: sepsis due to unspecified organism Qualified Code(s): A41.9 - Sepsis, unspecified organism Is this a current diagnosis for this admission?: YesPlan: Patient tracheal aspirate did grew Rubi species as well as pseudomonas. He is currently on IV Clindamycin and Tobramycin neb therapy. I will start on IV Diflucan therapy for antifungal coverage in view of his intermittent fever. (5) Aspiration pneumonia Qualifiers: Aspiration pneumonia type: unspecified Laterality: right Lung location: lower lobe of lung Qualified Code(s): J69.0 - Pneumonitis due to inhalation of food and vomit Is this a current diagnosis for this admission?: YesPlan: Probably related to his culture report findings. I will manage as noted above. (6) Mental retardation Is this a current diagnosis for this admission?: YesPlan: See covering attending physician orders. Overall prognosis remain poor. (7) Seizures Qualifiers: Convulsion type: unspecified Qualified Code(s): R56.9 - Unspecified convulsions Is this a current diagnosis for this admission?: YesPlan: See covering attending orders. Overall prognosis remain poor. - Time Time Spent with patient: 25-34 minutes Medications reviewed and adjusted accordingly: Yes Anticipated discharge: Other Within: Other - Inpatient Certification Based on my medical assessment, after consideration of the patient's comorbidities, presenting symptoms, or acuity I expect that the services needed warrant INPATIENT care.: Yes I certify that my determination is in accordance with my understanding of Medicare's requirements for reasonable and necessary INPATIENT services [42 CFR 412.3e].: Yes Medical Necessity: Need Close Monitoring Due to Risk of Patient Decompensation, Need For IV Fluids, Need For Continuous Telemetry Monitoring, Need for Nebulizer Therapy and Monitoring of Response, Need for IV Antibiotics, Risk of Complication if Not Cared For in Hospital Post Hospital Care: D/C Special Deputy Sheriff Documentation - Plan Summary Plan Summary: See covering attending physician orders.
--- NOTE | 2017-04-06 18:52 | PDOC PROGRESS REPORT ---
Subjective Progress Note for:: 04/06/17 Subjective:: Awake Physical Exam Vital Signs: Temp Pulse Resp BP Pulse Ox 98.4 F 99 23 H 99/54 L 95 04/06/17 07:55 04/06/17 07:55 04/06/17 07:55 04/06/17 07:55 04/06/17 07:55 Intake & Output 04/05/17 04/06/17 04/07/17 06:59 06:59 06:59 Intake Total 2944 2809 Output Total 2718 2780 100 Balance 229 29 -100 Weight 70.9 kg 70 kg General appearance: PRESENT: no acute distress, disheveled Head exam: PRESENT: atraumatic, normocephalic Eye exam: PRESENT: conjunctiva pale, EOMI Mouth exam: PRESENT: dry mucosa, neck supple, tongue midline, other - ET tube Neck exam: ABSENT: carotid bruit, JVD, lymphadenopathy, thyromegaly Respiratory exam: PRESENT: decreased breath sounds, prolonged expiratory phas, rales, rhonchi, symmetrical, unlabored Cardiovascular exam: PRESENT: RRR, +S1 Pulses: PRESENT: normal radial pulses GI/Abdominal exam: PRESENT: other - feeding tube Rectal exam: PRESENT: deferred Gentrourinary exam: PRESENT: indwelling catheter Musculoskeletal exam: PRESENT: normal inspection Neurological exam: PRESENT: awake Skin exam: PRESENT: dry, warm Results Laboratory Results: 04/05/17 05:25 04/05/17 05:25 04/02/17 14:30 Tracheal Aspirate Gram Stain - Final 04/01/17 04/01/17 04/01/17 09:07 09:07 16:20 Creatine Kinase 58 75 CK-MB (CK-2) 0.61 Troponin I < 0.012 04/01/17 04/01/17 04/01/17 16:20 21:05 21:05 Creatine Kinase 86 CK-MB (CK-2) 0.43 0.46 Troponin I < 0.012 < 0.012 Impressions: Abdomen/Pelvis CT 03/26/17 00:00 IMPRESSION: 1. There is air and stool in the ascending colon. There is a markedly distended transverse colon and decompressed descending colon. Focal obstructing mass or extrinsic compression of the colon is not identified. There is no CT evidence of volvulus. 2. No significant small-bowel dilatation. There are thickened loops of small bowel in the left mid abdomen. Etiology of this is uncertain but infectious or inflammatory process cannot be excluded. The patient has an indwelling jejunostomy tube. 3. Free fluid in the pelvis etiology of this is uncertain. 4. Bibasilar consolidation consistent with pneumonia or lung collapse. Chest/Abdomen CTA 03/26/17 16:42 IMPRESSION: 1. No pulmonary emboli. 2. Bilateral lower lobe collapse and/or consolidation. There is a small left effusion as well. Mild right hilar as well as mediastinal adenopathy is present. This is most likely reactive. Chest Ultrasound 04/01/17 07:53 IMPRESSION: Trace bilateral pleural effusions. There is consolidation and collapse in the bilateral lower lobes, atelectasis versus pneumonia. No thoracentesis was performed. Abdomen X-Ray 04/04/17 00:00 IMPRESSION: Probable bibasilar atelectasis left greater than right. Pneumonia could not be excluded. Probable ileus. Gastrojejunostomy tube appears kinked along the distal 10 cm. Fluoroscopy 04/05/17 00:00 IMPRESSION: Gastrojejunostomy tube is in a different orientation than on the preop film from 03/27/2017. It may be doubled back upon itself in the patient's 2nd portion of duodenum. We were unable to straighten the catheter under fluoroscopy.. KUB X-Ray 04/05/17 00:00 IMPRESSION: Gastrojejunostomy tube is in a different orientation than on the preop film from 03/27/2017. It may be doubled back upon itself in the patient's 2nd portion of duodenum. We were unable to straighten the catheter under fluoroscopy.. Tube Placement 04/05/17 00:00 IMPRESSION: Gastrojejunostomy tube is in a different orientation than on the preop film from 03/27/2017. It may be doubled back upon itself in the patient's 2nd portion of duodenum. We were unable to straighten the catheter under fluoroscopy.. Chest X-Ray 04/05/17 06:00 IMPRESSION: No significant interval change. Assessment & Plan - Diagnosis (1) Acute respiratory failure Qualifiers: Respiratory failure complication: hypoxia Qualified Code(s): J96.01 - Acute respiratory failure with hypoxia Is this a current diagnosis for this admission?: YesPlan: febrile,WBC unchanged,FIO2 requirements (2) Aspiration pneumonia Qualifiers: Aspiration pneumonia type: unspecified Laterality: right Lung location: lower lobe of lung Qualified Code(s): J69.0 - Pneumonitis due to inhalation of food and vomit Is this a current diagnosis for this admission?: YesPlan: chronic aspiration (3) Cerebral palsy Qualifiers: Cerebral palsy type: unspecified type Qualified Code(s): G80.9 - Cerebral palsy, unspecified Is this a current diagnosis for this admission?: Yes (4) Mental retardation Is this a current diagnosis for this admission?: Yes (5) Septic shock Is this a current diagnosis for this admission?: No - Time Critical Time spent with patient: 35 or more minutes - 55 min extended talk with mother as prognosis is declining
[2017-04-06] MEDS ORDERED: FLUCONAZOLE 400 MG/NS RTU 400 MG/200 ML RTUPB IV ONE (19:00)
[2017-04-06] MEDS: ZONISAMIDE 100 MG CAPSULE PEG SCH (21:47)
[2017-04-07] MEDS: LEVALBUTEROL HCL NEB 1.25 MG/3 ML AMPUL NEB SCH ×7 (00:10→23:44)
[2017-04-07] MEDS: PROPOFOL 100 ML IV PRN ×4 (02:20→22:50)
[2017-04-07] MEDS: MORPHINE SULFATE 10 MG/ML INJ IV PRN ×4 (02:20→23:50)
[2017-04-07] MEDS: ERYTHROMYCIN 0.5% OPH OINTMENT 3.5 GM TUBE OU SCH ×4 (05:16→23:28)
[2017-04-07] MEDS: METOCLOPRAMIDE HCL INJ/PF 10 MG/2 ML SDV IV SCH ×3 (05:16→21:18)
[2017-04-07] MEDS: CLINDAMYCIN 600 MG/D5W RTU 600 MG/50 ML RTUPB IV SCH ×4 (05:16→23:28)
[2017-04-07] MEDS: CARBAMAZEPINE 100 MG TAB.CHEW PEG SCH ×3 (05:16→21:18)
[2017-04-07] MEDS: NORMAL SALINE 1000 ML 1,000 ML IV PRN (05:43)
[2017-04-07 05:53] LABS: ARTERIAL BLOOD BASE EXCESS -1.9 mmol/L; ARTERIAL BLOOD O2 SATURATION 96.7 % (94-98)
--- NOTE | 2017-04-07 07:21 | RADIOLOGY REPORT (SQ) ---
EXAM DESCRIPTION: CHEST SINGLE VIEW COMPLETED DATE/TIME: 04/07/2017 7:07 am REASON FOR STUDY: pna/resp fail COMPARISON: 04/06/2017. EXAM PARAMETERS: NUMBER OF VIEWS: One view. TECHNIQUE: Single frontal radiographic view of the chest acquired. RADIATION DOSE: NA LIMITATIONS: None. FINDINGS: LUNGS AND PLEURA: Moderate-small lung volumes. Moderate mixed interstitial and airspace o pacities with lower lobe predominance, left more than right. MEDIASTINUM AND HILAR STRUCTURES: No masses. Contour normal. HEART AND VASCULAR STRUCTURES: Heart normal in size. Normal vasculature. BONES: No acute findings. HARDWARE: Adequate appearing endotracheal tube, right internal jugular line, and nasogastric tube. OTHER: No other significant finding. IMPRESSION: No significant interval change including moderate mixed interstitial and airspace opacit ies. TECHNICAL DOCUMENTATION: JOB ID: [id number]
[2017-04-07] MEDS: AMINO ACIDS 5%/D25W 1,000 ML IV PRN (07:49)
[2017-04-07] MEDS: POLYETHYLENE GLYCOL 3350 POWDER 17 GM/1 PACKET PEG SCH (10:02)
[2017-04-07] MEDS: PERAMPANEL 8 MG PO SCH (10:17)
[2017-04-07] MEDS: ENOXAPARIN SODIUM INJ 40 MG/0.4 ML DISP.SYRIN SUBCUT SCH (10:17)
[2017-04-07] MEDS: CETIRIZINE HCL ORAL SOLN 5 MG/5 ML UDCUP PEG SCH (10:18)
[2017-04-07] MEDS: FLUCONAZOLE 200 MG/NS RTU 100 ML IV SCH (10:18)
--- NOTE | 2017-04-07 10:50 | PDOC PROGRESS REPORT ---
Subjective Progress Note for:: 04/07/17 Subjective:: Patient remain intubated and vent supported. No recurrent fever since last clinical evakuation. Remain on IV Diflucan, Clindamycin and Tobramycin neb coverage. Tolerating restart of enteral tube feeding. Physical Exam Vital Signs: Temp Pulse Resp BP Pulse Ox 98.6 F 102 H 20 110/68 99 04/07/17 06:00 04/07/17 08:11 04/07/17 08:11 04/07/17 05:06 04/07/17 08:11 Intake & Output 04/06/17 04/07/17 04/08/17 06:59 06:59 06:59 Intake Total 2809 3414 Output Total 2780 4300 275 Balance 29 -886 -275 Weight 70 kg 70.2 kg Physical Exam: Intubated but respond to noxious stimuli. ET in-situ. Head exam: PRESENT: atraumatic, normocephalic Eye exam: PRESENT: conjunctival injection, conjunctiva pink, EOMI. ABSENT: scleral icterus Mouth exam: PRESENT: moist Respiratory exam: PRESENT: decreased breath sounds - lung bases Cardiovascular exam: PRESENT: RRR. ABSENT: diastolic murmur, rubs, systolic murmur GI/Abdominal exam: PRESENT: normal bowel sounds, tenderness - to palpation around midline abdominal surgical wound site with multiple sujata in-situ. Extremities exam: ABSENT: pedal edema - LILIBETH in use Neurological exam: PRESENT: altered - on IV propofol infusion for sedation while on ventilator Skin exam: PRESENT: dry, warm, other - healing surgical wound site on anterior abdominal wall. Results Laboratory Results: 04/06/17 09:04 04/06/17 09:04 04/07/17 05:38 Carbonic Acid 1.32 HCO3/H2CO3 Ratio 17:1 ABG pH 7.35 ABG pCO2 43.8 ABG pO2 92.7 ABG HCO3 23.6 ABG O2 Saturation 96.7 ABG Base Excess -1.9 FiO2 40% 04/02/17 14:30 Tracheal Aspirate Gram Stain - Final 04/02/17 14:30 Tracheal Aspirate Sputum Culture - Final C.albicans/C.dubliniensis Pseudomonas Aeruginosa Normal Sarahi 04/01/17 04/01/17 04/01/17 09:07 09:07 16:20 Creatine Kinase 58 75 CK-MB (CK-2) 0.61 Troponin I < 0.012 04/01/17 04/01/17 04/01/17 16:20 21:05 21:05 Creatine Kinase 86 CK-MB (CK-2) 0.43 0.46 Troponin I < 0.012 < 0.012 Impressions: Abdomen/Pelvis CT 03/26/17 00:00 IMPRESSION: 1. There is air and stool in the ascending colon. There is a markedly distended transverse colon and decompressed descending colon. Focal obstructing mass or extrinsic compression of the colon is not identified. There is no CT evidence of volvulus. 2. No significant small-bowel dilatation. There are thickened loops of small bowel in the left mid abdomen. Etiology of this is uncertain but infectious or inflammatory process cannot be excluded. The patient has an indwelling jejunostomy tube. 3. Free fluid in the pelvis etiology of this is uncertain. 4. Bibasilar consolidation consistent with pneumonia or lung collapse. Chest/Abdomen CTA 03/26/17 16:42 IMPRESSION: 1. No pulmonary emboli. 2. Bilateral lower lobe collapse and/or consolidation. There is a small left effusion as well. Mild right hilar as well as mediastinal adenopathy is present. This is most likely reactive. Chest Ultrasound 04/01/17 07:53 IMPRESSION: Trace bilateral pleural effusions. There is consolidation and collapse in the bilateral lower lobes, atelectasis versus pneumonia. No thoracentesis was performed. Abdomen X-Ray 04/04/17 00:00 IMPRESSION: Probable bibasilar atelectasis left greater than right. Pneumonia could not be excluded. Probable ileus. Gastrojejunostomy tube appears kinked along the distal 10 cm. Fluoroscopy 04/05/17 00:00 IMPRESSION: Gastrojejunostomy tube is in a different orientation than on the preop film from 03/27/2017. It may be doubled back upon itself in the patient's 2nd portion of duodenum. We were unable to straighten the catheter under fluoroscopy.. KUB X-Ray 04/05/17 00:00 IMPRESSION: Gastrojejunostomy tube is in a different orientation than on the preop film from 03/27/2017. It may be doubled back upon itself in the patient's 2nd portion of duodenum. We were unable to straighten the catheter under fluoroscopy.. Tube Placement 04/05/17 00:00 IMPRESSION: Gastrojejunostomy tube is in a different orientation than on the preop film from 03/27/2017. It may be doubled back upon itself in the patient's 2nd portion of duodenum. We were unable to straighten the catheter under fluoroscopy.. Chest X-Ray 04/07/17 06:00 IMPRESSION: No significant interval change including moderate mixed interstitial and airspace opacities. Assessment & Plan - Diagnosis (1) Acute ischemia of large intestine Is this a current diagnosis for this admission?: Yes (2) Ileus, postoperative Is this a current diagnosis for this admission?: Yes (3) Respiratory failure with hypoxia Qualifiers: Chronicity: acute Qualified Code(s): J96.01 - Acute respiratory failure with hypoxia Is this a current diagnosis for this admission?: Yes (4) Sepsis Qualifiers: Sepsis type: sepsis due to unspecified organism Qualified Code(s): A41.9 - Sepsis, unspecified organism Is this a current diagnosis for this admission?: Yes (5) Aspiration pneumonia Qualifiers: Aspiration pneumonia type: unspecified Laterality: right Lung location: lower lobe of lung Qualified Code(s): J69.0 - Pneumonitis due to inhalation of food and vomit Is this a current diagnosis for this admission?: Yes (6) Mental retardation Is this a current diagnosis for this admission?: Yes (7) Seizures Qualifiers: Convulsion type: unspecified Qualified Code(s): R56.9 - Unspecified convulsions Is this a current diagnosis for this admission?: Yes - Time Time Spent with patient: 25-34 minutes Medications reviewed and adjusted accordingly: Yes Anticipated discharge: Other Within: Other - Inpatient Certification Medical Necessity: Need Close Monitoring Due to Risk of Patient Decompensation, Need For IV Fluids, Need For Continuous Telemetry Monitoring, Need for Nebulizer Therapy and Monitoring of Response, Need for IV Antibiotics, Risk of Complication if Not Cared For in Hospital 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
--- NOTE | 2017-04-07 16:58 | PDOC PROGRESS REPORT ---
Subjective Progress Note for:: 04/07/17 Subjective:: Awake Physical Exam Vital Signs: Temp Pulse Resp BP Pulse Ox 98.6 F 93 16 110/68 98 04/07/17 06:00 04/07/17 07:09 04/07/17 06:00 04/07/17 05:06 04/07/17 06:00 Intake & Output 04/06/17 04/07/17 04/08/17 06:59 06:59 06:59 Intake Total 2809 3414 Output Total 5736 4300 Balance 29 -886 Weight 70 kg 70.2 kg General appearance: PRESENT: no acute distress, disheveled Head exam: PRESENT: atraumatic, normocephalic Eye exam: PRESENT: conjunctiva pale, EOMI Mouth exam: PRESENT: dry mucosa, neck supple, other - ET tube Neck exam: ABSENT: carotid bruit, JVD, lymphadenopathy, thyromegaly Respiratory exam: PRESENT: decreased breath sounds, prolonged expiratory phas, rhonchi, unlabored Cardiovascular exam: PRESENT: RRR, +S1, +S2 Pulses: PRESENT: normal radial pulses GI/Abdominal exam: PRESENT: normal bowel sounds, soft, other - feeding tube. ABSENT: distended, guarding, mass, organolmegaly, rebound, tenderness Rectal exam: PRESENT: deferred Gentrourinary exam: PRESENT: indwelling catheter Musculoskeletal exam: PRESENT: normal inspection Neurological exam: PRESENT: awake Skin exam: PRESENT: dry, warm Results Laboratory Results: 04/06/17 09:04 04/06/17 09:04 04/06/17 04/06/17 04/06/17 08:30 09:04 09:04 WBC 9.0 RBC 2.60 L Hgb 8.1 L Hct 24.6 L MCV 94 MCH 30.9 MCHC 32.8 RDW 17.0 H Plt Count 411 Seg Neutrophils % 81.5 H Lymphocytes % 10.9 L Monocytes % 6.3 Eosinophils % 1.2 Basophils % 0.1 Absolute Neutrophils 7.3 Absolute Lymphocytes 1.0 Absolute Monocytes 0.6 Absolute Eosinophils 0.1 Absolute Basophils 0.0 Carbonic Acid 1.32 HCO3/H2CO3 Ratio 17:1 ABG pH 7.34 L ABG pCO2 44.0 ABG pO2 43.1 L ABG HCO3 22.9 ABG O2 Saturation 75.7 L ABG Base Excess -2.8 FiO2 40% Sodium 140.3 Potassium 3.8 Chloride 110 H Carbon Dioxide 22 Anion Gap 8 BUN 12 Creatinine 0.49 L Est GFR ( Amer) > 60 Est GFR (Non-Af Amer) > 60 Glucose 102 Calcium 7.8 L 04/07/17 05:38 WBC RBC Hgb Hct MCV MCH MCHC RDW Plt Count Seg Neutrophils % Lymphocytes % Monocytes % Eosinophils % Basophils % Absolute Neutrophils Absolute Lymphocytes Absolute Monocytes Absolute Eosinophils Absolute Basophils Carbonic Acid 1.32 HCO3/H2CO3 Ratio 17:1 ABG pH 7.35 ABG pCO2 43.8 ABG pO2 92.7 ABG HCO3 23.6 ABG O2 Saturation 96.7 ABG Base Excess -1.9 FiO2 40% Sodium Potassium Chloride Carbon Dioxide Anion Gap BUN Creatinine Est GFR ( Amer) Est GFR (Non-Af Amer) Glucose Calcium 04/02/17 14:30 Tracheal Aspirate Gram Stain - Final 04/01/17 04/01/17 04/01/17 09:07 09:07 16:20 Creatine Kinase 58 75 CK-MB (CK-2) 0.61 Troponin I < 0.012 04/01/17 04/01/17 04/01/17 16:20 21:05 21:05 Creatine Kinase 86 CK-MB (CK-2) 0.43 0.46 Troponin I < 0.012 < 0.012 Impressions: Abdomen/Pelvis CT 03/26/17 00:00 IMPRESSION: 1. There is air and stool in the ascending colon. There is a markedly distended transverse colon and decompressed descending colon. Focal obstructing mass or extrinsic compression of the colon is not identified. There is no CT evidence of volvulus. 2. No significant small-bowel dilatation. There are thickened loops of small bowel in the left mid abdomen. Etiology of this is uncertain but infectious or inflammatory process cannot be excluded. The patient has an indwelling jejunostomy tube. 3. Free fluid in the pelvis etiology of this is uncertain. 4. Bibasilar consolidation consistent with pneumonia or lung collapse. Chest/Abdomen CTA 03/26/17 16:42 IMPRESSION: 1. No pulmonary emboli. 2. Bilateral lower lobe collapse and/or consolidation. There is a small left effusion as well. Mild right hilar as well as mediastinal adenopathy is present. This is most likely reactive. Chest Ultrasound 04/01/17 07:53 IMPRESSION: Trace bilateral pleural effusions. There is consolidation and collapse in the bilateral lower lobes, atelectasis versus pneumonia. No thoracentesis was performed. Abdomen X-Ray 04/04/17 00:00 IMPRESSION: Probable bibasilar atelectasis left greater than right. Pneumonia could not be excluded. Probable ileus. Gastrojejunostomy tube appears kinked along the distal 10 cm. Fluoroscopy 04/05/17 00:00 IMPRESSION: Gastrojejunostomy tube is in a different orientation than on the preop film from 03/27/2017. It may be doubled back upon itself in the patient's 2nd portion of duodenum. We were unable to straighten the catheter under fluoroscopy.. KUB X-Ray 04/05/17 00:00 IMPRESSION: Gastrojejunostomy tube is in a different orientation than on the preop film from 03/27/2017. It may be doubled back upon itself in the patient's 2nd portion of duodenum. We were unable to straighten the catheter under fluoroscopy.. Tube Placement 04/05/17 00:00 IMPRESSION: Gastrojejunostomy tube is in a different orientation than on the preop film from 03/27/2017. It may be doubled back upon itself in the patient's 2nd portion of duodenum. We were unable to straighten the catheter under fluoroscopy.. Chest X-Ray 04/07/17 06:00 IMPRESSION: No significant interval change including moderate mixed interstitial and airspace opacities. Assessment & Plan - Diagnosis (1) Acute respiratory failure Qualifiers: Respiratory failure complication: hypoxia Qualified Code(s): J96.01 - Acute respiratory failure with hypoxia Is this a current diagnosis for this admission?: YesPlan: improving (2) Aspiration pneumonia Qualifiers: Aspiration pneumonia type: unspecified Laterality: right Lung location: lower lobe of lung Qualified Code(s): J69.0 - Pneumonitis due to inhalation of food and vomit Is this a current diagnosis for this admission?: Yes (3) Cerebral palsy Qualifiers: Cerebral palsy type: unspecified type Qualified Code(s): G80.9 - Cerebral palsy, unspecified Is this a current diagnosis for this admission?: Yes (4) Mental retardation Is this a current diagnosis for this admission?: Yes (5) Septic shock Is this a current diagnosis for this admission?: No - Time Critical Time spent with patient: 25-34 minutes
[2017-04-07] MEDS: LACTULOSE SYRUP 20 GM/30 ML UDCUP PO SCH (17:38)
[2017-04-07] MEDS: OLOPATADINE HCL 0.1% OPH SOLN 5 ML OU PRN (21:18)
[2017-04-07] MEDS: ACETAMINOPHEN 650 MG SUPP.RECT PR PRN (21:18)
[2017-04-07] MEDS: ZONISAMIDE 100 MG CAPSULE PEG SCH (21:18)
--- NOTE | 2017-04-07 23:58 | PROGRESS NOTE E ---
Progress Note NAME: MERCY WORLEY : 1985 AGE: 31Y DATE: 04/07/2017 ROOM: 601 SUBJECTIVE: Patient is still intubated and being weaned from the respirator. However, if patient needed to be reintubated or need of trach, the mother does not want any trach done. He is tolerating his tube feeds which were increased today. His TPN will be stopped at 4:00 a.m. in the morning. OBJECTIVE: His incision site is healing well. The abdomen is soft, no definite tenderness. He still has a low grade fever with tachycardia, about 114 per minute. PLAN: I think that the central line is a possible source of infection, and hopefully can be discontinued in the morning, and they can put a peripheral line in him. DICTATING PHYSICIAN: MASSIMO BARRY M.D. [id number] PHY#: [id number] ID: [id number] JOB#: [id number] ACCT: [id number] cc: >
[2017-04-08] MEDS: NORMAL SALINE 1000 ML 1,000 ML IV PRN (02:18)
[2017-04-08] MEDS: LEVALBUTEROL HCL NEB 1.25 MG/3 ML AMPUL NEB SCH ×4 (04:12→16:37)
[2017-04-08] MEDS: PROPOFOL 100 ML IV PRN (04:15)
[2017-04-08] MEDS: CLINDAMYCIN 600 MG/D5W RTU 600 MG/50 ML RTUPB IV SCH ×3 (05:30→17:31)
[2017-04-08] MEDS: ERYTHROMYCIN 0.5% OPH OINTMENT 3.5 GM TUBE OU SCH ×3 (05:30→17:33)
[2017-04-08] MEDS: METOCLOPRAMIDE HCL INJ/PF 10 MG/2 ML SDV IV SCH ×2 (05:30→17:33)
[2017-04-08] MEDS: CARBAMAZEPINE 100 MG TAB.CHEW PEG SCH ×2 (05:31→17:31)
[2017-04-08 05:55] LABS: ARTERIAL BLOOD BASE EXCESS 1.3 mmol/L; ARTERIAL BLOOD O2 SATURATION 97.3 % (94-98)
[2017-04-08 06:14] LABS: BLOOD UREA NITROGEN 14 mg/dL (7-20); CALCIUM 7.7 mg/dL (8.4-10.2); CARBON DIOXIDE 25 mmol/L (22-30); CHLORIDE 106 mmol/L (98-107); CREATININE RESULT 0.52 mg/dL (0.52-1.25); GLUCOSE 97 mg/dL (75-110); POTASSIUM 3.8 mmol/L (3.6-5.0); SODIUM 140.3 mmol/L (137-145)
[2017-04-08 06:15] LABS: ALANINE AMINOTRANSFERASE 39 U/L (21-72); ALBUMIN 2.6 g/dL (3.5-5.0); ALKALINE PHOSPHATASE 94 U/L (38-126); ANION GAP 9 (5-19); ASPARTATE AMINO TRANSFERASE 25 U/L (17-59); BILIRUBIN,DIRECT 0.6 mg/dL (0.0-0.4); BILIRUBIN,TOTAL 0.6 mg/dL (0.2-1.3); MAGNESIUM 1.9 mg/dL (1.6-2.3); TOTAL PROTEIN 6.1 g/dL (6.3-8.2); TRIGLYCERIDES 69 mg/dL (<150)
[2017-04-08 06:21] LABS: PREALBUMIN 15.7 mg/dL (17.6-36.0)
[2017-04-08 06:36] LABS: HEMATOCRIT 24.8 % (37.9-51.0); HGB HCT DIFFERENCE -1.1; MEAN CORPUSCULAR HEMOGLOBIN 30.3 pg (27.0-33.4); MEAN CORPUSCULAR HGB CONC 31.9 g/dL (32.0-36.0); MEAN CORPUSCULAR VOLUME 95 fl (80-97); RED BLOOD COUNT 2.61 10^6/uL (4.35-5.55); RED CELL DISTRIBUTION WIDTH 16.9 % (11.5-14.0); WHITE BLOOD COUNT 8.8 10^3/uL (4.0-10.5)
[2017-04-08 06:39] LABS: HEMOGLOBIN 7.9 g/dL (13.5-17.0)
--- NOTE | 2017-04-08 07:12 | RADIOLOGY REPORT (SQ) ---
EXAM DESCRIPTION: CHEST SINGLE VIEW COMPLETED DATE/TIME: 04/08/2017 6:54 am REASON FOR STUDY: resp failure COMPARISON: 04/07/2017. EXAM PARAMETERS: NUMBER OF VIEWS: One view. TECHNIQUE: Single frontal radiographic view of the chest acquired. RADIATION DOSE: NA LIMITATIONS: None. FINDINGS: LUNGS AND PLEURA: Moderate lung volumes. Small patchiness of the lateral left lower lung field. MEDIASTINUM AND HILAR STRUCTURES: No masses. Contour normal. HEART AND VASCULAR STRUCTURES: Heart normal in size. Normal vasculature. BONES: No acute findings. HARDWARE: Tip of an endotracheal tube at the thoracic inlet ; consider 2 cm advancement. Tip of a ri ght os internal jugular central line at the proximal right atrium ; consider 3 cm retraction. [place] te appearing NG tube. OTHER: No other significant finding. IMPRESSION: No significant interval change. TECHNICAL DOCUMENTATION: JOB ID: [id number]
--- NOTE | 2017-04-08 09:01 | PDOC PROGRESS REPORT ---
Subjective Progress Note for:: 04/08/17 Subjective:: Awake Physical Exam Vital Signs: Temp Pulse Resp BP Pulse Ox 98.6 F 100 20 108/69 99 04/08/17 08:07 04/08/17 08:00 04/08/17 08:07 04/08/17 08:07 04/08/17 08:07 Intake & Output 04/07/17 04/08/17 04/09/17 06:59 06:59 06:59 Intake Total 3414 3675 Output Total 4307 6160 15 Balance -886 -75 -15 Weight 70.2 kg 69.7 kg General appearance: PRESENT: no acute distress, cooperative, disheveled Head exam: PRESENT: atraumatic, normocephalic Eye exam: PRESENT: conjunctiva pale, EOMI Mouth exam: PRESENT: dry mucosa, neck supple, tongue midline, other - ET tube Neck exam: ABSENT: carotid bruit, JVD, lymphadenopathy, thyromegaly Respiratory exam: PRESENT: decreased breath sounds, prolonged expiratory phas, rhonchi, symmetrical, unlabored Cardiovascular exam: PRESENT: RRR, +S1, +S2 Pulses: PRESENT: normal radial pulses GI/Abdominal exam: PRESENT: normal bowel sounds, soft. ABSENT: distended, guarding, mass, organolmegaly, rebound, tenderness Rectal exam: PRESENT: deferred Gentrourinary exam: PRESENT: indwelling catheter Extremities exam: PRESENT: +2 edema Neurological exam: PRESENT: awake Skin exam: PRESENT: dry, warm Results Laboratory Results: 04/08/17 05:40 04/08/17 05:40 04/08/17 04/08/17 04/08/17 05:40 05:40 05:40 WBC 8.8 RBC 2.61 L Hgb 7.9 L Hct 24.8 L MCV 95 MCH 30.3 MCHC 31.9 L RDW 16.9 H Plt Count 484 H Carbonic Acid 1.19 HCO3/H2CO3 Ratio 21:1 ABG pH 7.43 ABG pCO2 39.7 ABG pO2 92.8 ABG HCO3 25.7 ABG O2 Saturation 97.3 ABG Base Excess 1.3 FiO2 40% Sodium 140.3 Potassium 3.8 Chloride 106 Carbon Dioxide 25 Anion Gap 9 BUN 14 Creatinine 0.52 Est GFR ( Amer) > 60 Est GFR (Non-Af Amer) > 60 Glucose 97 Calcium 7.7 L Phosphorus 4.0 Magnesium 1.9 Total Bilirubin 0.6 AST 25 ALT 39 Alkaline Phosphatase 94 Total Protein 6.1 L Albumin 2.6 L Prealbumin 15.7 L Triglycerides 69 04/02/17 11:10 Blood Blood Culture - Final NO GROWTH IN 5 DAYS 04/02/17 10:33 Blood Blood Culture - Final NO GROWTH IN 5 DAYS 04/02/17 14:30 Tracheal Aspirate Gram Stain - Final 04/02/17 14:30 Tracheal Aspirate Sputum Culture - Final C.albicans/C.dubliniensis Pseudomonas Aeruginosa Normal Sarahi 04/01/17 04/01/17 04/01/17 09:07 09:07 16:20 Creatine Kinase 58 75 CK-MB (CK-2) 0.61 Troponin I < 0.012 04/01/17 04/01/17 04/01/17 16:20 21:05 21:05 Creatine Kinase 86 CK-MB (CK-2) 0.43 0.46 Troponin I < 0.012 < 0.012 Impressions: Abdomen/Pelvis CT 03/26/17 00:00 IMPRESSION: 1. There is air and stool in the ascending colon. There is a markedly distended transverse colon and decompressed descending colon. Focal obstructing mass or extrinsic compression of the colon is not identified. There is no CT evidence of volvulus. 2. No significant small-bowel dilatation. There are thickened loops of small bowel in the left mid abdomen. Etiology of this is uncertain but infectious or inflammatory process cannot be excluded. The patient has an indwelling jejunostomy tube. 3. Free fluid in the pelvis etiology of this is uncertain. 4. Bibasilar consolidation consistent with pneumonia or lung collapse. Chest/Abdomen CTA 03/26/17 16:42 IMPRESSION: 1. No pulmonary emboli. 2. Bilateral lower lobe collapse and/or consolidation. There is a small left effusion as well. Mild right hilar as well as mediastinal adenopathy is present. This is most likely reactive. Chest Ultrasound 04/01/17 07:53 IMPRESSION: Trace bilateral pleural effusions. There is consolidation and collapse in the bilateral lower lobes, atelectasis versus pneumonia. No thoracentesis was performed. Abdomen X-Ray 04/04/17 00:00 IMPRESSION: Probable bibasilar atelectasis left greater than right. Pneumonia could not be excluded. Probable ileus. Gastrojejunostomy tube appears kinked along the distal 10 cm. Fluoroscopy 04/05/17 00:00 IMPRESSION: Gastrojejunostomy tube is in a different orientation than on the preop film from 03/27/2017. It may be doubled back upon itself in the patient's 2nd portion of duodenum. We were unable to straighten the catheter under fluoroscopy.. KUB X-Ray 04/05/17 00:00 IMPRESSION: Gastrojejunostomy tube is in a different orientation than on the preop film from 03/27/2017. It may be doubled back upon itself in the patient's 2nd portion of duodenum. We were unable to straighten the catheter under fluoroscopy.. Tube Placement 04/05/17 00:00 IMPRESSION: Gastrojejunostomy tube is in a different orientation than on the preop film from 03/27/2017. It may be doubled back upon itself in the patient's 2nd portion of duodenum. We were unable to straighten the catheter under fluoroscopy.. Chest X-Ray 04/08/17 06:00 IMPRESSION: No significant interval change. Assessment & Plan - Diagnosis (1) Acute respiratory failure Qualifiers: Respiratory failure complication: hypoxia Qualified Code(s): J96.01 - Acute respiratory failure with hypoxia Is this a current diagnosis for this admission?: YesPlan: will extubate (2) Aspiration pneumonia Qualifiers: Aspiration pneumonia type: unspecified Laterality: right Lung location: lower lobe of lung Qualified Code(s): J69.0 - Pneumonitis due to inhalation of food and vomit Is this a current diagnosis for this admission?: Yes (3) Cerebral palsy Qualifiers: Cerebral palsy type: unspecified type Qualified Code(s): G80.9 - Cerebral palsy, unspecified Is this a current diagnosis for this admission?: Yes (4) Mental retardation Is this a current diagnosis for this admission?: Yes (5) Septic shock Is this a current diagnosis for this admission?: No - Time Critical Time spent with patient: 35 or more minutes - 155 min - Plan Summary Plan Summary: discussed with patient mom she does not want patient reintubated nor does she want a tracheostomy. post extubation patient required BI-PAP .Patient continued to struggle with BI- PAP ,patient's mother requested comfort care be initiated.
--- NOTE | 2017-04-08 09:58 | PDOC PROGRESS REPORT ---
Subjective Progress Note for:: 04/08/17 Subjective:: Patient recently extubated, tolerating this well. Patient has been tachycardic and has low-grade fever. Physical Exam Vital Signs: Temp Pulse Resp BP Pulse Ox 98.6 F 100 20 108/69 99 04/08/17 08:07 04/08/17 08:00 04/08/17 08:07 04/08/17 08:07 04/08/17 08:07 Intake & Output 04/07/17 04/08/17 04/09/17 06:59 06:59 06:59 Intake Total 3414 3675 Output Total 4300 3750 15 Balance -886 -75 -15 Weight 70.2 kg 69.7 kg General appearance: PRESENT: mild distress GI/Abdominal exam: PRESENT: other - Feeding tube intact; midline incision with have sujata in position. Results Laboratory Results: 04/08/17 05:40 04/08/17 05:40 04/08/17 04/08/17 04/08/17 05:40 05:40 05:40 WBC 8.8 RBC 2.61 L Hgb 7.9 L Hct 24.8 L MCV 95 MCH 30.3 MCHC 31.9 L RDW 16.9 H Plt Count 484 H Carbonic Acid 1.19 HCO3/H2CO3 Ratio 21:1 ABG pH 7.43 ABG pCO2 39.7 ABG pO2 92.8 ABG HCO3 25.7 ABG O2 Saturation 97.3 ABG Base Excess 1.3 FiO2 40% Sodium 140.3 Potassium 3.8 Chloride 106 Carbon Dioxide 25 Anion Gap 9 BUN 14 Creatinine 0.52 Est GFR ( Amer) > 60 Est GFR (Non-Af Amer) > 60 Glucose 97 Calcium 7.7 L Phosphorus 4.0 Magnesium 1.9 Total Bilirubin 0.6 AST 25 ALT 39 Alkaline Phosphatase 94 Total Protein 6.1 L Albumin 2.6 L Prealbumin 15.7 L Triglycerides 69 04/02/17 11:10 Blood Blood Culture - Final NO GROWTH IN 5 DAYS 04/02/17 10:33 Blood Blood Culture - Final NO GROWTH IN 5 DAYS 04/02/17 14:30 Tracheal Aspirate Gram Stain - Final 04/02/17 14:30 Tracheal Aspirate Sputum Culture - Final C.albicans/C.dubliniensis Pseudomonas Aeruginosa Normal Sarahi 04/01/17 04/01/17 04/01/17 09:07 09:07 16:20 Creatine Kinase 58 75 CK-MB (CK-2) 0.61 Troponin I < 0.012 04/01/17 04/01/17 04/01/17 16:20 21:05 21:05 Creatine Kinase 86 CK-MB (CK-2) 0.43 0.46 Troponin I < 0.012 < 0.012 Impressions: Abdomen/Pelvis CT 03/26/17 00:00 IMPRESSION: 1. There is air and stool in the ascending colon. There is a markedly distended transverse colon and decompressed descending colon. Focal obstructing mass or extrinsic compression of the colon is not identified. There is no CT evidence of volvulus. 2. No significant small-bowel dilatation. There are thickened loops of small bowel in the left mid abdomen. Etiology of this is uncertain but infectious or inflammatory process cannot be excluded. The patient has an indwelling jejunostomy tube. 3. Free fluid in the pelvis etiology of this is uncertain. 4. Bibasilar consolidation consistent with pneumonia or lung collapse. Chest/Abdomen CTA 03/26/17 16:42 IMPRESSION: 1. No pulmonary emboli. 2. Bilateral lower lobe collapse and/or consolidation. There is a small left effusion as well. Mild right hilar as well as mediastinal adenopathy is present. This is most likely reactive. Chest Ultrasound 04/01/17 07:53 IMPRESSION: Trace bilateral pleural effusions. There is consolidation and collapse in the bilateral lower lobes, atelectasis versus pneumonia. No thoracentesis was performed. Abdomen X-Ray 04/04/17 00:00 IMPRESSION: Probable bibasilar atelectasis left greater than right. Pneumonia could not be excluded. Probable ileus. Gastrojejunostomy tube appears kinked along the distal 10 cm. Fluoroscopy 04/05/17 00:00 IMPRESSION: Gastrojejunostomy tube is in a different orientation than on the preop film from 03/27/2017. It may be doubled back upon itself in the patient's 2nd portion of duodenum. We were unable to straighten the catheter under fluoroscopy.. KUB X-Ray 04/05/17 00:00 IMPRESSION: Gastrojejunostomy tube is in a different orientation than on the preop film from 03/27/2017. It may be doubled back upon itself in the patient's 2nd portion of duodenum. We were unable to straighten the catheter under fluoroscopy.. Tube Placement 04/05/17 00:00 IMPRESSION: Gastrojejunostomy tube is in a different orientation than on the preop film from 03/27/2017. It may be doubled back upon itself in the patient's 2nd portion of duodenum. We were unable to straighten the catheter under fluoroscopy.. Chest X-Ray 04/08/17 06:00 IMPRESSION: No significant interval change. Assessment & Plan - Diagnosis (1) Cecal volvulus Is this a current diagnosis for this admission?: Yes (2) Acute ischemia of large intestine Is this a current diagnosis for this admission?: YesPlan: Patient now 12 days status post exploratory laparotomy, partial right hemicolectomy, ilio colostomy for sigmoid volvulus doing well with tolerance of tube feeds. I did review the abdominal film from several days ago which shows a loop in the mid to distal jejunal portion of the feeding tube. The feeding tube has been functioning satisfactorily so I would leave it as is for now. An attempt was made by radiology to manipulated with a guidewire but was unsuccessful. I suggest we discontinue the central line as it is been in for close to weeks. Replacement central line versus PICC line will be considered.
--- NOTE | 2017-04-08 10:39 | PDOC PROGRESS REPORT ---
Subjective Progress Note for:: 04/08/17 Subjective:: Patient post extubation and remain on tent collar supplementation with satisfactory oxygenation reading so far. He will be on DNI status as per mother' s decision. No fever. Remain on IV Diflucan and Clindamycin coverage. Tolerating restart of tube feeding. Physical Exam Vital Signs: Temp Pulse Resp BP Pulse Ox 98.6 F 75 24 H 135/82 H 96 04/08/17 08:07 04/08/17 08:50 04/08/17 08:50 04/08/17 08:50 04/08/17 08:50 Intake & Output 04/07/17 04/08/17 04/09/17 06:59 06:59 06:59 Intake Total 3414 3675 Output Total 4300 3750 15 Balance -886 -75 -15 Weight 70.2 kg 69.7 kg Physical Exam: GENERAL: PRESENT: Awake, cooperative, Remain on tent collar supplemental oxygen. Head exam: PRESENT: atraumatic, normocephalic Eye exam: PRESENT: conjunctival injection, conjunctiva pink, EOMI. ABSENT: scleral icterus Mouth exam: PRESENT: moist Respiratory exam: PRESENT: decreased breath sounds - lung bases Cardiovascular exam: PRESENT: RRR. ABSENT: diastolic murmur, rubs, systolic murmur GI/Abdominal exam: PRESENT: normal bowel sounds, tenderness - to palpation around midline abdominal surgical wound site with multiple sujata in-situ. Extremities exam: ABSENT: pedal edema - LILIBETH in use Neurological exam: PRESENT: altered - on IV propofol infusion for sedation while on ventilator Skin exam: PRESENT: dry, warm, other - healing surgical wound site on anterior abdominal wall. Results Laboratory Results: 04/08/17 05:40 04/08/17 05:40 04/08/17 04/08/17 04/08/17 05:40 05:40 05:40 WBC 8.8 RBC 2.61 L Hgb 7.9 L Hct 24.8 L MCV 95 MCH 30.3 MCHC 31.9 L RDW 16.9 H Plt Count 484 H Carbonic Acid 1.19 HCO3/H2CO3 Ratio 21:1 ABG pH 7.43 ABG pCO2 39.7 ABG pO2 92.8 ABG HCO3 25.7 ABG O2 Saturation 97.3 ABG Base Excess 1.3 FiO2 40% Sodium 140.3 Potassium 3.8 Chloride 106 Carbon Dioxide 25 Anion Gap 9 BUN 14 Creatinine 0.52 Est GFR ( Amer) > 60 Est GFR (Non-Af Amer) > 60 Glucose 97 Calcium 7.7 L Phosphorus 4.0 Magnesium 1.9 Total Bilirubin 0.6 AST 25 ALT 39 Alkaline Phosphatase 94 Total Protein 6.1 L Albumin 2.6 L Prealbumin 15.7 L Triglycerides 69 04/02/17 11:10 Blood Blood Culture - Final NO GROWTH IN 5 DAYS 04/02/17 10:33 Blood Blood Culture - Final NO GROWTH IN 5 DAYS 04/02/17 14:30 Tracheal Aspirate Gram Stain - Final 04/02/17 14:30 Tracheal Aspirate Sputum Culture - Final C.albicans/C.dubliniensis Pseudomonas Aeruginosa Normal Sarahi 04/01/17 04/01/17 04/01/17 09:07 09:07 16:20 Creatine Kinase 58 75 CK-MB (CK-2) 0.61 Troponin I < 0.012 04/01/17 04/01/17 04/01/17 16:20 21:05 21:05 Creatine Kinase 86 CK-MB (CK-2) 0.43 0.46 Troponin I < 0.012 < 0.012 Impressions: Abdomen/Pelvis CT 03/26/17 00:00 IMPRESSION: 1. There is air and stool in the ascending colon. There is a markedly distended transverse colon and decompressed descending colon. Focal obstructing mass or extrinsic compression of the colon is not identified. There is no CT evidence of volvulus. 2. No significant small-bowel dilatation. There are thickened loops of small bowel in the left mid abdomen. Etiology of this is uncertain but infectious or inflammatory process cannot be excluded. The patient has an indwelling jejunostomy tube. 3. Free fluid in the pelvis etiology of this is uncertain. 4. Bibasilar consolidation consistent with pneumonia or lung collapse. Chest/Abdomen CTA 03/26/17 16:42 IMPRESSION: 1. No pulmonary emboli. 2. Bilateral lower lobe collapse and/or consolidation. There is a small left effusion as well. Mild right hilar as well as mediastinal adenopathy is present. This is most likely reactive. Chest Ultrasound 04/01/17 07:53 IMPRESSION: Trace bilateral pleural effusions. There is consolidation and collapse in the bilateral lower lobes, atelectasis versus pneumonia. No thoracentesis was performed. Abdomen X-Ray 04/04/17 00:00 IMPRESSION: Probable bibasilar atelectasis left greater than right. Pneumonia could not be excluded. Probable ileus. Gastrojejunostomy tube appears kinked along the distal 10 cm. Fluoroscopy 04/05/17 00:00 IMPRESSION: Gastrojejunostomy tube is in a different orientation than on the preop film from 03/27/2017. It may be doubled back upon itself in the patient's 2nd portion of duodenum. We were unable to straighten the catheter under fluoroscopy.. KUB X-Ray 04/05/17 00:00 IMPRESSION: Gastrojejunostomy tube is in a different orientation than on the preop film from 03/27/2017. It may be doubled back upon itself in the patient's 2nd portion of duodenum. We were unable to straighten the catheter under fluoroscopy.. Tube Placement 04/05/17 00:00 IMPRESSION: Gastrojejunostomy tube is in a different orientation than on the preop film from 03/27/2017. It may be doubled back upon itself in the patient's 2nd portion of duodenum. We were unable to straighten the catheter under fluoroscopy.. Chest X-Ray 04/08/17 06:00 IMPRESSION: No significant interval change. Assessment & Plan - Diagnosis (1) Acute ischemia of large intestine Is this a current diagnosis for this admission?: Yes (2) Ileus, postoperative Is this a current diagnosis for this admission?: Yes (3) Respiratory failure with hypoxia Qualifiers: Chronicity: acute Qualified Code(s): J96.01 - Acute respiratory failure with hypoxia Is this a current diagnosis for this admission?: Yes (4) Sepsis Qualifiers: Sepsis type: sepsis due to unspecified organism Qualified Code(s): A41.9 - Sepsis, unspecified organism Is this a current diagnosis for this admission?: Yes (5) Aspiration pneumonia Qualifiers: Aspiration pneumonia type: unspecified Laterality: right Lung location: lower lobe of lung Qualified Code(s): J69.0 - Pneumonitis due to inhalation of food and vomit Is this a current diagnosis for this admission?: Yes (6) Mental retardation Is this a current diagnosis for this admission?: Yes (7) Seizures Qualifiers: Convulsion type: unspecified Qualified Code(s): R56.9 - Unspecified convulsions Is this a current diagnosis for this admission?: Yes - Time Time Spent with patient: 25-34 minutes Medications reviewed and adjusted accordingly: Yes Anticipated discharge: Other Within: Other - Inpatient Certification Medical Necessity: Need Close Monitoring Due to Risk of Patient Decompensation, Need For IV Fluids, Need For Continuous Telemetry Monitoring, Need for Nebulizer Therapy and Monitoring of Response, Need for IV Antibiotics, Risk of Complication if Not Cared For in Hospital Post Hospital Care: D/C or Transfer Summary - Plan Summary Plan Summary: Patient will remain on DNI status. Continue current medication management. Continue to monitor hemoglobin trend and transfuse if lower that 7.5gm/dL.
[2017-04-08] MEDS: CETIRIZINE HCL ORAL SOLN 5 MG/5 ML UDCUP PEG SCH (10:48)
[2017-04-08] MEDS: FLUCONAZOLE 200 MG/NS RTU 100 ML IV SCH (10:48)
[2017-04-08] MEDS: PERAMPANEL 8 MG PO SCH (10:52)
[2017-04-08] MEDS: ENOXAPARIN SODIUM INJ 40 MG/0.4 ML DISP.SYRIN SUBCUT SCH (11:49)
[2017-04-08] MEDS: POLYETHYLENE GLYCOL 3350 POWDER 17 GM/1 PACKET PEG SCH (11:49)
[2017-04-08] MEDS ORDERED: NORMAL SALINE INJ/PF 0.9% 10 ML SDV IV PRN (16:18)
--- NOTE | 2017-04-08 16:22 | Operative Report ---
Nonrecallable Operative Report DATE OF SURGERY: 04/08/17 PREOPERATIVE DIAGNOSIS: Respiratory failure POSTOPERATIVE DIAGNOSIS: Same OPERATION: 1. Ultrasound directed insertion of left subclavian triple-lumen access catheter SURGEON: KYLIE GARAY ANESTHESIA: Local TISSUE REMOVED OR ALTERED: None COMPLICATIONS: None ESTIMATED BLOOD LOSS: Scant INTRAOPERATIVE FINDINGS: See below PROCEDURE: The patient was placed in a semirecumbent position. Consent provided by patient 's mother. Patient on BiPAP, with moderate tachypnea and head agitation. Left neck and chest wall prepped and draped in sterile fashion. Surgical plan and surgical timeout were conducted. Left internal jugular vein scan with a variable frequency linear transducer. Skin anesthetized 1% lidocaine with epinephrine. Due to patient motion, left IJ vein unsuccessfully accessed. Left IJ position aborted. Skin anesthetized the left subclavian position. Subclavian vein accessed uneventfully wire threaded into position and using the Seldinger technique, a triple-lumen central venous access catheter was threaded into the left subclavian vein uneventfully. There was excellent blood flow through all 3 lm. Catheter was flushed with heparinized saline and secured to the skin with Biopatch 2-0 silk suture and sterile dressing Patient tolerated the procedure well. Portable upright chest x-ray pending at time of dictation.
[2017-04-08 16:38] LABS: HEMATOCRIT 28.2 % (37.9-51.0); HEMOGLOBIN 9.3 g/dL (13.5-17.0); HGB HCT DIFFERENCE -0.3; MEAN CORPUSCULAR HEMOGLOBIN 30.9 pg (27.0-33.4); MEAN CORPUSCULAR HGB CONC 33.1 g/dL (32.0-36.0); MEAN CORPUSCULAR VOLUME 93 fl (80-97); RED BLOOD COUNT 3.02 10^6/uL (4.35-5.55); WHITE BLOOD COUNT 10.2 10^3/uL (4.0-10.5)
--- NOTE | 2017-04-08 17:08 | RADIOLOGY REPORT (SQ) ---
EXAM DESCRIPTION: CHEST SINGLE VIEW COMPLETED DATE/TIME: 04/08/2017 4:56 pm REASON FOR STUDY: post left sc cvp COMPARISON: None. EXAM PARAMETERS: NUMBER OF VIEWS: One view. TECHNIQUE: Single frontal radiographic view of the chest acquired. RADIATION DOSE: NA LIMITATIONS: None. FINDINGS: LUNGS AND PLEURA: Patchy opacifications present on the medial right base and in the left l ower lobe. MEDIASTINUM AND HILAR STRUCTURES: No masses. Contour normal. HEART AND VASCULAR STRUCTURES: Heart normal in size. Normal vasculature. BONES: No acute findings. HARDWARE: A right internal jugular catheter has its tips in the superior vena cava near the right atr ium. The endotracheal tube is been removed. OTHER: No other significant finding. IMPRESSION: Possible multicentric pneumonia in the left and right lower lobes. Patient has been ext ubated. TECHNICAL DOCUMENTATION: JOB ID: [id number]
[2017-04-08] MEDS: LACTULOSE SYRUP 20 GM/30 ML UDCUP PO SCH (17:34)
[2017-04-08] MEDS: MORPHINE SULFATE 10 MG/ML INJ IV PRN ×2 (17:56→19:52)
[2017-04-08] MEDS: ACETAMINOPHEN 650 MG SUPP.RECT PR PRN (19:30)
[2017-04-08] MEDS ORDERED: MORPHINE SULFATE 10 MG/ML INJ IV PRN ×2 (19:56→21:38)
[2017-04-08] MEDS ORDERED: LORAZEPAM INJ 2 MG/1 ML VIAL IV PRN (19:58)
[2017-04-08] MEDS ORDERED: ONDANSETRON HCL INJ/PF 4 MG/2 ML SDV IV PRN (20:25)
[2017-04-08] MEDS ORDERED: ONDANSETRON HCL INJ/PF 4 MG/2 ML SDV ONE (20:28)
[2017-04-08 23:06] VITALS: BP 132/89
--- NOTE | 2017-04-10 10:20 | Death Summary ---
Summary Date : 04/08/17 Autopsy: No Resuscitation Status: Comfort Measures Only - Final Diagnosis (1) Acute respiratory failure Is this a current diagnosis for this admission?: Yes (2) Aspiration pneumonia Is this a current diagnosis for this admission?: Yes (3) Colon distention Is this a current diagnosis for this admission?: Yes (4) Cerebral palsy Is this a current diagnosis for this admission?: Yes (5) Mental retardation Is this a current diagnosis for this admission?: Yes (6) Seizures Is this a current diagnosis for this admission?: Yes (7) Sinus tachycardia Is this a current diagnosis for this admission?: Yes (8) Sepsis Is this a current diagnosis for this admission?: Yes Hospital Course:: This is a 31-year-old male came to the emergency department because of the respiratory distress and patient was found as usual aspirations pneumonia and also found the volvulusAnd patients was put in the intensive care unit and was intubated and patient underwent for the surgery for the volvulus . Patient's doing okay after the surgery but still was intubated and patient was continues with a several antibiotic Patients have a several hospital admissions for the ongoing chronic aspirations pneumoniaGiven the patient have a G-tube placement Dr. Barrera was consulted and patient was extubated and he discussed with the patient's mom and we all discussed with the patient's momThe patient's need for tracheostomy because of the ongoing problem with respiratory distress and the aspirations pneumonia but the mother does not want to go for any tracheostomy and prefer to go for comfort measures onlyAnd patient was put on the comfort measures and on 04/08/17
== END 2017-04-08 23:40 | disposition expired | DRG 853 ==
LOC: ER 10:49 → EH 15:57 → ICU 18:29
PROVIDERS: ADMIT Family Medicine; ATTEND Family Medicine
PROC: 0BH17EZ Insertion of Endotracheal Airway into Trachea, Via Natural or Artificial Opening (ICD-10-PCS; 2017-03-26)
PROC: 5A1955Z Respiratory Ventilation, Greater than 96 Consecutive Hours (ICD-10-PCS; 2017-03-26)
PROC: 0D1B0ZK Bypass Ileum to Ascending Colon, Open Approach (ICD-10-PCS; 2017-03-27)
PROC: 0DTF0ZZ Resection of Right Large Intestine, Open Approach (ICD-10-PCS; principal; 2017-03-27 13:30)
PROC: 0DH63UZ Insertion of Feeding Device into Stomach, Percutaneous Approach (ICD-10-PCS; 2017-04-05)
PROC: 02HV33Z Insertion of Infusion Device into Superior Vena Cava, Percutaneous Approach (ICD-10-PCS; 2017-04-08)
PROC: B548ZZA Ultrasonography of Superior Vena Cava, Guidance (ICD-10-PCS; 2017-04-08)
DX: A41.9 Sepsis, unspecified organism (principal); J96.01 Acute respiratory failure with hypoxia; J69.0 Pneumonitis due to inhalation of food and vomit; K56.2 Volvulus; R65.21 Severe sepsis with septic shock; G80.9 Cerebral palsy, unspecified; F79 Unspecified intellectual disabilities; G40.909 Epilepsy, unspecified, not intractable, without status epilepticus; R00.0 Tachycardia, unspecified; Z51.5 Encounter for palliative care; E78.5 Hyperlipidemia, unspecified; K21.9 Gastro-esophageal reflux disease without esophagitis; Z79.899 Other long term (current) drug therapy; Z66 Do not resuscitate; Z88.1 Allergy status to other antibiotic agents; Z88.0 Allergy status to penicillin; Z88.8 Allergy status to other drugs, medicaments and biological substances
CPT/HCPCS: 36415; 36430; 49465; 71010; 71275; 74000; 74020; 74177; 76000; 76604; 790; 80048; 80053; 81001; 82271; 82550; 82553; 82803; 82947; 82962; 83605; 83615; 83735; 84100; 84134; 84155; 84478; 84484; 85025; 85027; 85610; 86320; 86850; 86900; 86901; 86920; 87040; 87070; 87077; 87086; 87088; 87186; 87205; 87493; 93005; 93010; 93306; 94002; 94003; 94640; 94660; 94668; 96361; 96365; 96375; 99291; 99292; C1751; J0330; J1450; J1650; J1940; J2060; J2270; J2370; J2405; J2704; J2765; J2997; J3010; J3475; J3480; J3490; J7030; J7060; J7685; P9016; S0028